=== PATIENT | female | born 1945 | race African-American/Black ===

== ENCOUNTER 2016-04-04 10:52 | Inpatient (IN) | payer MEDICARE, MEDICAID ==
[~2016-04-04] VITALS: Ht 157.5 cm; Wt 62.6 kg
[~2016-04-04 10:52] MED LIST: ALBUTEROL2.5 MG/3 M INH; BACTRIM DS TAB1 EAC1 ORAL; BENAZEPRIL HCL10 MG ORAL; HYDROCHLOROTHIA25 MG ORAL; PERCOCET 5-3251 EACH ORAL; TRAMADOL HCL50 MG ORAL; UNOBMED
[2016-04-04] MEDS ORDERED: DuoNeb 0.5-3(2.5)mg/3ml neb HHN ONE (11:00)
[2016-04-04 12:00] VITALS: BP 160/85
[2016-04-04 12:14] LABS: BASOPHILS % (AUTO) 1.8 % (0.0-2.0); EOSINOPHILS % (AUTO) 3.1 % (0.0-3.0); LYMPHOCYTES % (AUTO) 38.1 % (20.0-45.0); MEAN CORPUSCULAR HEMOGLOBIN 29.3 PG (27.0-31.0); MEAN CORPUSCULAR HGB CONC 32.1 G/DL (32.0-36.0); MEAN CORPUSCULAR VOLUME 91 FL (80-99); MEAN PLATELET VOLUME 7.3 FL (6.5-10.1); MONOCYTES % (AUTO) 5.6 % (1.0-10.0); NEUTROPHILS % (AUTO) 51.4 % (45.0-75.0); PLATELET COUNT 118 K/UL (150-450); RED BLOOD COUNT 4.87 M/UL (4.20-5.40); RED CELL DISTRIBUTION WIDTH 12.6 % (11.6-14.8); WHITE BLOOD COUNT 5.9 K/UL (4.8-10.8)
[2016-04-04 12:25] LABS: ABG ALLEN TEST POSITIVE; ABG BASE EXCESS 0.2; ABG PCO2 41.3 mmHg (35.0-45.0)
[2016-04-04 12:34] LABS: ALBUMIN/GLOBULIN RATIO 0.9 (1.0-2.7); CALCIUM 9.6 mg/dL (8.6-10.2); CREATININE 1.1 mg/dL (0.5-0.9); GLOMERULAR FILTRATION RATE 59.5 mL/min (>60); MAGNESIUM 1.7 mg/dL (1.7-2.5); PHOSPHORUS 4.2 mg/dL (2.5-4.8); POTASSIUM 4.6 mEQ/L (3.4-4.9); TOTAL PROTEIN 7.5 g/dL (6.6-8.7); TROPONIN I < 0.30 ng/mL (<=0.30)
[2016-04-04 12:37] LABS: REFLEX LACTIC ACID YES OR NO YES
[2016-04-04 12:45] LABS: CKMB 5.8 ng/mL (< 3.8)
[2016-04-04 13:08] LABS: APPEARANCE,URINE CLEAR; KETONES,URINE NEGATIVE (NEGATIVE); LEUKOCYTE ESTERASE ,URINE NEGATIVE (NEGATIVE); NITRITE,URINE NEGATIVE (NEGATIVE); PH,URINE 6 (4.5-8.0); PROTEIN,URINE 1+ (NEGATIVE); UROBILINOGEN,URINE NORMAL MG/DL (0.0-1.0)
[2016-04-04] MEDS ORDERED: cefTRIAXone 1 GM in NS 55 ML IVPB ONE (13:30)
[2016-04-04 13:48] LABS: BACTERIA,URINE FEW /HPF; SQUAMOUS EPITHELIAL CELL,UR FEW /LPF (NONE/OCC); WBC,URINE 0-2 /HPF (0 - 2)
--- NOTE | 2016-04-04 13:48 | Emergency Room Report ---
History of Present Illness General Chief Complaint: Multiple Trauma/Fall Source: Patient, EMS Present Illness HPI Patient is a 70-year-old female brought in by ambulance after a fall. Patient was noted to have a prior history of some left-sided weakness due to prior neck injury. Patient was noted to have a prior history of COPD. The patient was having some difficulty breathing. History is markedly limited by patient being a poor historian. Patient was reportedly at home when she fell from standing onto her buttocks. There was reportedly no loss of consciousness. Allergies: Coded Allergies: No Known Allergies (Unverified , 11/05/15) Patient History Past Medical History: see triage record Reviewed Nursing Documentation: PMH: Agreed, PSxH: Agreed Nursing Documentation-PMH Hx Cardiac Problems: No Hx Hypertension: Yes Hx Asthma: Yes Hx Diabetes: No Hx Cancer: No Hx Gastrointestinal Problems: No Hx Dialysis: No History Of Psychiatric Problem: No Hx Neurological Problems: No Hx Cerebrovascular Accident: No Hx Seizures: No Review of Systems All Other Systems: negative except mentioned in HPI Physical Exam Vital Signs Date Time Temp Pulse Resp B/P Pulse Ox O2 Delivery O2 Flow Rate FiO2 04/04/16 10:55 98.1 78 16 140/80 99 Room Air 04/04/16 11:16 21 Sp02 EP Interpretation: normal General Appearance: alert, moderate distress, other - confused ENT: hearing grossly normal, normal pharynx, dry mucus membranes Neck: limited range of motion Respiratory: no rhonchi, wheezing, expiration Cardiovascular #1: normal peripheral pulses, other - tachycardia Gastrointestinal: normal bowel sounds, soft, no mass Musculoskeletal: swelling - left ankle swelling], other Neurologic: alert, oriented x3, responsive, motor weakness - left upper extremity weakness Skin: normal inspection, normal color Medical Decision Making Diagnostic Impression: Primary Impression: Cervical spinal stenosis Additional Impressions: Fever Malnutrition COPD (chronic obstructive pulmonary disease) Dehydration ER Course Patient presented for fall. Differential diagnoses included was not limited to pelvic fracture, infection, diverticulitis, vascular insufficiency among others. The patient was noted to have some soft tissue swelling to her pelvis. Patient noted have some tenderness to her lower abdomen. A CT abdomen and pelvis was ordered. Patient noted a low-grade temperature. Patient was given IV fluids and breathing treatment due to dehydration. The patient given IV antibiotics after blood culture obtained. The lactic acid level was noted to be 2 the patient discussed with Dr. Byran who agreed to admit the patient Labs Test 04/04/16 12:10 04/04/16 12:17 04/04/16 12:53 White Blood Count 5.9 K/UL (4.8-10.8) Red Blood Count 4.87 M/UL (4.20-5.40) Hemoglobin 14.3 G/DL (12.0-16.0) Hematocrit 44.4 % (37.0-47.0) Mean Corpuscular Volume 91 FL (80-99) Mean Corpuscular Hemoglobin 29.3 PG (27.0-31.0) Mean Corpuscular Hemoglobin Concent 32.1 G/DL (32.0-36.0) Red Cell Distribution Width 12.6 % (11.6-14.8) Platelet Count 118 K/UL (150-450) Mean Platelet Volume 7.3 FL (6.5-10.1) Neutrophils (%) (Auto) 51.4 % (45.0-75.0) Lymphocytes (%) (Auto) 38.1 % (20.0-45.0) Monocytes (%) (Auto) 5.6 % (1.0-10.0) Eosinophils (%) (Auto) 3.1 % (0.0-3.0) Basophils (%) (Auto) 1.8 % (0.0-2.0) Sodium Level 143 mEQ/L (135-145) Potassium Level 4.6 mEQ/L (3.4-4.9) Chloride Level 101 mEQ/L (98-107) Carbon Dioxide Level 24 mEQ/L (20-30) Anion Gap 18 (5-15) Blood Urea Nitrogen 30 mg/dL (7-23) Creatinine 1.1 mg/dL (0.5-0.9) Estimat Glomerular Filtration Rate 59.5 mL/min (>60) Glucose Level 80 mg/dL (74-106) Lactic Acid Level 2.00 mmol/L (0.66-2.22) Calcium Level 9.6 mg/dL (8.6-10.2) Phosphorus Level 4.2 mg/dL (2.5-4.8) Magnesium Level 1.7 mg/dL (1.7-2.5) Total Bilirubin 0.4 mg/dL (0.0-1.2) Aspartate Amino Transf (AST/SGOT) 47 U/L (5-40) Alanine Aminotransferase (ALT/SGPT) 32 U/L (3-33) Alkaline Phosphatase 86 U/L (35-104) Total Creatine Kinase 368 U/L (26-140) Creatine Kinase MB 5.8 ng/mL (< 3.8) Creatine Kinase MB Relative Index 1.5 Troponin I < 0.30 ng/mL (<=0.30) Pro-B-Type Natriuretic Peptide 188 pg/mL (0-125) Total Protein 7.5 g/dL (6.6-8.7) Albumin 3.6 g/dL (3.5-5.2) Globulin 3.9 g/dL Albumin/Globulin Ratio 0.9 (1.0-2.7) Arterial Blood pH 7.401 (7.350-7.450) Arterial Blood Partial Pressure CO2 41.3 mmHg (35.0-45.0) Arterial Blood Partial Pressure O2 79.0 mmHg (75.0-100.0) Arterial Blood HCO3 25.0 mmol/L (22.0-26.0) Arterial Blood Oxygen Saturation 93.4 % (92.0-98.0) Arterial Blood Base Excess 0.2 Alfredo Test Positive Urine Color Yellow Urine Appearance Clear Urine pH 6 (4.5-8.0) Urine Specific [place] 1.015 (1.005-1.035) Urine Protein 1+ (NEGATIVE) Urine Glucose (UA) Negative (NEGATIVE) Urine Ketones Negative (NEGATIVE) Urine Occult Blood 2+ (NEGATIVE) Urine Nitrite Negative (NEGATIVE) Urine Bilirubin Negative (NEGATIVE) Urine Urobilinogen Normal MG/DL (0.0-1.0) Urine Leukocyte Esterase Negative (NEGATIVE) Urine RBC 2-4 /HPF (0 - 2) Urine WBC 0-2 /HPF (0 - 2) Urine Squamous Epithelial Cells Few /LPF (NONE/OCC) Urine Bacteria Few /HPF (NONE) EKG Diagnostic Results Rate: tachycardiac Rhythm: NSR - 117 ST Segments: no acute changes ASA given to the pt in ED: No Rhythm Strip Diag. Results EP Interpretation: yes Rhythm: no PVC's, no ectopy - sinus tachycardia Chest X-Ray Diagnostic Results EP Interpretation: Yes Findings: no consolidation, no effusion, no pneumothorax, no acute cardiopulmonary disease Number of Views: 1 Last Vital Signs Date Time Temp Pulse Resp B/P Pulse Ox O2 Delivery O2 Flow Rate FiO2 04/04/16 12:42 100.1 04/04/16 12:00 104 21 160/85 98 Room Air 04/04/16 11:27 28 Status: unchanged Disposition: ADMITTED INPATIENT Condition: Serious Referrals: NOT CHOSEN IPA/,REFERRING (PCP) Harshal Brown Apr 04, 2016 13:48
[2016-04-04] MEDS ORDERED: UNOBMED (13:55)
[2016-04-04 15:00] VITALS: BP 161/73
--- NOTE | 2016-04-04 15:08 | Diagnostic Imaging Report ---
Clinical Indication: FALL, pain Technique: No oral contrast utilized, per emergency room physician request IV administration nonionic contrast. Venous phase spiral acquisition obtained through the abdomen and pelvis. Multiplanar reconstructions were generated. Total dose length product 6 and a mGycm. CTDIvol(s) 14 mGy Comparison: 11/21/2015 Findings: The lack of enteric contrast limits evaluation of the bowel. The appendix is normal. There is colonic diverticulosis. No evidence of acute diverticulitis. There is mild rectal distention with stool. No small bowel distention. No free or loculated intraperitoneal air or fluid is evident. There are fascial wire sutures in the upper pelvic midline. The distal esophagus, stomach, duodenum are grossly unremarkable., Posterior dependent pulmonary atelectatic changes previously described acute colonic fat stranding is no longer evident. The gallbladder, bile ducts, liver, pancreas, spleen, adrenals, right kidney are unremarkable. Left kidney demonstrates subcentimeter low-attenuation lesions which are too small to characterize. No retroperitoneal or mesenteric mass or adenopathy. No pelvic mass or adenopathy. The uterus is not visualized, presumed surgically absent. A Elias catheter is seen within the bladder, which is empty. The included lung bases demonstrate some posterior dependent atelectatic change. The bones demonstrate a compression fracture deformity of the L1 vertebral body which was evident previously. There is degenerative spondylosis. Impression: No definite acute process Diverticulosis without evidence of diverticulitis L1 vertebral body compression fracture deformity, also previously described Subcentimeter low-attenuation left renal lesions, too small to characterize, most likely benign simple cyst. No further followup necessary Other findings as noted, including surgically absent uterus, Elias catheter, degenerative spondylosis The CT scanner at [facility] is accredited by the [employer] and the scans are performed using protocols designed to limit radiation exposure to as low as reasonably achievable to attain images of sufficient resolution adequate for diagnostic evaluation.
--- NOTE | 2016-04-04 16:10 | Diagnostic Imaging Report ---
Indication: SOB, cough Technique: One view of the chest Comparison: 11/23/2015 Findings: Lungs and pleural spaces are clear. Heart size is normal no significant change Impression: No acute process
[2016-04-04 16:24] VITALS: BP 156/75
--- NOTE | 2016-04-04 17:21 | Diagnostic Imaging Report ---
Indication: PAIN Technique: 3 views of the left ankle Comparison: none Findings: There is lateral soft tissue swelling. No acute fractures. No dislocations. Joint spaces are preserved. Bones are demineralized. Impression: Evidence of lateral soft tissue injury. No acute bony trauma. Osteoporotic change
[2016-04-04] MEDS ORDERED: Acetaminophen 650 MG SUPP RECTAL PRN (17:30)
[2016-04-04] MEDS ORDERED: DuoNeb 0.5-3(2.5)mg/3ml neb HHN PRN (17:30)
--- NOTE | 2016-04-04 19:10 | Neurology Progress Note ---
Objective Physical Exam Last Vital Signs Date Time Temp Pulse Resp B/P Pulse Ox O2 Delivery O2 Flow Rate FiO2 04/04/16 16:24 98.6 93 18 156/75 94 Room Air 04/04/16 15:54 28 Laboratory Tests Test 04/04/16 12:10 04/04/16 12:17 04/04/16 12:53 04/04/16 15:15 White Blood Count 5.9 K/UL (4.8-10.8) Red Blood Count 4.87 M/UL (4.20-5.40) Hemoglobin 14.3 G/DL (12.0-16.0) Hematocrit 44.4 % (37.0-47.0) Mean Corpuscular Volume 91 FL (80-99) Mean Corpuscular Hemoglobin 29.3 PG (27.0-31.0) Mean Corpuscular Hemoglobin Concent 32.1 G/DL (32.0-36.0) Red Cell Distribution Width 12.6 % (11.6-14.8) Platelet Count 118 K/UL (150-450) L Mean Platelet Volume 7.3 FL (6.5-10.1) Neutrophils (%) (Auto) 51.4 % (45.0-75.0) Lymphocytes (%) (Auto) 38.1 % (20.0-45.0) Monocytes (%) (Auto) 5.6 % (1.0-10.0) Eosinophils (%) (Auto) 3.1 % (0.0-3.0) H Basophils (%) (Auto) 1.8 % (0.0-2.0) Sodium Level 143 mEQ/L (135-145) Potassium Level 4.6 mEQ/L (3.4-4.9) Chloride Level 101 mEQ/L (98-107) Carbon Dioxide Level 24 mEQ/L (20-30) Anion Gap 18 (5-15) H Blood Urea Nitrogen 30 mg/dL (7-23) H Creatinine 1.1 mg/dL (0.5-0.9) H Estimat Glomerular Filtration Rate 59.5 mL/min (>60) Glucose Level 80 mg/dL (74-106) Lactic Acid Level 2.00 mmol/L (0.66-2.22) 0.80 mmol/L (0.66-2.22) Calcium Level 9.6 mg/dL (8.6-10.2) Phosphorus Level 4.2 mg/dL (2.5-4.8) Magnesium Level 1.7 mg/dL (1.7-2.5) Total Bilirubin 0.4 mg/dL (0.0-1.2) Aspartate Amino Transf (AST/SGOT) 47 U/L (5-40) H Alanine Aminotransferase (ALT/SGPT) 32 U/L (3-33) Alkaline Phosphatase 86 U/L (35-104) Total Creatine Kinase 368 U/L (26-140) H Creatine Kinase MB 5.8 ng/mL (< 3.8) H Creatine Kinase MB Relative Index 1.5 Troponin I < 0.30 ng/mL (<=0.30) Pro-B-Type Natriuretic Peptide 188 pg/mL (0-125) H Total Protein 7.5 g/dL (6.6-8.7) Albumin 3.6 g/dL (3.5-5.2) Globulin 3.9 g/dL Albumin/Globulin Ratio 0.9 (1.0-2.7) L Arterial Blood pH 7.401 (7.350-7.450) Arterial Blood Partial Pressure CO2 41.3 mmHg (35.0-45.0) Arterial Blood Partial Pressure O2 79.0 mmHg (75.0-100.0) Arterial Blood HCO3 25.0 mmol/L (22.0-26.0) Arterial Blood Oxygen Saturation 93.4 % (92.0-98.0) Arterial Blood Base Excess 0.2 Alfredo Test Positive Urine Color Yellow Urine Appearance Clear Urine pH 6 (4.5-8.0) Urine Specific [place] 1.015 (1.005-1.035) Urine Protein 1+ (NEGATIVE) H Urine Glucose (UA) Negative (NEGATIVE) Urine Ketones Negative (NEGATIVE) Urine Occult Blood 2+ (NEGATIVE) H Urine Nitrite Negative (NEGATIVE) Urine Bilirubin Negative (NEGATIVE) Urine Urobilinogen Normal MG/DL (0.0-1.0) Urine Leukocyte Esterase Negative (NEGATIVE) Urine RBC 2-4 /HPF (0 - 2) H Urine WBC 0-2 /HPF (0 - 2) Urine Squamous Epithelial Cells Few /LPF (NONE/OCC) Urine Bacteria Few /HPF (NONE) Test 04/04/16 17:40 Urine Opiates Screen Positive (NEGATIVE) H Urine Barbiturates Screen Negative (NEGATIVE) Phencyclidine (PCP) Screen Negative (NEGATIVE) Urine Amphetamines Screen Negative (NEGATIVE) Urine Benzodiazepines Screen Positive (NEGATIVE) H Urine Cocaine Screen Negative (NEGATIVE) Urine Marijuana (THC) Screen Negative (NEGATIVE) Impression/Recommendations Problems: (1) 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
[2016-04-04] MEDS: 1/2NS w/KCl 20mEq 1000ml 1,000 ML IV SCH (19:12)
[2016-04-04 20:00] VITALS: BP 156/77
[2016-04-04 20:46] LABS: CHOLESTEROL/HDL RATIO 1.8 (3.3-4.4)
[2016-04-04] MEDS: Heparin 5000 units/ml inj SUBQ SCH (21:32)
[2016-04-05] VITALS (7 sets, daily range): BP systolic 157–176; BP diastolic 71–97
--- NOTE | 2016-04-05 00:09 | History and Physical Report ---
DATE OF ADMISSION: 04/04/2016 CHIEF COMPLAINT: Altered level of consciousness and fall. HISTORY OF PRESENT ILLNESS: This is a 70-year-old female who was brought in by ambulance after a fall and left left-sided weakness. This is a 70-year-old female who was brought in by paramedics after a left-sided weakness prior to a neck injury. The patient currently is nonverbal. She is barely mourning. She is admitted to telemetry after staying in the emergency department. PAST MEDICAL HISTORY: 1. Chronic obstructive pulmonary disease. 2. Congestive heart failure. 3. Hypertensive cardiovascular disease. HOME MEDICATIONS: Albuterol inhaler, benazepril, and hydrochlorothiazide. ALLERGIES: No known drug allergies. FAMILY HISTORY: Unable to obtain secondary to mental status. SOCIAL HISTORY: Unable to obtain secondary to mental status. REVIEW OF SYSTEMS: Unable to obtain secondary to mental status. PHYSICAL EXAMINATION: GENERAL: This is an elderly female who is in no acute distress. VITAL SIGNS: Blood pressure 156/75, pulse 93 apical, temperature 98.6 degrees axillary, and O2 saturation 94% on room air. HEENT: The head is normocephalic and atraumatic. Pupils are equal, round, and reactive to light and accommodation consensually. NECK: Supple. Trachea midline. There was no lymphadenopathy or thyromegaly. LUNGS: Clear to auscultation and percussion. HEART: Regular rate and rhythm without rubs, murmurs, or gallops. ABDOMEN: Soft and nontender. Bowel sounds were active. EXTREMITIES: No clubbing, cyanosis, or edema. NEUROLOGIC: She is confused. There were no lateralizing signs. LABORATORY AND ANCILLARY DATA: CBC within normal limits. Serum chemistry, lactic acid 2 and then 0.8. CPK 368, otherwise unremarkable. BUN 30. ABGs unremarkable. CT of the abdomen and pelves, no acute process or diverticulosis. EKG showed sinus tachycardia, no signs of ischemia. Ankle x-ray, no acute findings. Chest x-ray, no acute process. ASSESSMENT: Altered level of consciousness, rule out acute cerebrovascular accident, rule out transient ischemic attack, rule out intoxication. PLAN: 1. Toxicology screen. 2. CT scan of brain. 3. Neurology consult. 4. Keep NPO. 5. Intravenous fluids. 6. Rule out sepsis. Shantel Baker M.D. DR: ADOLPH JOB#: [id number] CC:
[2016-04-05] MEDS: 1/2NS w/KCl 20mEq 1000ml 1,000 ML IV SCH ×2 (06:16→20:11)
--- NOTE | 2016-04-05 06:29 | Consultation ---
DATE OF CONSULTATION: 04/04/2016 NEUROLOGICAL CONSULTATION CONSULTING PHYSICIAN: Kevin Peguero M.D. REQUESTING PHYSICIAN: Shantel Baker M.D. HISTORY OF PRESENT ILLNESS: This is a 70-year-old female, seen in neurological consultation to evaluate new onset of mechanical fall, change in mental status, according to paramedics, she was fully awake and alert with a Arik Coma Scale of 15, complaining of upper buttock pain from ground fall, she was using bathroom when she slipped and fell with no loss of consciousness with no head, neck, or back pain and no evidence of trauma noted. Her vital signs were stable except blood pressure 156/100 and respirations 16. The patient was brought to emergency room, history was quite limited due to the patient being poor historian. The patient denies having loss of consciousness. Her vital signs remained stable. She was afebrile. Her initial laboratory work included normal CBC studies; chemistry panel, except BUN of 30 and creatinine 1.1, elevated CK of 368, CK-MB 5.8, and BNP of 588, her toxicology panel positive for benzodiazepines and opiates, urinalysis 1+ protein. Chest x-ray, no acute disease, CAT scan of the abdomen and pelvis revealed no definitive acute process, L1 vertebral body compression fracture deformity as previously, and her ankle fracture, soft tissue injury. Since admission, mental status changes. The patient remains quite drowsy. PAST MEDICAL HISTORY: The patient has a history of COPD, history of cervical spine stenosis with left hemiparesis, history of hypertension, and bronchial asthma. MEDICATIONS: Treatment prior to admission included albuterol, benazepril, and hydrochlorothiazide. Apparently added Zofran . ALLERGIES: None reported. SOCIAL HISTORY: Denies alcohol or drug abuse. . FAMILY HISTORY: Noncontributory. REVIEW OF SYMPTOMS: The patient was found to be very drowsy, but arousable, able to provide with limited information. Denies headache, dizziness, and chest pains. No respiratory problems, but complains of severe constipation, difficulty ambulation, and "I have this left-sided paralysis." PHYSICAL EXAMINATION: GENERAL: A well-developed and well-nourished female, lying comfortably in bed. She is quite drowsy. VITAL SIGNS: Now are stable. Her blood pressure 156/75 and respirations 18. HEENT: Head, normocephalic. No evidence of injuries. Eyes, ears, nose, and throat are clear. NECK: Rigid in all directions. MUSCULOSKELETAL: Revealed diffuse rigidity, more towards the left. MENTAL STATUS: The patient is arousable, has a brief contact indicating yes or no responses, and able to follow simple commands. CRANIAL NERVE II: Pupils both responding to light and accommodation. Extraocular movement intact. No nystagmus. CRANIAL NERVE V: Normal corneal responses. CRANIAL NERVE VII: No significant facial asymmetry. CRANIAL NERVE VIII: Normal hearing. CRANIAL NERVES IX THROUGH XII: Tongue in the midline. Symmetric palate elevation. MOTOR EXAMINATION: Revealed diffuse rigidity in all extremities, more on the left, resisting to examination with a good strength in all limbs. Deep tendon reflexes depressed bilaterally. Plantar response is mute. Sensory examination withdrawing to pin stimulation in both upper and lower extremities, gait not tested. IMPRESSION: 1. This is a 70-year-old female with a history of mechanical fall, blunt gluteal trauma, now presenting with lethargy. 2. Spastic quadriparesis more on the left, rule out cervical myelopathy, chronic. 3. Hypertension. 4. Chronic obstructive pulmonary disease. 5. Malnutrition, dehydration. RECOMMENDATIONS: 1. The patient to start on IV fluids and antibiotics to cover underlying dehydration and possible ongoing infection. 2. She has significant generalized rigidity predominantly on the left side, which was a history of cervical spondylosis. Cervical spinal stenosis may indicate myelopathy. 3. The patient to be off sedation, reassess in a.m., had orthostatic blood pressure, get PT and OT for mobility protocol, consider obtaining MRI of the cervical spine (MRI of thoracic spine and lumbar spine were done a few months ago with no cord compression). 4. Baseline MRI of the brain will be also necessary in presence of left-sided hemiparesis. 5. The patient to continue with current treatment including aspirin and statins. We will follow with you. Thank you for allowing me to see this interesting patient in neurological consultation. Kevin Peguero M.D. DR: VINH JOB#: [id number] CC:
[2016-04-05] MEDS: Heparin 5000 units/ml inj SUBQ SCH ×2 (08:24→20:11)
[2016-04-05] MEDS: Pantoprazole Inj IV SCH (08:49)
[2016-04-05] MEDS ORDERED: GABAPENTIN600 MG ORAL (12:40)
[2016-04-05] MEDS ORDERED: ACETAMINOPHEN-1 EAC2 ORAL (12:40)
[2016-04-05] MEDS ORDERED: AMBIEN5 MG ORAL (12:40)
--- NOTE | 2016-04-05 13:10 | General Progress Note ---
Assessment/Plan Assessment/Plan AMS secondary to Narcotics + Benzodiazepines. Urine Tox Screen Positive. Scrap Picker to be involved. Subjective Allergies: Coded Allergies: No Known Allergies (Unverified , 11/05/15) Subjective More alert. Objective Last 24 Hour Vital Signs Date Time Temp Pulse Resp B/P Pulse Ox O2 Delivery O2 Flow Rate FiO2 04/05/16 08:00 89 04/05/16 08:00 98.2 88 18 176/76 95 Room Air 04/05/16 06:30 120 20 Room Air 28 04/05/16 04:00 99.5 103 20 164/97 96 Room Air 04/05/16 04:00 88 04/05/16 00:00 98.6 87 20 159/71 96 Room Air 04/05/16 00:00 83 04/04/16 20:09 99 04/04/16 20:00 98.7 95 20 156/77 99 Room Air 04/04/16 16:35 108 04/04/16 16:24 98.6 93 18 156/75 94 Room Air 04/04/16 15:54 99.5 105 20 161/73 97 Room Air 28 04/04/16 15:00 99.5 105 20 161/73 97 Room Air 04/04/16 14:17 99.5 Intake and Output 04/04/16 04/05/16 19:00 07:00 Intake Total 1055 ml 828 ml Output Total 500 ml 600 ml Balance 555 ml 228 ml Intake IV Total 1055 ml 828 ml Output Urine Total 500 ml 600 ml # Bowel Movements 1 1 Laboratory Tests 04/04/16 15:15: Lactic Acid Level 0.80 04/04/16 17:40: Urine Opiates Screen PositiveH, Urine Barbiturates Screen Negative, Phencyclidine (PCP) Screen Negative, Urine Amphetamines Screen Negative, Urine Benzodiazepines Screen PositiveH, Urine Cocaine Screen Negative, Urine Marijuana (THC) Screen Negative 04/04/16 19:45: Triglycerides Level 55, Cholesterol Level 125, LDL Cholesterol 43L, HDL Cholesterol 71H, Cholesterol/HDL Ratio 1.8L, Vitamin B12 Level 678 Height (Feet): 5 Height (Inches): 2.00 Weight (Pounds): 138 Objective Cv RR Lungs CTA Abd SNT. BS+ E No CCE ALBERT NICHOLSON Apr 05, 2016 13:10
--- NOTE | 2016-04-05 14:36 | Cardiology Report ---
APPROVED REPORT EKG Measurement Heart [id number] Sinus tachycardia Possible Left atrial enlargement Septal infarct, age undetermined Abnormal ECG
--- NOTE | 2016-04-05 15:13 | Neurology Progress Note ---
Interim History Interim History ROS Limited/Unobtainable: Yes Complaints: headache Events: stable Objective Physical Exam Last Vital Signs Date Time Temp Pulse Resp B/P Pulse Ox O2 Delivery O2 Flow Rate FiO2 04/05/16 12:00 98 04/05/16 12:00 98.4 18 157/79 96 Room Air 04/05/16 06:30 28 Laboratory Tests Test 04/04/16 15:15 04/04/16 17:40 04/04/16 19:45 Lactic Acid Level 0.80 mmol/L (0.66-2.22) Urine Opiates Screen Positive (NEGATIVE) H Urine Barbiturates Screen Negative (NEGATIVE) Phencyclidine (PCP) Screen Negative (NEGATIVE) Urine Amphetamines Screen Negative (NEGATIVE) Urine Benzodiazepines Screen Positive (NEGATIVE) H Urine Cocaine Screen Negative (NEGATIVE) Urine Marijuana (THC) Screen Negative (NEGATIVE) Triglycerides Level 55 mg/dL (< 150) Cholesterol Level 125 mg/dL (< 200) LDL Cholesterol 43 mg/dL (60-99) L HDL Cholesterol 71 mg/dL (> 60) H Cholesterol/HDL Ratio 1.8 (3.3-4.4) L Vitamin B12 Level 678 pg/mL (211-946) General: well developed, no acute distress, other - cachectic Head: normocophalic, other - tender occiput Neck: other - rigid Neurologic Exam Mental Status: awake, alert, other - ox2 Speech: normal speech, no dysarthia Language: normal language, no aphasia Cranial Nerve II: fundus normal, visual molina, no papilledema Cranial Nerves III, IV, : PERRLA, EOMI, pupils Cranial Nerve V: normal facial sensations, temporales function normal, masseters function normal, pterygoids function normal Cranial Nerve VII: no facial asymmetry, normal facial expressions Cranial Nerve VIII: normal hearing, no nystagmus Cranial Nerve IX: normal palate elevation, gag response Cranial Nerve X: no voice hoarseness Cranial Nerve XI: SCM symmetric, trapezii function normal Cranial Nerve XII: tongue midline, no tongue atrophy/fasciculations Motor System: other - spastic L>Rlimbs Sensory: other Coordination: other Deep Tendon Reflexes: 0 ankle (L), 0 ankle (R), 0 bicep (L), 0 bicep (R), 0 brachioradialis (L), 0 brachioradialis (R), 0 knee (L), 0 knee (R), 0 tricep (L) , 0 tricep (R) Reflexes: mute plantar (L), mute plantar (R) Impression/Recommendations Problems: (1) 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
[2016-04-05] MEDS ORDERED: Zolpidem 5mg tab ORAL PRN (21:00)
[2016-04-05] MEDS ORDERED: BENAZEPRIL HCL40 MG ORAL (21:53)
[2016-04-06 00:12] VITALS: BP 145/74
[2016-04-06 04:05] VITALS: BP 159/75
[2016-04-06] MEDS: 1/2NS w/KCl 20mEq 1000ml 1,000 ML IV SCH ×2 (06:59→21:18)
[2016-04-06 07:59] VITALS: BP 162/89
[2016-04-06] MEDS: Heparin 5000 units/ml inj SUBQ SCH ×2 (08:49→20:54)
[2016-04-06] MEDS: Pantoprazole Inj IV SCH (08:49)
--- NOTE | 2016-04-06 09:13 | General Progress Note ---
Assessment/Plan Assessment/Plan AMS secondary to Narcotics + Benzodiazepines. Urine Tox Screen Positive. Ice Guard Tester to be involved. Subjective Allergies: Coded Allergies: No Known Allergies (Unverified , 11/05/15) Subjective More alert. Objective Last 24 Hour Vital Signs Date Time Temp Pulse Resp B/P Pulse Ox O2 Delivery O2 Flow Rate FiO2 04/06/16 08:47 162/89 04/06/16 07:59 97.7 90 18 162/89 98 Room Air 04/06/16 07:58 78 20 Room Air 21 04/06/16 04:05 99.0 95 18 159/75 95 Room Air 04/06/16 04:00 92 04/06/16 00:12 99.3 100 19 145/74 100 Room Air 04/06/16 00:00 92 04/05/16 22:29 176/82 04/05/16 20:00 91 04/05/16 20:00 97.2 87 18 176/82 92 Room Air 04/05/16 19:30 102 20 Room Air 21 04/05/16 18:05 159/74 04/05/16 17:00 98.4 89 20 159/74 99 Room Air 04/05/16 16:00 99.9 109 20 170/77 99 Room Air 04/05/16 16:00 110 04/05/16 12:00 98 04/05/16 12:00 98.4 98 18 157/79 96 Room Air Intake and Output 04/05/16 04/06/16 19:00 07:00 Intake Total 900 ml 825 ml Output Total 355 ml 1200 ml Balance 545 ml -375 ml Intake IV Total 900 ml 825 ml Output Urine Total 355 ml 1200 ml # Bowel Movements 2 Height (Feet): 5 Height (Inches): 2.00 Weight (Pounds): 138 Objective Cv RR Lungs CTA Abd SNT. BS+ E No CCE ALBERT NICHOLSON Apr 06, 2016 09:13
[2016-04-06 11:17] VITALS: BP 163/79
[2016-04-06 16:00] VITALS: BP 114/89
[2016-04-06 20:00] VITALS: BP 149/68
[2016-04-07 00:17] VITALS: BP 155/72
[2016-04-07 04:20] VITALS: BP 151/70
[2016-04-07 07:56] VITALS: BP 160/78
[2016-04-07] MEDS: Heparin 5000 units/ml inj SUBQ SCH ×2 (09:00→21:00)
[2016-04-07] MEDS: Pantoprazole Inj IV SCH (09:26)
[2016-04-07 12:03] VITALS: BP 149/78
--- NOTE | 2016-04-07 13:24 | General Progress Note ---
Assessment/Plan Assessment/Plan AMS secondary to Narcotics + Benzodiazepines. Urine Tox Screen Positive. Sales Branch Manager to be involved. Unsafe for DC. Needs a sitter + Psych Eval. Subjective Allergies: Coded Allergies: No Known Allergies (Unverified , 11/05/15) Subjective More alert.Patient expressing suicidal ideation. Objective Last 24 Hour Vital Signs Date Time Temp Pulse Resp B/P Pulse Ox O2 Delivery O2 Flow Rate FiO2 04/07/16 12:03 98.1 81 20 149/78 100 Room Air 04/07/16 11:59 76 149/78 04/07/16 11:41 89 04/07/16 09:25 160/78 04/07/16 07:56 98.1 76 20 160/78 99 Room Air 04/07/16 07:37 77 04/07/16 07:21 91 17 Room Air 21 04/07/16 04:20 97.5 75 20 151/70 96 Room Air 04/07/16 04:00 74 04/07/16 00:17 98.2 75 18 155/72 95 Room Air 04/07/16 00:00 77 04/06/16 20:00 81 18 Room Air 21 04/06/16 20:00 98.2 81 18 149/68 93 Room Air 04/06/16 20:00 84 04/06/16 19:01 114/89 04/06/16 16:00 98.1 78 18 114/89 95 Room Air 04/06/16 16:00 59 Intake and Output 04/06/16 04/07/16 19:00 07:00 Intake Total 900 ml 877.5 ml Output Total 500 ml 2000 ml Balance 400 ml -1122.5 ml IV Total 900 ml 877.5 ml Output Urine Total 500 ml 2000 ml # Bowel Movements 1 Height (Feet): 5 Height (Inches): 2.00 Weight (Pounds): 138 Objective Cv RR Lungs CTA Abd SNT. BS+ E No CCE ALBERT NICHOLSON Apr 07, 2016 13:23
[2016-04-07] MEDS: 1/2NS w/KCl 20mEq 1000ml 1,000 ML IV SCH (13:36)
[2016-04-07 16:23] VITALS: BP 144/60
[2016-04-07 20:00] VITALS: BP 145/65
[2016-04-08 00:17] VITALS: BP 119/59
[2016-04-08] MEDS: 1/2NS w/KCl 20mEq 1000ml 1,000 ML IV SCH ×2 (03:47→16:55)
[2016-04-08 04:05] VITALS: BP 134/65
[2016-04-08 08:00] VITALS: BP 139/69
[2016-04-08] MEDS: Pantoprazole Inj IV SCH (08:56)
[2016-04-08] MEDS: Heparin 5000 units/ml inj SUBQ SCH ×2 (08:56→21:00)
--- NOTE | 2016-04-08 10:06 | General Progress Note ---
Assessment/Plan Assessment/Plan AMS secondary to Narcotics + Benzodiazepines. Urine Tox Screen Positive. Craft Center Director to be involved. Unsafe for DC. Needs a sitter + Psych Eval. No note seen. DW Dr. Vyas. OK For Med Surg. Subjective Allergies: Coded Allergies: No Known Allergies (Unverified , 11/05/15) Subjective More alert.Patient expressing suicidal ideation. Objective Last 24 Hour Vital Signs Date Time Temp Pulse Resp B/P Pulse Ox O2 Delivery O2 Flow Rate FiO2 04/08/16 08:51 75 139/69 04/08/16 08:51 139/69 04/08/16 08:00 74 04/08/16 08:00 98.2 75 17 139/69 96 Room Air 04/08/16 07:55 77 18 Room Air 21 04/08/16 04:05 97.0 77 20 134/65 95 Room Air 04/08/16 03:40 72 04/08/16 00:17 97.0 72 20 119/59 94 Room Air 04/07/16 23:53 75 04/07/16 21:00 75 145/65 04/07/16 20:00 97.7 75 20 145/65 95 Room Air 04/07/16 19:46 79 04/07/16 19:44 82 18 Room Air 21 04/07/16 17:47 144/60 04/07/16 16:23 98.0 76 20 144/60 97 Room Air 04/07/16 16:17 75 04/07/16 12:03 98.1 81 20 149/78 100 Room Air 04/07/16 11:59 76 149/78 04/07/16 11:41 89 Intake and Output 04/07/16 04/08/16 19:00 07:00 Intake Total 1057.5 ml 750 ml Output Total 1000 ml 900 ml Balance 57.5 ml -150 ml Intake Oral 410 ml IV Total 647.5 ml 750 ml Output Urine Total 1000 ml 900 ml # Bowel Movements 2 Height (Feet): 5 Height (Inches): 2.00 Weight (Pounds): 138 Objective Cv RR Lungs CTA Abd SNT. BS+ E No CCE ALBERT NICHOLSON Apr 08, 2016 10:06
[2016-04-08 12:00] VITALS: BP 138/63
[2016-04-08 16:00] VITALS: BP 106/44
[2016-04-08 20:00] VITALS: BP 122/62
[2016-04-09] VITALS (7 sets, daily range): BP systolic 131–164; BP diastolic 61–74
--- NOTE | 2016-04-09 00:24 | Consultation ---
Consult Note Consult Note The pt was seen and evaluated 04/07 at [facility] and the note was dictated after the eval however it is not available yet. I have called [facility] and the medical record is working on it. The pt was lucid earlier during the day however during my evaluation she was drowsy. There was a sitter in the room who was assigned to bed 2. the pt stated that she was suicidal then she stated she was not. her mother passed two days ago and apparently the pt has been fighting with her daughter for not visiting her at the hospital the pt is not mobile and is bed-ridden. I ordered sitter as well as pet team eval. today the pt stated that she is grieving over her mother's and is not suicidal. Her daughter is willing to take her back and stay with her. I do recommend the pt to be transferred to a [facility]. the pt has capacity to make decisions. And the pt is at low risk for danger to self. Lisbeth Vyas M.D. Apr 09, 2016 00:24
[2016-04-09] MEDS: 1/2NS w/KCl 20mEq 1000ml 1,000 ML IV SCH ×2 (06:03→18:08)
[2016-04-09] MEDS: Pantoprazole Inj IV SCH (08:47)
[2016-04-09] MEDS: Heparin 5000 units/ml inj SUBQ SCH ×2 (08:50→21:42)
--- NOTE | 2016-04-09 10:55 | General Progress Note ---
Assessment/Plan Assessment/Plan 1) AMS 2) HTN 3) COPD 4) ?CHF Plan per --psych recommended to dc to SNF as pt is not safe to dc home CM consult for SNF placement was placed Discussed with charged nurse ewa William Subjective Allergies: Coded Allergies: No Known Allergies (Unverified , 11/05/15) Subjective No acute event Objective Last 24 Hour Vital Signs Date Time Temp Pulse Resp B/P Pulse Ox O2 Delivery O2 Flow Rate FiO2 04/09/16 08:49 73 164/73 04/09/16 08:49 164/73 04/09/16 08:15 97.9 73 21 164/73 95 Nasal Cannula 2.0 04/09/16 08:00 77 04/09/16 06:49 81 20 Room Air 04/09/16 04:00 97.5 69 16 143/67 95 Room Air 04/09/16 04:00 69 04/09/16 00:00 72 04/09/16 00:00 97.9 69 16 148/62 97 Room Air 04/08/16 22:23 82 122/62 04/08/16 20:05 82 18 Room Air 21 04/08/16 20:00 79 04/08/16 20:00 97.6 74 21 122/62 99 Room Air 04/08/16 17:52 106/44 04/08/16 16:00 77 04/08/16 16:00 98.0 69 20 106/44 97 Room Air 04/08/16 12:00 97.9 72 17 138/63 97 Room Air 04/08/16 12:00 74 Intake and Output 04/08/16 04/09/16 19:00 07:00 Intake Total 1291 ml 1085 ml Output Total 850 ml 2400 ml Balance 441 ml -1315 ml Intake Oral 460 ml 260 ml IV Total 831 ml 825 ml Output Urine Total 850 ml 2400 ml # Bowel Movements 2 Height (Feet): 5 Height (Inches): 2.00 Weight (Pounds): 138 Objective NAd, confused CTA b/l,no rales, no rhonchi S1,S2,RRR,no M/R/G soft, non tender, BS+ no edema CABALLERO,BRISEIDA Apr 09, 2016 10:55
[2016-04-09] MEDS ORDERED: Acetaminophen 650 MG SUPP RECTAL PRN (17:30)
[2016-04-09] MEDS ORDERED: Zolpidem 5mg tab ORAL PRN (21:00)
[2016-04-10 00:28] VITALS: BP 135/61
[2016-04-10 04:00] VITALS: BP 136/69
[2016-04-10] MEDS: 1/2NS w/KCl 20mEq 1000ml 1,000 ML IV SCH ×2 (05:15→21:14)
[2016-04-10 08:00] VITALS: BP 145/62
[2016-04-10] MEDS: Pantoprazole Inj IV SCH (08:11)
[2016-04-10] MEDS: Heparin 5000 units/ml inj SUBQ SCH ×2 (08:13→20:31)
--- NOTE | 2016-04-10 11:01 | General Progress Note ---
Assessment/Plan Assessment/Plan 1) AMS 2) HTN 3) COPD 4) ?CHF Plan per --psych recommended to dc to SNF as pt is not safe to dc home CM consult for SNF placement was placed Per RN, the daughter wants to take pt home for family issue, need pt's signature. Asked RN to call psych if pt is ok to dc home for that issue Discussed with charged nurse continue current Mx Subjective Allergies: Coded Allergies: No Known Allergies (Unverified , 11/05/15) Subjective No acute event. Objective Last 24 Hour Vital Signs Date Time Temp Pulse Resp B/P Pulse Ox O2 Delivery O2 Flow Rate FiO2 04/10/16 08:15 145/62 04/10/16 08:11 76 145/62 04/10/16 08:00 98.6 76 18 145/62 Room Air 04/10/16 04:00 98.6 70 19 136/69 94 Room Air 04/10/16 00:28 97.2 70 21 135/61 94 Room Air 04/09/16 21:43 68 163/70 04/09/16 20:07 68 19 Room Air 04/09/16 20:00 98.2 68 16 163/70 97 Room Air 04/09/16 18:10 151/75 04/09/16 16:00 97.9 78 18 131/61 96 Room Air 04/09/16 12:40 155/74 04/09/16 12:15 98.1 80 20 161/73 96 Room Air 04/09/16 12:00 79 Intake and Output 04/09/16 04/10/16 19:00 07:00 Intake Total 1305 ml 690 ml Output Total 1550 ml Balance 1305 ml -860 ml Intake Oral 480 ml 240 ml IV Total 825 ml 450 ml Output Urine Total 1550 ml Height (Feet): 5 Height (Inches): 2.00 Weight (Pounds): 138 Objective NAd, confused CTA b/l,no rales, no rhonchi S1,S2,RRR,no M/R/G soft, non tender, BS+ no edema CABALLERO,BRISEIDA Apr 10, 2016 11:01
[2016-04-10 12:00] VITALS: BP 167/82
[2016-04-10 16:15] VITALS: BP 124/58
[2016-04-10 20:40] VITALS: BP 165/72
[2016-04-11] VITALS: BP 149/69
[2016-04-11 04:00] VITALS: BP 150/74
[2016-04-11 08:01] VITALS: BP 150/70
[2016-04-11] MEDS: Pantoprazole Inj IV SCH (08:47)
[2016-04-11] MEDS: Heparin 5000 units/ml inj SUBQ SCH (08:50)
--- NOTE | 2016-04-11 09:20 | Consultation ---
DATE OF CONSULTATION: CONSULTING PHYSICIAN: Lisbeth Vyas M.D. HISTORY OF PRESENT ILLNESS: This is a 70-year-old female with the history of benzodiazepine dependence, anxiety disorder, depression, who was admitted to the hospital status post fall and left-sided weakness. The patient was found to be drowsy and was nonverbal in the emergency room. The patient remained nonverbal and sick for several days. After the admission today, she is more alert, however, still disoriented. The patient endorses depressed mood, anhedonia, worthlessness, hopelessness, anxiety. Suicidal ideation, she did not have any plan or intention. She endorses impairment of memory and the patient admitted that she has been using opiate pain medication as well as benzodiazepine. The urine tox is positive for benzodiazepine as well as opiates. PAST PSYCHIATRIC HISTORY: She has a history of anxiety and depression. She is currently on no psychotropic medication beside Ambien p.r.n. PAST MEDICAL HISTORY: Significant for leukocytosis, cervical spinal stenosis, disc degeneration, acute kidney injury, sepsis, anemia, malnutrition, COPD, dehydration, constipation, and myelopathy. ALLERGIES: There are no known drug allergies. FAMILY HISTORY: Noncontributory. SUBSTANCE ABUSE HISTORY: She has a history of pain medication abuse. No illicit drug use. MENTAL STATUS EXAMINATION: The patient is alert and oriented to self and place. Mood is depressed. Affect is constricted. She suicidal ideation. Insight and judgment is impaired. ASSESSMENT: Canby I Benzodiazepine toxicity. Opiate toxicity. Major depressive disorder. Canby II Deferred. Canby III Altered level of consciousness and fall. Canby IV Low. Canby V Global assessment of functioning is 30 PLAN: 1. The patient will be started on non-psychotropic medication. 2. The patient with one-to-one . 3. evaluation and I recommend psychiatric hospitalization when medically cleared. Lisbeth Vyas M.D. DR: Mely JOB#: [id number] CC:
[2016-04-11] MEDS: 1/2NS w/KCl 20mEq 1000ml 1,000 ML IV SCH (10:00)
[2016-04-11 12:05] VITALS: BP 128/59
--- NOTE | 2016-04-12 12:51 | Discharge Summary ---
Discharge Summary Hospital Course Date of Admission Apr 04, 2016 at 12:09 Date of Discharge Apr 11, 2016 at 13:10 Admitting Diagnosis SOB , MULTIPLE FALL, DEHYDRATION HPI Ayanna Baptiste is a 70 year old female who was admitted on Apr 04, 2016 at 12:09 for shortness of breath ,MULTIPLE FALL Hospital Course dc summary dictated # [id number] Discharge Condition Upon Discharge: stable Discharge Disposition Patient signed AMA Discharge Diagnoses: Discharge Instructions Discharge Instructions Special Instructions I have been assigned to complete a D/C Summary on this account. I was not involved in the patient management Judy Smith NP (Vanchtein) Apr 12, 2016 12:51
--- NOTE | 2016-04-13 04:48 | Discharge Summary 2 SIG ---
DATE OF ADMISSION: 04/04/2016 DATE OF SIGNING AGAINST MEDICAL ADVICE: 04/11/2016 REASON FOR HOSPITALIZATION: 70-year-old female presented to the emergency department after a fall. The patient with a prior history of left side weakness due to the prior history of neck injury. The patient has a history of COPD. She presented with difficulty breathing. The patient was a poor historian, was altered at the time of presentation. She reported no loss of consciousness. No blackouts. Workup in the emergency room revealed stable pulse oximetry on the room air. No leukocytosis. Stable hemoglobin and hematocrit. BUN 30 and creatinine 1.1. Lactic acid within normal limits. Troponin was negative. ProBNP was 188. EKG showed sinus tach at 117. No ischemic changes. Chest x-ray revealed no acute cardiopulmonary disease. X-ray of the left ankle showed soft tissue injury, but no acute bony trauma. CT of the abdomen and pelvis revealed no acute abdominal pathology. Presence of diverticulosis, but no diverticulitis. ABG was done on the room air and was stable. Blood pressure was elevated at 160/85. In the emergency department, the patient was started on the IV fluids and nebulizing treatment. Blood culture were drawn. The patient was given empiric antibiotics and transferred to the floor for further management. ADMITTING DIAGNOSES: status post fall acute encephalopathy history of cervical spinal stenosis rule out CVA rule out intoxication chronic obstructive pulmonary disease dehydration malnutrition HOSPITAL STAY: The patient was on the IV fluids. Neurology consult was requested. Neurologist recommended MRI of the brain due to the left-sided hemiparesis even though it was chronic as well as the MRI of C-spine to rule out cord compression (MRI of thoracic and lumbar spine were done few months ago and there was no evidence of cord compression). He recommended to continue aspirin and statin, keep the patient off sedation and check the orthostatic blood pressure, which was checked. There was no evidence of orthostatic changes. IV fluids continued. Fall precautions maintained. The patient was working with physical and occupational therapists. Sitter was at the bedside at all times. Urine tox screen was positive for opiate and benzodiazepine. The patient initially was NPO until more awake and then started on diet as tolerated. Supplemental oxygen and pulmonary toilet were provided as needed. Pulse oximetry was stable on the room air. Blood pressure was managed with the antihypertensive medication regimen and was stable. Psychiatric evaluation was requested. Psychiatrist stated that the patient has evidence of major depression as well as benzodiazepine and opiate toxicity. She recommended a sitter at all times for safety as well as the psychiatric hospitalization after medically cleared. The patient declined further imaging , such as MRI and CT as ordered by neurologist. The daughter wanted the patient to go home. PT/OT recommended SNF. The patient wanted to return home. Daughter decided to take the patient home against medical advice, and the patient was in agreement. The risks and consequences of signing against medical advice explained, however , daughter stated that her mother will be making arrangements for her maternal grandmother's and they did not require any other social service referrals or resources at that time. The patient signed against medical advice and left. DISCHARGE DIAGNOSES: 1. Status post fall. 2. Acute toxic encephalopathy, resolved, likely related to benzodiazepine and opiate toxicity. 3. Cervical spinal stenosis. 4. Spastic quadriparesis, left more than right, possible cervical myelopathy (the patient declined testing). 5. Chronic obstructive pulmonary disease. 6. Dehydration. 7. Hypertension. 8. Malnutrition. 9. Major depression. 10. Benzodiazepine and opiate toxicity. Shantel Baker M.D. I have been assigned to dictate discharge summary on this account and I was not involved in the patient's management. Judy LindseyNyu Langone Orthopedic HospitalAicha N.P. DR: LAURA JOB#: [id number] CC: ULYSSES
--- NOTE | 2016-04-27 16:28 | Progress Note ---
SUBJECTIVE: The patient was seen today. She was very angry, irritable, she insisted to be discharged. She was illogical and does not understand the reason doctors checked her and I would like her to stay or go a care home. Her daughter later phone called me and was also being very hostile and abusive, insisted that her mother has away and she needs to be discharged. MENTAL STATUS EXAMINATION: The patient is alert and oriented x3. Mood is irritable and angry. Affect is constricted. Congruent mood. Thought process was concrete. Thought content, she denied any suicidal or homicidal ideation. No psychotic symptoms including auditory or visual hallucinations or delusions. Insight and judgment is impaired. ASSESSMENT: Substance use disorder prescription medications and major depressive disorder. The patient has been admitted due to overdose of benzodiazepine and narcotics in addition to substance use disorder and depression. The patient has cluster B personality trait. The patient is illogical and does not understand the medical needs for being in the care home. She has poor insight and judgment. PLAN: 1. The patient was told that she may be discharged against medical advice. 2. The patient was recommended to go to a psychiatric b[facility], the patient is reluctant to do that. 3. on 5150. 4. We will continue to follow. Lisbeth Vyas M.D. DR: Agatha JOB#: [id number] CC:
== END 2016-04-11 13:10 | disposition left against medical advice (07) | DRG 91 ==
LOC: EDUNIT# 10:52 → EDBD 10:52 → EDBEDREQ 11:20 → EMR 11:47 → 2E 12:09 → EDBEDREQ 14:10 → 2E 15:43 → 3E 04-09 17:24
DX: G92 Toxic encephalopathy (principal); G82.50 Quadriplegia, unspecified; E46 Unspecified protein-calorie malnutrition; R45.851 Suicidal ideations; M50.00 Cervical disc disorder with myelopathy, unspecified cervical region; M48.02 Spinal stenosis, cervical region; I50.9 Heart failure, unspecified; I11.0 Hypertensive heart disease with heart failure; G95.9 Disease of spinal cord, unspecified; T40.605A Adverse effect of unspecified narcotics, initial encounter; T42.4X5A Adverse effect of benzodiazepines, initial encounter; Y92.009 Unspecified place in unspecified non-institutional (private) residence as the place of occurrence of the external cause; E86.0 Dehydration; G04.1 Tropical spastic paraplegia; G81.94 Hemiplegia, unspecified affecting left nondominant side; J44.9 Chronic obstructive pulmonary disease, unspecified; Z91.81 History of falling; F32.9 Major depressive disorder, single episode, unspecified; F41.9 Anxiety disorder, unspecified
CPT/HCPCS: 36415; 36600; 71010; 74177; 80053; 80061; 80300; 81003; 82550; 82553; 82607; 82803; 82962; 83605; 83735; 83880; 84100; 84484; 85025; 87040; 93005; 94640; 94664; J7620

== ENCOUNTER 2016-11-20 23:36 | Inpatient (IN) | payer MEDICARE, MEDICAID ==
[~2016-11-20] VITALS: Ht 170.2 cm; Wt 57.2 kg
[~2016-11-20 23:36] MED LIST changes: +ACETAMINOPHEN-1 EAC2 ORAL; +AMBIEN5 MG ORAL; +BENAZEPRIL HCL40 MG ORAL; +GABAPENTIN600 MG ORAL
[2016-11-20] MEDS ORDERED: TIZANIDINE HCL4 MG ORAL (23:38)
[2016-11-20 23:39] VITALS: BP 169/109
[2016-11-21] VITALS (7 sets, daily range): BP systolic 124–196; BP diastolic 59–88
[2016-11-21] MEDS ORDERED: Sodium Chloride 500ML 500 ML IV ONE (00:07)
[2016-11-21] MEDS ORDERED: Ipratropium 0.02% Inh Soln 2.5ml UD HHN ONE (00:15)
[2016-11-21] MEDS ORDERED: Morphine Sulfate 4mg/ml Inj IVP ONE (00:15)
[2016-11-21] MEDS ORDERED: Albuterol ud Inhalation HHN ONE (00:15)
[2016-11-21 00:28] LABS: BASOPHILS % (AUTO) 0.9 % (0.0-2.0); EOSINOPHILS % (AUTO) 1.7 % (0.0-3.0); LYMPHOCYTES % (AUTO) 41.3 % (20.0-45.0); MEAN CORPUSCULAR HEMOGLOBIN 30.7 PG (27.0-31.0); MEAN CORPUSCULAR HGB CONC 33.4 G/DL (32.0-36.0); MEAN CORPUSCULAR VOLUME 92 FL (80-99); MEAN PLATELET VOLUME 7.6 FL (6.5-10.1); NEUTROPHILS % (AUTO) 49.1 % (45.0-75.0); PLATELET COUNT 187 K/UL (150-450); RED BLOOD COUNT 4.62 M/UL (4.20-5.40); RED CELL DISTRIBUTION WIDTH 11.3 % (11.6-14.8); WHITE BLOOD COUNT 8.1 K/UL (4.8-10.8)
[2016-11-21 00:49] LABS: ALANINE AMINOTRANSFERASE 36 U/L (3-33); ANION GAP 12 (5-15); ASPARTATE AMINO TRANSFERASE 41 U/L (5-40); CARBON DIOXIDE 24 mEQ/L (20-30); CHLORIDE 101 mEQ/L (98-107); HEMOLYSIS 2; POTASSIUM 4.1 mEQ/L (3.4-4.9); SODIUM 137 mEQ/L (135-145); TOTAL PROTEIN 7.3 g/dL (6.6-8.7)
[2016-11-21 00:50] LABS: TROPONIN I < 0.30 ng/mL (<=0.30)
[2016-11-21 01:00] LABS: CKMB 5.6 ng/mL (< 3.8)
--- NOTE | 2016-11-21 02:19 | Emergency Room Report ---
History of Present Illness General Chief Complaint: Headache Source: Patient Present Illness HPI 71-year-old female presents ED complain of headache. Started approximate 4 hours prior to arrival. Pain is sharp, 8/10, nonradiating. Denies photophobia , blurry vision, nausea or vomiting. Denies neck stiffness, denies fevers or chills. Per triage systolic blood pressure has been greater than 200. Patient has history of hypertension states she is compliant with her medications. Denies chest pain shortness of breath. No aggravating relieving factors. Denies any other associated symptoms Allergies: Coded Allergies: No Known Allergies (Unverified , 11/05/15) Patient History Past Medical History: HTN, asthma Past Surgical History: none Pertinent Family History: none Social History: Denies: smoking, alcohol use, drug use Last Menstrual Period: n/a Now: No Immunizations: UTD Reviewed Nursing Documentation: PMH: Agreed, PSxH: Agreed Nursing Documentation-PMH Hx Hypertension: Yes Hx Asthma: Yes Hx Diabetes: No Hx Cancer: No Hx Gastrointestinal Problems: Yes Hx Dialysis: No Hx Neurological Problems: No Hx Cerebrovascular Accident: No Hx Seizures: No Review of Systems All Other Systems: negative except mentioned in HPI Physical Exam Vital Signs Date Time Temp Pulse Resp B/P (MAP) Pulse Ox O2 Delivery O2 Flow Rate FiO2 11/20/16 23:28 98.2 86 16 214/98 98 Room Air Sp02 EP Interpretation: reviewed, normal General Appearance: no apparent distress, alert, GCS 15, non-toxic Head: normocephalic, atraumatic Eyes: bilateral eye normal inspection, bilateral eye PERRL ENT: hearing grossly normal, normal pharynx, no angioedema, normal voice Neck: full range of motion, supple/symm/no masses Respiratory: chest non-tender, lungs clear, normal breath sounds, speaking full sentences Cardiovascular #1: regular rate, rhythm, no edema Cardiovascular #2: 2+ carotid (R), 2+ carotid (L), 2+ radial (R), 2+ radial (L) , 2+ dorsalis pedis (R), 2+ dorsalis pedis (L) Gastrointestinal: normal bowel sounds, non tender, soft, non-distended, no guarding, no rebound Rectal: deferred Genitourinary: normal inspection, no CVA tenderness Musculoskeletal: back normal, gait/station normal, normal range of motion, non- tender Neurologic: alert, oriented x3, responsive, motor strength/tone normal, sensory intact, speech normal Psychiatric: judgement/insight normal, memory normal, mood/affect normal, no suicidal/homicidal ideation Reflexes: 3+ bicep (R), 3+ bicep (L), 3+ tricep (R), 3+ tricep (L), 3+ knee (R) , 3+ knee (L) Skin: normal color, no rash, warm/dry, well hydrated Lymphatic: no adenopathy Medical Decision Making Diagnostic Impression: Primary Impression: Headache Qualified Codes: R51 - Headache Additional Impression: Hypertensive urgency ER Course Hospital Course 71-year-old female presents ED complaining of headache, elevated BP Differential diagnoses include: UT/unstable angina, CVA/TIA, hypertensive urgency Clinical course Patient placed on stretcher. 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 After initial history and physical I ordered labs, EKG, chest x-ray, CT Head labs reviewed- no leukocytosis, hemoglobin/hematocrit stable, electrolytes okay , troponins negative. EKG- NSR, no acute changes interpretd by me Chest x-ray- unremarkable CT head negative patient given hydralazine with BP improved Case discussed with Dr. Dee and he agreed to accept the patient to his service for further care and support I. I feel this is a highly complex case requiring extensive working including EKG/Rhythm strip, Xray/CT/US, Blood/urine lab work, repeat exams while in ED, and administration of strong opiates/narcotics for pain control, admission to hospital or close patient follow up. Diagnosis - hypertensive urgency, headache admitted to telemetry in serious condition Labs Test 11/21/16 00:11 White Blood Count 8.1 K/UL (4.8-10.8) Red Blood Count 4.62 M/UL (4.20-5.40) Hemoglobin 14.2 G/DL (12.0-16.0) Hematocrit 42.5 % (37.0-47.0) Mean Corpuscular Volume 92 FL (80-99) Mean Corpuscular Hemoglobin 30.7 PG (27.0-31.0) Mean Corpuscular Hemoglobin Concent 33.4 G/DL (32.0-36.0) Red Cell Distribution Width 11.3 % (11.6-14.8) Platelet Count 187 K/UL (150-450) Mean Platelet Volume 7.6 FL (6.5-10.1) Neutrophils (%) (Auto) 49.1 % (45.0-75.0) Lymphocytes (%) (Auto) 41.3 % (20.0-45.0) Monocytes (%) (Auto) 7.0 % (1.0-10.0) Eosinophils (%) (Auto) 1.7 % (0.0-3.0) Basophils (%) (Auto) 0.9 % (0.0-2.0) Sodium Level 137 mEQ/L (135-145) Potassium Level 4.1 mEQ/L (3.4-4.9) Chloride Level 101 mEQ/L (98-107) Carbon Dioxide Level 24 mEQ/L (20-30) Anion Gap 12 (5-15) Blood Urea Nitrogen 13 mg/dL (7-23) Creatinine 1.0 mg/dL (0.5-0.9) Estimat Glomerular Filtration Rate mL/min (>60) Glucose Level 94 mg/dL (74-106) Calcium Level 9.0 mg/dL (8.6-10.2) Total Bilirubin 0.4 mg/dL (0.0-1.2) Aspartate Amino Transf (AST/SGOT) 41 U/L (5-40) Alanine Aminotransferase (ALT/SGPT) 36 U/L (3-33) Alkaline Phosphatase 101 U/L (35-104) Total Creatine Kinase 187 U/L (26-140) Creatine Kinase MB 5.6 ng/mL (< 3.8) Creatine Kinase MB Relative Index 2.9 Troponin I < 0.30 ng/mL (<=0.30) Total Protein 7.3 g/dL (6.6-8.7) Albumin 3.8 g/dL (3.5-5.2) Globulin 3.5 g/dL Albumin/Globulin Ratio 1.0 (1.0-2.7) EKG Diagnostic Results Rate: normal Rhythm: NSR ST Segments: no acute changes ASA given to the pt in ED: No Rhythm Strip Diag. Results EP Interpretation: yes Rhythm: NSR, no PVC's, no ectopy Chest X-Ray Diagnostic Results Chest X-Ray Diagnostic Results : Chest X-Ray Ordered: Yes # of Views/Limited/Complete: 1 View Indication: Chest Pain EP Interpretation: Yes Interpretation: no consolidation, no effusion, no pneumothorax, no acute cardiopulmonary disease Impression: No acute disease Electronically Signed by: Electronically signed by Cal Nielsen MD CT/MRI/US Diagnostic Results CT/MRI/US Diagnostic Results : Imaging Test Ordered: CT head Impression no acute process Last Vital Signs Date Time Temp Pulse Resp B/P (MAP) Pulse Ox O2 Delivery O2 Flow Rate FiO2 11/21/16 01:55 98.6 99 21 188/71 100 Room Air Status: improved Disposition: ADMITTED INPATIENT Condition: Serious Referrals: NOT CHOSEN KAYLIN/,REFERRING (PCP) CAL NIELSEN M.D. Nov 21, 2016 02:19
[2016-11-21] MEDS ORDERED: Norco 5mg/325mg tab ORAL ONE (05:00)
[2016-11-21] MEDS ORDERED: Nitroglycerin Subl 0.4mg tab SL PRN (05:15)
[2016-11-21] MEDS ORDERED: dilTIAZem HCl 25mg/5ml Inj IV PRN (05:15)
[2016-11-21] MEDS ORDERED: Enalaprilat 2.5mg/2ml Inj IV PRN (05:15)
[2016-11-21] MEDS ORDERED: Miralax 17gm pkt ORAL PRN (05:15)
[2016-11-21] MEDS: Albuterol/Ipratropium 3ml neb HHN PRN ×2 (05:33→12:28)
[2016-11-21] MEDS: Heparin 5000 units/ml inj SUBQ SCH ×2 (08:04→20:51)
[2016-11-21 09:02] LABS: TROPONIN I < 0.30 ng/mL (<=0.30)
--- NOTE | 2016-11-21 09:29 | Diagnostic Imaging Report ---
Indication: Headache Technique: Contiguous 5 mm thick transaxial imaging of the head obtained in a Siemens Sensation [address] scanner. Soft tissue and bone windows generated. Total Dose length Product (DLP): [address] Dose Index Volume (CTDIvol): 70.38, 0.15 mGy Comparison: none Findings: There is mild prominence of the ventricles, basal cisterns, and cerebral sulci consistent with atrophy. Mild, nonspecific, white matter hypoattenuation is noted throughout the brain consistent with chronic small vessel disease. Suspect lacunar infarct in the right putamen given the fairly well-circumscribed low-density focus. There is no midline shift, edema, acute hemorrhage, mass effect, or abnormal extra-axial fluid collections. There is a deformity of the right medial orbital wall. This is likely an old fracture. Impression: No acute intracranial bleed, mass effect or edema. Mild atrophy of the brain. Nonspecific white matter hypoattenuation probably due to chronic small vessel disease. Probable old small vessel infarct right putamen [facility] has communicated the preliminary results to the Emergency Department. Their findings are largely concordant with this report. The CT scanner at [facility] is accredited by the [employer] and the scans are performed using dose optimization techniques as appropriate to a performed exam including Automatic Exposure control.
--- NOTE | 2016-11-21 10:35 | Diagnostic Imaging Report ---
Indication: Dyspnea Comparison: 04/04/16 A single view chest radiograph was obtained. Findings: Bones are osteopenic. The lungs are clear. Heart size is normal. Aorta is mildly calcified. Impression: No acute findings
[2016-11-21] MEDS ORDERED: Flu Vaccine Quadrivalent 0.5ml IM ONE (11:40)
--- NOTE | 2016-11-21 13:12 | Consultation ---
History of Present Illness General Date patient seen: Nov 21, 2016 Chief Complaint: Headache Referring physician: Dr. Dee Reason for Consultation: dyspnea Present Illness HPI 71-year-old female with hx of emphysema and HTD presented to ED complain of headache. Started approximate 4 hours prior to arrival. Pain is sharp, 8/10, nonradiating. Denies photophobia, blurry vision, nausea or vomiting. Her systolic blood pressure has been greater than 200. Denies chest pain shortness of breath. No aggravating relieving factors. Patient was treated in ER and admitted to telemetry for hypertensive encephalopathy and hypertensive emergency. Allergies: Coded Allergies: No Known Allergies (Unverified , 11/05/15) Medication History Scheduled Benazepril Hcl* (Benazepril Hcl*), 40 MG ORAL TWICE A DAY, (Reported) Gabapentin* (Gabapentin*), 600 MG ORAL BID, (Reported) Hydrochlorothiazide* (Hydrochlorothiazide*), 25 MG ORAL DAILY, (Reported) Tizanidine Hcl* (Zanaflex*), 4 MG ORAL THREE TIMES A DAY, (Reported) Scheduled PRN Acetaminophen With Codeine (T#4) (Tylenol #4 Tab*), 1 TAB ORAL Q6H PRN for For Pain, (Reported) Albuterol Sulfate* (Albuterol Sulfate Hhn*), 3 ML INH Q4H PRN for Shortness of Breath, (Reported) Zolpidem Tartrate* (Ambien*), 5 MG ORAL BEDTIME PRN for Insomnia, (Reported) Patient History Healthcare decision maker Joyce (daughter)- [phone] Resuscitation status Full Code Advanced Directive on File No Past Medical/Surgical History Past Medical/Surgical History: (1) Emphysema lung (2) Depression Review of Systems All Other Systems: negative except mentioned in HPI Physical Exam General Appearance: cachetic Lines, tubes and drains: peripheral HEENT: normocephalic, atraumatic Neck: non-tender, normal alignment Respiratory/Chest: chest wall non-tender, lungs clear Cardiovascular/Chest: normal peripheral pulses, normal rate Abdomen: normal bowel sounds, non tender Genitourinary/Rectal: normal genital exam, normal rectal exam, normal prostate exam Extremities: normal range of motion Skin Exam: normal pigmentation Last 24 Hour Vital Signs Date Time Temp Pulse Resp B/P (MAP) Pulse Ox O2 Delivery O2 Flow Rate FiO2 11/21/16 12:40 89 18 100 Room Air 11/21/16 12:30 87 18 99 Room Air 11/21/16 12:00 84 11/21/16 11:59 98.1 84 18 146/71 96 Room Air 11/21/16 11:45 88 18 Room Air 11/21/16 08:24 97.5 93 20 175/88 98 Room Air 11/21/16 08:03 175/88 11/21/16 08:00 92 11/21/16 06:45 186/80 11/21/16 06:44 106 18 186/80 11/21/16 05:40 88 20 100 Room Air 11/21/16 05:32 88 20 99 Room Air 11/21/16 04:58 201/101 11/21/16 04:13 77 11/21/16 02:32 98.1 96 22 192/83 100 Room Air 11/21/16 01:55 98.6 99 21 188/71 100 Room Air 11/21/16 01:34 188/75 11/21/16 01:28 98.6 85 22 196/73 100 Room Air 11/21/16 00:59 98.2 11/21/16 00:48 91 18 100 Room Air 11/21/16 00:22 86 18 98 Room Air 11/21/16 00:22 86 18 Room Air 11/20/16 23:39 88 22 169/109 100 Room Air 11/20/16 23:28 98.2 86 16 214/98 98 Room Air Intake and Output 11/21/16 11/22/16 19:00 07:00 Intake Total 120 ml Balance 120 ml Intake Oral 120 ml Laboratory Tests Test 11/21/16 00:11 11/21/16 08:15 White Blood Count 8.1 K/UL (4.8-10.8) Red Blood Count 4.62 M/UL (4.20-5.40) Hemoglobin 14.2 G/DL (12.0-16.0) Hematocrit 42.5 % (37.0-47.0) Mean Corpuscular Volume 92 FL (80-99) Mean Corpuscular Hemoglobin 30.7 PG (27.0-31.0) Mean Corpuscular Hemoglobin Concent 33.4 G/DL (32.0-36.0) Red Cell Distribution Width 11.3 % (11.6-14.8) L Platelet Count 187 K/UL (150-450) Mean Platelet Volume 7.6 FL (6.5-10.1) Neutrophils (%) (Auto) 49.1 % (45.0-75.0) Lymphocytes (%) (Auto) 41.3 % (20.0-45.0) Monocytes (%) (Auto) 7.0 % (1.0-10.0) Eosinophils (%) (Auto) 1.7 % (0.0-3.0) Basophils (%) (Auto) 0.9 % (0.0-2.0) Sodium Level 137 mEQ/L (135-145) Potassium Level 4.1 mEQ/L (3.4-4.9) Chloride Level 101 mEQ/L (98-107) Carbon Dioxide Level 24 mEQ/L (20-30) Anion Gap 12 (5-15) Blood Urea Nitrogen 13 mg/dL (7-23) Creatinine 1.0 mg/dL (0.5-0.9) H Estimat Glomerular Filtration Rate mL/min (>60) Glucose Level 94 mg/dL (74-106) Calcium Level 9.0 mg/dL (8.6-10.2) Total Bilirubin 0.4 mg/dL (0.0-1.2) Aspartate Amino Transf (AST/SGOT) 41 U/L (5-40) H Alanine Aminotransferase (ALT/SGPT) 36 U/L (3-33) H Alkaline Phosphatase 101 U/L (35-104) Total Creatine Kinase 187 U/L (26-140) H Creatine Kinase MB 5.6 ng/mL (< 3.8) H Creatine Kinase MB Relative Index 2.9 Troponin I < 0.30 ng/mL (<=0.30) < 0.30 ng/mL (<=0.30) Total Protein 7.3 g/dL (6.6-8.7) Albumin 3.8 g/dL (3.5-5.2) Globulin 3.5 g/dL Albumin/Globulin Ratio 1.0 (1.0-2.7) Height (Feet): 5 Height (Inches): 7.00 Weight (Pounds): 126 Medications Current Medications Medications (Trade) Dose Ordered Sig/Arthur Route PRN Reason Start Time Stop Time Status Last Admin Dose Admin Acetaminophen (Tylenol) 650 mg Q4H PRN ORAL FEVER 11/21/16 05:15 12/21/16 05:14 Albuterol/ Ipratropium (DuoNeb 0.5-3(2.5)mg/3ml) 3 ml EVERY 4 HOURS PRN HHN Shortness of Breath 11/21/16 05:15 11/26/16 05:14 11/21/16 12:28 Benazepril HCl (Lotensin) 40 mg TWICE A DAY ORAL 11/21/16 09:00 12/21/16 08:59 11/21/16 08:03 Diltiazem HCl (Cardizem) 10 mg EVERY HOUR PRN IV heart rate more than 120, 11/21/16 05:15 12/21/16 05:14 Enalaprilat (Vasotec) 2.5 mg EVERY 6 HOURS PRN IV sbp more than 160 11/21/16 05:15 12/21/16 05:14 11/21/16 06:45 Gabapentin (Neurontin) 600 mg BID ORAL 11/21/16 09:00 12/21/16 08:59 11/21/16 08:05 Heparin Sodium (Porcine) (Heparin 5000 units/ml) 5,000 units EVERY 12 HOURS SUBQ 11/21/16 09:00 12/21/16 08:59 11/21/16 08:04 Nitroglycerin (Ntg) 0.4 mg Every 5 Minutes PRN SL Prn Chest Pain 11/21/16 05:15 12/21/16 05:14 Ondansetron HCl (Zofran) 4 mg Q6H PRN IVP Nausea & Vomiting 11/21/16 05:15 12/21/16 05:14 Pantoprazole (Protonix) 40 mg DAILY ORAL 11/21/16 09:00 12/21/16 08:59 11/21/16 08:02 Polyethylene Glycol (Miralax) 17 gm DAILYPRN PRN ORAL Constipation 11/21/16 05:15 12/21/16 05:14 Temazepam (Restoril) 15 mg HSPRN PRN ORAL Insomnia 11/21/16 05:15 11/28/16 05:14 Tizanidine HCl (Zanaflex) 4 mg THREE TIMES A DAY ORAL 11/21/16 09:00 12/21/16 08:59 11/21/16 08:05 Assessment/Plan Problem List: (1) Hypertensive urgency ICD Codes: I16.0 - Hypertensive urgency SNOMED: 212792090 (2) Emphysema lung ICD Codes: J43.9 - Emphysema, unspecified SNOMED: 80069689 (3) Severe malnutrition ICD Codes: E41 - Nutritional marasmus SNOMED: 84174543 Assessment/Plan telemetry monitoring resume antihypertensive and PRN IV antihypertensive echocardiogram respiratory treatment. ADRIANO ABREU Nov 21, 2016 13:12
--- NOTE | 2016-11-21 14:39 | Cardiac Electrophysiology PN ---
Subjective Subjective [id number] Objective Last 24 Hour Vital Signs Date Time Temp Pulse Resp B/P (MAP) Pulse Ox O2 Delivery O2 Flow Rate FiO2 11/21/16 12:40 89 18 100 Room Air 11/21/16 12:30 87 18 99 Room Air 11/21/16 12:00 84 11/21/16 11:59 98.1 84 18 146/71 96 Room Air 11/21/16 11:45 88 18 Room Air 11/21/16 08:24 97.5 93 20 175/88 98 Room Air 11/21/16 08:03 175/88 11/21/16 08:00 92 11/21/16 06:45 186/80 11/21/16 06:44 106 18 186/80 11/21/16 05:40 88 20 100 Room Air 11/21/16 05:32 88 20 99 Room Air 11/21/16 04:58 201/101 11/21/16 04:13 77 11/21/16 02:32 98.1 96 22 192/83 100 Room Air 11/21/16 01:55 98.6 99 21 188/71 100 Room Air 11/21/16 01:34 188/75 11/21/16 01:28 98.6 85 22 196/73 100 Room Air 11/21/16 00:59 98.2 11/21/16 00:48 91 18 100 Room Air 11/21/16 00:22 86 18 98 Room Air 11/21/16 00:22 86 18 Room Air 11/20/16 23:39 88 22 169/109 100 Room Air 11/20/16 23:28 98.2 86 16 214/98 98 Room Air Intake and Output 11/21/16 11/22/16 19:00 07:00 Intake Total 240 ml Balance 240 ml Intake Oral 240 ml Laboratory Tests Test 11/21/16 00:11 11/21/16 08:15 White Blood Count 8.1 K/UL (4.8-10.8) Red Blood Count 4.62 M/UL (4.20-5.40) Hemoglobin 14.2 G/DL (12.0-16.0) Hematocrit 42.5 % (37.0-47.0) Mean Corpuscular Volume 92 FL (80-99) Mean Corpuscular Hemoglobin 30.7 PG (27.0-31.0) Mean Corpuscular Hemoglobin Concent 33.4 G/DL (32.0-36.0) Red Cell Distribution Width 11.3 % (11.6-14.8) L Platelet Count 187 K/UL (150-450) Mean Platelet Volume 7.6 FL (6.5-10.1) Neutrophils (%) (Auto) 49.1 % (45.0-75.0) Lymphocytes (%) (Auto) 41.3 % (20.0-45.0) Monocytes (%) (Auto) 7.0 % (1.0-10.0) Eosinophils (%) (Auto) 1.7 % (0.0-3.0) Basophils (%) (Auto) 0.9 % (0.0-2.0) Sodium Level 137 mEQ/L (135-145) Potassium Level 4.1 mEQ/L (3.4-4.9) Chloride Level 101 mEQ/L (98-107) Carbon Dioxide Level 24 mEQ/L (20-30) Anion Gap 12 (5-15) Blood Urea Nitrogen 13 mg/dL (7-23) Creatinine 1.0 mg/dL (0.5-0.9) H Estimat Glomerular Filtration Rate mL/min (>60) Glucose Level 94 mg/dL (74-106) Calcium Level 9.0 mg/dL (8.6-10.2) Total Bilirubin 0.4 mg/dL (0.0-1.2) Aspartate Amino Transf (AST/SGOT) 41 U/L (5-40) H Alanine Aminotransferase (ALT/SGPT) 36 U/L (3-33) H Alkaline Phosphatase 101 U/L (35-104) Total Creatine Kinase 187 U/L (26-140) H Creatine Kinase MB 5.6 ng/mL (< 3.8) H Creatine Kinase MB Relative Index 2.9 Troponin I < 0.30 ng/mL (<=0.30) < 0.30 ng/mL (<=0.30) Total Protein 7.3 g/dL (6.6-8.7) Albumin 3.8 g/dL (3.5-5.2) Globulin 3.5 g/dL Albumin/Globulin Ratio 1.0 (1.0-2.7) DEIDRE CALDWELL Nov 21, 2016 14:39
--- NOTE | 2016-11-21 19:12 | Cardiology Report ---
APPROVED REPORT EKG Measurement Heart [id number] Normal sinus rhythm Septal infarct, age undetermined Abnormal ECG
--- NOTE | 2016-11-21 19:24 | Cardiology Report ---
APPROVED REPORT EXAM: Two-dimensional and M-mode echocardiogram with Doppler and color Doppler. INDICATION Hypertension M-Mode DIMENSIONS IVSd1.0 (0.7-1.1cm)Left Atrium (MM)3.4 (1.6-4.0cm) LVDd4.0 (3.5-5.6cm)Aortic Root2.6 (2.0-3.7cm) PWd1.0 (0.7-1.1cm)Aortic Cusp Exc.1.7 (1.5-2.0cm) LVDs1.8 (2.5-4.0cm) PWs1.3 cm Technically difficult study due to poor acoustical windows. Normal left ventricular chamber size, systolic function and wall motion. Left ventricular ejection fraction estimated to be 60-65 %. No evidence of left ventricular hypertrophy. No evidence of pericardial or pleural effusion. All other cardiac chamber sizes are within normal limits. Focal aortic valve sclerosis with adequate cusp excursion. Normal mitral valve leaflets with normal excursion. Normal mitral annulus and aortic root. Pulmonic valve not well visualized. Normal tricuspid valve structure. IVC is normal in size and collapsible with respiration. A color flow and spectral Doppler study was performed and revealed: No aortic regurgitation. Trace mitral regurgitation. Mitral diastolic velocities suggest reduced left ventricular relaxation c/w diastolic dysfunction grade 1. No tricuspid regurgitation.
--- NOTE | 2016-11-21 22:15 | History and Physical Report ---
DATE OF ADMISSION: 11/21/2016 TIME SEEN: 2 p.m. CONSULTANTS: 1. Timi Parry M.D. 2. Giancarlo Valdez M.D. CHIEF COMPLAINT: Hypertensive urgency. Brief History: This is a 71-year-old female, who lives at home with son, apparently became very weak and has some headaches, came into [place], diagnosed with hypertensive urgency, headache, and weakness and now admitted to telemetry for further care. Currently, calm in bed, O2 NC, slightly short of breath, slight headache, no complaints otherwise. PAST MEDICAL HISTORY: Hypertension and asthma. PAST SURGICAL HISTORY: Neck surgery. Medications: Lotensin, Neurontin, Zanaflex, Protonix, heparin, DuoNeb, Tylenol, MiraLAX, Zofran, , and Vasotec. ALLERGIES: Denies. Social History: Positive smoking. No alcohol. No intravenous drug abuse. FAMILY HISTORY: Noncontributory. Review Of Systems: No chest pain. Slightly short of breath. Slight nausea. No vomiting or diarrhea. PHYSICAL EXAMINATION: General: Calm in bed, oriented x3, in no acute distress, slightly weak. Vital Signs: Temperature is 98 degrees, pulse 89, respirations 18, and blood pressure initially 146/71. Laboratory Data: CBC is normal. BMP show creatinine 1.0. AST 41 and ALT 36. CK 187, MB 5.6. Troponin less than 0.3. ASSESSMENT: 1. Hypertensive urgency. 2. Headache. 3. Weakness. 4. Asthma. PLAN: 1. Continue premedications. 2. Blood pressure control. 3. Pain control. 4. O2 pulmonary treatment. 5. OT, PT, and dietary evaluation. 6. CBC and BMP in the morning. 7. We will continue to follow this patient medically. 8. Dr. Parry and Dr. Valdez to consult. Jeison Dee D.O. DR: PAOLO JOB#: [id number] CC:
--- NOTE | 2016-11-21 22:45 | Consultation ---
DATE OF CONSULTATION: 11/21/2016 CARDIOLOGY CONSULTATION CONSULTING PHYSICIAN: Timi Parry M.D REFERRING PHYSICIAN: Jeison Dee D.O. REASON FOR CONSULTATION: Accelerated hypertension. History Of Present Illness: The patient is a 71-year-old lady with history of hypertension and emphysema, came to the emergency room with severe headache that lasted about four hours prior to the arrival. The patient's blood pressure in the emergency room was more than 200, but did not have any chest pain. The patient was admitted for hypertensive emergency and encephalopathy and a Cardiology consultation was obtained for further evaluation and management. Past Medical History: Hypertension, emphysema, as well as depression. Medications: Medication at home includes benazepril 40 mg b.i.d., gabapentin 600 mg b.i.d., hydrochlorothiazide 25 mg daily, and Zanaflex 4 mg two times daily. Social History: She lives at home. She does not smoke or drink alcohol. Review Of Systems: Negative other than what was mentioned in the history of present illness. PHYSICAL EXAMINATION: Vital Signs: Blood pressure is 146/71, pulse 84, respirations 18, and temperature 98.1 degrees. Head And Neck: Showed no jugular venous distention or carotid bruits. LUNGS: Decreased breath sounds. CARDIOVASCULAR: Regular S1 and S2 with no gallop or murmur. ABDOMEN: Soft. EXTREMITIES: No pitting edema. Laboratory Data: Labs show white count of 8.2, hemoglobin 14.2, hematocrit 42.5, and platelet count 187,000. Sodium 137, potassium 4.1, BUN of 13, and creatinine 1. Troponin is negative x2. ASSESSMENT AND PLAN: 1. Accelerated hypertension. The patient denies any chest pain. She will be ruled out for myocardial infarction. Blood pressure is better now. Continue her Lotensin 40 mg .i.d. I will add Norvasc 10 mg daily to her medical regimen. The patient is also on Vasotec p.r.n. as well as Cardizem p.r.n. 2. Chronic obstructive pulmonary disease. 3. Neuropathy, on gabapentin. Thank you very much for allowing me to participate in the care of this patient. Please do not hesitate to contact me for any questions regarding my evaluation. Timi Parry M.D. DR: GREGORY JOB#: [id number] CC:
[2016-11-22] VITALS (8 sets, daily range): BP systolic 98–168; BP diastolic 50–74
[2016-11-22] MEDS: Albuterol/Ipratropium 3ml neb HHN PRN ×3 (02:38→19:50)
[2016-11-22 08:23] LABS: BASOPHILS % (AUTO) 0.7 % (0.0-2.0); EOSINOPHILS % (AUTO) 3.8 % (0.0-3.0); LYMPHOCYTES % (AUTO) 49.6 % (20.0-45.0); MEAN CORPUSCULAR HGB CONC 33.2 G/DL (32.0-36.0); MEAN CORPUSCULAR VOLUME 94 FL (80-99); MEAN PLATELET VOLUME 6.8 FL (6.5-10.1); NEUTROPHILS % (AUTO) 40.9 % (45.0-75.0); PLATELET COUNT 190 K/UL (150-450); RED CELL DISTRIBUTION WIDTH 11.6 % (11.6-14.8); WHITE BLOOD COUNT 9.4 K/UL (4.8-10.8)
[2016-11-22 08:28] LABS: INR 1.1 (0.9-1.1); PROTHROMBIN TIME 11.6 SEC (9.30-11.50)
[2016-11-22 08:40] LABS: ANION GAP 14 (5-15); CALCIUM 9.2 mg/dL (8.6-10.2); CARBON DIOXIDE 23 mEQ/L (20-30); CHLORIDE 103 mEQ/L (98-107); CREATININE 1.5 mg/dL (0.5-0.9); HEMOLYSIS 0; POTASSIUM 4.4 mEQ/L (3.4-4.9); SODIUM 140 mEQ/L (135-145)
[2016-11-22] MEDS: Heparin 5000 units/ml inj SUBQ SCH ×2 (08:43→20:46)
[2016-11-22 09:03] LABS: THYROID STIMULATING HORMONE 0.712 uIU/mL (0.300-4.500)
[2016-11-22 09:10] LABS: CHOLESTEROL 182 mg/dL (< 200); CRP QUANT < 0.3 mg/dL (< 0.5); HEMOLYSIS 1; LDL CHOLESTEROL CALC 58 mg/dL (60-99)
[2016-11-22 10:45] LABS: TROPONIN I < 0.30 ng/mL (<=0.30)
--- NOTE | 2016-11-22 11:53 | Pulmonology Progress Note ---
Assessment/Plan Problems: (1) Hypertensive urgency (2) Emphysema lung (3) Severe malnutrition Assessment/Plan bp still high on norvasc 10 and benazapril 40 BID bun/creatine higher today, renal studies ordered echo reviewed: EF of 60% respiratory treatment titrate fio2 check electrolytes in am Subjective ROS Limited/Unobtainable: No Interval Events: breathing much better, wants to go home Allergies: Coded Allergies: No Known Allergies (Unverified , 11/05/15) Objective Last 24 Hour Vital Signs Date Time Temp Pulse Resp B/P (MAP) Pulse Ox O2 Delivery O2 Flow Rate FiO2 11/22/16 10:49 79 20 100 Room Air 11/22/16 10:39 84 24 100 Nasal Cannula 2.0 28 11/22/16 08:55 94 18 Nasal Cannula 2.0 28 11/22/16 08:39 83 194/118 11/22/16 08:38 194/118 11/22/16 08:32 98.1 76 18 168/71 98 Nasal Cannula 2.0 11/22/16 04:00 84 11/22/16 04:00 97.0 85 18 149/74 98 Room Air 2.0 11/22/16 02:43 88 18 100 Room Air 11/22/16 02:38 81 18 99 Room Air 11/22/16 00:00 74 11/22/16 00:00 97.0 83 20 117/58 97 Nasal Cannula 2.0 11/22/16 00:00 97.0 83 20 117/58 97 Nasal Cannula 2.0 11/21/16 20:26 85 18 Room Air 11/21/16 20:00 69 11/21/16 20:00 97.0 73 18 153/80 97 Nasal Cannula 2.0 11/21/16 18:30 124/59 11/21/16 16:00 77 11/21/16 15:51 98.2 78 18 124/59 97 Nasal Cannula 2.0 11/21/16 12:40 89 18 100 Room Air 11/21/16 12:30 87 18 99 Room Air 11/21/16 12:00 84 11/21/16 11:59 98.1 84 18 146/71 96 Nasal Cannula 2.0 Intake and Output 11/22/16 11/23/16 19:00 07:00 Intake Total 120 ml Balance 120 ml Intake Oral 120 ml General Appearance: cachetic HEENT: normocephalic, atraumatic Respiratory/Chest: chest wall non-tender, lungs clear Cardiovascular: normal peripheral pulses, normal rate Abdomen: normal bowel sounds, soft, non tender Neurologic/Psychiatric: patient account specialist II-XII grossly normal, no motor/sensory deficits Lymphatic: no neck adenopathy Laboratory Tests 11/22/16 06:50: Sodium Level 140, Potassium Level 4.4, Chloride Level 103, Carbon Dioxide Level 23, Anion Gap 14, Blood Urea Nitrogen 25H, Creatinine 1.5H, Estimat Glomerular Filtration Rate , Glucose Level 86, Calcium Level 9.2, Troponin I < 0.30, C- Reactive Protein, Quantitative < 0.3, Triglycerides Level 67, Cholesterol Level 182, LDL Cholesterol 58L, HDL Cholesterol > 111H, Cholesterol/HDL Ratio 1.0L, Thyroid Stimulating Hormone (TSH) 0.712 11/22/16 07:00: White Blood Count 9.4, Red Blood Count 4.30, Hemoglobin 13.3, Hematocrit 40.2, Mean Corpuscular Volume 94, Mean Corpuscular Hemoglobin 31.0, Mean Corpuscular Hemoglobin Concent 33.2, Red Cell Distribution Width 11.6, Platelet Count 190, Mean Platelet Volume 6.8, Neutrophils (%) (Auto) 40.9L, Lymphocytes (%) (Auto) 49.6H, Monocytes (%) (Auto) 5.0, Eosinophils (%) (Auto) 3.8H, Basophils (%) ( Auto) 0.7, Prothrombin Time 11.6H, Prothromb Time International Ratio 1.1, Activated Partial Thromboplast Time 37H Current Medications Medications (Trade) Dose Ordered Sig/Arthur Route PRN Reason Start Time Stop Time Status Last Admin Dose Admin Acetaminophen (Tylenol) 650 mg Q4H PRN ORAL FEVER 11/21/16 05:15 12/21/16 05:14 11/22/16 03:57 Albuterol/ Ipratropium (DuoNeb 0.5-3(2.5)mg/3ml) 3 ml EVERY 4 HOURS PRN HHN Shortness of Breath 11/21/16 05:15 11/26/16 05:14 11/22/16 10:39 Amlodipine Besylate (Norvasc) 10 mg DAILY ORAL 11/22/16 09:00 12/22/16 08:59 11/22/16 08:39 Benazepril HCl (Lotensin) 40 mg TWICE A DAY ORAL 11/21/16 09:00 12/21/16 08:59 11/22/16 08:38 Diltiazem HCl (Cardizem) 10 mg EVERY HOUR PRN IV heart rate more than 120, 11/21/16 05:15 12/21/16 05:14 Enalaprilat (Vasotec) 2.5 mg EVERY 6 HOURS PRN IV sbp more than 160 11/21/16 05:15 12/21/16 05:14 11/21/16 06:45 Gabapentin (Neurontin) 600 mg BID ORAL 11/21/16 09:00 12/21/16 08:59 11/22/16 08:39 Heparin Sodium (Porcine) (Heparin 5000 units/ml) 5,000 units EVERY 12 HOURS SUBQ 11/21/16 09:00 12/21/16 08:59 11/22/16 08:43 Nitroglycerin (Ntg) 0.4 mg Every 5 Minutes PRN SL Prn Chest Pain 11/21/16 05:15 12/21/16 05:14 Ondansetron HCl (Zofran) 4 mg Q6H PRN IVP Nausea & Vomiting 11/21/16 05:15 12/21/16 05:14 Pantoprazole (Protonix) 40 mg DAILY ORAL 11/21/16 09:00 12/21/16 08:59 11/22/16 08:38 Polyethylene Glycol (Miralax) 17 gm DAILYPRN PRN ORAL Constipation 11/21/16 05:15 12/21/16 05:14 Temazepam (Restoril) 15 mg HSPRN PRN ORAL Insomnia 11/21/16 05:15 11/28/16 05:14 Tizanidine HCl (Zanaflex) 4 mg THREE TIMES A DAY ORAL 11/21/16 09:00 12/21/16 08:59 11/22/16 08:39 ADRIANO ABREU Nov 22, 2016 11:53
[2016-11-22 12:04] LABS: URIC ACID 8.4 mg/dL (3.0-7.5)
--- NOTE | 2016-11-22 13:13 | General Progress Note ---
Assessment/Plan Problem List: (1) HTN (hypertension), malignant ICD Codes: I10 - Essential (primary) hypertension SNOMED: 20313977 (2) Head ache ICD Codes: R51 - Headache SNOMED: 07905945 (3) Weak ICD Codes: R53.1 - Weakness SNOMED: 71544440 (4) Asthma ICD Codes: J45.909 - Unspecified asthma, uncomplicated SNOMED: 462711264 Status: stable, progressing, tolerating diet Assessment/Plan ot pt diet bp pain control cbc bmp am Subjective Constitutional: Reports: weakness Allergies: Coded Allergies: No Known Allergies (Unverified , 11/05/15) All Systems: reviewed and negative except above Subjective calm in bed eating no chest pain no head ache Objective Last 24 Hour Vital Signs Date Time Temp Pulse Resp B/P (MAP) Pulse Ox O2 Delivery O2 Flow Rate FiO2 11/22/16 12:30 98.1 94 18 133/54 97 Nasal Cannula 2.0 11/22/16 12:00 101 11/22/16 10:49 79 20 100 Room Air 11/22/16 10:39 84 24 100 Nasal Cannula 2.0 28 11/22/16 08:55 94 18 Nasal Cannula 2.0 28 11/22/16 08:39 83 194/118 11/22/16 08:38 194/118 11/22/16 08:32 98.1 76 18 168/71 98 Nasal Cannula 2.0 11/22/16 08:00 72 11/22/16 04:00 84 11/22/16 04:00 97.0 85 18 149/74 98 Room Air 2.0 11/22/16 02:43 88 18 100 Room Air 11/22/16 02:38 81 18 99 Room Air 11/22/16 00:00 74 11/22/16 00:00 97.0 83 20 117/58 97 Nasal Cannula 2.0 11/22/16 00:00 97.0 83 20 117/58 97 Nasal Cannula 2.0 11/21/16 20:26 85 18 Room Air 11/21/16 20:00 69 11/21/16 20:00 97.0 73 18 153/80 97 Nasal Cannula 2.0 11/21/16 18:30 124/59 11/21/16 16:00 77 11/21/16 15:51 98.2 78 18 124/59 97 Nasal Cannula 2.0 Intake and Output 11/22/16 11/23/16 19:00 07:00 Intake Total 120 ml Balance 120 ml Intake Oral 120 ml Laboratory Tests 11/22/16 06:50: Sodium Level 140, Potassium Level 4.4, Chloride Level 103, Carbon Dioxide Level 23, Anion Gap 14, Blood Urea Nitrogen 25H, Creatinine 1.5H, Estimat Glomerular Filtration Rate , Glucose Level 86, Uric Acid 8.4H, Calcium Level 9.2, Total Creatine Kinase 347H, Troponin I < 0.30, C-Reactive Protein, Quantitative < 0.3 , Triglycerides Level 67, Cholesterol Level 182, LDL Cholesterol 58L, HDL Cholesterol > 111H, Cholesterol/HDL Ratio 1.0L, Thyroid Stimulating Hormone (TSH ) 0.712 11/22/16 07:00: White Blood Count 9.4, Red Blood Count 4.30, Hemoglobin 13.3, Hematocrit 40.2, Mean Corpuscular Volume 94, Mean Corpuscular Hemoglobin 31.0, Mean Corpuscular Hemoglobin Concent 33.2, Red Cell Distribution Width 11.6, Platelet Count 190, Mean Platelet Volume 6.8, Neutrophils (%) (Auto) 40.9L, Lymphocytes (%) (Auto) 49.6H, Monocytes (%) (Auto) 5.0, Eosinophils (%) (Auto) 3.8H, Basophils (%) ( Auto) 0.7, Prothrombin Time 11.6H, Prothromb Time International Ratio 1.1, Activated Partial Thromboplast Time 37H Height (Feet): 5 Height (Inches): 7.00 Weight (Pounds): 126 General Appearance: alert EENT: normal ENT inspection Neck: normal alignment Cardiovascular: normal peripheral pulses, normal rate, regular rhythm Respiratory/Chest: chest wall non-tender, lungs clear, normal breath sounds Abdomen: normal bowel sounds, non tender, soft Extremities: normal range of motion Edema: no edema noted Arm (L), no edema noted Arm (R), no edema noted Leg (L), no edema noted Leg (R), no edema noted Pedal (L), no edema noted Pedal (R), no edema noted Generalized Neurologic: responsive, motor weakness Skin: normal pigmentation, warm/dry MARTHA ULLOA Nov 22, 2016 13:13
--- NOTE | 2016-11-22 16:40 | Diagnostic Imaging Report ---
Indication:Elevated Bun and Creatinine. Technique: Grayscale and duplex Doppler imaging of the kidneys performed. Comparison: None Findings: The size, contour, and echogenicity of both kidneys are within normal limits. There is no hydronephrosis. The IVC and urinary bladder are unremarkable. Both kidneys are about 9 cm in length. In pression: Negative
--- NOTE | 2016-11-22 17:41 | Cardiac Electrophysiology PN ---
Assessment/Plan Assessment/Plan 1. Accelerated hypertension. The patient denies any chest pain. She will be ruled out for myocardial infarction. Blood pressure is better now on Lotensin 40 mg b.i.d. and Norvasc 10 mg daily 2. Chronic obstructive pulmonary disease. 3. Neuropathy, on gabapentin. KATT RN Subjective Subjective BP much better now. Wants to go home. Objective Last 24 Hour Vital Signs Date Time Temp Pulse Resp B/P (MAP) Pulse Ox O2 Delivery O2 Flow Rate FiO2 11/22/16 16:00 97.9 67 18 112/53 97 Nasal Cannula 2.0 11/22/16 12:30 98.1 94 18 133/54 97 Nasal Cannula 2.0 11/22/16 12:00 101 11/22/16 10:49 79 20 100 Room Air 11/22/16 10:39 84 24 100 Nasal Cannula 2.0 28 11/22/16 08:55 94 18 Nasal Cannula 2.0 28 11/22/16 08:39 83 194/118 11/22/16 08:38 194/118 11/22/16 08:32 98.1 76 18 168/71 98 Nasal Cannula 2.0 11/22/16 08:00 72 11/22/16 04:00 84 11/22/16 04:00 97.0 85 18 149/74 98 Room Air 2.0 11/22/16 02:43 88 18 100 Room Air 11/22/16 02:38 81 18 99 Room Air 11/22/16 00:00 74 11/22/16 00:00 97.0 83 20 117/58 97 Nasal Cannula 2.0 11/22/16 00:00 97.0 83 20 117/58 97 Nasal Cannula 2.0 11/21/16 20:26 85 18 Room Air 11/21/16 20:00 69 11/21/16 20:00 97.0 73 18 153/80 97 Nasal Cannula 2.0 11/21/16 18:30 124/59 Intake and Output 11/22/16 11/23/16 19:00 07:00 Intake Total 240 ml Output Total 350 ml Balance -110 ml Intake Oral 240 ml Output Urine Total 350 ml Laboratory Tests Test 11/22/16 06:50 11/22/16 07:00 Sodium Level 140 mEQ/L (135-145) Potassium Level 4.4 mEQ/L (3.4-4.9) Chloride Level 103 mEQ/L (98-107) Carbon Dioxide Level 23 mEQ/L (20-30) Anion Gap 14 (5-15) Blood Urea Nitrogen 25 mg/dL (7-23) H Creatinine 1.5 mg/dL (0.5-0.9) H Estimat Glomerular Filtration Rate mL/min (>60) Glucose Level 86 mg/dL (74-106) Uric Acid 8.4 mg/dL (3.0-7.5) H Calcium Level 9.2 mg/dL (8.6-10.2) Total Creatine Kinase 347 U/L (26-140) H Troponin I < 0.30 ng/mL (<=0.30) C-Reactive Protein, Quantitative < 0.3 mg/dL (< 0.5) Triglycerides Level 67 mg/dL (< 150) Cholesterol Level 182 mg/dL (< 200) LDL Cholesterol 58 mg/dL (60-99) L HDL Cholesterol > 111 mg/dL (> 60) H Cholesterol/HDL Ratio 1.0 (3.3-4.4) L Thyroid Stimulating Hormone (TSH) 0.712 uIU/mL (0.300-4.500) White Blood Count 9.4 K/UL (4.8-10.8) Red Blood Count 4.30 M/UL (4.20-5.40) Hemoglobin 13.3 G/DL (12.0-16.0) Hematocrit 40.2 % (37.0-47.0) Mean Corpuscular Volume 94 FL (80-99) Mean Corpuscular Hemoglobin 31.0 PG (27.0-31.0) Mean Corpuscular Hemoglobin Concent 33.2 G/DL (32.0-36.0) Red Cell Distribution Width 11.6 % (11.6-14.8) Platelet Count 190 K/UL (150-450) Mean Platelet Volume 6.8 FL (6.5-10.1) Neutrophils (%) (Auto) 40.9 % (45.0-75.0) L Lymphocytes (%) (Auto) 49.6 % (20.0-45.0) H Monocytes (%) (Auto) 5.0 % (1.0-10.0) Eosinophils (%) (Auto) 3.8 % (0.0-3.0) H Basophils (%) (Auto) 0.7 % (0.0-2.0) Prothrombin Time 11.6 SEC (9.30-11.50) H Prothromb Time International Ratio 1.1 (0.9-1.1) Activated Partial Thromboplast Time 37 SEC (23-33) H Objective Head And Neck: Showed no jugular venous distention or carotid bruits. LUNGS: Decreased breath sounds. CARDIOVASCULAR: Regular S1 and S2 with no gallop or murmur. ABDOMEN: Soft. EXTREMITIES: No pitting edema. DEIDRE CALDWELL Nov 22, 2016 17:40
[2016-11-22 19:09] LABS: APPEARANCE,URINE CLEAR; KETONES,URINE NEGATIVE (NEGATIVE); LEUKOCYTE ESTERASE ,URINE NEGATIVE (NEGATIVE); NITRITE,URINE NEGATIVE (NEGATIVE); PH,URINE 5 (4.5-8.0); PROTEIN,URINE NEGATIVE (NEGATIVE); UROBILINOGEN,URINE NORMAL MG/DL (0.0-1.0)
[2016-11-22 19:40] LABS: AMORPHOUS SEDIMENT,UR FEW /LPF; BACTERIA,URINE MODERATE /HPF; SQUAMOUS EPITHELIAL CELL,UR FEW /LPF (NONE/OCC)
--- NOTE | 2016-11-22 22:07 | Infectious Diseases Prog Note ---
Assessment/Plan Problems: (1) UTI (urinary tract infection) Assessment & Plan: will start ceftriaxon empiric treatment pending urine culture results , avoid levaquin due to QT prolongation (2) Hypertensive urgency Assessment & Plan: continue cardiac meds as per cardiology Subjective Allergies: Coded Allergies: No Known Allergies (Unverified , 11/05/15) Objective Vital Signs Last 24 Hour Vital Signs Date Time Temp Pulse Resp B/P (MAP) Pulse Ox O2 Delivery O2 Flow Rate FiO2 11/22/16 19:58 74 20 100 Room Air 11/22/16 19:51 84 24 100 Room Air 11/22/16 19:51 97 18 Room Air 11/22/16 18:29 99/50 11/22/16 18:00 99/50 11/22/16 16:00 75 11/22/16 16:00 97.9 67 18 112/53 97 Nasal Cannula 2.0 11/22/16 12:30 98.1 94 18 133/54 97 Nasal Cannula 2.0 11/22/16 12:00 101 11/22/16 10:49 79 20 100 Room Air 11/22/16 10:39 84 24 100 Nasal Cannula 2.0 28 11/22/16 08:55 94 18 Nasal Cannula 2.0 28 11/22/16 08:39 83 194/118 11/22/16 08:38 194/118 11/22/16 08:32 98.1 76 18 168/71 98 Nasal Cannula 2.0 11/22/16 08:00 72 11/22/16 04:00 84 11/22/16 04:00 97.0 85 18 149/74 98 Room Air 2.0 11/22/16 02:43 88 18 100 Room Air 11/22/16 02:38 81 18 99 Room Air 11/22/16 00:00 74 11/22/16 00:00 97.0 83 20 117/58 97 Nasal Cannula 2.0 11/22/16 00:00 97.0 83 20 117/58 97 Nasal Cannula 2.0 Height (Feet): 5 Height (Inches): 7.00 Weight (Pounds): 126 Laboratory Tests Test 11/22/16 06:50 11/22/16 07:00 11/22/16 17:57 Sodium Level 140 mEQ/L (135-145) Potassium Level 4.4 mEQ/L (3.4-4.9) Chloride Level 103 mEQ/L (98-107) Carbon Dioxide Level 23 mEQ/L (20-30) Anion Gap 14 (5-15) Blood Urea Nitrogen 25 mg/dL (7-23) H Creatinine 1.5 mg/dL (0.5-0.9) H Estimat Glomerular Filtration Rate mL/min (>60) Glucose Level 86 mg/dL (74-106) Uric Acid 8.4 mg/dL (3.0-7.5) H Calcium Level 9.2 mg/dL (8.6-10.2) Total Creatine Kinase 347 U/L (26-140) H Troponin I < 0.30 ng/mL (<=0.30) C-Reactive Protein, Quantitative < 0.3 mg/dL (< 0.5) Triglycerides Level 67 mg/dL (< 150) Cholesterol Level 182 mg/dL (< 200) LDL Cholesterol 58 mg/dL (60-99) L HDL Cholesterol > 111 mg/dL (> 60) H Cholesterol/HDL Ratio 1.0 (3.3-4.4) L Thyroid Stimulating Hormone (TSH) 0.712 uIU/mL (0.300-4.500) White Blood Count 9.4 K/UL (4.8-10.8) Red Blood Count 4.30 M/UL (4.20-5.40) Hemoglobin 13.3 G/DL (12.0-16.0) Hematocrit 40.2 % (37.0-47.0) Mean Corpuscular Volume 94 FL (80-99) Mean Corpuscular Hemoglobin 31.0 PG (27.0-31.0) Mean Corpuscular Hemoglobin Concent 33.2 G/DL (32.0-36.0) Red Cell Distribution Width 11.6 % (11.6-14.8) Platelet Count 190 K/UL (150-450) Mean Platelet Volume 6.8 FL (6.5-10.1) Neutrophils (%) (Auto) 40.9 % (45.0-75.0) L Lymphocytes (%) (Auto) 49.6 % (20.0-45.0) H Monocytes (%) (Auto) 5.0 % (1.0-10.0) Eosinophils (%) (Auto) 3.8 % (0.0-3.0) H Basophils (%) (Auto) 0.7 % (0.0-2.0) Prothrombin Time 11.6 SEC (9.30-11.50) H Prothromb Time International Ratio 1.1 (0.9-1.1) Activated Partial Thromboplast Time 37 SEC (23-33) H Urine Color Pale yellow Urine Appearance Clear Urine pH 5 (4.5-8.0) Urine Specific [place] 1.010 (1.005-1.035) Urine Protein Negative (NEGATIVE) Urine Glucose (UA) Negative (NEGATIVE) Urine Ketones Negative (NEGATIVE) Urine Occult Blood Negative (NEGATIVE) Urine Nitrite Negative (NEGATIVE) Urine Bilirubin Negative (NEGATIVE) Urine Urobilinogen Normal MG/DL (0.0-1.0) Urine Leukocyte Esterase Negative (NEGATIVE) Urine RBC 2-4 /HPF (0 - 2) H Urine WBC 5-10 /HPF (0 - 2) H Urine Squamous Epithelial Cells Few /LPF (NONE/OCC) Urine Amorphous Sediment Few /LPF (NONE) H Urine Bacteria Moderate /HPF (NONE) H Urine Eosinophils None seen Urine Random Sodium 57 mmol/L Urine Potassium Timed 22 mmol/L Current Medications Medications (Trade) Dose Ordered Sig/Arthur Route PRN Reason Start Time Stop Time Status Last Admin Dose Admin Acetaminophen (Tylenol) 650 mg Q4H PRN ORAL FEVER 11/21/16 05:15 12/21/16 05:14 11/22/16 03:57 Albuterol/ Ipratropium (DuoNeb 0.5-3(2.5)mg/3ml) 3 ml EVERY 4 HOURS PRN HHN Shortness of Breath 11/21/16 05:15 11/26/16 05:14 11/22/16 19:50 Amlodipine Besylate (Norvasc) 10 mg DAILY ORAL 11/22/16 09:00 12/22/16 08:59 11/22/16 08:39 Benazepril HCl (Lotensin) 40 mg TWICE A DAY ORAL 11/21/16 09:00 12/21/16 08:59 11/22/16 08:38 Diltiazem HCl (Cardizem) 10 mg EVERY HOUR PRN IV heart rate more than 120, 11/21/16 05:15 12/21/16 05:14 Enalaprilat (Vasotec) 2.5 mg EVERY 6 HOURS PRN IV sbp more than 160 11/21/16 05:15 12/21/16 05:14 11/21/16 06:45 Gabapentin (Neurontin) 600 mg BID ORAL 11/21/16 09:00 12/21/16 08:59 11/22/16 18:32 Heparin Sodium (Porcine) (Heparin 5000 units/ml) 5,000 units EVERY 12 HOURS SUBQ 11/21/16 09:00 12/21/16 08:59 11/22/16 20:46 Nitroglycerin (Ntg) 0.4 mg Every 5 Minutes PRN SL Prn Chest Pain 11/21/16 05:15 12/21/16 05:14 Ondansetron HCl (Zofran) 4 mg Q6H PRN IVP Nausea & Vomiting 11/21/16 05:15 12/21/16 05:14 Pantoprazole (Protonix) 40 mg DAILY ORAL 11/21/16 09:00 12/21/16 08:59 11/22/16 08:38 Polyethylene Glycol (Miralax) 17 gm DAILYPRN PRN ORAL Constipation 11/21/16 05:15 12/21/16 05:14 Temazepam (Restoril) 15 mg HSPRN PRN ORAL Insomnia 11/21/16 05:15 11/28/16 05:14 11/22/16 21:35 Tizanidine HCl (Zanaflex) 4 mg THREE TIMES A DAY ORAL 11/21/16 09:00 12/21/16 08:59 11/22/16 18:32 Bryn Rouse M.D. Nov 22, 2016 22:07
[2016-11-22] MEDS ORDERED: cefTRIAXone 1 GM in D5W 55 ML IVPB SCH (22:15)
[2016-11-23] VITALS: BP 119/54
[2016-11-23 04:00] VITALS: BP 111/58
[2016-11-23 07:08] LABS: BASOPHILS % (AUTO) 0.8 % (0.0-2.0); EOSINOPHILS % (AUTO) 5.5 % (0.0-3.0); LYMPHOCYTES % (AUTO) 47.7 % (20.0-45.0); MEAN CORPUSCULAR HEMOGLOBIN 31.2 PG (27.0-31.0); MEAN CORPUSCULAR HGB CONC 33.6 G/DL (32.0-36.0); MEAN CORPUSCULAR VOLUME 93 FL (80-99); MEAN PLATELET VOLUME 7.3 FL (6.5-10.1); PLATELET COUNT 162 K/UL (150-450); RED BLOOD COUNT 3.72 M/UL (4.20-5.40); RED CELL DISTRIBUTION WIDTH 11.7 % (11.6-14.8); WHITE BLOOD COUNT 7.5 K/UL (4.8-10.8)
[2016-11-23 07:30] LABS: TROPONIN I < 0.30 ng/mL (<=0.30)
[2016-11-23 07:32] LABS: ALANINE AMINOTRANSFERASE 33 U/L (3-33); ALBUMIN/GLOBULIN RATIO 1.3 (1.0-2.7); ANION GAP 12 (5-15); ASPARTATE AMINO TRANSFERASE 40 U/L (5-40); CALCIUM 8.8 mg/dL (8.6-10.2); CARBON DIOXIDE 22 mEQ/L (20-30); CHLORIDE 105 mEQ/L (98-107); CREATININE 1.4 mg/dL (0.5-0.9); CRP QUANT < 0.3 mg/dL (< 0.5); HEMOLYSIS 5; MAGNESIUM 1.8 mg/dL (1.7-2.5); PHOSPHORUS 3.5 mg/dL (2.5-4.8); POTASSIUM 4.4 mEQ/L (3.4-4.9); SODIUM 139 mEQ/L (135-145)
[2016-11-23] MEDS: Albuterol/Ipratropium 3ml neb HHN PRN (07:32)
[2016-11-23 08:18] LABS: ERYTHROCYTE SEDIMENTATION RATE 15 MM/HR (0-30)
[2016-11-23 08:48] VITALS: BP 147/66
[2016-11-23] MEDS: Heparin 5000 units/ml inj SUBQ SCH (10:23)
[2016-11-23 12:36] VITALS: BP 153/75
--- NOTE | 2016-11-23 13:11 | Pulmonology Progress Note ---
Assessment/Plan Problems: (1) Hypertensive urgency (2) Emphysema lung (3) Severe malnutrition Assessment/Plan bp better on norvasc 10 and benazapril 40 BID renal US negative. echo reviewed: EF of 60% respiratory treatment titrate fio2 check electrolytes creatinine less. Subjective ROS Limited/Unobtainable: No Interval Events: bp better, wants to go home HEENT: Repors: no symptoms Respiratory: Reports: no symptoms Cardiovascular: Reports: no symptoms Allergies: Coded Allergies: No Known Allergies (Unverified , 11/05/15) Objective Last 24 Hour Vital Signs Date Time Temp Pulse Resp B/P (MAP) Pulse Ox O2 Delivery O2 Flow Rate FiO2 11/23/16 12:36 98.2 98 18 153/75 97 Nasal Cannula 2.0 11/23/16 10:20 103 147/66 11/23/16 10:20 147/66 11/23/16 08:48 97.9 103 20 147/66 97 Nasal Cannula 2.0 11/23/16 07:41 75 20 100 Nasal Cannula 2.0 28 11/23/16 07:32 78 20 98 Nasal Cannula 2.0 28 11/23/16 07:32 78 18 Nasal Cannula 2.0 28 11/23/16 04:00 86 11/23/16 04:00 97.3 73 20 111/58 Room Air 11/23/16 00:00 71 11/23/16 00:00 97.2 72 18 119/54 Room Air 11/22/16 20:00 75 11/22/16 20:00 97.9 74 20 98/54 95 Room Air 11/22/16 19:58 74 20 100 Room Air 11/22/16 19:51 84 24 100 Room Air 11/22/16 19:51 97 18 Room Air 11/22/16 18:29 99/50 11/22/16 18:00 99/50 11/22/16 16:00 75 11/22/16 16:00 97.9 67 18 112/53 97 Nasal Cannula 2.0 Intake and Output 11/23/16 11/24/16 19:00 07:00 Intake Total 240 ml Output Total 600 ml Balance -360 ml Intake Oral 240 ml Output Urine Total 600 ml General Appearance: WD/WN HEENT: normocephalic, atraumatic Respiratory/Chest: chest wall non-tender, lungs clear Breasts: no masses Cardiovascular: normal peripheral pulses, regular rhythm Abdomen: normal bowel sounds, soft, non tender Extremities: no cyanosis Skin: no rash, no lesions Microbiology Date/Time Source Procedure Growth Status 11/22/16 17:57 Urine,Clean Catch Urine Culture - Preliminary NO GROWTH Resulted Laboratory Tests 11/22/16 17:57: Urine Color Pale yellow, Urine Appearance Clear, Urine pH 5, Urine Specific [place] 1.010, Urine Protein Negative, Urine Glucose (UA) Negative, Urine Ketones Negative, Urine Occult Blood Negative, Urine Nitrite Negative, Urine Bilirubin Negative, Urine Urobilinogen Normal, Urine Leukocyte Esterase Negative , Urine RBC 2-4H, Urine WBC 5-10H, Urine Squamous Epithelial Cells Few, Urine Amorphous Sediment FewH, Urine Bacteria ModerateH, Urine Eosinophils None seen, Urine Random Sodium 57, Urine Potassium Timed 22 11/23/16 05:10: White Blood Count 7.5, Red Blood Count 3.72L, Hemoglobin 11.6L, Hematocrit 34.6L , Mean Corpuscular Volume 93, Mean Corpuscular Hemoglobin 31.2H, Mean Corpuscular Hemoglobin Concent 33.6, Red Cell Distribution Width 11.7, Platelet Count 162, Mean Platelet Volume 7.3, Neutrophils (%) (Auto) 39.0L, Lymphocytes ( %) (Auto) 47.7H, Monocytes (%) (Auto) 7.0, Eosinophils (%) (Auto) 5.5H, Basophils (%) (Auto) 0.8, Erythrocyte Sedimentation Rate 15, Sodium Level 139, Potassium Level 4.4, Chloride Level 105, Carbon Dioxide Level 22, Anion Gap 12, Blood Urea Nitrogen 32H, Creatinine 1.4H, Estimat Glomerular Filtration Rate , Glucose Level 110H, Calcium Level 8.8, Phosphorus Level 3.5, Magnesium Level 1.8 , Total Bilirubin < 0.2, Aspartate Amino Transf (AST/SGOT) 40, Alanine Aminotransferase (ALT/SGPT) 33, Alkaline Phosphatase 84, Troponin I < 0.30, C- Reactive Protein, Quantitative < 0.3, Total Protein 6.0L, Albumin 3.4L, Globulin 2.6, Albumin/Globulin Ratio 1.3 Current Medications Medications (Trade) Dose Ordered Sig/Arthur Route PRN Reason Start Time Stop Time Status Last Admin Dose Admin Acetaminophen (Tylenol) 650 mg Q4H PRN ORAL FEVER 11/21/16 05:15 12/21/16 05:14 11/22/16 03:57 Albuterol/ Ipratropium (DuoNeb 0.5-3(2.5)mg/3ml) 3 ml EVERY 4 HOURS PRN HHN Shortness of Breath 11/21/16 05:15 11/26/16 05:14 11/23/16 07:32 Amlodipine Besylate (Norvasc) 10 mg DAILY ORAL 11/22/16 09:00 12/22/16 08:59 11/23/16 10:20 Benazepril HCl (Lotensin) 40 mg TWICE A DAY ORAL 11/21/16 09:00 12/21/16 08:59 11/23/16 10:20 Ceftriaxone Sodium 1 gm/ Dextrose 55 ml @ 110 mls/hr Q24H IVPB 11/22/16 22:15 11/29/16 22:14 11/22/16 22:15 Diltiazem HCl (Cardizem) 10 mg EVERY HOUR PRN IV heart rate more than 120, 11/21/16 05:15 12/21/16 05:14 Enalaprilat (Vasotec) 2.5 mg EVERY 6 HOURS PRN IV sbp more than 160 11/21/16 05:15 12/21/16 05:14 11/21/16 06:45 Gabapentin (Neurontin) 600 mg BID ORAL 11/21/16 09:00 12/21/16 08:59 11/23/16 10:20 Heparin Sodium (Porcine) (Heparin 5000 units/ml) 5,000 units EVERY 12 HOURS SUBQ 11/21/16 09:00 12/21/16 08:59 11/23/16 10:23 Nitroglycerin (Ntg) 0.4 mg Every 5 Minutes PRN SL Prn Chest Pain 11/21/16 05:15 12/21/16 05:14 Ondansetron HCl (Zofran) 4 mg Q6H PRN IVP Nausea & Vomiting 11/21/16 05:15 12/21/16 05:14 Pantoprazole (Protonix) 40 mg DAILY ORAL 11/21/16 09:00 12/21/16 08:59 11/23/16 10:20 Polyethylene Glycol (Miralax) 17 gm DAILYPRN PRN ORAL Constipation 11/21/16 05:15 11/1/17 05:14 Temazepam (Restoril) 15 mg HSPRN PRN ORAL Insomnia 11/21/16 05:15 11/28/16 05:14 11/22/16 21:35 Tizanidine HCl (Zanaflex) 4 mg THREE TIMES A DAY ORAL 11/21/16 09:00 12/21/16 08:59 11/23/16 10:20 ADRIANO ABREU Nov 23, 2016 13:11
--- NOTE | 2016-11-23 13:49 | General Progress Note ---
Assessment/Plan Problem List: (1) HTN (hypertension), malignant ICD Codes: I10 - Essential (primary) hypertension SNOMED: 52507963 (2) Head ache ICD Codes: R51 - Headache SNOMED: 06524927 (3) Weak ICD Codes: R53.1 - Weakness SNOMED: 86977074 (4) Asthma ICD Codes: J45.909 - Unspecified asthma, uncomplicated SNOMED: 635367205 Status: stable, progressing, tolerating diet Assessment/Plan ot pt diet bp pain control dc w hh Subjective Constitutional: Reports: weakness Allergies: Coded Allergies: No Known Allergies (Unverified , 11/05/15) Subjective calm in bed eating no chest pain no head ache Objective Last 24 Hour Vital Signs Date Time Temp Pulse Resp B/P (MAP) Pulse Ox O2 Delivery O2 Flow Rate FiO2 11/23/16 12:36 98.2 98 18 153/75 97 Nasal Cannula 2.0 11/23/16 12:00 89 11/23/16 10:20 103 147/66 11/23/16 10:20 147/66 11/23/16 08:48 97.9 103 20 147/66 97 Nasal Cannula 2.0 11/23/16 08:00 110 11/23/16 07:41 75 20 100 Nasal Cannula 2.0 28 11/23/16 07:32 78 20 98 Nasal Cannula 2.0 28 11/23/16 07:32 78 18 Nasal Cannula 2.0 28 11/23/16 04:00 86 11/23/16 04:00 97.3 73 20 111/58 Room Air 11/23/16 00:00 71 11/23/16 00:00 97.2 72 18 119/54 Room Air 11/22/16 20:00 75 11/22/16 20:00 97.9 74 20 98/54 95 Room Air 11/22/16 19:58 74 20 100 Room Air 11/22/16 19:51 84 24 100 Room Air 11/22/16 19:51 97 18 Room Air 11/22/16 18:29 99/50 11/22/16 18:00 99/50 11/22/16 16:00 75 11/22/16 16:00 97.9 67 18 112/53 97 Nasal Cannula 2.0 Intake and Output 11/23/16 11/24/16 19:00 07:00 Intake Total 240 ml Output Total 600 ml Balance -360 ml Intake Oral 240 ml Output Urine Total 600 ml Laboratory Tests 11/22/16 17:57: Urine Color Pale yellow, Urine Appearance Clear, Urine pH 5, Urine Specific [place] 1.010, Urine Protein Negative, Urine Glucose (UA) Negative, Urine Ketones Negative, Urine Occult Blood Negative, Urine Nitrite Negative, Urine Bilirubin Negative, Urine Urobilinogen Normal, Urine Leukocyte Esterase Negative , Urine RBC 2-4H, Urine WBC 5-10H, Urine Squamous Epithelial Cells Few, Urine Amorphous Sediment FewH, Urine Bacteria ModerateH, Urine Eosinophils None seen, Urine Random Sodium 57, Urine Potassium Timed 22 11/23/16 05:10: White Blood Count 7.5, Red Blood Count 3.72L, Hemoglobin 11.6L, Hematocrit 34.6L , Mean Corpuscular Volume 93, Mean Corpuscular Hemoglobin 31.2H, Mean Corpuscular Hemoglobin Concent 33.6, Red Cell Distribution Width 11.7, Platelet Count 162, Mean Platelet Volume 7.3, Neutrophils (%) (Auto) 39.0L, Lymphocytes ( %) (Auto) 47.7H, Monocytes (%) (Auto) 7.0, Eosinophils (%) (Auto) 5.5H, Basophils (%) (Auto) 0.8, Erythrocyte Sedimentation Rate 15, Sodium Level 139, Potassium Level 4.4, Chloride Level 105, Carbon Dioxide Level 22, Anion Gap 12, Blood Urea Nitrogen 32H, Creatinine 1.4H, Estimat Glomerular Filtration Rate , Glucose Level 110H, Calcium Level 8.8, Phosphorus Level 3.5, Magnesium Level 1.8 , Total Bilirubin < 0.2, Aspartate Amino Transf (AST/SGOT) 40, Alanine Aminotransferase (ALT/SGPT) 33, Alkaline Phosphatase 84, Troponin I < 0.30, C- Reactive Protein, Quantitative < 0.3, Total Protein 6.0L, Albumin 3.4L, Globulin 2.6, Albumin/Globulin Ratio 1.3 Height (Feet): 5 Height (Inches): 7.00 Weight (Pounds): 126 General Appearance: alert EENT: normal ENT inspection Neck: normal alignment Cardiovascular: normal peripheral pulses, normal rate, regular rhythm Respiratory/Chest: chest wall non-tender, lungs clear, normal breath sounds Abdomen: normal bowel sounds, non tender, soft Extremities: normal inspection Edema: no edema noted Arm (L), no edema noted Arm (R), no edema noted Leg (L), no edema noted Leg (R), no edema noted Pedal (L), no edema noted Pedal (R), no edema noted Generalized Neurologic: responsive, motor weakness Skin: normal pigmentation, warm/dry MARTHA ULLOA Nov 23, 2016 13:49
--- NOTE | 2016-11-23 13:51 | Cardiac Electrophysiology PN ---
Assessment/Plan Assessment/Plan 1. Accelerated hypertension. The patient denies any chest pain. She was ruled out for myocardial infarction. Still high despite Lotensin 40 mg b.i.d. and Norvasc 10 mg daily. Add Lopressor 25 bid 2. Chronic obstructive pulmonary disease. 3. Neuropathy, on gabapentin. KATT RN Subjective Subjective BP stable now. DC planning today.. Objective Last 24 Hour Vital Signs Date Time Temp Pulse Resp B/P (MAP) Pulse Ox O2 Delivery O2 Flow Rate FiO2 11/23/16 12:36 98.2 98 18 153/75 97 Nasal Cannula 2.0 11/23/16 12:00 89 11/23/16 10:20 103 147/66 11/23/16 10:20 147/66 11/23/16 08:48 97.9 103 20 147/66 97 Nasal Cannula 2.0 11/23/16 08:00 110 11/23/16 07:41 75 20 100 Nasal Cannula 2.0 28 11/23/16 07:32 78 20 98 Nasal Cannula 2.0 28 11/23/16 07:32 78 18 Nasal Cannula 2.0 28 11/23/16 04:00 86 11/23/16 04:00 97.3 73 20 111/58 Room Air 11/23/16 00:00 71 11/23/16 00:00 97.2 72 18 119/54 Room Air 11/22/16 20:00 75 11/22/16 20:00 97.9 74 20 98/54 95 Room Air 11/22/16 19:58 74 20 100 Room Air 11/22/16 19:51 84 24 100 Room Air 11/22/16 19:51 97 18 Room Air 11/22/16 18:29 99/50 11/22/16 18:00 99/50 11/22/16 16:00 75 11/22/16 16:00 97.9 67 18 112/53 97 Nasal Cannula 2.0 Intake and Output 11/23/16 11/24/16 19:00 07:00 Intake Total 240 ml Output Total 600 ml Balance -360 ml Intake Oral 240 ml Output Urine Total 600 ml Laboratory Tests Test 11/22/16 17:57 11/23/16 05:10 Urine Color Pale yellow Urine Appearance Clear Urine pH 5 (4.5-8.0) Urine Specific [place] 1.010 (1.005-1.035) Urine Protein Negative (NEGATIVE) Urine Glucose (UA) Negative (NEGATIVE) Urine Ketones Negative (NEGATIVE) Urine Occult Blood Negative (NEGATIVE) Urine Nitrite Negative (NEGATIVE) Urine Bilirubin Negative (NEGATIVE) Urine Urobilinogen Normal MG/DL (0.0-1.0) Urine Leukocyte Esterase Negative (NEGATIVE) Urine RBC 2-4 /HPF (0 - 2) H Urine WBC 5-10 /HPF (0 - 2) H Urine Squamous Epithelial Cells Few /LPF (NONE/OCC) Urine Amorphous Sediment Few /LPF (NONE) H Urine Bacteria Moderate /HPF (NONE) H Urine Eosinophils None seen Urine Random Sodium 57 mmol/L Urine Potassium Timed 22 mmol/L White Blood Count 7.5 K/UL (4.8-10.8) Red Blood Count 3.72 M/UL (4.20-5.40) L Hemoglobin 11.6 G/DL (12.0-16.0) L Hematocrit 34.6 % (37.0-47.0) L Mean Corpuscular Volume 93 FL (80-99) Mean Corpuscular Hemoglobin 31.2 PG (27.0-31.0) H Mean Corpuscular Hemoglobin Concent 33.6 G/DL (32.0-36.0) Red Cell Distribution Width 11.7 % (11.6-14.8) Platelet Count 162 K/UL (150-450) Mean Platelet Volume 7.3 FL (6.5-10.1) Neutrophils (%) (Auto) 39.0 % (45.0-75.0) L Lymphocytes (%) (Auto) 47.7 % (20.0-45.0) H Monocytes (%) (Auto) 7.0 % (1.0-10.0) Eosinophils (%) (Auto) 5.5 % (0.0-3.0) H Basophils (%) (Auto) 0.8 % (0.0-2.0) Erythrocyte Sedimentation Rate 15 MM/HR (0-30) Sodium Level 139 mEQ/L (135-145) Potassium Level 4.4 mEQ/L (3.4-4.9) Chloride Level 105 mEQ/L (98-107) Carbon Dioxide Level 22 mEQ/L (20-30) Anion Gap 12 (5-15) Blood Urea Nitrogen 32 mg/dL (7-23) H Creatinine 1.4 mg/dL (0.5-0.9) H Estimat Glomerular Filtration Rate mL/min (>60) Glucose Level 110 mg/dL (74-106) H Calcium Level 8.8 mg/dL (8.6-10.2) Phosphorus Level 3.5 mg/dL (2.5-4.8) Magnesium Level 1.8 mg/dL (1.7-2.5) Total Bilirubin < 0.2 mg/dL (0.0-1.2) Aspartate Amino Transf (AST/SGOT) 40 U/L (5-40) Alanine Aminotransferase (ALT/SGPT) 33 U/L (3-33) Alkaline Phosphatase 84 U/L (35-104) Troponin I < 0.30 ng/mL (<=0.30) C-Reactive Protein, Quantitative < 0.3 mg/dL (< 0.5) Total Protein 6.0 g/dL (6.6-8.7) L Albumin 3.4 g/dL (3.5-5.2) L Globulin 2.6 g/dL Albumin/Globulin Ratio 1.3 (1.0-2.7) Microbiology Date/Time Source Procedure Growth Status 11/22/16 17:57 Urine,Clean Catch Urine Culture - Preliminary NO GROWTH Resulted Objective Head And Neck: Showed no jugular venous distention or carotid bruits. LUNGS: Decreased breath sounds. CARDIOVASCULAR: Regular S1 and S2 with no gallop or murmur. ABDOMEN: Soft. EXTREMITIES: No pitting edema. DEIDRE CALDWELL Nov 23, 2016 13:51
[2016-11-23] MEDS ORDERED: Metoprolol 25mg tab ORAL SCH (14:00)
[2016-11-23] MEDS ORDERED: NORVASC10 MG ORAL (14:32)
[2016-11-23] MEDS ORDERED: LOPRESSOR25 M1 ORAL (14:34)
[2016-11-23] MEDS ORDERED: LOPRESSOR HCT1 EAC3 ORAL (14:34)
[2016-11-23 14:53] VITALS: BP 153/75
[2016-11-23] MEDS ORDERED: Tubing IV Secondary IV ONE (15:02)
--- NOTE | 2016-11-23 15:02 | Infectious Diseases Prog Note ---
Assessment/Plan Problems: (1) UTI (urinary tract infection) Assessment & Plan: on ceftriaxon empiric treatment pending urine culture results , avoid levaquin due to QT prolongation (2) Hypertensive urgency Assessment & Plan: continue cardiac meds as per cardiology Subjective Constitutional: Reports: no symptoms HEENT: Reports: no symptoms Respiratory: Reports: no symptoms Breasts: Reports: no symptoms Cardiovascular: Reports: no symptoms Gastrointestinal/Abdominal: Reports: no symptoms Genitourinary: Reports: no symptoms Neurologic: Reports: no symptoms Psychiatric: Reports: no symptoms Skin: Reports: no symptoms Endocrine: Reports: no symptoms Hematologic: Reports: no symptoms Allergies: Coded Allergies: No Known Allergies (Unverified , 11/05/15) Objective Vital Signs Last 24 Hour Vital Signs Date Time Temp Pulse Resp B/P (MAP) Pulse Ox O2 Delivery O2 Flow Rate FiO2 11/23/16 12:36 98.2 98 18 153/75 97 Nasal Cannula 2.0 11/23/16 12:00 89 11/23/16 10:20 103 147/66 11/23/16 10:20 147/66 11/23/16 08:48 97.9 103 20 147/66 97 Nasal Cannula 2.0 11/23/16 08:00 110 11/23/16 07:41 75 20 100 Nasal Cannula 2.0 28 11/23/16 07:32 78 20 98 Nasal Cannula 2.0 28 11/23/16 07:32 78 18 Nasal Cannula 2.0 28 11/23/16 04:00 86 11/23/16 04:00 97.3 73 20 111/58 Room Air 11/23/16 00:00 71 11/23/16 00:00 97.2 72 18 119/54 Room Air 11/22/16 20:00 75 11/22/16 20:00 97.9 74 20 98/54 95 Room Air 11/22/16 19:58 74 20 100 Room Air 11/22/16 19:51 84 24 100 Room Air 11/22/16 19:51 97 18 Room Air 11/22/16 18:29 99/50 11/22/16 18:00 99/50 11/22/16 16:00 75 11/22/16 16:00 97.9 67 18 112/53 97 Nasal Cannula 2.0 Height (Feet): 5 Height (Inches): 7.00 Weight (Pounds): 126 General Appearance: WD/WN, no acute distress HEENT: normocephalic, atraumatic, anicteric, mucous membranes moist, PERRL, EOMI, pharynx normal, supple, no JVD Respiratory/Chest: chest wall non-tender, lungs clear, normal breath sounds, no respiratory distress, no accessory muscle use, decreased breath sounds, crackles/rales Cardiovascular: normal peripheral pulses, normal rate, regular rhythm, no gallop/murmur, no JVD Abdomen: normal bowel sounds, soft, non tender, no organomegaly, non distended , no mass, no scars Extremities: no cyanosis, no clubbing Skin: no rash, no lesions, no ulcers Musculoskeletal: normal muscle bulk, no effusion Microbiology Date/Time Source Procedure Growth Status 11/22/16 17:57 Urine,Clean Catch Urine Culture - Preliminary NO GROWTH Resulted Laboratory Tests Test 11/22/16 17:57 11/23/16 05:10 Urine Color Pale yellow Urine Appearance Clear Urine pH 5 (4.5-8.0) Urine Specific [place] 1.010 (1.005-1.035) Urine Protein Negative (NEGATIVE) Urine Glucose (UA) Negative (NEGATIVE) Urine Ketones Negative (NEGATIVE) Urine Occult Blood Negative (NEGATIVE) Urine Nitrite Negative (NEGATIVE) Urine Bilirubin Negative (NEGATIVE) Urine Urobilinogen Normal MG/DL (0.0-1.0) Urine Leukocyte Esterase Negative (NEGATIVE) Urine RBC 2-4 /HPF (0 - 2) H Urine WBC 5-10 /HPF (0 - 2) H Urine Squamous Epithelial Cells Few /LPF (NONE/OCC) Urine Amorphous Sediment Few /LPF (NONE) H Urine Bacteria Moderate /HPF (NONE) H Urine Eosinophils None seen Urine Random Sodium 57 mmol/L Urine Potassium Timed 22 mmol/L White Blood Count 7.5 K/UL (4.8-10.8) Red Blood Count 3.72 M/UL (4.20-5.40) L Hemoglobin 11.6 G/DL (12.0-16.0) L Hematocrit 34.6 % (37.0-47.0) L Mean Corpuscular Volume 93 FL (80-99) Mean Corpuscular Hemoglobin 31.2 PG (27.0-31.0) H Mean Corpuscular Hemoglobin Concent 33.6 G/DL (32.0-36.0) Red Cell Distribution Width 11.7 % (11.6-14.8) Platelet Count 162 K/UL (150-450) Mean Platelet Volume 7.3 FL (6.5-10.1) Neutrophils (%) (Auto) 39.0 % (45.0-75.0) L Lymphocytes (%) (Auto) 47.7 % (20.0-45.0) H Monocytes (%) (Auto) 7.0 % (1.0-10.0) Eosinophils (%) (Auto) 5.5 % (0.0-3.0) H Basophils (%) (Auto) 0.8 % (0.0-2.0) Erythrocyte Sedimentation Rate 15 MM/HR (0-30) Sodium Level 139 mEQ/L (135-145) Potassium Level 4.4 mEQ/L (3.4-4.9) Chloride Level 105 mEQ/L (98-107) Carbon Dioxide Level 22 mEQ/L (20-30) Anion Gap 12 (5-15) Blood Urea Nitrogen 32 mg/dL (7-23) H Creatinine 1.4 mg/dL (0.5-0.9) H Estimat Glomerular Filtration Rate mL/min (>60) Glucose Level 110 mg/dL (74-106) H Calcium Level 8.8 mg/dL (8.6-10.2) Phosphorus Level 3.5 mg/dL (2.5-4.8) Magnesium Level 1.8 mg/dL (1.7-2.5) Total Bilirubin < 0.2 mg/dL (0.0-1.2) Aspartate Amino Transf (AST/SGOT) 40 U/L (5-40) Alanine Aminotransferase (ALT/SGPT) 33 U/L (3-33) Alkaline Phosphatase 84 U/L (35-104) Troponin I < 0.30 ng/mL (<=0.30) C-Reactive Protein, Quantitative < 0.3 mg/dL (< 0.5) Total Protein 6.0 g/dL (6.6-8.7) L Albumin 3.4 g/dL (3.5-5.2) L Globulin 2.6 g/dL Albumin/Globulin Ratio 1.3 (1.0-2.7) Current Medications Medications (Trade) Dose Ordered Sig/Arthur Route PRN Reason Start Time Stop Time Status Last Admin Dose Admin Acetaminophen (Tylenol) 650 mg Q4H PRN ORAL FEVER 11/21/16 05:15 12/21/16 05:14 11/22/16 03:57 Albuterol/ Ipratropium (DuoNeb 0.5-3(2.5)mg/3ml) 3 ml EVERY 4 HOURS PRN HHN Shortness of Breath 11/21/16 05:15 11/26/16 05:14 11/23/16 07:32 Amlodipine Besylate (Norvasc) 10 mg DAILY ORAL 11/22/16 09:00 12/22/16 08:59 11/23/16 10:20 Benazepril HCl (Lotensin) 40 mg TWICE A DAY ORAL 11/21/16 09:00 12/21/16 08:59 11/23/16 10:20 Ceftriaxone Sodium 1 gm/ Dextrose 55 ml @ 110 mls/hr Q24H IVPB 11/22/16 22:15 11/29/16 22:14 11/22/16 22:15 Gabapentin (Neurontin) 600 mg BID ORAL 11/21/16 09:00 12/21/16 08:59 11/23/16 10:20 Heparin Sodium (Porcine) (Heparin 5000 units/ml) 5,000 units EVERY 12 HOURS SUBQ 11/21/16 09:00 12/21/16 08:59 11/23/16 10:23 Metoprolol Tartrate (Lopressor) 25 mg Q12HR ORAL 11/23/16 14:00 12/23/16 13:59 Nitroglycerin (Ntg) 0.4 mg Every 5 Minutes PRN SL Prn Chest Pain 11/21/16 05:15 12/21/16 05:14 Ondansetron HCl (Zofran) 4 mg Q6H PRN IVP Nausea & Vomiting 11/21/16 05:15 12/21/16 05:14 Pantoprazole (Protonix) 40 mg DAILY ORAL 11/21/16 09:00 12/21/16 08:59 11/23/16 10:20 Polyethylene Glycol (Miralax) 17 gm DAILYPRN PRN ORAL Constipation 11/21/16 05:15 12/21/16 05:14 Temazepam (Restoril) 15 mg HSPRN PRN ORAL Insomnia 11/21/16 05:15 11/28/16 05:14 11/22/16 21:35 Tizanidine HCl (Zanaflex) 4 mg THREE TIMES A DAY ORAL 11/21/16 09:00 12/21/16 08:59 11/23/16 10:20 Bryn Rouse M.D. Nov 23, 2016 15:02
--- NOTE | 2016-11-24 01:15 | Consultation ---
DATE OF CONSULTATION: 11/23/2016 INFECTIOUS DISEASE CONSULTATION CONSULTING PHYSICIAN: Bryn Rouse M.D. REQUESTING PHYSICIAN: Jeison Dee D.O. REASON FOR CONSULTATION: Urinary tract infection. History Of Present Illness: The patient is a 71-year-old female with past medical history of hypertension, asthma, and GERD, presented to the hospital with chief complaint of headache four hours before arrival to the emergency room. It was sharp, 8/10, and nonradiating. Denied any photophobia or blurry vision. No nausea or vomiting. No neck stiffness. No fever or chills. The patient was found to be in hypertension emergency and her blood pressure was more than 200 systolic, so she was admitted to the hospital for further management. On her workup, urinalysis showed evidence of infection. So, I was consulted by the primary provider for antibiotics treatment and further management. The patient denied any dysuria or hematuria. Denied any cough or phlegm. No chest pain. No shortness of breath. No muscle ache or joint swelling. Past Medical History: Significant for hypertension, asthma, and GERD. PAST SURGICAL HISTORY: Negative. ALLERGIES: No known drug allergy. Medications: The patient is on metoprolol, amlodipine, Lotensin, Neurontin, Zanaflex, Protonix, heparin, DuoNeb, nitroglycerin, Tylenol, MiraLax, Zofran, and Restoril. FAMILY HISTORY: Not contributory. Social History: She lives with family. Denied using any drugs, tobacco, or alcohol. Review Of Systems: A 12-point of system reviewed were all negative apart from the one I mentioned above in my History and Physical. PHYSICAL EXAMINATION: Vital Signs: Temperature 97.9, pulse 67, respiratory rate 18, blood pressure 112/53, and pulse oximetry 97% on two liters nasal cannula. General: This is an elderly female, up in chair, awake, alert, oriented, not in acute distress. HEENT: Normocephalic and atraumatic. Pupils are reactive to light. Moist oral mucosa. No exudate. NECK: Supple. No lymphadenopathy. CARDIOVASCULAR: Regular rate and rhythm. No murmur or gallop. Lungs: Clear bilaterally. No wheezing. No rhonchi. Normal breathing effort. Abdomen: Soft, nontender, and nondistended. Positive bowel sounds. No hepatosplenomegaly. No ascites. EXTREMITIES: No edema. No cyanosis. SKIN: No rash or hives. Laboratory Data: Labs showed white count 9.4, hemoglobin 13.3, and platelet count 190,000. BUN 25 and creatinine 1.5. Uric acid 8.4. Urinalysis showed WBC 5 to 10 and moderate amount of bacteria. IMAGING STUDIES: 1. Head CT scan showed no acute intracranial bleed, mass effect, or edema, mild atrophy of the brain, nonspecific white matter hypoattenuation. 2. Chest x-ray showed no acute findings. ASSESSMENT AND RECOMMENDATION: 1. Urinary tract infection. We will start ceftriaxone empiric treatment. Pending urine culture results. Unable to do Levaquin due to QT prolongation. 2. Hypertensive urgency. We will continue cardiac medications as per Cardiology. Monitor blood pressure closely. Avoid sudden drop in her blood pressure. Thank you. Infectious Disease will continue to follow. Bryn Rouse M.D. DR: DAREN JOB#: [id number] CC:
--- NOTE | 2016-11-24 14:59 | Discharge Summary ---
Discharge Summary Hospital Course Date of Admission Nov 21, 2016 at 01:35 Date of Discharge Nov 23, 2016 at 15:03 Admitting Diagnosis hypertensive urgency HPI Ayanna Baptiste is a 71 year old female who was admitted on Nov 21, 2016 at 01:35 for Hypertensive Urgency Hospital Course [id number] Discharge Discharge Disposition Patient was discharged to Home with Home Health(06) Discharge Diagnoses: Michelle Simmons NP Nov 24, 2016 14:59
--- NOTE | 2016-11-25 06:15 | Discharge Summary 2 SIG ---
DATE OF ADMISSION: 11/21/2016 DATE OF DISCHARGE: 11/23/2016 CONSULTANTS: 1. Bryn Rouse M.D. 2. Timi Parry M.D. 3. Giancarlo Valdez M.D. Brief Hospital Course: The patient is a 71-year-old female, who lives at home with son apparently became very weak and complained of headaches. Headache was described to be sharp, 8/10, nonradiating. On evaluation at ED, blood pressure was greater than 200 systolic. She has history of hypertension and is compliant with her medications. EKG done showed normal sinus rhythm with no acute changes. 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 She was given IV hydralazine with improvement of blood pressure. Chest x-ray was unremarkable. She was then admitted to telemetry for hypertensive urgency. She was seen by Dr. Parry and was continued on Lotensin 40 mg. Norvasc 10 mg was added to her regimen. She is also on Vasotec and Cardizem. Blood pressure continued to be elevated and Lopressor 25 mg b.i.d. was added. Troponin was monitored and was negative. Urinalysis showed evidence of infection and was started empirically on ceftriaxone. Unable to do Levaquin due to QT prolongation. Echocardiogram done showed EF 60% to 65% with normal left ventricular size, function, and wall motion. No LVH. No pericardial or pleural effusion. There was no aortic regurgitation and no tricuspid regurgitation. There was trace mild regurgitation and diastolic dysfunction grade 1. Creatinine was elevated. Renal ultrasound was negative. Both kidneys were within normal limits in size, contour, and echogenicity. Blood pressure improved and she was eventually discharged home with home health. FINAL DIAGNOSES: 1. Hypertensive urgency. 2. Urinary tract infection. 3. Chronic obstructive pulmonary disease. 4. Neuropathy. 5. Severe malnutrition. 6. Lung emphysema. 7. Headache. 8. Weakness. 9. Anemia. Discharge Disposition: The patient was discharged home with home health. DISCHARGE MEDICATIONS: Refer to medication list. FOLLOWUP: The patient was advised to follow up in a week. Jeison Dee D.O. I have been assigned to dictate discharge summary on this account and I was not involved in the patient's management. Michelle Simmons N.P. DR: CARLITOS JOB#: [id number] CC: ULYSSES
== END 2016-11-23 15:03 | disposition home health service (06) | DRG 304 ==
LOC: EDBD 23:36 → EMR 11-21 00:21 → EDBEDREQ 11-21 01:02 → 2E 11-21 01:35
DX: I16.0 Hypertensive urgency (principal); E43 Unspecified severe protein-calorie malnutrition; G62.9 Polyneuropathy, unspecified; N39.0 Urinary tract infection, site not specified; Z68.1 Body mass index [BMI] 19.9 or less, adult; J44.9 Chronic obstructive pulmonary disease, unspecified; R51 Headache; R53.1 Weakness; D64.9 Anemia, unspecified; K21.9 Gastro-esophageal reflux disease without esophagitis; Z23 Encounter for immunization
CPT/HCPCS: 36415; 70450; 71010; 76775; 80048; 80053; 80061; 81001; 82550; 82553; 83735; 84100; 84133; 84300; 84443; 84484; 84550; 85025; 85610; 85651; 85730; 86140; 87086; 89050; 90630; 93005; 93306; 94640; 94664; 99285; J7620

== ENCOUNTER 2017-01-06 22:33 | Inpatient (IN) | payer MEDICARE, MEDICAID ==
[~2017-01-06] VITALS: Ht 170.2 cm; Wt 53.5 kg
[~2017-01-06 22:33] MED LIST changes: +LOPRESSOR HCT1 EAC3 ORAL; +LOPRESSOR25 M1 ORAL; +NORVASC10 MG ORAL; +TIZANIDINE HCL4 MG ORAL
[2017-01-06 22:40] VITALS: BP 89/40
--- NOTE | 2017-01-06 22:54 | Emergency Room Report ---
History of Present Illness General Chief Complaint: Abdominal Pain Source: Patient, EMS Present Illness HPI Is a 71-year-old female coming from home. She has history of previous abdominal surgery. She presents with chief complaint abdominal pain and generalized body pain. Onset for about a week. She has nausea and vomiting. Unable to keep anything down. Also with chest pain from the vomiting. [place] very weak. Worse with exertion. As any fever or chills. Pain is 10 out of 10. Allergies: Coded Allergies: No Known Allergies (Unverified , 11/05/15) Patient History Past Medical History: see triage record, old chart reviewed Past Surgical History: other Pertinent Family History: none Social History: Denies: drug use Now: No Immunizations: other Reviewed Nursing Documentation: PMH: Agreed, PSxH: Agreed Nursing Documentation-PMH Hx Cardiac Problems: Yes Hx Hypertension: Yes Hx Asthma: Yes Hx Diabetes: No Hx Cancer: No Hx Gastrointestinal Problems: No Hx Dialysis: No Hx Neurological Problems: Yes Hx Cerebrovascular Accident: No Hx Seizures: No Hx Spinal Cord Injury: Yes Review of Systems Constitutional: Reports: malaise, weakness Eye: Denies: eye pain, blurred vision ENT: Denies: ear pain, nose congestion, throat swelling Respiratory: Denies: cough, shortness of breath Cardiovascular: Reports: chest pain, Denies: palpitations Gastrointestinal: Reports: abdominal pain, nausea, vomiting, Denies: diarrhea Musculoskeletal: Denies: back pain, joint pain Skin: Denies: rash Neurological: Denies: headache, numbness Endocrine: Denies: increased thirst, increased urine Hematologic/Lymphatic: Denies: easy bruising All Other Systems: negative except mentioned in HPI Physical Exam Vital Signs Date Time Temp Pulse Resp B/P (MAP) Pulse Ox O2 Delivery O2 Flow Rate FiO2 01/06/17 22:35 84 16 126/88 97 Room Air vitals unremarkable [id number] EP Interpretation: reviewed, normal General Appearance: mild distress, cachetic, Chronically Ill Head: normocephalic, atraumatic Eyes: bilateral eye PERRL, bilateral eye EOMI ENT: hearing grossly normal, normal pharynx, dry mucus membranes Neck: full range of motion, supple, no meningismus Respiratory: chest non-tender, lungs clear, normal breath sounds Cardiovascular #1: regular rate, rhythm, no murmur Gastrointestinal: no mass, no organomegaly, no bruit, non-distended, tenderness - diffuse but worse on right mid quadrant, decreased bowel sounds Musculoskeletal: back normal, normal range of motion Neurologic: alert, oriented x3 Psychiatric: mood/affect normal Skin: warm/dry Medical Decision Making Diagnostic Impression: Primary Impression: Abdominal pain of unknown etiology Additional Impressions: ARF (acute renal failure) Qualified Codes: N17.9 - Acute kidney failure, unspecified ACS (acute coronary syndrome) Weakness generalized UTI (urinary tract infection) Qualified Codes: N30.00 - Acute cystitis without hematuria Proteinuria Qualified Codes: R80.9 - Proteinuria, unspecified ER Course Patient presents with generalize weakness and abdominal pain. Initially she was hypotensive but responded with IV fluid. Her troponin is intermediate. This could be secondary to the man ischemia. EKG unremarkable. Chest x-ray unremarkable. CT scan of abdomen unremarkable. She's feeling better now more awake. Will admit for further workup. Aspirin given here. No evidence of pneumonia, obstruction or perforation. No evidence of acute abdomen. Laboratory Tests Test 01/06/17 23:15 01/06/17 23:30 01/06/17 23:59 White Blood Count 10.2 K/UL (4.8-10.8) Red Blood Count 3.93 M/UL (4.20-5.40) L Hemoglobin 12.3 G/DL (12.0-16.0) Hematocrit 35.2 % (37.0-47.0) L Mean Corpuscular Volume 89 FL (80-99) Mean Corpuscular Hemoglobin 31.1 PG (27.0-31.0) H Mean Corpuscular Hemoglobin Concent 34.8 G/DL (32.0-36.0) Red Cell Distribution Width 10.9 % (11.6-14.8) L Platelet Count 242 K/UL (150-450) Mean Platelet Volume 5.6 FL (6.5-10.1) L Neutrophils (%) (Auto) 61.3 % (45.0-75.0) Lymphocytes (%) (Auto) 28.0 % (20.0-45.0) Monocytes (%) (Auto) 9.6 % (1.0-10.0) Eosinophils (%) (Auto) 0.5 % (0.0-3.0) Basophils (%) (Auto) 0.6 % (0.0-2.0) Sodium Level 129 MMOL/L (136-145) L Potassium Level 5.3 MMOL/L (3.5-5.1) H Chloride Level 99 MMOL/L (98-107) Carbon Dioxide Level 19 MMOL/L (21-32) L Anion Gap 11 mmol/L (5-15) Blood Urea Nitrogen 109 mg/dL (7-18) H Creatinine 4.2 MG/DL (0.55-1.30) H Estimat Glomerular Filtration Rate mL/min (>60) Glucose Level 129 MG/DL (74-106) H Calcium Level 8.9 MG/DL (8.5-10.1) Total Bilirubin 0.3 MG/DL (0.2-1.0) Aspartate Amino Transf (AST/SGOT) 55 U/L (15-37) H Alanine Aminotransferase (ALT/SGPT) 50 U/L (12-78) Alkaline Phosphatase 60 U/L (46-116) Total Creatine Kinase 585 U/L (26-308) H Creatine Kinase MB 4.6 NG/ML (0.0-3.6) H Creatine Kinase MB Relative Index 0.7 Troponin I 0.188 ng/mL (0.000-0.056) Total Protein 7.2 G/DL (6.4-8.2) Albumin 2.7 G/DL (3.4-5.0) L Globulin 4.5 g/dL Albumin/Globulin Ratio 0.6 (1.0-2.7) L Lactic Acid Level 1.40 mmol/L (0.66-2.22) Urine Color Pending Urine Appearance Pending Urine pH Pending Urine Specific Andrew Pending Urine Protein Pending Urine Glucose (UA) Pending Urine Ketones Pending Urine Occult Blood Pending Urine Nitrite Pending Urine Bilirubin Pending Urine Urobilinogen Pending Urine Leukocyte Esterase Pending Lab Results Impression labs with elevated BUN/creatinine EKG Diagnostic Results Rate: normal Rhythm: NSR ST Segments: no acute changes Rhythm Strip Diag. Results Rhythm Strip Time: 23:40 EP Interpretation: yes Rate: 75 Rhythm: NSR, no PVC's, no ectopy Chest X-Ray Diagnostic Results Chest X-Ray Diagnostic Results : Chest X-Ray Ordered: Yes # of Views/Limited/Complete: 1 View Indication: Chest Pain EP Interpretation: Yes Interpretation: no consolidation, no effusion, no pneumothorax Impression: No acute disease Electronically Signed by: Gerry Kenyon MD CT/MRI/US Diagnostic Results CT/MRI/US Diagnostic Results : Imaging Test Ordered: Abdomen and pelvis CT Impression Read by radiologist. Possible cholelithiasis versus artifact. No pericholecystic stranding. Last Vital Signs Date Time Temp Pulse Resp B/P (MAP) Pulse Ox O2 Delivery O2 Flow Rate FiO2 01/06/17 22:35 84 16 126/88 97 Room Air Disposition: ADMITTED INPATIENT Condition: Serious GERRY KENYON M.D. Jan 06, 2017 22:54
[2017-01-06 23:44] LABS: BASOPHILS % (AUTO) 0.6 % (0.0-2.0); EOSINOPHILS % (AUTO) 0.5 % (0.0-3.0); MEAN CORPUSCULAR HEMOGLOBIN 31.1 PG (27.0-31.0); MEAN CORPUSCULAR HGB CONC 34.8 G/DL (32.0-36.0); MEAN CORPUSCULAR VOLUME 89 FL (80-99); MEAN PLATELET VOLUME 5.6 FL (6.5-10.1); MONOCYTES % (AUTO) 9.6 % (1.0-10.0); NEUTROPHILS % (AUTO) 61.3 % (45.0-75.0); PLATELET COUNT 242 K/UL (150-450); RED BLOOD COUNT 3.93 M/UL (4.20-5.40); RED CELL DISTRIBUTION WIDTH 10.9 % (11.6-14.8); WHITE BLOOD COUNT 10.2 K/UL (4.8-10.8)
[2017-01-07] VITALS (8 sets, daily range): BP systolic 98–157; BP diastolic 36–71
[2017-01-07] LABS: ANION GAP 11 mmol/L (5-15); CALCIUM 8.9 MG/DL (8.5-10.1); CARBON DIOXIDE 19 MMOL/L (21-32); CHLORIDE 99 MMOL/L (98-107); CREATININE 4.2 MG/DL (0.55-1.30); POTASSIUM 5.3 MMOL/L (3.5-5.1); SODIUM 129 MMOL/L (136-145)
[2017-01-07 00:14] LABS: ALANINE AMINOTRANSFERASE 50 U/L (12-78); ALBUMIN/GLOBULIN RATIO 0.6 (1.0-2.7); ASPARTATE AMINO TRANSFERASE 55 U/L (15-37); CKMB 4.6 NG/ML (0.0-3.6); TOTAL PROTEIN 7.2 G/DL (6.4-8.2)
[2017-01-07] MEDS ORDERED: Aspirin Baby 81mg ORAL ONE (00:15)
[2017-01-07 00:44] LABS: APPEARANCE,URINE CLOUDY; KETONES,URINE NEGATIVE (NEGATIVE); LEUKOCYTE ESTERASE ,URINE 3+ (NEGATIVE); NITRITE,URINE NEGATIVE (NEGATIVE); PH,URINE 5 (4.5-8.0); PROTEIN,URINE 2+ (NEGATIVE); UROBILINOGEN,URINE 1 MG/DL (0.0-1.0)
[2017-01-07 01:08] LABS: BACTERIA,URINE MANY /HPF; RBC,URINE 40-60 /HPF (0 - 2); WBC,URINE TNTC /HPF (0 - 2)
[2017-01-07] MEDS ORDERED: cefTRIAXone 1 GM in NS 55 ML IVPB ONE (01:15)
[2017-01-07] MEDS ORDERED: dilTIAZem HCl 25mg/5ml Inj IV PRN (06:30)
[2017-01-07] MEDS ORDERED: Enalaprilat 2.5mg/2ml Inj IV PRN (06:30)
[2017-01-07] MEDS ORDERED: Ketorolac 30mg Inj IV PRN (06:30)
[2017-01-07] MEDS ORDERED: Miralax 17gm pkt ORAL PRN (06:30)
[2017-01-07] MEDS ORDERED: Nitroglycerin Subl 0.4mg tab SL PRN (06:30)
[2017-01-07] MEDS ORDERED: Albuterol/Ipratropium 3ml neb HHN PRN (06:30)
--- NOTE | 2017-01-07 08:41 | Consultation ---
History of Present Illness General Date patient seen: Jan 07, 2017 Time patient seen: 08:00 Chief Complaint: Abdominal Pain Referring physician: dr Dee Reason for Consultation: in hospital management Present Illness HPI 71-year-old female with PMH of HTN, COPD presented from home with CC of abdominal pain and generalized weakness Patietn reported previous abdominal surgery Symptoms ongoing, for about a week + n/v/, no diarrhea, no blood in emesis or stool unable to keep food reported CP from vomiting, worse with exertion pain described 10/10 on a scale 1 to 10 admitted to dysuria, no difficulties with urination Workup in ED revealed evidence of acute renal failure:-BUN-109 and creat-4.2, Na -129, K-5.3, elevated troponin-0.188 CK-586 and CK-MB-4.6 ECG -NSR no acute ischemic changes UA with gross evidence of UTI Lactic acid WNL CT A/P Possible cholelithiasis versus artifact. No pericholecystic stranding. CXR unremarkable VSS patient was admitted for further management Allergies: Coded Allergies: No Known Allergies (Unverified , 11/05/15) Medication History Scheduled Amlodipine Besylate (Norvasc), 10 MG ORAL DAILY, (Reported) Benazepril Hcl* (Benazepril Hcl*), 40 MG ORAL TWICE A DAY, (Reported) Gabapentin* (Gabapentin*), 600 MG ORAL BID, (Reported) Hydrochlorothiazide* (Hydrochlorothiazide*), 25 MG ORAL DAILY, (Reported) Metoprolol Tartrate (Metoprolol Tartrate), 25 MG ORAL EVERY 12 HOURS, (Reported) Tizanidine Hcl* (Zanaflex*), 4 MG ORAL THREE TIMES A DAY, (Reported) Scheduled PRN Acetaminophen With Codeine (T#4) (Tylenol #4 Tab*), 1 TAB ORAL Q6H PRN for For Pain, (Reported) Albuterol Sulfate* (Albuterol Sulfate Hhn*), 3 ML INH Q4H PRN for Shortness of Breath, (Reported) Zolpidem Tartrate* (Ambien*), 5 MG ORAL BEDTIME PRN for Insomnia, (Reported) Patient History History Provided By: Patient Healthcare decision maker Resuscitation status Full Code Advanced Directive on File Past Medical/Surgical History Past Medical/Surgical History: (1) Constipation (2) Asthma (3) HTN (hypertension), malignant (4) Anemia (5) Malnutrition (6) Cervical spinal stenosis (7) Disc degeneration, lumbosacral Review of Systems Constitutional: Reports: weakness Eye: Reports: no symptoms ENT: Reports: no symptoms Respiratory: Reports: other - COPD Cardiovascular: Reports: see HPI Gastrointestinal: Reports: see HPI Genitourinary: Reports: see HPI Musculoskeletal: Reports: muscle pain, muscle stiffness, other - cervical stenosis Psychiatric: Reports: depressed feelings Neurological: Reports: no symptoms Hematologic/Lymphatic: Reports: no symptoms Physical Exam General Appearance: no apparent distress, alert - awake, responsive , cachetic Lines, tubes and drains: peripheral HEENT: normocephalic, atraumatic, anicteric, mucous membranes moist Neck: non-tender, supple Respiratory/Chest: lungs clear, no respiratory distress, no accessory muscle use Cardiovascular/Chest: normal peripheral pulses, normal rate, regular rhythm - SR on tele , no JVD Abdomen: normal bowel sounds, non tender, soft Extremities: normal range of motion, non-tender, no calf tenderness, no edema Neurologic: no motor/sensory deficits, alert, responsive Musculoskeletal: normal muscle bulk Last 24 Hour Vital Signs Date Time Temp Pulse Resp B/P (MAP) Pulse Ox O2 Delivery O2 Flow Rate FiO2 01/07/17 08:00 97.8 91 18 157/71 93 Room Air 01/07/17 06:30 90 16 Room Air 01/07/17 04:00 84 01/07/17 03:05 89 21 133/65 99 Room Air 01/07/17 03:00 89 21 133/65 99 Room Air 01/07/17 01:30 88 21 114/39 99 Room Air 01/07/17 00:30 87 24 116/43 100 Room Air 01/07/17 00:00 75 21 98/36 100 Room Air 01/06/17 22:40 72 16 89/40 97 Room Air 01/06/17 22:35 84 16 126/88 97 Room Air Intake and Output 01/07/17 01/08/17 19:00 07:00 # Voids 1 Laboratory Tests Test 01/06/17 23:15 01/06/17 23:30 01/06/17 23:59 01/07/17 06:40 White Blood Count 10.2 K/UL (4.8-10.8) Red Blood Count 3.93 M/UL (4.20-5.40) L Hemoglobin 12.3 G/DL (12.0-16.0) Hematocrit 35.2 % (37.0-47.0) L Mean Corpuscular Volume 89 FL (80-99) Mean Corpuscular Hemoglobin 31.1 PG (27.0-31.0) H Mean Corpuscular Hemoglobin Concent 34.8 G/DL (32.0-36.0) Red Cell Distribution Width 10.9 % (11.6-14.8) L Platelet Count 242 K/UL (150-450) Mean Platelet Volume 5.6 FL (6.5-10.1) L Neutrophils (%) (Auto) 61.3 % (45.0-75.0) Lymphocytes (%) (Auto) 28.0 % (20.0-45.0) Monocytes (%) (Auto) 9.6 % (1.0-10.0) Eosinophils (%) (Auto) 0.5 % (0.0-3.0) Basophils (%) (Auto) 0.6 % (0.0-2.0) Sodium Level 129 MMOL/L (136-145) L Potassium Level 5.3 MMOL/L (3.5-5.1) H Chloride Level 99 MMOL/L (98-107) Carbon Dioxide Level 19 MMOL/L (21-32) L Anion Gap 11 mmol/L (5-15) Blood Urea Nitrogen 109 mg/dL (7-18) H Creatinine 4.2 MG/DL (0.55-1.30) H Estimat Glomerular Filtration Rate mL/min (>60) Glucose Level 129 MG/DL (74-106) H Calcium Level 8.9 MG/DL (8.5-10.1) Total Bilirubin 0.3 MG/DL (0.2-1.0) Aspartate Amino Transf (AST/SGOT) 55 U/L (15-37) H Alanine Aminotransferase (ALT/SGPT) 50 U/L (12-78) Alkaline Phosphatase 60 U/L (46-116) Total Creatine Kinase 585 U/L (26-308) H 499 U/L (26-308) H Creatine Kinase MB 4.6 NG/ML (0.0-3.6) H Creatine Kinase MB Relative Index 0.7 Troponin I 0.188 ng/mL (0.000-0.056) 0.129 ng/mL (0.000-0.056) Total Protein 7.2 G/DL (6.4-8.2) Albumin 2.7 G/DL (3.4-5.0) L Globulin 4.5 g/dL Albumin/Globulin Ratio 0.6 (1.0-2.7) L Lactic Acid Level 1.40 mmol/L (0.66-2.22) Urine Color Yellow Urine Appearance Cloudy Urine pH 5 (4.5-8.0) Urine Specific [place] 1.010 (1.005-1.035) Urine Protein 2+ (NEGATIVE) H Urine Glucose (UA) Negative (NEGATIVE) Urine Ketones Negative (NEGATIVE) Urine Occult Blood 5+ (NEGATIVE) H Urine Nitrite Negative (NEGATIVE) Urine Bilirubin Negative (NEGATIVE) Urine Urobilinogen 1 MG/DL (0.0-1.0) H Urine Leukocyte Esterase 3+ (NEGATIVE) H Urine RBC 40-60 /HPF (0 - 2) H Urine WBC Tntc /HPF (0 - 2) H Urine Squamous Epithelial Cells None /LPF (NONE/OCC) Urine Bacteria Many /HPF (NONE) H Uric Acid 10.0 MG/DL (2.6-7.2) H Height (Feet): 5 Height (Inches): 7.00 Weight (Pounds): 118 Medications Current Medications Medications (Trade) Dose Ordered Sig/Arthur Route PRN Reason Start Time Stop Time Status Last Admin Dose Admin Acetaminophen (Tylenol) 650 mg Q4H PRN ORAL FEVER 01/07/17 06:30 02/06/17 06:29 Albuterol/ Ipratropium (Albuterol/ Ipratropium) 3 ml EVERY 4 HOURS PRN HHN Shortness of Breath 01/07/17 06:30 01/12/17 06:29 Amlodipine Besylate (Norvasc) 10 mg DAILY ORAL 01/07/17 09:00 02/06/17 08:59 Aspirin (ASA) 162 mg DAILY ORAL 01/08/17 09:00 02/07/17 08:59 Diltiazem HCl (Cardizem) 10 mg EVERY HOUR PRN IV heart rate more than 120, 01/07/17 06:30 02/06/17 06:29 Enalaprilat (Vasotec) 2.5 mg EVERY 6 HOURS PRN IV sbp more than 160 01/07/17 06:30 02/06/17 06:29 Gabapentin (Neurontin) 600 mg BID ORAL 01/07/17 09:00 02/06/17 08:59 Heparin Sodium (Porcine) (Heparin 5000 units/ml) 5,000 units EVERY 12 HOURS SUBQ 01/07/17 09:00 02/06/17 08:59 Ketorolac Tromethamine (Toradol 30mg) 30 mg Q6HR PRN IV moderate pain ( 4-6) 01/07/17 06:30 01/12/17 06:29 Metoprolol Tartrate (Lopressor) 25 mg EVERY 12 HOURS ORAL 01/07/17 09:00 02/06/17 08:59 Morphine Sulfate (Morphine Sulfate) 2 mg EVERY 4 HOURS PRN IVP severe Pain (Pain Scale 7-10) 01/07/17 06:30 01/14/17 06:29 Nitroglycerin (Ntg) 0.4 mg Q5M PRN SL Prn Chest Pain 01/07/17 06:30 02/06/17 06:29 Ondansetron HCl (Zofran) 4 mg Q6H PRN IVP Nausea & Vomiting 01/07/17 06:30 02/06/17 06:29 Polyethylene Glycol (Miralax) 17 gm DAILYPRN PRN ORAL Constipation 01/07/17 06:30 02/06/17 06:29 Sodium Chloride 1,000 ml @ 100 mls/hr Q10H IV 01/07/17 08:30 02/06/17 08:29 Temazepam (Restoril) 15 mg HSPRN PRN ORAL Insomnia 01/07/17 06:30 01/14/17 06:29 Assessment/Plan Assessment/Plan ASSESSMENT abdominal pain acute renal failure elevated troponin UTI COPD HTN PLAN OF CARE [facility] IVF monitor renal parameters, lytes, replace as needed avoid nephrotoxic renal US nephro evla as per PMD empiric abx, fup with cx pain management monitor troponin, likely due to ARF, consider cardio eval -as per PMD discretion BP amangeemtn with CCB, ARB and BB, optimize as needed continue ASA O2 HHN prn DVT prophayxlsi PT/OT bowel regimen case discussed and evaluated by supervising physician Luis ([facility]),Judy ROGERS Jan 07, 2017 08:41
[2017-01-07] MEDS: Metoprolol 25mg tab ORAL SCH ×2 (08:59→19:59)
[2017-01-07] MEDS: Heparin 5000 units/ml inj SUBQ SCH ×2 (09:00→20:05)
--- NOTE | 2017-01-07 10:04 | Diagnostic Imaging Report ---
Indication: SOB Technique: One view of the chest Comparison: none Findings: Lungs and pleural spaces are clear. Heart size is normal. Aortic arch is calcified. No significant change Impression: No acute process
--- NOTE | 2017-01-07 10:04 | Diagnostic Imaging Report ---
Indication: Abdominal pain, nausea, vomiting x7 days Technique: Spiral acquisitions obtained through the abdomen and pelvis. No oral contrast utilized, per emergency room physician request No IV contrast utilized, per referring physician request.. Multiplanar reconstructions were generated. Total dose length product 578 mGycm. CTDIvol(s) 12 mGy. Dose reduction achieved using automated exposure control Comparison: 04/04/[address] Findings: The appendix is not definitely identified. However, no findings to suggest acute appendicitis are evident. There is a moderate amount retained fecal material in the colon. There are colonic diverticula. No evidence of diverticulitis. Small bowel loops are prominent, not frankly distended. Distal esophagus, stomach, duodenum are unremarkable. No free or loculated intraperitoneal air or fluid. There are midline anterior abdominal wall wire fascial sutures. Lack of IV contrast limits assessment of the solid organs. Surgical clips are seen in the fissure for the ligamentum teres. The gallbladder is unremarkable. The liver, bile ducts, pancreas, spleen, adrenals, kidneys are all unremarkable. No retroperitoneal or mesenteric mass or adenopathy. No pelvic mass or adenopathy. The uterus is not evident, presumed surgically absent. Previously demonstrated Elias catheter is no longer present. Previously described renal cysts are not evident on current non-infused exam Lung bases demonstrate scarring in the inferior lingula, unchanged from previously. Minimal atelectasis is seen at the left lung base, overall improved from the prior exam. The bones again demonstrated and L1 compression fracture deformity, as well as degenerative lumbar spondylosis. Impression: No acute abnormality Diverticulosis. No evidence of diverticulitis Evidence of prior hysterectomy L1 compression fracture deformity, unchanged Incidental findings as noted, including inferior lingular scarring, degenerative spondylosis This agrees with the preliminary interpretation provided overnight by [facility] teleradiology service. The CT scanner at [facility] is accredited by the [employer] and the scans are performed using protocols designed to limit radiation exposure to as low as reasonably achievable to attain images of sufficient resolution adequate for diagnostic evaluation.
[2017-01-07] MEDS ORDERED: NS 275ml ONE (11:24)
[2017-01-07] MEDS: Piperacillin/Tazobactam 2.25 GM in D5W 55 ML IVPB SCH ×2 (11:52→20:04)
[2017-01-07] MEDS: Morphine Sulfate 2mg/ml Inj IVP PRN ×2 (12:23→18:34)
--- NOTE | 2017-01-07 15:00 | History and Physical Report ---
DATE OF ADMISSION: 01/07/2017 TIME SEEN: At 7 a.m. ATTENDING PHYSICIAN: Jeison Dee D.O. CONSULTS: 1. Giancarlo Valdez M.D. 2. Timi Gavin M.D. 3. Nina Shrestha M.D. CHIEF COMPLAINT: Shortness of breath, chest pain, ACS, and acute renal failure. BRIEF HISTORY: This is a 71-year-old female, who lives at home presents with one day history of substernal chest pain without radiation and slight shortness of breath. The patient came to [place], diagnosed with ACS, acute renal failure, elevated troponin, admitted to [facility] for further care. Currently, slightly anxious in bed, eating, no complaints. REVIEW OF SYSTEMS: Slight chest pain. Slight shortness of breath. No nausea, vomiting, or diarrhea. PAST MEDICAL HISTORY: Include asthma, COPD, hypertension, hiatal hernia, and EDIE. PAST SURGICAL HISTORY: Liver surgery. MEDICATIONS: Include Norvasc, Lotensin, Neurontin, Lopressor, aspirin, heparin, albuterol, nitroglycerin, Tylenol, , Zofran, temazepam, enalapril, ceftriaxone was given. ALLERGIES: Denies. SOCIAL HISTORY: Positive smoke. Occasional alcohol. No intravenous drug use. FAMILY HISTORY: Noncontributory. PHYSICAL EXAMINATION: GENERAL: Slightly anxious in bed, oriented x3, in no acute distress. VITAL SIGNS: Temperature is not given, pulse 89, respirations 21, and blood pressure 133/65. CARDIOVASCULAR: No murmur. LUNGS: Distant and clear. ABDOMEN: Bowel sounds positive. Nontender, nondistended. EXTREMITIES: No cyanosis, clubbing, or edema. NEUROLOGIC: The patient move all extremities, but slightly weak. LABORATORY DATA: Labs at this time show CBC is normal. BMP show sodium 129, potassium 5.3, bicarb 19, BUN and creatinine 109 and 4.2, and glucose 129. Urinalysis 5+ occult blood, 3+ leukocyte esterase. ASSESSMENT: 1. Urinary tract infection. 2. Acute renal failure. 3. Acute coronary syndrome. 4. Elevated troponin. 5. Asthma. 6. Chronic obstructive pulmonary disease. 7. Hypertension. 8. Hiatal hernia. 9. Acute kidney injury. PLAN: 1. Continue premedications. 2. OT,PT, and dietary evaluation. 3. Troponin q.8 x3. 4. EKG in the morning. 5. Pain control. 6. Antibiotics per Infectious Disease. 7. CBC, BMP in the morning. 8. Dr. Graff, Dr. Gavin, Dr. Shrestha, Dr. Dolan to consult. Jeison Dee D.O. DR: ELIAZAR JOB#: [id number] CC:
--- NOTE | 2017-01-07 15:45 | Consultation ---
DATE OF CONSULTATION: 01/07/2017 INFECTIOUS DISEASES CONSULTATION CONSULTING PHYSICIAN: Ewa Mathis M.D. REFERRING PHYSICIAN: Jeison Dee D.O. This consultation has been done on behalf of Dr. Castro Victor. HISTORY OF PRESENT ILLNESS: This is a 71-year-old lady with history of hypertension and COPD, who came in with abdominal pain, nausea, and vomiting. She was seen in [facility] where she was found to have a urinary tract infection and an Infectious Diseases consultation has been obtained for antibiotics. PAST MEDICAL HISTORY: 1. History of hypertension. 2. History of asthma. 3. History of spinal cord injury. 4. Prior history of abdominal surgery. MEDICATIONS: As an inpatient, she is on aspirin, amlodipine, Neurontin, Lopressor, subcutaneous heparin, albuterol, ipratropium, nitroglycerin, Tylenol, ketorolac, morphine, MiraLAX, Zofran, Restoril, Vasotec, and diltiazem. ALLERGIES: No known drug allergies. SOCIAL HISTORY: She does not smoke, drink, or use drugs. FAMILY HISTORY: Unknown. REVIEW OF SYSTEMS: Unable to obtain currently. PHYSICAL EXAMINATION: VITAL SIGNS: Temperature of 97.8, pulse of 91, respiratory rate of 18, blood pressure 157/71, and O2 saturation of 93%. HEENT: Pupils equally reactive to light and accommodation. Mouth appears clean without thrush. NECK: Supple. No adenopathy. No JVD. CARDIOVASCULAR: Regular rate and rhythm. No murmurs. LUNGS: Clear to auscultation bilaterally. No crackles. No wheezes. ABDOMEN: Soft and nontender. No organomegaly. EXTREMITIES: No cyanosis, no clubbing, no edema. LABORATORY AND DIAGNOSTIC DATA: White count 10.2, hemoglobin 12.3, hematocrit 35.2, MCV 89, platelet count of 242, neutrophils of 61%. Sodium 129, potassium 5.3, chloride 99, bicarb 19, BUN 109, creatinine 4.2, glucose 129, and calcium 8.9. Total bilirubin 0.3, AST 55, ALT 50, alkaline phosphatase 60. CK of 585, CK-MB 4.6. Troponin 0.129. Total protein 7.2. Albumin 2.7. UA showing too numerous to count white cells. Urine cultures are pending. Blood cultures are pending. Chest x-ray was unremarkable. CT abdomen and pelvis showing no acute abnormality, diverticulosis noted, prior hysterectomy noted, L1 compression fracture noted, degenerative spondylosis noted. ASSESSMENT: 1. This is a 71-year-old lady with history of hypertension and asthma, who comes in and was found to have a urinary tract infection. Cultures are pending. 2. Renal failure. 3. Hypertension. PLAN: 1. We will start the patient on Zosyn. 2. We will follow up cultures and adjust antibiotics accordingly. I would like to thank, Dr. Jeison Dee, for this consultation. Ewa Mathis M.D. DR: RO JOB#: [id number] CC: Jeison Dee D.O.
[2017-01-07 19:27] LABS: APPEARANCE,URINE CLEAR; KETONES,URINE NEGATIVE (NEGATIVE); LEUKOCYTE ESTERASE ,URINE 3+ (NEGATIVE); NITRITE,URINE NEGATIVE (NEGATIVE); PH,URINE 5 (4.5-8.0); PROTEIN,URINE 1+ (NEGATIVE); UROBILINOGEN,URINE NORMAL MG/DL (0.0-1.0)
[2017-01-07 20:24] LABS: BACTERIA,URINE OCCASIONAL /HPF; SQUAMOUS EPITHELIAL CELL,UR FEW /LPF (NONE/OCC)
[2017-01-08] VITALS (7 sets, daily range): BP systolic 110–146; BP diastolic 41–66
[2017-01-08] MEDS: Piperacillin/Tazobactam 2.25 GM in D5W 55 ML IVPB SCH ×2 (04:31→12:57)
[2017-01-08] MEDS: Morphine Sulfate 2mg/ml Inj IVP PRN ×3 (04:38→13:08)
[2017-01-08 07:42] LABS: ANION GAP 8 mmol/L (5-15); CALCIUM 8.7 MG/DL (8.5-10.1); CARBON DIOXIDE 20 MMOL/L (21-32); CHLORIDE 113 MMOL/L (98-107); CREATININE 1.7 MG/DL (0.55-1.30); EOSINOPHILS % (AUTO) 1.6 % (0.0-3.0); LYMPHOCYTES % (AUTO) 34.3 % (20.0-45.0); MEAN CORPUSCULAR HEMOGLOBIN 30.5 PG (27.0-31.0); MEAN CORPUSCULAR HGB CONC 33.3 G/DL (32.0-36.0); MEAN CORPUSCULAR VOLUME 92 FL (80-99); MEAN PLATELET VOLUME 5.6 FL (6.5-10.1); MONOCYTES % (AUTO) 9.6 % (1.0-10.0); NEUTROPHILS % (AUTO) 53.6 % (45.0-75.0); PLATELET COUNT 253 K/UL (150-450); POTASSIUM 5.3 MMOL/L (3.5-5.1); RED BLOOD COUNT 3.93 M/UL (4.20-5.40); RED CELL DISTRIBUTION WIDTH 11.7 % (11.6-14.8); SODIUM 141 MMOL/L (136-145); WHITE BLOOD COUNT 9.5 K/UL (4.8-10.8)
[2017-01-08 07:44] LABS: INR 1.1 (0.9-1.1); PROTHROMBIN TIME 11.1 SEC (9.30-11.50)
[2017-01-08 08:13] LABS: CHOLESTEROL 147 MG/DL (< 200); CHOLESTEROL/HDL RATIO 3.4 (3.3-4.4); CRP QUANT < 0.4 mg/dL (0.00-0.90)
--- NOTE | 2017-01-08 08:15 | General Progress Note ---
Assessment/Plan Problem List: (1) COPD (chronic obstructive pulmonary disease) ICD Codes: J44.9 - Chronic obstructive pulmonary disease, unspecified SNOMED: 06895168 (2) UTI (urinary tract infection) ICD Codes: N39.0 - Urinary tract infection, site not specified SNOMED: 89186763 Qualifiers: Qualified Codes: N30.00 - Acute cystitis without hematuria (3) ACS (acute coronary syndrome) ICD Codes: I24.9 - Acute ischemic heart disease, unspecified SNOMED: 546008580 (4) EDIE (acute kidney injury) ICD Codes: N17.9 - Acute kidney failure, unspecified SNOMED: 44701209 (5) Asthma ICD Codes: J45.909 - Unspecified asthma, uncomplicated SNOMED: 716122793 (6) HTN (hypertension), malignant ICD Codes: I10 - Essential (primary) hypertension SNOMED: 49723286 Status: stable, progressing, tolerating diet Assessment/Plan ot pt diet abx neph f/u cbc bmp in am Subjective Constitutional: Reports: weakness Allergies: Coded Allergies: No Known Allergies (Unverified , 11/05/15) All Systems: reviewed and negative except above Subjective sl weak in bed Objective Last 24 Hour Vital Signs Date Time Temp Pulse Resp B/P (MAP) Pulse Ox O2 Delivery O2 Flow Rate FiO2 01/08/17 04:47 96.6 116 18 115/66 99 Simple Mask 4.0 01/08/17 04:00 66 01/08/17 01:34 97.0 59 23 116/52 100 Room Air 01/08/17 00:00 98.1 66 16 110/41 100 Room Air 66 01/08/17 00:00 65 01/07/17 23:05 84 16 Room Air 01/07/17 20:00 97.8 68 16 118/58 100 Room Air 68 01/07/17 20:00 65 01/07/17 19:59 60 114/58 01/07/17 16:00 82 01/07/17 16:00 98.1 77 18 120/59 95 Room Air 01/07/17 12:00 97.8 82 18 148/60 95 Room Air 01/07/17 12:00 85 01/07/17 08:59 91 157/71 01/07/17 08:58 91 157/71 Laboratory Tests 01/07/17 18:15: Urine Color Yellow, Urine Appearance Clear, Urine pH 5, Urine Specific [place] 1.005, Urine Protein 1+H, Urine Glucose (UA) Negative, Urine Ketones Negative, Urine Occult Blood 5+H, Urine Nitrite Negative, Urine Bilirubin Negative, Urine Urobilinogen Normal, Urine Leukocyte Esterase 3+H, Urine RBC 5-10H, Urine WBC 5- 10H, Urine Squamous Epithelial Cells Few, Urine Bacteria Occasional, Urine Eosinophils None seen, Urine Random Sodium 88, Urine Potassium Timed 10L 01/08/17 05:15: White Blood Count 9.5, Red Blood Count 3.93L, Hemoglobin 12.0, Hematocrit 36.1L , Mean Corpuscular Volume 92, Mean Corpuscular Hemoglobin 30.5, Mean Corpuscular Hemoglobin Concent 33.3, Red Cell Distribution Width 11.7, Platelet Count 253, Mean Platelet Volume 5.6L, Neutrophils (%) (Auto) 53.6, Lymphocytes ( %) (Auto) 34.3, Monocytes (%) (Auto) 9.6, Eosinophils (%) (Auto) 1.6, Basophils (%) (Auto) 1.0, Prothrombin Time 11.1, Prothromb Time International Ratio 1.1, Activated Partial Thromboplast Time 31, Sodium Level 141, Potassium Level 5.3H, Chloride Level 113H, Carbon Dioxide Level 20L, Anion Gap 8, Blood Urea Nitrogen 53H, Creatinine 1.7#H, Estimat Glomerular Filtration Rate , Glucose Level 111H, Calcium Level 8.7, Troponin I 0.050, C-Reactive Protein, Quantitative < 0.4, Triglycerides Level 175H, Cholesterol Level 147, LDL Cholesterol 72, HDL Cholesterol 43, Cholesterol/HDL Ratio 3.4, Thyroid Stimulating Hormone (TSH) 1.480 Height (Feet): 5 Height (Inches): 7.00 Weight (Pounds): 118 General Appearance: lethargic EENT: normal ENT inspection Neck: normal alignment Cardiovascular: normal peripheral pulses, normal rate, regular rhythm Respiratory/Chest: chest wall non-tender, lungs clear, normal breath sounds Abdomen: normal bowel sounds, non tender, soft Extremities: normal inspection Edema: no edema noted Arm (L), no edema noted Arm (R), no edema noted Leg (L), no edema noted Leg (R), no edema noted Pedal (L), no edema noted Pedal (R), no edema noted Generalized Neurologic: responsive, motor weakness Skin: normal pigmentation, warm/dry MARTHA ULLOA Jan 08, 2017 08:15
[2017-01-08] MEDS: Heparin 5000 units/ml inj SUBQ SCH ×2 (09:02→22:12)
--- NOTE | 2017-01-08 09:04 | Infectious Diseases Prog Note ---
Assessment/Plan Assessment/Plan A; UTI Acute renal failure Emphysema Cervical spinal stenosis P: Continue Zosyn Will f/u cultures Subjective ROS Limited/Unobtainable: No Constitutional: Reports: no symptoms Respiratory: Reports: productive cough Gastrointestinal/Abdominal: Reports: other - lower abdominal pain Genitourinary: Reports: dysuria Neurologic: Reports: weakness, other - more in left side Allergies: Coded Allergies: No Known Allergies (Unverified , 11/05/15) Objective Vital Signs Last 24 Hour Vital Signs Date Time Temp Pulse Resp B/P (MAP) Pulse Ox O2 Delivery O2 Flow Rate FiO2 01/08/17 04:47 96.6 116 18 115/66 99 Simple Mask 4.0 01/08/17 04:00 66 01/08/17 01:34 97.0 59 23 116/52 100 Room Air 01/08/17 00:00 98.1 66 16 110/41 100 Room Air 66 01/08/17 00:00 65 01/07/17 23:05 84 16 Room Air 01/07/17 20:00 97.8 68 16 118/58 100 Room Air 68 01/07/17 20:00 65 01/07/17 19:59 60 114/58 01/07/17 16:00 82 01/07/17 16:00 98.1 77 18 120/59 95 Room Air 01/07/17 12:00 97.8 82 18 148/60 95 Room Air 01/07/17 12:00 85 Height (Feet): 5 Height (Inches): 7.00 Weight (Pounds): 118 General Appearance: no acute distress HEENT: mucous membranes moist Respiratory/Chest: lungs clear Cardiovascular: normal rate Abdomen: soft, non tender Extremities: no edema, other - contacted left hand Neurologic/Psychiatric: alert, responsive, other - weakness more in left side Microbiology Date/Time Source Procedure Growth Status 01/07/17 18:15 Urine,Clean Catch Urine Culture - Preliminary NO GROWTH Resulted 01/06/17 23:59 Straight Cath Urine Culture - Preliminary Gram Negative Bacillus 1 Resulted Laboratory Tests Test 01/07/17 18:15 01/08/17 05:15 Urine Color Yellow Urine Appearance Clear Urine pH 5 (4.5-8.0) Urine Specific [place] 1.005 (1.005-1.035) Urine Protein 1+ (NEGATIVE) H Urine Glucose (UA) Negative (NEGATIVE) Urine Ketones Negative (NEGATIVE) Urine Occult Blood 5+ (NEGATIVE) H Urine Nitrite Negative (NEGATIVE) Urine Bilirubin Negative (NEGATIVE) Urine Urobilinogen Normal MG/DL (0.0-1.0) Urine Leukocyte Esterase 3+ (NEGATIVE) H Urine RBC 5-10 /HPF (0 - 2) H Urine WBC 5-10 /HPF (0 - 2) H Urine Squamous Epithelial Cells Few /LPF (NONE/OCC) Urine Bacteria Occasional /HPF (NONE) Urine Eosinophils None seen Urine Random Sodium 88 MEQ/L (20-110) Urine Potassium Timed 10 mmol/L (12-62) L White Blood Count 9.5 K/UL (4.8-10.8) Red Blood Count 3.93 M/UL (4.20-5.40) L Hemoglobin 12.0 G/DL (12.0-16.0) Hematocrit 36.1 % (37.0-47.0) L Mean Corpuscular Volume 92 FL (80-99) Mean Corpuscular Hemoglobin 30.5 PG (27.0-31.0) Mean Corpuscular Hemoglobin Concent 33.3 G/DL (32.0-36.0) Red Cell Distribution Width 11.7 % (11.6-14.8) Platelet Count 253 K/UL (150-450) Mean Platelet Volume 5.6 FL (6.5-10.1) L Neutrophils (%) (Auto) 53.6 % (45.0-75.0) Lymphocytes (%) (Auto) 34.3 % (20.0-45.0) Monocytes (%) (Auto) 9.6 % (1.0-10.0) Eosinophils (%) (Auto) 1.6 % (0.0-3.0) Basophils (%) (Auto) 1.0 % (0.0-2.0) Prothrombin Time 11.1 SEC (9.30-11.50) Prothromb Time International Ratio 1.1 (0.9-1.1) Activated Partial Thromboplast Time 31 SEC (23-33) Sodium Level 141 MMOL/L (136-145) Potassium Level 5.3 MMOL/L (3.5-5.1) H Chloride Level 113 MMOL/L (98-107) H Carbon Dioxide Level 20 MMOL/L (21-32) L Anion Gap 8 mmol/L (5-15) Blood Urea Nitrogen 53 mg/dL (7-18) H Creatinine 1.7 MG/DL (0.55-1.30) #H Estimat Glomerular Filtration Rate mL/min (>60) Glucose Level 111 MG/DL (74-106) H Calcium Level 8.7 MG/DL (8.5-10.1) Troponin I 0.050 ng/mL (0.000-0.056) C-Reactive Protein, Quantitative < 0.4 mg/dL (0.00-0.90) Triglycerides Level 175 MG/DL (30-150) H Cholesterol Level 147 MG/DL (< 200) LDL Cholesterol 72 mg/dL (<100) HDL Cholesterol 43 MG/DL (40-60) Cholesterol/HDL Ratio 3.4 (3.3-4.4) Thyroid Stimulating Hormone (TSH) 1.480 uiU/mL (0.358-3.740) Current Medications Medications (Trade) Dose Ordered Sig/Arthur Route PRN Reason Start Time Stop Time Status Last Admin Dose Admin Acetaminophen (Tylenol) 650 mg Q4H PRN ORAL FEVER 01/07/17 06:30 02/06/17 06:29 Albuterol/ Ipratropium (Albuterol/ Ipratropium) 3 ml EVERY 4 HOURS PRN HHN Shortness of Breath 01/07/17 06:30 01/12/17 06:29 Amlodipine Besylate (Norvasc) 10 mg DAILY ORAL 01/07/17 09:00 02/06/17 08:59 01/07/17 08:58 Aspirin (ASA) 162 mg DAILY ORAL 01/08/17 09:00 02/07/17 08:59 Diltiazem HCl (Cardizem) 10 mg EVERY HOUR PRN IV heart rate more than 120, 01/07/17 06:30 02/06/17 06:29 Enalaprilat (Vasotec) 2.5 mg EVERY 6 HOURS PRN IV sbp more than 160 01/07/17 06:30 02/06/17 06:29 Gabapentin (Neurontin) 600 mg BID ORAL 01/07/17 09:00 02/06/17 08:59 01/07/17 18:09 Heparin Sodium (Porcine) (Heparin 5000 units/ml) 5,000 units EVERY 12 HOURS SUBQ 01/07/17 09:00 02/06/17 08:59 01/07/17 20:05 Ketorolac Tromethamine (Toradol 30mg) 30 mg Q6HR PRN IV moderate pain ( 4-6) 01/07/17 06:30 01/12/17 06:29 Metoprolol Tartrate (Lopressor) 25 mg EVERY 12 HOURS ORAL 01/07/17 09:00 02/06/17 08:59 01/07/17 08:59 Morphine Sulfate (Morphine Sulfate) 2 mg EVERY 4 HOURS PRN IVP severe Pain (Pain Scale 7-10) 01/07/17 06:30 01/14/17 06:29 01/08/17 04:38 Nitroglycerin (Ntg) 0.4 mg Q5M PRN SL Prn Chest Pain 01/07/17 06:30 02/06/17 06:29 Ondansetron HCl (Zofran) 4 mg Q6H PRN IVP Nausea & Vomiting 01/07/17 06:30 02/06/17 06:29 Piperacillin Sod/ Tazobactam Sod 2.25 gm/Dextrose 55 ml @ 110 mls/hr Q8H IVPB 01/07/17 12:00 01/14/17 11:59 01/08/17 04:31 Polyethylene Glycol (Miralax) 17 gm DAILYPRN PRN ORAL Constipation 01/07/17 06:30 02/06/17 06:29 Sodium Chloride 1,000 ml @ 100 mls/hr Q10H IV 01/07/17 08:30 02/06/17 08:29 01/08/17 04:32 Temazepam (Restoril) 15 mg HSPRN PRN ORAL Insomnia 01/07/17 06:30 01/14/17 06:29 EVERTON CORBIN Jan 08, 2017 09:04
[2017-01-08] MEDS: Metoprolol 25mg tab ORAL SCH ×2 (09:05→22:12)
[2017-01-08] MEDS: Aspirin Baby 81mg ORAL SCH (09:06)
--- NOTE | 2017-01-08 12:26 | Pulmonology Progress Note ---
Assessment/Plan Assessment/Plan ASSESSMENT abdominal pain-resolved ( possibly multifactorial due to ARF, UTI and contributing constipation) acute renal failure elevated troponin -resolved ( likely due to ARF) UTI COPD HTN hyperkalemia PLAN OF CARE tele IVF monitor renal parameters, lytes, rcorrect as needed Kayexalate today avoid nephrotoxic renal US nephro eval as per PMD creat trending dwon with IV hydration empiric abx, fup with cx urine cx + GNB ID follows pain management monitor troponin, this am negative - likely due to ARF, consider cardio eval -as per PMD discretion BP management with CCB, ARB and BB, optimize as needed continue ASA O2 HHN prn DVT prophayxlsi PT/OT bowel regimen case discussed and evaluated by supervising physician Subjective Allergies: Coded Allergies: No Known Allergies (Unverified , 11/05/15) Subjective feeling somewhat better creat trending down afebrile, no leukocytosis troponin this am negative Objective Last 24 Hour Vital Signs Date Time Temp Pulse Resp B/P (MAP) Pulse Ox O2 Delivery O2 Flow Rate FiO2 01/08/17 09:05 71 130/61 01/08/17 09:05 71 130/61 01/08/17 08:00 98.0 70 17 146/60 95 Room Air 01/08/17 08:00 81 01/08/17 07:28 71 16 Room Air 01/08/17 04:47 96.6 116 18 115/66 99 Simple Mask 4.0 01/08/17 04:00 66 01/08/17 01:34 97.0 59 23 116/52 100 Room Air 01/08/17 00:00 98.1 66 16 110/41 100 Room Air 66 01/08/17 00:00 65 01/07/17 23:05 84 16 Room Air 01/07/17 20:00 97.8 68 16 118/58 100 Room Air 68 01/07/17 20:00 65 01/07/17 19:59 60 114/58 01/07/17 16:00 82 01/07/17 16:00 98.1 77 18 120/59 95 Room Air Intake and Output 01/08/17 01/09/17 19:00 07:00 Intake Total 240 ml Balance 240 ml Intake Oral 240 ml Objective General Appearance: no apparent distress, alert - awake, responsive , cachetic Lines, tubes and drains: peripheral HEENT: normocephalic, atraumatic, anicteric, mucous membranes moist Neck: non-tender, supple Respiratory/Chest: lungs clear, no respiratory distress, no accessory muscle use Cardiovascular/Chest: normal peripheral pulses, normal rate, regular rhythm - SR on tele , no JVD Abdomen: normal bowel sounds, non tender, soft Extremities: normal range of motion, non-tender, no calf tenderness, no edema Neurologic: no motor/sensory deficits, alert, responsive Musculoskeletal: normal muscle bulk Microbiology Date/Time Source Procedure Growth Status 01/07/17 18:15 Urine,Clean Catch Urine Culture - Preliminary NO GROWTH Resulted 01/06/17 23:59 Straight Cath Urine Culture - Preliminary Gram Negative Bacillus 1 Resulted Laboratory Tests 01/07/17 18:15: Urine Color Yellow, Urine Appearance Clear, Urine pH 5, Urine Specific [place] 1.005, Urine Protein 1+H, Urine Glucose (UA) Negative, Urine Ketones Negative, Urine Occult Blood 5+H, Urine Nitrite Negative, Urine Bilirubin Negative, Urine Urobilinogen Normal, Urine Leukocyte Esterase 3+H, Urine RBC 5-10H, Urine WBC 5- 10H, Urine Squamous Epithelial Cells Few, Urine Bacteria Occasional, Urine Eosinophils None seen, Urine Random Sodium 88, Urine Potassium Timed 10L 01/08/17 05:15: White Blood Count 9.5, Red Blood Count 3.93L, Hemoglobin 12.0, Hematocrit 36.1L , Mean Corpuscular Volume 92, Mean Corpuscular Hemoglobin 30.5, Mean Corpuscular Hemoglobin Concent 33.3, Red Cell Distribution Width 11.7, Platelet Count 253, Mean Platelet Volume 5.6L, Neutrophils (%) (Auto) 53.6, Lymphocytes ( %) (Auto) 34.3, Monocytes (%) (Auto) 9.6, Eosinophils (%) (Auto) 1.6, Basophils (%) (Auto) 1.0, Prothrombin Time 11.1, Prothromb Time International Ratio 1.1, Activated Partial Thromboplast Time 31, Sodium Level 141, Potassium Level 5.3H, Chloride Level 113H, Carbon Dioxide Level 20L, Anion Gap 8, Blood Urea Nitrogen 53H, Creatinine 1.7#H, Estimat Glomerular Filtration Rate , Glucose Level 111H, Calcium Level 8.7, Troponin I 0.050, C-Reactive Protein, Quantitative < 0.4, Triglycerides Level 175H, Cholesterol Level 147, LDL Cholesterol 72, HDL Cholesterol 43, Cholesterol/HDL Ratio 3.4, Thyroid Stimulating Hormone (TSH) 1.480 Current Medications Medications (Trade) Dose Ordered Sig/Arthur Route PRN Reason Start Time Stop Time Status Last Admin Dose Admin Acetaminophen (Tylenol) 650 mg Q4H PRN ORAL FEVER 01/07/17 06:30 02/06/17 06:29 Albuterol/ Ipratropium (Albuterol/ Ipratropium) 3 ml EVERY 4 HOURS PRN HHN Shortness of Breath 01/07/17 06:30 01/12/17 06:29 Amlodipine Besylate (Norvasc) 10 mg DAILY ORAL 01/07/17 09:00 02/06/17 08:59 01/08/17 09:05 Aspirin (ASA) 162 mg DAILY ORAL 01/08/17 09:00 02/07/17 08:59 01/08/17 09:06 Diltiazem HCl (Cardizem) 10 mg EVERY HOUR PRN IV heart rate more than 120, 01/07/17 06:30 02/06/17 06:29 Enalaprilat (Vasotec) 2.5 mg EVERY 6 HOURS PRN IV sbp more than 160 01/07/17 06:30 02/06/17 06:29 Gabapentin (Neurontin) 600 mg BID ORAL 01/07/17 09:00 02/06/17 08:59 01/08/17 09:06 Heparin Sodium (Porcine) (Heparin 5000 units/ml) 5,000 units EVERY 12 HOURS SUBQ 01/07/17 09:00 02/06/17 08:59 01/08/17 09:02 Ketorolac Tromethamine (Toradol 30mg) 30 mg Q6HR PRN IV moderate pain ( 4-6) 01/07/17 06:30 01/12/17 06:29 Metoprolol Tartrate (Lopressor) 25 mg EVERY 12 HOURS ORAL 01/07/17 09:00 02/06/17 08:59 01/08/17 09:05 Morphine Sulfate (Morphine Sulfate) 2 mg EVERY 4 HOURS PRN IVP severe Pain (Pain Scale 7-10) 01/07/17 06:30 01/14/17 06:29 01/08/17 09:08 Nitroglycerin (Ntg) 0.4 mg Q5M PRN SL Prn Chest Pain 01/07/17 06:30 02/06/17 06:29 Ondansetron HCl (Zofran) 4 mg Q6H PRN IVP Nausea & Vomiting 01/07/17 06:30 02/06/17 06:29 Piperacillin Sod/ Tazobactam Sod 2.25 gm/Dextrose 55 ml @ 110 mls/hr Q8H IVPB 01/07/17 12:00 01/14/17 11:59 01/08/17 04:31 Polyethylene Glycol (Miralax) 17 gm DAILYPRN PRN ORAL Constipation 01/07/17 06:30 02/06/17 06:29 Sodium Chloride 1,000 ml @ 100 mls/hr Q10H IV 01/07/17 08:30 02/06/17 08:29 01/08/17 04:32 Temazepam (Restoril) 15 mg HSPRN PRN ORAL Insomnia 01/07/17 06:30 01/14/17 06:29 Luis LindseyMonroe Community HospitalJudy Holcomb NP Jan 08, 2017 12:26
[2017-01-08] MEDS ORDERED: Sodium Polystyrene Sulfonate 15gm Powder ORAL ONE (13:00)
[2017-01-08] MEDS: Piperacillin/Tazobactam 3.375 GM in NS 55 ML IVPB SCH (22:12)
[2017-01-09 00:40] VITALS: BP 136/60
[2017-01-09 04:29] VITALS: BP 125/61
[2017-01-09 05:20] LABS: BASOPHILS % (AUTO) 0.5 % (0.0-2.0); LYMPHOCYTES % (AUTO) 37.3 % (20.0-45.0); MEAN CORPUSCULAR HGB CONC 32.6 G/DL (32.0-36.0); MEAN CORPUSCULAR VOLUME 92 FL (80-99); MEAN PLATELET VOLUME 5.2 FL (6.5-10.1); MONOCYTES % (AUTO) 11.4 % (1.0-10.0); NEUTROPHILS % (AUTO) 48.8 % (45.0-75.0); PLATELET COUNT 291 K/UL (150-450); RED BLOOD COUNT 4.08 M/UL (4.20-5.40); RED CELL DISTRIBUTION WIDTH 11.5 % (11.6-14.8); WHITE BLOOD COUNT 3.9 K/UL (4.8-10.8)
[2017-01-09] MEDS: Piperacillin/Tazobactam 3.375 GM in NS 55 ML IVPB SCH (06:02)
[2017-01-09] MEDS: Morphine Sulfate 2mg/ml Inj IVP PRN ×2 (06:11→12:14)
[2017-01-09 07:42] LABS: ANION GAP 11 mmol/L (5-15); CALCIUM 8.3 MG/DL (8.5-10.1); CARBON DIOXIDE 20 MMOL/L (21-32); CHLORIDE 114 MMOL/L (98-107); CREATININE 1.3 MG/DL (0.55-1.30); SODIUM 144 MMOL/L (136-145)
[2017-01-09 08:54] VITALS: BP 146/62
[2017-01-09] MEDS: Heparin 5000 units/ml inj SUBQ SCH ×2 (09:00→21:18)
[2017-01-09] MEDS: Metoprolol 25mg tab ORAL SCH (09:00)
[2017-01-09] MEDS: Aspirin Baby 81mg ORAL SCH (09:19)
--- NOTE | 2017-01-09 09:19 | Infectious Diseases Prog Note ---
Assessment/Plan Assessment/Plan A; UTI with E. Coli Acute renal failure improving Emphysema Cervical spinal stenosis P: Change Zosyn to Levaquin Will f/u cultures Subjective ROS Limited/Unobtainable: No Constitutional: Reports: no symptoms Respiratory: Reports: no symptoms Gastrointestinal/Abdominal: Reports: no symptoms Genitourinary: Reports: no symptoms Allergies: Coded Allergies: No Known Allergies (Unverified , 11/05/15) Objective Vital Signs Last 24 Hour Vital Signs Date Time Temp Pulse Resp B/P (MAP) Pulse Ox O2 Delivery O2 Flow Rate FiO2 01/09/17 08:54 97.9 69 18 146/62 Room Air 01/09/17 06:41 96.4 01/09/17 04:29 96.4 64 18 125/61 94 Room Air 01/09/17 04:00 61 01/09/17 00:40 94.7 65 18 136/60 98 Room Air 01/09/17 00:00 67 01/08/17 22:12 68 129/59 01/08/17 20:21 97.9 68 18 129/59 94 Room Air 01/08/17 20:00 74 01/08/17 19:30 70 16 Room Air 21 01/08/17 16:46 98.7 76 18 130/59 99 Room Air 01/08/17 16:00 70 01/08/17 12:46 98.8 75 18 146/64 96 Room Air 01/08/17 12:00 70 Height (Feet): 5 Height (Inches): 7.00 Weight (Pounds): 118 General Appearance: no acute distress HEENT: mucous membranes moist Respiratory/Chest: lungs clear Cardiovascular: normal rate Abdomen: soft, non tender Extremities: no edema, other - left hand contracted Neurologic/Psychiatric: alert, oriented x 3, responsive Microbiology Date/Time Source Procedure Growth Status 01/07/17 18:15 Urine,Clean Catch Urine Culture - Preliminary Mixed Urogenital Contaminants Resulted 01/06/17 23:59 Straight Cath Urine Culture - Final Escherichia Coli Complete Laboratory Tests Test 01/09/17 04:40 White Blood Count 3.9 K/UL (4.8-10.8) #L Red Blood Count 4.08 M/UL (4.20-5.40) L Hemoglobin 12.2 G/DL (12.0-16.0) Hematocrit 37.5 % (37.0-47.0) Mean Corpuscular Volume 92 FL (80-99) Mean Corpuscular Hemoglobin 30.0 PG (27.0-31.0) Mean Corpuscular Hemoglobin Concent 32.6 G/DL (32.0-36.0) Red Cell Distribution Width 11.5 % (11.6-14.8) L Platelet Count 291 K/UL (150-450) Mean Platelet Volume 5.2 FL (6.5-10.1) L Neutrophils (%) (Auto) 48.8 % (45.0-75.0) Lymphocytes (%) (Auto) 37.3 % (20.0-45.0) Monocytes (%) (Auto) 11.4 % (1.0-10.0) H Eosinophils (%) (Auto) 2.0 % (0.0-3.0) Basophils (%) (Auto) 0.5 % (0.0-2.0) Sodium Level 144 MMOL/L (136-145) Potassium Level 5.0 MMOL/L (3.5-5.1) Chloride Level 114 MMOL/L (98-107) H Carbon Dioxide Level 20 MMOL/L (21-32) L Anion Gap 11 mmol/L (5-15) Blood Urea Nitrogen 29 mg/dL (7-18) H Creatinine 1.3 MG/DL (0.55-1.30) Estimat Glomerular Filtration Rate mL/min (>60) Glucose Level 106 MG/DL (74-106) Calcium Level 8.3 MG/DL (8.5-10.1) L Troponin I 0.026 ng/mL (0.000-0.056) Current Medications Medications (Trade) Dose Ordered Sig/Arthur Route PRN Reason Start Time Stop Time Status Last Admin Dose Admin Acetaminophen (Tylenol) 650 mg Q4H PRN ORAL FEVER 01/07/17 06:30 02/06/17 06:29 Albuterol/ Ipratropium (Albuterol/ Ipratropium) 3 ml EVERY 4 HOURS PRN HHN Shortness of Breath 01/07/17 06:30 01/12/17 06:29 Amlodipine Besylate (Norvasc) 10 mg DAILY ORAL 01/07/17 09:00 02/06/17 08:59 01/08/17 09:05 Aspirin (ASA) 162 mg DAILY ORAL 01/08/17 09:00 02/07/17 08:59 01/08/17 09:06 Diltiazem HCl (Cardizem) 10 mg EVERY HOUR PRN IV heart rate more than 120, 01/07/17 06:30 02/06/17 06:29 Enalaprilat (Vasotec) 2.5 mg EVERY 6 HOURS PRN IV sbp more than 160 01/07/17 06:30 02/06/17 06:29 Gabapentin (Neurontin) 600 mg BID ORAL 01/07/17 09:00 02/06/17 08:59 01/08/17 18:10 Heparin Sodium (Porcine) (Heparin 5000 units/ml) 5,000 units EVERY 12 HOURS SUBQ 01/07/17 09:00 02/06/17 08:59 01/08/17 22:12 Ketorolac Tromethamine (Toradol 30mg) 30 mg Q6HR PRN IV moderate pain ( 4-6) 01/07/17 06:30 01/12/17 06:29 Metoprolol Tartrate (Lopressor) 25 mg EVERY 12 HOURS ORAL 01/07/17 09:00 02/06/17 08:59 01/08/17 22:12 Morphine Sulfate (Morphine Sulfate) 2 mg EVERY 4 HOURS PRN IVP severe Pain (Pain Scale 7-10) 01/07/17 06:30 01/14/17 06:29 01/09/17 06:11 Nitroglycerin (Ntg) 0.4 mg Q5M PRN SL Prn Chest Pain 01/07/17 06:30 02/06/17 06:29 Ondansetron HCl (Zofran) 4 mg Q6H PRN IVP Nausea & Vomiting 01/07/17 06:30 02/06/17 06:29 Piperacillin Sod/ Tazobactam Sod 3.375 gm/Sodium Chloride 55 ml @ 13.75 mls/ hr Q8HR IVPB 01/08/17 22:00 01/15/17 21:59 01/09/17 06:02 Polyethylene Glycol (Miralax) 17 gm DAILYPRN PRN ORAL Constipation 01/07/17 06:30 02/06/17 06:29 01/08/17 12:57 Sodium Chloride 1,000 ml @ 100 mls/hr Q10H IV 01/07/17 08:30 02/06/17 08:29 01/09/17 00:57 Temazepam (Restoril) 15 mg HSPRN PRN ORAL Insomnia 01/07/17 06:30 01/14/17 06:29 EVERTON CORBIN Jan 09, 2017 09:19
[2017-01-09] MEDS ORDERED: Levofloxacin 500mg tab ORAL ONE (10:00)
--- NOTE | 2017-01-09 12:45 | Cardiology Report ---
APPROVED REPORT EXAM: Two-dimensional and M-mode echocardiogram with Doppler and color Doppler. INDICATION Left ventricular function M-Mode DIMENSIONS IVSd0.6 (0.7-1.1cm)Left Atrium (MM)2.0 (1.6-4.0cm) LVDd3.6 (3.5-5.6cm)Aortic Root2.2 (2.0-3.7cm) PWd0.9 (0.7-1.1cm)Aortic Cusp Exc.1.6 (1.5-2.0cm) LVDs2.1 (2.5-4.0cm) PWs1.1 cm Normal left ventricular chamber size, systolic function and wall motion. Left ventricular ejection fraction estimated to be 60-65%. No evidence of left ventricular hypertrophy. No evidence of pericardial or pleural effusion. All other cardiac chamber sizes are within normal limits. Focal aortic valve sclerosis with adequate cusp excursion. Thickened mitral valve leaflets with normal excursion. Mild mitral annulus and aortic root calcification. Pulmonic valve not well visualized. Normal tricuspid valve structure. IVC is normal in size and collapsible with respiration. A color flow and spectral Doppler study was performed and revealed: Trace aortic regurgitation. Trace mitral regurgitation. Mitral diastolic velocities suggest reduced left ventricular relaxation c/w diastolic dysfunction grade 1. Trace tricuspid regurgitation. Tricuspid systolic velocities suggests peak right ventricular systolic pressure of 28mmHg
--- NOTE | 2017-01-09 12:50 | Pulmonology Progress Note ---
Assessment/Plan Problems: (1) EDIE (acute kidney injury) (2) Leukocytosis (3) UTI (urinary tract infection) (4) COPD (chronic obstructive pulmonary disease) (5) Hypoalbuminemia (6) HTN (hypertension), malignant Assessment/Plan renal function improving no new complains check electrolytes check cultures abx as per ID symptomatic treatment. Subjective ROS Limited/Unobtainable: No Interval Events: no new complains Constitutional: Reports: no symptoms HEENT: Repors: no symptoms Respiratory: Reports: no symptoms Allergies: Coded Allergies: No Known Allergies (Unverified , 11/05/15) Objective Last 24 Hour Vital Signs Date Time Temp Pulse Resp B/P (MAP) Pulse Ox O2 Delivery O2 Flow Rate FiO2 01/09/17 10:16 64 20 Room Air 21 01/09/17 09:20 68 146/76 01/09/17 09:00 68 146/76 01/09/17 08:54 97.9 69 18 146/62 Room Air 01/09/17 08:00 70 01/09/17 06:41 96.4 01/09/17 04:29 96.4 64 18 125/61 94 Room Air 01/09/17 04:00 61 01/09/17 00:40 94.7 65 18 136/60 98 Room Air 01/09/17 00:00 67 01/08/17 22:12 68 129/59 01/08/17 20:21 97.9 68 18 129/59 94 Room Air 01/08/17 20:00 74 01/08/17 19:30 70 16 Room Air 21 01/08/17 16:46 98.7 76 18 130/59 99 Room Air 01/08/17 16:00 70 Intake and Output 01/09/17 01/10/17 19:00 07:00 # Bowel Movements 1 General Appearance: WD/WN HEENT: normocephalic, atraumatic Respiratory/Chest: chest wall non-tender, lungs clear Cardiovascular: normal peripheral pulses, no JVD Abdomen: soft, non tender Extremities: no clubbing Skin: no ulcers Neurologic/Psychiatric: nnps II-XII grossly normal Microbiology Date/Time Source Procedure Growth Status 01/07/17 18:15 Urine,Clean Catch Urine Culture - Preliminary Mixed Urogenital Contaminants Resulted 01/06/17 23:59 Straight Cath Urine Culture - Final Escherichia Coli Complete Laboratory Tests 01/09/17 04:40: White Blood Count 3.9#L, Red Blood Count 4.08L, Hemoglobin 12.2, Hematocrit 37.5 , Mean Corpuscular Volume 92, Mean Corpuscular Hemoglobin 30.0, Mean Corpuscular Hemoglobin Concent 32.6, Red Cell Distribution Width 11.5L, Platelet Count 291, Mean Platelet Volume 5.2L, Neutrophils (%) (Auto) 48.8, Lymphocytes (%) (Auto) 37.3, Monocytes (%) (Auto) 11.4H, Eosinophils (%) (Auto) 2.0, Basophils (%) (Auto) 0.5, Sodium Level 144, Potassium Level 5.0, Chloride Level 114H, Carbon Dioxide Level 20L, Anion Gap 11, Blood Urea Nitrogen 29H, Creatinine 1.3, Estimat Glomerular Filtration Rate , Glucose Level 106, Calcium Level 8.3L, Troponin I 0.026 Current Medications Medications (Trade) Dose Ordered Sig/Arthur Route PRN Reason Start Time Stop Time Status Last Admin Dose Admin Acetaminophen (Tylenol) 650 mg Q4H PRN ORAL FEVER 01/07/17 06:30 02/06/17 06:29 Albuterol/ Ipratropium (Albuterol/ Ipratropium) 3 ml EVERY 4 HOURS PRN HHN Shortness of Breath 01/07/17 06:30 01/12/17 06:29 Amlodipine Besylate (Norvasc) 10 mg DAILY ORAL 01/07/17 09:00 02/06/17 08:59 01/09/17 09:20 Aspirin (ASA) 162 mg DAILY ORAL 01/08/17 09:00 02/07/17 08:59 01/09/17 09:19 Diltiazem HCl (Cardizem) 10 mg EVERY HOUR PRN IV heart rate more than 120, 01/07/17 06:30 02/06/17 06:29 Enalaprilat (Vasotec) 2.5 mg EVERY 6 HOURS PRN IV sbp more than 160 01/07/17 06:30 02/06/17 06:29 Gabapentin (Neurontin) 600 mg BID ORAL 01/07/17 09:00 02/06/17 08:59 01/09/17 09:18 Heparin Sodium (Porcine) (Heparin 5000 units/ml) 5,000 units EVERY 12 HOURS SUBQ 11/18/17 09:00 02/06/17 08:59 01/08/17 22:12 Ketorolac Tromethamine (Toradol 30mg) 30 mg Q6HR PRN IV moderate pain ( 4-6) 01/07/17 06:30 01/12/17 06:29 Levofloxacin (Levaquin) 250 mg DAILY ORAL 01/10/17 09:00 01/17/17 08:59 Metoprolol Tartrate (Lopressor) 25 mg EVERY 12 HOURS ORAL 01/07/17 09:00 02/06/17 08:59 01/09/17 09:00 Morphine Sulfate (Morphine Sulfate) 2 mg EVERY 4 HOURS PRN IVP severe Pain (Pain Scale 7-10) 01/07/17 06:30 01/14/17 06:29 01/09/17 12:14 Nitroglycerin (Ntg) 0.4 mg Q5M PRN SL Prn Chest Pain 01/07/17 06:30 02/06/17 06:29 Ondansetron HCl (Zofran) 4 mg Q6H PRN IVP Nausea & Vomiting 01/07/17 06:30 02/06/17 06:29 Polyethylene Glycol (Miralax) 17 gm DAILYPRN PRN ORAL Constipation 01/07/17 06:30 02/06/17 06:29 01/08/17 12:57 Sodium Chloride 1,000 ml @ 100 mls/hr Q10H IV 01/07/17 08:30 02/06/17 08:29 01/09/17 10:30 Temazepam (Restoril) 15 mg HSPRN PRN ORAL Insomnia 01/07/17 06:30 01/14/17 06:29 ADRIANO ABREU Jan 09, 2017 12:50
[2017-01-09 12:55] VITALS: BP 141/72
--- NOTE | 2017-01-09 13:17 | General Progress Note ---
Assessment/Plan Problem List: (1) COPD (chronic obstructive pulmonary disease) ICD Codes: J44.9 - Chronic obstructive pulmonary disease, unspecified SNOMED: 19857131 (2) UTI (urinary tract infection) ICD Codes: N39.0 - Urinary tract infection, site not specified SNOMED: 76850753 Qualifiers: Qualified Codes: N30.00 - Acute cystitis without hematuria (3) ACS (acute coronary syndrome) ICD Codes: I24.9 - Acute ischemic heart disease, unspecified SNOMED: 671539024 (4) EDIE (acute kidney injury) ICD Codes: N17.9 - Acute kidney failure, unspecified SNOMED: 88964036 (5) Asthma ICD Codes: J45.909 - Unspecified asthma, uncomplicated SNOMED: 358188462 (6) HTN (hypertension), malignant ICD Codes: I10 - Essential (primary) hypertension SNOMED: 37228260 Status: stable, progressing, tolerating diet Assessment/Plan ot pt diet abx neph f/u cbc bmp in am dc plan Subjective Constitutional: Reports: weakness Allergies: Coded Allergies: No Known Allergies (Unverified , 11/05/15) All Systems: reviewed and negative except above Subjective sl weak in bed Objective Last 24 Hour Vital Signs Date Time Temp Pulse Resp B/P (MAP) Pulse Ox O2 Delivery O2 Flow Rate FiO2 01/09/17 12:55 98.1 66 141/72 Room Air 01/09/17 12:44 98.0 01/09/17 10:16 64 20 Room Air 21 01/09/17 09:20 68 146/76 01/09/17 09:00 68 146/76 01/09/17 08:54 97.9 69 18 146/62 Room Air 01/09/17 08:00 70 01/09/17 04:29 96.4 64 18 125/61 94 Room Air 01/09/17 04:00 61 01/09/17 00:40 94.7 65 18 136/60 98 Room Air 01/09/17 00:00 67 01/08/17 22:12 68 129/59 01/08/17 20:21 97.9 68 18 129/59 94 Room Air 01/08/17 20:00 74 01/08/17 19:30 70 16 Room Air 21 01/08/17 16:46 98.7 76 18 130/59 99 Room Air 01/08/17 16:00 70 Intake and Output 01/09/17 01/10/17 19:00 07:00 # Bowel Movements 1 Laboratory Tests 01/09/17 04:40: White Blood Count 3.9#L, Red Blood Count 4.08L, Hemoglobin 12.2, Hematocrit 37.5 , Mean Corpuscular Volume 92, Mean Corpuscular Hemoglobin 30.0, Mean Corpuscular Hemoglobin Concent 32.6, Red Cell Distribution Width 11.5L, Platelet Count 291, Mean Platelet Volume 5.2L, Neutrophils (%) (Auto) 48.8, Lymphocytes (%) (Auto) 37.3, Monocytes (%) (Auto) 11.4H, Eosinophils (%) (Auto) 2.0, Basophils (%) (Auto) 0.5, Sodium Level 144, Potassium Level 5.0, Chloride Level 114H, Carbon Dioxide Level 20L, Anion Gap 11, Blood Urea Nitrogen 29H, Creatinine 1.3, Estimat Glomerular Filtration Rate , Glucose Level 106, Calcium Level 8.3L, Troponin I 0.026 Height (Feet): 5 Height (Inches): 7.00 Weight (Pounds): 118 General Appearance: alert EENT: normal ENT inspection Neck: normal alignment Cardiovascular: normal peripheral pulses, normal rate, regular rhythm Respiratory/Chest: chest wall non-tender, lungs clear, normal breath sounds Abdomen: normal bowel sounds, non tender, soft Extremities: normal inspection Edema: no edema noted Arm (L), no edema noted Arm (R), no edema noted Leg (L), no edema noted Leg (R), no edema noted Pedal (L), no edema noted Pedal (R), no edema noted Generalized Neurologic: responsive, motor weakness Skin: normal pigmentation, warm/dry MARTHA ULLOA Jan 09, 2017 13:17
[2017-01-09] MEDS ORDERED: Nitroglycerin Subl 0.4mg tab SL PRN (15:00)
[2017-01-09 16:00] VITALS: BP 141/67
[2017-01-09] MEDS ORDERED: Albuterol/Ipratropium 3ml neb HHN PRN (17:00)
[2017-01-09] MEDS ORDERED: Morphine Sulfate 2mg/ml Inj IVP PRN (17:00)
[2017-01-09 20:00] VITALS: BP 124/52
[2017-01-10] VITALS: BP 144/63
[2017-01-10 04:00] VITALS: BP 140/68
[2017-01-10] MEDS ORDERED: Miralax 17gm pkt ORAL PRN (06:30)
--- NOTE | 2017-01-10 07:15 | General Progress Note ---
Assessment/Plan Problem List: (1) COPD (chronic obstructive pulmonary disease) ICD Codes: J44.9 - Chronic obstructive pulmonary disease, unspecified SNOMED: 83883850 (2) UTI (urinary tract infection) ICD Codes: N39.0 - Urinary tract infection, site not specified SNOMED: 37863791 Qualifiers: Qualified Codes: N30.00 - Acute cystitis without hematuria (3) ACS (acute coronary syndrome) ICD Codes: I24.9 - Acute ischemic heart disease, unspecified SNOMED: 332840152 (4) EDIE (acute kidney injury) ICD Codes: N17.9 - Acute kidney failure, unspecified SNOMED: 61042878 (5) Asthma ICD Codes: J45.909 - Unspecified asthma, uncomplicated SNOMED: 251729015 (6) HTN (hypertension), malignant ICD Codes: I10 - Essential (primary) hypertension SNOMED: 98315682 Status: stable, progressing, tolerating diet Assessment/Plan ot pt diet abx neph f/u cbc bmp in am dc w hh Subjective Constitutional: Reports: weakness Allergies: Coded Allergies: No Known Allergies (Unverified , 11/05/15) All Systems: reviewed and negative except above Subjective sl weak in bed Objective Last 24 Hour Vital Signs Date Time Temp Pulse Resp B/P (MAP) Pulse Ox O2 Delivery O2 Flow Rate FiO2 01/10/17 04:00 97.9 71 18 140/68 97 Room Air 01/10/17 00:00 97.3 71 19 144/63 100 Room Air 01/09/17 20:00 97.9 79 19 124/52 100 Room Air 01/09/17 17:09 98.8 01/09/17 16:00 98.8 70 18 141/67 97 Room Air 01/09/17 12:55 98.1 66 141/72 Room Air 01/09/17 12:44 98.0 01/09/17 12:00 65 01/09/17 10:16 64 20 Room Air 21 01/09/17 09:20 68 146/76 01/09/17 09:00 68 146/76 01/09/17 08:54 97.9 69 18 146/62 Room Air 01/09/17 08:00 70 Laboratory Tests 01/10/17 05:45: White Blood Count [Pending], Red Blood Count [Pending], Hemoglobin [Pending], Hematocrit [Pending], Mean Corpuscular Volume [Pending], Mean Corpuscular Hemoglobin [Pending], Mean Corpuscular Hemoglobin Concent [Pending], Red Cell Distribution Width [Pending], Platelet Count [Pending], Mean Platelet Volume [ Pending], Neutrophils (%) (Auto) [Pending], Lymphocytes (%) (Auto) [Pending], Monocytes (%) (Auto) [Pending], Eosinophils (%) (Auto) [Pending], Basophils (%) (Auto) [Pending], Sodium Level [Pending], Potassium Level [Pending], Chloride Level [Pending], Carbon Dioxide Level [Pending], Blood Urea Nitrogen [Pending], Creatinine [Pending], Estimat Glomerular Filtration Rate [Pending], Glucose Level [Pending], Calcium Level [Pending] Height (Feet): 5 Height (Inches): 7.00 Weight (Pounds): 118 General Appearance: alert EENT: normal ENT inspection Neck: normal alignment Cardiovascular: normal peripheral pulses, normal rate, regular rhythm Respiratory/Chest: chest wall non-tender, lungs clear, normal breath sounds Abdomen: normal bowel sounds, non tender, soft Extremities: normal inspection Edema: no edema noted Arm (L), no edema noted Arm (R), no edema noted Leg (L), no edema noted Leg (R), no edema noted Pedal (L), no edema noted Pedal (R), no edema noted Generalized Neurologic: responsive, motor weakness Skin: normal pigmentation, warm/dry MARTHA ULLOA Jan 10, 2017 07:15
[2017-01-10 07:18] LABS: ANION GAP 9 mmol/L (5-15); CALCIUM 7.9 MG/DL (8.5-10.1); CARBON DIOXIDE 24 MMOL/L (21-32); CHLORIDE 111 MMOL/L (98-107); CREATININE 0.9 MG/DL (0.55-1.30); POTASSIUM 3.8 MMOL/L (3.5-5.1); SODIUM 144 MMOL/L (136-145)
[2017-01-10 07:34] LABS: BASOPHILS % (AUTO) 0.6 % (0.0-2.0); EOSINOPHILS % (AUTO) 2.7 % (0.0-3.0); MEAN CORPUSCULAR HGB CONC 32.8 G/DL (32.0-36.0); MEAN CORPUSCULAR VOLUME 91 FL (80-99); MEAN PLATELET VOLUME 5.8 FL (6.5-10.1); MONOCYTES % (AUTO) 8.6 % (1.0-10.0); PLATELET COUNT 289 K/UL (150-450); RED BLOOD COUNT 3.92 M/UL (4.20-5.40); RED CELL DISTRIBUTION WIDTH 11.3 % (11.6-14.8); WHITE BLOOD COUNT 4.3 K/UL (4.8-10.8)
[2017-01-10 08:15] VITALS: BP 152/69
[2017-01-10] MEDS ORDERED: Aspirin Baby 81mg ORAL SCH (09:00)
[2017-01-10] MEDS: Heparin 5000 units/ml inj SUBQ SCH (09:49)
[2017-01-10] MEDS ORDERED: LEVAQUIN250 M1 ORAL (10:01)
--- NOTE | 2017-01-10 10:07 | Infectious Diseases Prog Note ---
Assessment/Plan Assessment/Plan antibiotics : levoquin A 1. e.coli UTI 2. renal failure improving 3. cervical stenosis 4. HTN P 1. continue po levoquin 3 more days 2. will follow up cultures Subjective Constitutional: Denies: fever, chills Respiratory: Denies: shortness of breath, dry cough Gastrointestinal/Abdominal: Denies: nausea, vomiting, diarrhea Musculoskeletal: Reports: pain Allergies: Coded Allergies: No Known Allergies (Unverified , 11/05/15) Objective Vital Signs Last 24 Hour Vital Signs Date Time Temp Pulse Resp B/P (MAP) Pulse Ox O2 Delivery O2 Flow Rate FiO2 01/10/17 09:46 81 152/69 01/10/17 08:15 98.2 81 22 152/69 95 Room Air 01/10/17 07:40 86 20 Room Air 21 01/10/17 04:00 97.9 71 18 140/68 97 Room Air 01/10/17 00:00 97.3 71 19 144/63 100 Room Air 01/09/17 20:00 97.9 79 19 124/52 100 Room Air 01/09/17 17:09 98.8 01/09/17 16:00 98.8 70 18 141/67 97 Room Air 01/09/17 12:55 98.1 66 141/72 Room Air 01/09/17 12:44 98.0 01/09/17 12:00 65 01/09/17 10:16 64 20 Room Air 21 Height (Feet): 5 Height (Inches): 7.00 Weight (Pounds): 118 Respiratory/Chest: lungs clear Cardiovascular: normal rate, regular rhythm, no gallop/murmur Abdomen: soft, non tender Extremities: no edema Microbiology Date/Time Source Procedure Growth Status 01/07/17 18:15 Urine,Clean Catch Urine Culture - Final Mixed Urogenital Contaminants Complete Laboratory Tests Test 01/10/17 05:45 White Blood Count 4.3 K/UL (4.8-10.8) L Red Blood Count 3.92 M/UL (4.20-5.40) L Hemoglobin 11.7 G/DL (12.0-16.0) L Hematocrit 35.8 % (37.0-47.0) L Mean Corpuscular Volume 91 FL (80-99) Mean Corpuscular Hemoglobin 30.0 PG (27.0-31.0) Mean Corpuscular Hemoglobin Concent 32.8 G/DL (32.0-36.0) Red Cell Distribution Width 11.3 % (11.6-14.8) L Platelet Count 289 K/UL (150-450) Mean Platelet Volume 5.8 FL (6.5-10.1) L Neutrophils (%) (Auto) 49.0 % (45.0-75.0) Lymphocytes (%) (Auto) 39.0 % (20.0-45.0) Monocytes (%) (Auto) 8.6 % (1.0-10.0) Eosinophils (%) (Auto) 2.7 % (0.0-3.0) Basophils (%) (Auto) 0.6 % (0.0-2.0) Sodium Level 144 MMOL/L (136-145) Potassium Level 3.8 MMOL/L (3.5-5.1) Chloride Level 111 MMOL/L (98-107) H Carbon Dioxide Level 24 MMOL/L (21-32) Anion Gap 9 mmol/L (5-15) Blood Urea Nitrogen 13 mg/dL (7-18) Creatinine 0.9 MG/DL (0.55-1.30) Estimat Glomerular Filtration Rate mL/min (>60) Glucose Level 95 MG/DL (74-106) Calcium Level 7.9 MG/DL (8.5-10.1) L Current Medications Medications (Trade) Dose Ordered Sig/Arthur Route PRN Reason Start Time Stop Time Status Last Admin Dose Admin Acetaminophen (Tylenol) 650 mg Q4H PRN ORAL FEVER 01/09/17 18:30 02/06/17 06:29 01/10/17 09:54 Albuterol/ Ipratropium (Albuterol/ Ipratropium) 3 ml Q4H PRN HHN Shortness of Breath 01/09/17 17:00 01/14/17 16:59 Amlodipine Besylate (Norvasc) 10 mg DAILY ORAL 01/10/17 09:00 02/06/17 08:59 01/10/17 09:46 Aspirin (ASA) 162 mg DAILY ORAL 01/10/17 09:00 02/07/17 08:59 01/10/17 09:45 Gabapentin (Neurontin) 600 mg BID ORAL 01/09/17 18:00 02/06/17 08:59 01/10/17 09:46 Heparin Sodium (Porcine) (Heparin 5000 units/ml) 5,000 units EVERY 12 HOURS SUBQ 01/09/17 21:00 02/06/17 08:59 01/10/17 09:49 Levofloxacin (Levaquin) 250 mg DAILY ORAL 01/10/17 09:00 01/17/17 08:59 01/10/17 09:46 Morphine Sulfate (Morphine Sulfate) 2 mg Q4H PRN IVP severe Pain (Pain Scale 7-10) 01/09/17 17:00 01/16/17 16:59 01/09/17 16:39 Nitroglycerin (Ntg) 0.4 mg Q5M PRN SL Prn Chest Pain 01/09/17 15:00 02/06/17 06:29 Ondansetron HCl (Zofran) 4 mg Q6H PRN IVP Nausea & Vomiting 01/09/17 18:30 02/06/17 06:29 Polyethylene Glycol (Miralax) 17 gm DAILYPRN PRN ORAL Constipation 01/10/17 06:30 02/06/17 06:29 Sodium Chloride 1,000 ml @ 50 mls/hr Q20H IV 01/09/17 16:00 02/08/17 15:59 01/10/17 05:27 Temazepam (Restoril) 15 mg HSPRN PRN ORAL Insomnia 01/09/17 06:30 01/16/17 06:29 01/09/17 21:17 RAHUL SUAREZ Jan 10, 2017 10:07
[2017-01-10] MEDS ORDERED: ASPIRIN325 MG ORAL (10:27)
--- NOTE | 2017-01-10 10:53 | Diagnostic Imaging Report ---
Indication:Elevated Bun and Creatinine. Technique: Grayscale and duplex Doppler imaging of the kidneys performed. Comparison: None Findings: Evaluation limited due to body habitus. No abnormalities identified with regard to the kidneys or bladder. The bladder is mildly distended. Both kidneys measure between 9 and 10 cm in length. IVC is grossly unremarkable. Impression: Negative exam
[2017-01-10 12:16] VITALS: BP 154/70
--- NOTE | 2017-01-10 13:24 | General Progress Note ---
Progress Note Progress Note [id number] full note dictated JOSE SEQUEIRA Jan 10, 2017 13:24
[2017-01-10] MEDS ORDERED: HYDRALAZIN20 MG/1 ML PO (13:29)
[2017-01-10] MEDS ORDERED: HYDRALAZINE HCL25 M2 PO (13:30)
--- NOTE | 2017-01-10 14:47 | Cardiology Report ---
APPROVED REPORT EKG Measurement Heart [id number] 150P82 [id number] Normal sinus rhythm Normal ECG
[2017-01-10] MEDS ORDERED: HydrALAZINE 25mg tab ORAL SCH (18:00)
--- NOTE | 2017-01-11 08:47 | Consultation ---
DATE OF CONSULTATION: 01/10/2017 NEPHROLOGY CONSULTATION CONSULTING PHYSICIAN: Nina Shrestha M.D. REFERRING PHYSICIAN: Jeison Dee D.O. REASON FOR CONSULTATION: Uncontrolled blood pressure and acute renal failure. HISTORY OF PRESENT ILLNESS: The patient is a very pleasant 71-year-old female with past medical history significant for hypertension, asthma, history of chronic spinal injury with severe abdominal pain, who presented to [facility] complaining of increasing abdominal pain, nausea, and vomiting. In the ER, the patient was found to have a urinary tract infection and also found to have a creatinine of 1.7. Consequently, the patient was admitted to the hospital for IV antibiotics. The patient originally at home and she was taking lisinopril. Lisinopril was stopped. The patient was started on amlodipine. Her blood pressure continued to be uncontrolled . I was called for management of renal disease and electrolyte imbalance. PAST MEDICAL HISTORY: 1. History of hypertension. 2. History of asthma. 3. History of spinal cord injury. 4. History of abdominal surgery. HOME MEDICATIONS: 1. Amlodipine. 2. Neurontin. 3. Lopressor. 4. Heparin. 5. Albuterol. 6. . 7. Morphine. 8. MiraLAX. 9. Zofran. 10. Restoril. 11. Vasotec. ALLERGIES: No known drug allergies. SOCIAL HISTORY: Lives at home. There is no history of tobacco, alcohol, or drug use. FAMILY HISTORY: Noncontributory. REVIEW OF SYSTEMS: GENERAL: She complained of generalized weakness. Denies any fever, chills, or night sweats. HEAD AND NECK: Denies any dysphagia, odynophagia, blurry vision, headache, or neck stiffness. PULMONARY: Denies any shortness of breath, cough, or sputum. CARDIOVASCULAR: Denies any chest pain. No palpitations. GASTROINTESTINAL: At this point, denies any nausea, vomiting, . Denies any melena, hematemesis, or hematochezia. GENITOURINARY: Denies any dysuria, frequency, or hematuria. MUSCULOSKELETAL: Denies any weakness or numbness. PHYSICAL EXAMINATION: VITAL SIGNS: The patient has temperature of 98, blood pressure of 150/71, pulse rate of 80, and respiratory rate of 18. HEAD AND NECK: No JVP. No LAD. No thyromegaly. Extraocular movements intact. Pupils are reactive to light and accommodation. LUNGS: Clear to auscultation. HEART: Regular rate and rhythm. S1 and S2 are normal. No rub. ABDOMEN: Soft, nontender, and nondistended. EXTREMITIES: No edema. No clubbing. No cyanosis. LABORATORY AND DIAGNOSTIC DATA: Lab value, the patient has sodium of 141, potassium 5.2, chloride 113, bicarbonate 20, BUN of 57, creatinine of 1.7, and glucose of 111. On current admission, the patient had sodium of 144, potassium 3.8, chloride 111, bicarbonate 24, BUN of 14, creatinine of 0.9, and calcium is 7.9. Urine on admission revealed specific gravity of 1.005, protein 1+, blood 5+, WBC 5 to 10, and RBC of 5 to 10. Urine sodium was 88. Urine creatinine of 10. CBC revealed WBC count of 4.2, hemoglobin of 11, hematocrit of 35, and platelet count of 289,000. ASSESSMENT: 1. Proteinuria. 2. Urinary tract infection. 3. Hyperkalemia, resolved. 4. Acute renal failure. 5. Uncontrolled hypertension. 6. Hypocalcemia. PLAN: Plan for the patient is to obtain a random urine protein-creatinine ratio to calculate the proteinuria. Continue IV fluids. Check the vitamin D level for evaluation of hypocalcemia. Continue medication for better blood pressure control. I would also management of hypertension. At the end, I would like to thank, Dr. Jeison Dee, for allowing me to participate in the care of this patient. Nina Shrestha M.D. DR: Bhaskar JOB#: [id number] CC:
--- NOTE | 2017-01-11 19:19 | Discharge Summary ---
Discharge Summary Hospital Course Date of Admission Jan 07, 2017 at 00:42 Date of Discharge Jan 10, 2017 at 15:27 Admitting Diagnosis ACUTE RENAL FAILURE, ACUTE CORONARY HPI Ayanna Baptiste is a 71 year old female who was admitted on Jan 07, 2017 at 00:42 for Acute Renal Failure, Acute Coronary Syndrome Hospital Course [id number] Discharge Discharge Disposition Patient was discharged to Home with Home Health(06) Discharge Diagnoses: Michelle Simmons NP Jan 11, 2017 19:19
--- NOTE | 2017-01-12 16:15 | Discharge Summary 2 SIG ---
DATE OF ADMISSION: 01/07/2017 DATE OF DISCHARGE: 01/10/2017 CONSULTANTS: 1. Giancarlo Valdez M.D. 2. Castro Victor M.D. 3. Nina Shrestha M.D. BRIEF HOSPITAL COURSE: The patient is a 71-year-old female, who lives at home presented with complaints of abdominal pain. She has history of previous abdominal surgery and came in complaining of abdominal pain and generalized body pain started a week prior to admission. She had positive nausea and vomiting and unable to keep food down. She also complained of chest pain and felt weak. She denied any fever or chills. Pain is 10/10. On evaluation at ED, chest x-ray done showed no acute process. CT of the abdomen and pelvis showed no acute abnormality. No diverticulitis. There was evidence of prior hysterectomy and L1 compression fracture deformity. Blood work showed a troponin 0.188. Creatinine was elevated to 4.2, BUN was 109. She had an EKG done that showed normal sinus rhythm with no acute changes. Urinalysis showed evidence of infection. She was admitted to telemetry for evaluation of ACS and UTI. She was seen by Infectious Disease specialist and was started on Zosyn. She was given IV hydration and was continued on aspirin. She was given amlodipine, benazepril, and metoprolol for blood pressure control. Urine culture with growth of E. coli. Zosyn was discontinued and was given Levaquin. Troponin levels downtrended. Renal ultrasound done was negative. Elevation of troponin level possibly secondary to acute renal failure. Creatinine levels downtrended. She had better blood pressure control. She underwent physical and occupational therapy and was eventually discharged home. FINAL DIAGNOSES: 1. Acute kidney injury. 2. Urinary tract infection with Escherichia coli. 3. Hypertension. 4. Chronic obstructive pulmonary disease. 5. Elevated troponin possibly secondary to acute renal failure. 6. Abdominal pain. 7. Hyperkalemia. 8. Chronic obstructive pulmonary disease. 9. Hypocalcemia. 10. Proteinuria. DISPOSITION: The patient was discharged home with home health. DISCHARGE MEDICATIONS: Refer to medication list. Continue with Levaquin 250 mg daily for three more days. Jeison Dee D.O. I have been assigned to dictate discharge summary on this account and I was not involved in the patient's management. Michelle Simmons N.P. DR: CARLITOS JOB#: [id number] CC: ULYSSES
== END 2017-01-10 15:27 | disposition home health service (06) | DRG 683 ==
LOC: EDUNIT# 22:33 → EDBD 22:33 → EMR 22:48 → 2W 01-07 00:42 → EDBEDREQ 01-07 01:03 → 2E 01-08 01:14 → 4E 01-09 15:02
DX: N17.9 Acute kidney failure, unspecified (principal); N39.0 Urinary tract infection, site not specified; I95.9 Hypotension, unspecified; E88.09 Other disorders of plasma-protein metabolism, not elsewhere classified; E87.5 Hyperkalemia; J44.9 Chronic obstructive pulmonary disease, unspecified; E83.51 Hypocalcemia; M48.02 Spinal stenosis, cervical region; K44.9 Diaphragmatic hernia without obstruction or gangrene; I10 Essential (primary) hypertension; K59.00 Constipation, unspecified; B96.20 Unspecified Escherichia coli [E. coli] as the cause of diseases classified elsewhere
CPT/HCPCS: 36415; 71010; 74176; 76775; 80048; 80053; 80061; 81001; 81003; 82550; 82553; 83605; 84133; 84300; 84443; 84484; 84550; 85025; 85610; 85730; 86140; 87086; 87181; 89050; 93005; 93306; 94664; 97803; 99285

== ENCOUNTER 2017-05-04 10:49 | Inpatient (IN) | payer MEDICARE, MEDICAID ==
[~2017-05-04] VITALS: Ht 167.6 cm; Wt 51.7 kg
[~2017-05-04 10:49] MED LIST changes: +ASPIRIN325 MG ORAL; +HYDRALAZIN20 MG/1 ML PO; +HYDRALAZINE HCL25 M2 PO; +LEVAQUIN250 M1 ORAL
[2017-05-04 11:05] VITALS: BP 205/93
[2017-05-04] MEDS ORDERED: Azithromycin 500 MG in NS 275 ML IV ONE (11:15)
[2017-05-04] MEDS ORDERED: Albuterol ud Inhalation HHN ONE (11:15)
[2017-05-04] MEDS ORDERED: Ipratropium 0.02% Inh Soln 2.5ml UD HHN ONE (11:15)
--- NOTE | 2017-05-04 11:19 | Emergency Room Report ---
History of Present Illness General Chief Complaint: Upper Respiratory Illness Source: Patient, Medical Record Present Illness HPI 71-year-old female sent by primary care doctor Dr. Arana to rule out pneumonia Mesha has history of COPD, productive cough for 3-4 days, no fever or chills Using home nebulizer as needed without much improvement Not on home oxygen Allergies: Coded Allergies: No Known Allergies (Unverified , 11/05/15) Patient History Past Medical History: COPD Past Surgical History: none Pertinent Family History: none Social History: Denies: smoking, alcohol use, drug use Now: No Immunizations: UTD Reviewed Nursing Documentation: PMH: Agreed, PSxH: Agreed Nursing Documentation-PMH Past Medical History: No History, Except For Hx Cardiac Problems: Yes Hx Hypertension: Yes Hx Asthma: Yes Hx Diabetes: No Hx Cancer: No Hx Gastrointestinal Problems: No Hx Dialysis: No Hx Neurological Problems: Yes Hx Cerebrovascular Accident: No Hx Seizures: No Hx Spinal Cord Injury: Yes Review of Systems All Other Systems: negative except mentioned in HPI Physical Exam Vital Signs Date Time Temp Pulse Resp B/P (MAP) Pulse Ox O2 Delivery O2 Flow Rate FiO2 05/04/17 10:58 99.2 100 20 229/90 92 Room Air 99.1 Sp02 EP Interpretation: reviewed, normal General Appearance: normal inspection, well appearing, alert, GCS 15, non-toxic , mild distress Head: normocephalic, atraumatic Eyes: bilateral eye PERRL, bilateral eye EOMI ENT: normal ENT inspection, hearing grossly normal, normal pharynx, no angioedema, normal voice, TMs + canals normal, uvula midline, moist mucus membranes Neck: normal inspection, full range of motion, supple, thyroid normal, no meningismus, no bony tend Respiratory: normal inspection, no rhonchi, respiratory distress, decreased breath sounds, accessory muscle use, speaking full sentences, wheezing Cardiovascular #1: regular rate, rhythm, no edema, no JVD, normal capillary refill Gastrointestinal: normal inspection, normal bowel sounds, non tender, soft, no mass, no peritonitis, non-distended, no guarding, no hernia, no pulsatile mass Genitourinary: no CVA tenderness Musculoskeletal: normal inspection, back normal, normal range of motion, no calf tenderness, pelvis stable, Norma's Sign negative Neurologic: normal inspection, alert, oriented x3, responsive, procedure tech III-XII nml as tested, motor strength/tone normal, cerebellar normal, normal gait, speech normal Psychiatric: normal inspection, judgement/insight normal, mood/affect normal, no suicidal/homicidal ideation, no delusions Skin: normal inspection, normal color, no rash Lymphatic: normal inspection, no adenopathy Medical Decision Making Diagnostic Impression: Primary Impression: SOB (shortness of breath) Additional Impressions: COPD exacerbation Atrial fibrillation with controlled ventricular rate ER Course Vital signs with elevated systolic blood pressure Afebrile Lung exam consistent more with COPD exacerbation given wheezing, accessory muscle use, retractions Was given nebs, steroids, and IV azithromycin Labs: No leuks. H&h stable. Chest x-ray: No PNA or CHF. Not septic appearing Endorsed to Dr. Dee PMD for admission 1204pm EKG Diagnostic Results Rate: normal Rhythm: other - Atrial fib ST Segments: no acute changes ASA given to the pt in ED: No Rhythm Strip Diag. Results EP Interpretation: yes Rate: 77 Rhythm: NSR, no PVC's, no ectopy Chest X-Ray Diagnostic Results Chest X-Ray Diagnostic Results : Chest X-Ray Ordered: Yes # of Views/Limited/Complete: 1 View EP Interpretation: Yes Interpretation: no consolidation, no effusion, no pneumothorax, no acute cardiopulmonary disease Impression: No acute disease Electronically Signed by: Dr Win Wheeler mD Last Vital Signs Date Time Temp Pulse Resp B/P (MAP) Pulse Ox O2 Delivery O2 Flow Rate FiO2 05/04/17 11:05 99.1 83 21 205/93 95 Room Air 99.1 Status: improved Disposition: ADMITTED INPATIENT Condition: Serious WIN WHEELER M.D. May 04, 2017 11:19
[2017-05-04] MEDS ORDERED: Azithromycin 500mg Inj IV ONE (11:20)
[2017-05-04] MEDS ORDERED: NS 275 ML ONE (11:21)
[2017-05-04 11:34] LABS: BASOPHILS % (AUTO) 1.2 % (0.0-2.0); EOSINOPHILS % (AUTO) 1.7 % (0.0-3.0); HEMATOCRIT 44.6 % (37.0-47.0); HEMOGLOBIN 14.7 G/DL (12.0-16.0); LYMPHOCYTES % (AUTO) 43.7 % (20.0-45.0); MEAN CORPUSCULAR VOLUME 89 FL (80-99); MONOCYTES % (AUTO) 9.9 % (1.0-10.0); NEUTROPHILS % (AUTO) 43.6 % (45.0-75.0); PLATELET COUNT 206 K/UL (150-450); RED CELL DISTRIBUTION WIDTH 12.3 % (11.6-14.8); WHITE BLOOD COUNT 5.8 K/UL (4.8-10.8)
[2017-05-04 11:38] LABS: ANION GAP 7 mmol/L (5-15); BLOOD UREA NITROGEN 22 mg/dL (7-18); CALCIUM 8.8 MG/DL (8.5-10.1); CARBON DIOXIDE 27 MMOL/L (21-32); CHLORIDE 105 MMOL/L (98-107); CREATININE 1.2 MG/DL (0.55-1.30); POTASSIUM 4.3 MMOL/L (3.5-5.1); SODIUM 139 MMOL/L (136-145)
[2017-05-04 11:52] LABS: ALANINE AMINOTRANSFERASE 53 U/L (12-78); ALBUMIN 3.2 G/DL (3.4-5.0); ALBUMIN/GLOBULIN RATIO 0.7 (1.0-2.7); ALKALINE PHOSPHATASE 107 U/L (46-116); ASPARTATE AMINO TRANSFERASE 57 U/L (15-37); BILIRUBIN,TOTAL 0.5 MG/DL (0.2-1.0); CKMB 1.5 NG/ML (0.0-3.6); CREATINE KINASE 147 U/L (26-308)
[2017-05-04 12:26] VITALS: BP 175/88
--- NOTE | 2017-05-04 12:26 | Diagnostic Imaging Report ---
Indication: Shortness of breath Technique: One view of the chest Comparison: 01/06/2017 Findings: Lungs and pleural spaces are clear. Heart size is normal Impression: No acute process
[2017-05-04] MEDS ORDERED: LORazepam Inj 2mg/ml 1ml IV PRN (12:30)
[2017-05-04] MEDS ORDERED: Promethazine/Codeine 5ml UD ORAL PRN (12:30)
[2017-05-04] MEDS ORDERED: Nitroglycerin Subl 0.4mg tab SL PRN (12:30)
--- NOTE | 2017-05-04 13:24 | Consultation ---
History of Present Illness General Date patient seen: May 04, 2017 Chief Complaint: Upper Respiratory Illness Present Illness HPI 71-year-old female with hx of COPD, HTN, CAD sent by primary care doctor to rule out pneumonia. Pt has productive cough for 3-4 days, no fever or chills Using home nebulizer as needed without much improvement. Her SBP was 220 in ER and she is admitted to telemetry for hypertensive emergency. Allergies: Coded Allergies: No Known Allergies (Unverified , 11/05/15) Medication History Scheduled Amlodipine Besylate (Norvasc), 10 MG ORAL DAILY, (Reported) Aspirin* (Aspirin*), 162 MG ORAL DAILY, (Reported) Benazepril Hcl* (Benazepril Hcl*), 40 MG ORAL TWICE A DAY, (Reported) Gabapentin* (Gabapentin*), 600 MG ORAL BID, (Reported) Hydralazine HCl (Hydralazine HCl), 25 MG PO BID, (Reported) Hydralazine Hcl (Hydralazine Hcl), 25 MG PO BID, (Reported) Hydrochlorothiazide* (Hydrochlorothiazide*), 25 MG ORAL DAILY, (Reported) Levofloxacin* (Levaquin*), 250 MG ORAL DAILY, (Reported) Metoprolol Tartrate (Metoprolol Tartrate), 25 MG ORAL EVERY 12 HOURS, (Reported) Tizanidine Hcl* (Zanaflex*), 4 MG ORAL THREE TIMES A DAY, (Reported) Scheduled PRN Acetaminophen With Codeine (T#4) (Tylenol #4 Tab*), 1 TAB ORAL Q6H PRN for For Pain, (Reported) Albuterol Sulfate* (Albuterol Sulfate Hhn*), 3 ML INH Q4H PRN for Shortness of Breath, (Reported) Zolpidem Tartrate* (Ambien*), 5 MG ORAL BEDTIME PRN for Insomnia, (Reported) Patient History Healthcare decision maker Resuscitation status Advanced Directive on File Past Medical/Surgical History Past Medical/Surgical History: (1) Cervical spinal stenosis (2) COPD (chronic obstructive pulmonary disease) (3) HTN (hypertension), malignant (4) Asthma Review of Systems Respiratory: Reports: shortness of breath All Other Systems: negative except mentioned in HPI Physical Exam General Appearance: cachetic Lines, tubes and drains: peripheral HEENT: normocephalic, atraumatic Neck: non-tender, normal alignment Respiratory/Chest: rhonchi - left, rhonchi - right Abdomen: normal bowel sounds, non tender, soft Genitourinary/Rectal: normal genital exam Extremities: normal range of motion, non-tender Skin Exam: normal pigmentation 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: 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 metal hanging II-XII grossly normal Last 24 Hour Vital Signs Date Time Temp Pulse Resp B/P (MAP) Pulse Ox O2 Delivery O2 Flow Rate FiO2 05/04/17 13:17 98.9 92 18 175/88 95 Room Air 98.9 05/04/17 12:26 98.9 92 18 175/88 95 Room Air 98.9 05/04/17 11:58 84 18 100 Room Air 21 05/04/17 11:48 85 18 99 Room Air 21 05/04/17 11:48 21 05/04/17 11:05 99.1 83 21 205/93 95 Room Air 99.1 05/04/17 11:05 83 20 Room Air 05/04/17 10:58 99.2 100 20 229/90 92 Room Air 99.1 Laboratory Tests Test 05/04/17 11:15 White Blood Count 5.8 K/UL (4.8-10.8) Red Blood Count 5.00 M/UL (4.20-5.40) Hemoglobin 14.7 G/DL (12.0-16.0) Hematocrit 44.6 % (37.0-47.0) Mean Corpuscular Volume 89 FL (80-99) Mean Corpuscular Hemoglobin 29.4 PG (27.0-31.0) Mean Corpuscular Hemoglobin Concent 33.0 G/DL (32.0-36.0) Red Cell Distribution Width 12.3 % (11.6-14.8) Platelet Count 206 K/UL (150-450) Mean Platelet Volume 7.9 FL (6.5-10.1) Neutrophils (%) (Auto) 43.6 % (45.0-75.0) L Lymphocytes (%) (Auto) 43.7 % (20.0-45.0) Monocytes (%) (Auto) 9.9 % (1.0-10.0) Eosinophils (%) (Auto) 1.7 % (0.0-3.0) Basophils (%) (Auto) 1.2 % (0.0-2.0) Sodium Level 139 MMOL/L (136-145) Potassium Level 4.3 MMOL/L (3.5-5.1) Chloride Level 105 MMOL/L (98-107) Carbon Dioxide Level 27 MMOL/L (21-32) Anion Gap 7 mmol/L (5-15) Blood Urea Nitrogen 22 mg/dL (7-18) H Creatinine 1.2 MG/DL (0.55-1.30) Estimat Glomerular Filtration Rate mL/min (>60) Glucose Level 100 MG/DL (74-106) Calcium Level 8.8 MG/DL (8.5-10.1) Total Bilirubin 0.5 MG/DL (0.2-1.0) Aspartate Amino Transf (AST/SGOT) 57 U/L (15-37) H Alanine Aminotransferase (ALT/SGPT) 53 U/L (12-78) Alkaline Phosphatase 107 U/L (46-116) Total Creatine Kinase 147 U/L (26-308) Creatine Kinase MB 1.5 NG/ML (0.0-3.6) Creatine Kinase MB Relative Index 1.0 Troponin I 0.000 ng/mL (0.000-0.056) Pro-B-Type Natriuretic Peptide 330 pg/mL (0-125) H Total Protein 7.7 G/DL (6.4-8.2) Albumin 3.2 G/DL (3.4-5.0) L Globulin 4.5 g/dL Albumin/Globulin Ratio 0.7 (1.0-2.7) L Height (Feet): 5 Height (Inches): 6.00 Weight (Pounds): 115 Medications Current Medications Medications (Trade) Dose Ordered Sig/Arthur Route PRN Reason Start Time Stop Time Status Last Admin Dose Admin Acetaminophen (Tylenol) 650 mg Q4H PRN ORAL T>100.5 05/04/17 12:30 06/03/17 12:29 Albuterol/ Ipratropium (Albuterol/ Ipratropium) 3 ml Q4H PRN HHN dyspnea 05/04/17 12:30 05/09/17 12:29 Amlodipine Besylate (Norvasc) 10 mg DAILY ORAL 05/05/17 09:00 06/04/17 08:59 Aspirin (ASA) 162 mg DAILY ORAL 05/05/17 09:00 06/04/17 08:59 Benazepril HCl (Lotensin) 40 mg Q12HR ORAL 05/04/17 21:00 06/03/17 20:59 Clonidine HCl (Catapres Tab) 0.1 mg Q4H PRN ORAL sbp more than 160mmHg 05/04/17 12:30 06/03/17 12:29 Dextrose (Dextrose 50%) STAT PRN IV Hypoglycemia 05/04/17 12:30 06/03/17 12:29 Gabapentin (Neurontin) 600 mg Q12HR ORAL 05/04/17 21:00 06/03/17 20:59 Heparin Sodium (Porcine) (Heparin 5000 units/ml) 5,000 units EVERY 12 HOURS SUBQ 05/04/17 21:00 06/03/17 20:59 Levofloxacin 50 ml @ 50 mls/hr Q24H IVPB 05/05/17 14:00 05/12/17 13:59 Levofloxacin 100 ml @ 100 mls/hr ONCE ONCE IVPB 05/04/17 14:30 05/04/17 15:29 Lorazepam (Ativan 2mg/ml 1ml) 0.5 mg Q4H PRN IV For Anxiety 05/04/17 12:30 05/11/17 12:29 Methylprednisolone Sodium Succinate (Solu-MEDROL) 60 mg EVERY 6 HOURS IV 05/04/17 18:00 06/03/17 17:59 Morphine Sulfate (Morphine Sulfate) 2 mg Q4H PRN IVP Severe Pain (Pain Scale 7-10) 05/04/17 12:30 05/11/17 12:29 Nitroglycerin (Ntg) 0.4 mg Q5M X 3 DOSES PRN SL Prn Chest Pain 05/04/17 12:30 06/03/17 12:29 Ondansetron HCl (Zofran) 4 mg Q6H PRN IVP Nausea & Vomiting 05/04/17 12:30 06/03/17 12:29 Promethazine HCl/ Codeine (Phenergan with Codeine) 5 ml Q6H PRN ORAL cough 05/04/17 12:30 06/03/17 12:29 Temazepam (Restoril) 15 mg HSPRN PRN ORAL Insomnia 05/04/17 21:00 05/11/17 20:59 Tizanidine HCl (Zanaflex) 4 mg TIDPRN PRN ORAL MUSCLE SPASMS 05/04/17 13:00 06/03/17 12:59 Assessment/Plan Problem List: (1) COPD exacerbation ICD Codes: J44.1 - Chronic obstructive pulmonary disease with (acute) exacerbation SNOMED: 346361902 (2) Hypertensive emergency ICD Codes: I16.1 - Hypertensive emergency SNOMED: 633480395408747 (3) Cervical spinal stenosis ICD Codes: M48.02 - Spinal stenosis, cervical region SNOMED: 15540756 (4) HTN (hypertension), malignant ICD Codes: I10 - Essential (primary) hypertension SNOMED: 69362943 (5) SOB (shortness of breath) ICD Codes: R06.02 - Shortness of breath SNOMED: 544813747 Assessment/Plan iv steroids iv abx check cultures monitor BP respiratory treatment titrate fio2 chest pt cxr reviewed. Giancarlo Valdez MD May 04, 2017 13:24
[2017-05-04] MEDS: Morphine Sulfate 2mg/ml Inj IVP PRN (13:49)
[2017-05-04 14:15] VITALS: BP 218/90
[2017-05-04 15:14] VITALS: BP 190/94
[2017-05-04] MEDS: Solu-MEDROL 125mg Inj IV SCH (16:57)
--- NOTE | 2017-05-04 18:59 | Cardiology Progress Note ---
Assessment/Plan Assessment/Plan fullnote dicated no tolerated norvasc before lisnopril hctz clonidien will add other as needed Objective Last 24 Hour Vital Signs Date Time Temp Pulse Resp B/P (MAP) Pulse Ox O2 Delivery O2 Flow Rate FiO2 05/04/17 17:53 87 18 98 Room Air 21 05/04/17 17:53 21 05/04/17 15:14 94 190/94 05/04/17 14:20 218/90 05/04/17 14:19 98.9 05/04/17 14:15 100 18 218/90 95 Room Air 05/04/17 13:49 98.9 05/04/17 13:17 98.9 92 18 175/88 95 Room Air 98.9 05/04/17 12:26 98.9 92 18 175/88 95 Room Air 98.9 05/04/17 11:58 84 18 100 Room Air 21 05/04/17 11:48 85 18 99 Room Air 21 05/04/17 11:48 21 05/04/17 11:05 99.1 83 21 205/93 95 Room Air 99.1 05/04/17 11:05 83 20 Room Air 05/04/17 10:58 99.2 100 20 229/90 92 Room Air 99.1 Laboratory Tests Test 05/04/17 11:15 White Blood Count 5.8 K/UL (4.8-10.8) Red Blood Count 5.00 M/UL (4.20-5.40) Hemoglobin 14.7 G/DL (12.0-16.0) Hematocrit 44.6 % (37.0-47.0) Mean Corpuscular Volume 89 FL (80-99) Mean Corpuscular Hemoglobin 29.4 PG (27.0-31.0) Mean Corpuscular Hemoglobin Concent 33.0 G/DL (32.0-36.0) Red Cell Distribution Width 12.3 % (11.6-14.8) Platelet Count 206 K/UL (150-450) Mean Platelet Volume 7.9 FL (6.5-10.1) Neutrophils (%) (Auto) 43.6 % (45.0-75.0) L Lymphocytes (%) (Auto) 43.7 % (20.0-45.0) Monocytes (%) (Auto) 9.9 % (1.0-10.0) Eosinophils (%) (Auto) 1.7 % (0.0-3.0) Basophils (%) (Auto) 1.2 % (0.0-2.0) Sodium Level 139 MMOL/L (136-145) Potassium Level 4.3 MMOL/L (3.5-5.1) Chloride Level 105 MMOL/L (98-107) Carbon Dioxide Level 27 MMOL/L (21-32) Anion Gap 7 mmol/L (5-15) Blood Urea Nitrogen 22 mg/dL (7-18) H Creatinine 1.2 MG/DL (0.55-1.30) Estimat Glomerular Filtration Rate mL/min (>60) Glucose Level 100 MG/DL (74-106) Calcium Level 8.8 MG/DL (8.5-10.1) Total Bilirubin 0.5 MG/DL (0.2-1.0) Aspartate Amino Transf (AST/SGOT) 57 U/L (15-37) H Alanine Aminotransferase (ALT/SGPT) 53 U/L (12-78) Alkaline Phosphatase 107 U/L (46-116) Total Creatine Kinase 147 U/L (26-308) Creatine Kinase MB 1.5 NG/ML (0.0-3.6) Creatine Kinase MB Relative Index 1.0 Troponin I 0.000 ng/mL (0.000-0.056) Pro-B-Type Natriuretic Peptide 330 pg/mL (0-125) H Total Protein 7.7 G/DL (6.4-8.2) Albumin 3.2 G/DL (3.4-5.0) L Globulin 4.5 g/dL Albumin/Globulin Ratio 0.7 (1.0-2.7) L GEN COOPER May 04, 2017 18:59
[2017-05-04] MEDS ORDERED: Benazepril 10mg tab ONE (19:46)
[2017-05-04 20:00] VITALS: BP 159/87
[2017-05-04] MEDS: Lisinopril 20mg tab ORAL SCH (21:11)
[2017-05-04] MEDS: Heparin 5000 units/ml inj SUBQ SCH (21:13)
--- NOTE | 2017-05-04 23:45 | Consultation ---
DATE OF CONSULTATION: 05/04/2017 CARDIOLOGY CONSULTATION CONSULTING PHYSICIAN: Nadeem Sunshine M.D. REFERRING PHYSICIAN: Giancarlo Valdez M.D. REASON FOR REFERRAL: Hypertension, poorly controlled. HISTORY OF PRESENT ILLNESS: This is an elderly female, who is referred by her primary care physician here at [facility] because of increasing cough, congestion, and possible pneumonia. She indicates she had a cold. She thought it was a flu, but was having some green sputum improved to white-colored sputum eventually and then started getting yellow again and she was having some shortness of breath and congestion and her asthma has gotten worse as well. She has two pillow usage because it helps her breathing. She is more comfortable. There is no chest pain or pressure or palpitations. She does have shortness of breath that wakes her up in the middle of the night for which she has to use inhaler that she gets better with. PAST MEDICAL HISTORY: Unfortunately, the internet at the hospital is down and I am unable to access her prior records. She tells me she has high blood pressure. She denies any diabetes or heart attack or high cholesterol. No cancer. No stroke. No hepatitis or tuberculosis. She does have a history of asthma. No kidney problems, liver problems, thyroid problems, anemia, arthritis, HIV, AIDS, or blood clots. MEDICATIONS: She does not recall the medication she takes at home except for lisinopril and hydrochlorothiazide. ALLERGIES: She denies any allergies to medication. REVIEW OF SYSTEMS: GASTROINTESTINAL: Negative. Her constipation has apparently resolved. GENITOURINARY: Negative. PULMONARY: Positive for cough, congestion, asthma, and wheezing. NEUROLOGICAL: Negative. PHYSICAL EXAMINATION: GENERAL: Shows to be elderly female, in no respiratory distress. HEENT: Unremarkable. NECK: Supple. No jugular venous distention. No abdominojugular reflux noted. LUNGS: Clear to auscultation and percussion. CARDIAC: S1 is normal. S2 is normal. Regular rate and rhythm. No heaves, thrills, gallops, or rubs are noted. ABDOMEN: Soft and nontender. Positive bowel sounds. EXTREMITY: There is no clubbing or cyanosis. There is no edema. NEUROLOGICAL: She is awake, alert, responsive, and in no apparent distress. LABORATORY AND DIAGNOSTIC DATA: Telemetry shows sinus rhythm and sinus tachycardia. EKG shows poor quality EKG tracing, some atrial tachycardia, possible on initial stage of the EKG, which showed significant amount of tremor artifact and is difficult to ascertain if there is any atrial fibrillation, but subsequent remainder of the EKG shows sinus rhythm. There appears to be some atrial activities within the initial parts of the EKG that makes the atrial fibrillation less likely. At the time of this dictation, laboratory values are not obtainable because of the computer malfunction and internet malfunction. At the time of this dictation, chest x-ray cannot be accessed due to the computer malfunction. At the time of this dictation, I am unable to express any of the records to order any laboratories or any other tests at this time. I will try to contact the pharmacy to order appropriate laboratories. ASSESSMENT: 1. Hypertension. 2. Asthma history. 3. Cough, possible pneumonia. PLAN: This patient will be started on some medications, lisinopril as well as hydrochlorothiazide. She will require addition of clonidine depending on her heart rate and blood pressure readings. She has been on Norvasc before, which she discontinued because of significant amount of swelling. She is on other medications she does not know the name of and I will have to try to see if we can add additional medications such as hydralazine as needed for blood pressure control. Nadeem Sunshine M.D. DR: DOROTEO JOB#: [id number] CC:
[2017-05-05] VITALS: BP 155/94
[2017-05-05] MEDS: Solu-MEDROL 125mg Inj IV SCH ×3 (00:20→12:00)
[2017-05-05] MEDS: Morphine Sulfate 2mg/ml Inj IVP PRN ×2 (00:21→16:00)
[2017-05-05] MEDS: Albuterol/Ipratropium 3ml neb HHN PRN ×3 (03:48→21:03)
[2017-05-05 06:36] LABS: BASOPHILS % (AUTO) 0.3 % (0.0-2.0); HEMATOCRIT 40.9 % (37.0-47.0); LYMPHOCYTES % (AUTO) 16.3 % (20.0-45.0); MEAN CORPUSCULAR VOLUME 88 FL (80-99); MONOCYTES % (AUTO) 1.7 % (1.0-10.0); NEUTROPHILS % (AUTO) 81.7 % (45.0-75.0); PLATELET COUNT 197 K/UL (150-450); RED BLOOD COUNT 4.62 M/UL (4.20-5.40); RED CELL DISTRIBUTION WIDTH 11.6 % (11.6-14.8); WHITE BLOOD COUNT 5.5 K/UL (4.8-10.8)
[2017-05-05 07:26] LABS: ALANINE AMINOTRANSFERASE 46 U/L (12-78); ALBUMIN 2.9 G/DL (3.4-5.0); ALBUMIN/GLOBULIN RATIO 0.6 (1.0-2.7); ALKALINE PHOSPHATASE 97 U/L (46-116); ANION GAP 9 mmol/L (5-15); ASPARTATE AMINO TRANSFERASE 32 U/L (15-37); BILIRUBIN,TOTAL 0.3 MG/DL (0.2-1.0); BLOOD UREA NITROGEN 29 mg/dL (7-18); CALCIUM 8.5 MG/DL (8.5-10.1); CARBON DIOXIDE 25 MMOL/L (21-32); CHLORIDE 104 MMOL/L (98-107); CREATININE 1.3 MG/DL (0.55-1.30); POTASSIUM 4.3 MMOL/L (3.5-5.1); SODIUM 137 MMOL/L (136-145)
[2017-05-05 08:00] VITALS: BP 155/80
[2017-05-05] MEDS ORDERED: Aspirin Baby 81mg ORAL SCH (09:00)
[2017-05-05] MEDS: Lisinopril 20mg tab ORAL SCH (09:36)
[2017-05-05] MEDS: Heparin 5000 units/ml inj SUBQ SCH ×2 (09:40→21:58)
[2017-05-05 12:00] VITALS: BP 139/58
--- NOTE | 2017-05-05 13:01 | Pulmonology Progress Note ---
Assessment/Plan Problems: (1) COPD exacerbation (2) Hypertensive emergency (3) Cervical spinal stenosis (4) HTN (hypertension), malignant (5) SOB (shortness of breath) Assessment/Plan improving less short of breath BP better controlled monitor BP decrease steroids check sputum dvt prophylaxis. Subjective ROS Limited/Unobtainable: No Constitutional: Reports: no symptoms HEENT: Repors: no symptoms Respiratory: Reports: no symptoms Allergies: Coded Allergies: No Known Allergies (Unverified , 11/05/15) Objective Last 24 Hour Vital Signs Date Time Temp Pulse Resp B/P (MAP) Pulse Ox O2 Delivery O2 Flow Rate FiO2 05/05/17 09:55 81 16 Room Air 21 05/05/17 09:36 155/80 05/05/17 09:36 79 155/80 05/05/17 09:35 155/80 05/05/17 08:00 97.5 79 18 155/80 96 Room Air 97.5 05/05/17 06:07 155/94 05/05/17 04:00 86 05/05/17 03:57 81 18 98 Room Air 21 05/05/17 03:47 21 05/05/17 03:47 91 20 98 Room Air 21 05/05/17 00:00 98.0 80 18 155/94 95 Room Air 98.0 05/05/17 00:00 72 05/04/17 21:27 159/87 05/04/17 21:12 159/87 05/04/17 21:11 159/87 05/04/17 20:32 85 16 Room Air 05/04/17 20:00 97.7 99 18 159/87 94 Room Air 97.7 05/04/17 20:00 95 05/04/17 20:00 97.7 99 18 159/87 94 97.7 05/04/17 17:53 87 18 98 Room Air 21 05/04/17 17:53 21 05/04/17 15:15 94 05/04/17 15:14 94 190/94 05/04/17 14:20 218/90 05/04/17 14:19 98.9 05/04/17 14:15 100 18 218/90 95 Room Air 05/04/17 13:49 98.9 05/04/17 13:17 98.9 92 18 175/88 95 Room Air 98.9 Intake and Output 05/04/17 05/05/17 19:00 07:00 Intake Total 515 ml 50 ml Balance 515 ml 50 ml Intake Oral 240 ml 50 ml IV Total 275 ml # Voids 1 1 Objective General Appearance: cachetic Lines, tubes and drains: peripheral HEENT: normocephalic, atraumatic Neck: non-tender, normal alignment Respiratory/Chest: rhonchi - left, rhonchi - right Abdomen: normal bowel sounds, non tender, soft Genitourinary/Rectal: normal genital exam Extremities: normal range of motion, non-tender Skin Exam: normal pigmentation 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 II-XII grossly normal Laboratory Tests 05/05/17 05:55: White Blood Count 5.5, Red Blood Count 4.62, Hemoglobin 14.0, Hematocrit 40.9, Mean Corpuscular Volume 88, Mean Corpuscular Hemoglobin 30.4, Mean Corpuscular Hemoglobin Concent 34.4, Red Cell Distribution Width 11.6, Platelet Count 197, Mean Platelet Volume 7.6, Neutrophils (%) (Auto) 81.7H, Lymphocytes (%) (Auto) 16.3L, Monocytes (%) (Auto) 1.7, Eosinophils (%) (Auto) 0.0, Basophils (%) (Auto ) 0.3, Sodium Level 137, Potassium Level 4.3, Chloride Level 104, Carbon Dioxide Level 25, Anion Gap 9, Blood Urea Nitrogen 29H, Creatinine 1.3, Estimat Glomerular Filtration Rate , Glucose Level 149H, Calcium Level 8.5, Magnesium Level 1.8, Total Bilirubin 0.3, Aspartate Amino Transf (AST/SGOT) 32, Alanine Aminotransferase (ALT/SGPT) 46, Alkaline Phosphatase 97, Total Protein 7.4, Albumin 2.9L, Globulin 4.5, Albumin/Globulin Ratio 0.6L Current Medications Medications (Trade) Dose Ordered Sig/Arthur Route PRN Reason Start Time Stop Time Status Last Admin Dose Admin Acetaminophen (Tylenol) 650 mg Q4H PRN ORAL T>100.5 05/04/17 12:30 06/03/17 12:29 05/04/17 21:28 Albuterol/ Ipratropium (Albuterol/ Ipratropium) 3 ml Q4H PRN HHN dyspnea 05/04/17 12:30 05/09/17 12:29 05/05/17 03:48 Amlodipine Besylate (Norvasc) 10 mg DAILY ORAL 05/05/17 09:00 06/04/17 08:59 05/05/17 09:36 Aspirin (ASA) 162 mg DAILY ORAL 05/05/17 09:00 06/04/17 08:59 05/05/17 09:35 Benazepril HCl (Lotensin) 40 mg Q12HR ORAL 05/04/17 21:00 06/03/17 20:59 05/05/17 09:35 Clonidine HCl (Catapres Tab) 0.1 mg EVERY 8 HOURS ORAL 05/04/17 22:00 06/03/17 21:59 05/05/17 06:07 Clonidine HCl (Catapres Tab) 0.1 mg Q4H PRN ORAL sbp more than 160mmHg 05/04/17 12:30 06/03/17 12:29 05/04/17 14:20 Dextrose (Dextrose 50%) STAT PRN IV Hypoglycemia 05/04/17 12:30 06/03/17 12:29 Gabapentin (Neurontin) 600 mg Q12HR ORAL 05/04/17 21:00 06/03/17 20:59 05/05/17 09:35 Heparin Sodium (Porcine) (Heparin 5000 units/ml) 5,000 units EVERY 12 HOURS SUBQ 05/04/17 21:00 06/03/17 20:59 05/05/17 09:40 Hydrochlorothiazide (Hydrodiuril) 25 mg DAILY ORAL 05/04/17 20:00 06/03/17 19:59 05/05/17 09:35 Levofloxacin 50 ml @ 50 mls/hr Q24H IVPB 05/05/17 14:00 05/12/17 13:59 Lisinopril (Prinivil) 40 mg DAILY ORAL 05/04/17 20:00 06/03/17 19:59 05/05/17 09:36 Lorazepam (Ativan 2mg/ml 1ml) 0.5 mg Q4H PRN IV For Anxiety 05/04/17 12:30 05/11/17 12:29 Methylprednisolone Sodium Succinate (Solu-MEDROL) 60 mg EVERY 6 HOURS IV 05/04/17 18:00 06/03/17 17:59 05/05/17 06:08 Morphine Sulfate (Morphine Sulfate) 2 mg Q4H PRN IVP Severe Pain (Pain Scale 7-10) 05/04/17 12:30 05/11/17 12:29 05/05/17 00:21 Nitroglycerin (Ntg) 0.4 mg Q5M X 3 DOSES PRN SL Prn Chest Pain 05/04/17 12:30 06/03/17 12:29 Ondansetron HCl (Zofran) 4 mg Q6H PRN IVP Nausea & Vomiting 05/04/17 12:30 06/03/17 12:29 Promethazine HCl/ Codeine (Phenergan with Codeine) 5 ml Q6H PRN ORAL cough 05/04/17 12:30 06/03/17 12:29 Temazepam (Restoril) 15 mg HSPRN PRN ORAL Insomnia 05/04/17 21:00 05/11/17 20:59 Tizanidine HCl (Zanaflex) 4 mg TIDPRN PRN ORAL MUSCLE SPASMS 05/04/17 13:00 06/03/17 12:59 Giancarlo Valdez MD May 05, 2017 13:01
[2017-05-05] MEDS ORDERED: Levofloxacin 250mg/D5W 50ml IVPB SCH (14:00)
--- NOTE | 2017-05-05 14:35 | General Progress Note ---
Progress Note Progress Note [id number] full consult dictated JOSE SEQUEIRA May 05, 2017 14:35
[2017-05-05 16:00] VITALS: BP 134/63
--- NOTE | 2017-05-05 16:38 | Cardiology Progress Note ---
Assessment/Plan Assessment/Plan 1. Hypertension. 2. Asthma history. 3. Cough, possible pneumonia. not tolerant of norvasc before as developed sig swelling adn p[t dcd herself i will dc norvasc computer system was out yest during my rounds and orderers were not possible will increase clonidine to 0.2 mg tid for nwo is on acei bid adn hctz as well will repeat trop and have echo avoiding bb in setting of bronchospasm Subjective Cardiovascular: Denies: chest pain, lightheadedness Respiratory: Reports: cough, shortness of breath - better, wheezing Gastrointestinal/Abdominal: Denies: abdominal pain Genitourinary: Denies: burning Objective Last 24 Hour Vital Signs Date Time Temp Pulse Resp B/P (MAP) Pulse Ox O2 Delivery O2 Flow Rate FiO2 05/05/17 14:12 155/80 05/05/17 13:34 85 18 97 Room Air 21 05/05/17 13:14 21 05/05/17 13:13 95 20 99 Room Air 21 05/05/17 09:55 81 16 Room Air 05/05/17 09:36 155/80 05/05/17 09:36 79 155/80 05/05/17 09:35 155/80 05/05/17 08:00 97.5 79 18 155/80 96 Room Air 97.5 05/05/17 06:07 155/94 05/05/17 04:00 86 05/05/17 03:57 81 18 98 Room Air 21 05/05/17 03:47 21 05/05/17 03:47 91 20 98 Room Air 21 05/05/17 00:00 98.0 80 18 155/94 95 Room Air 98.0 05/05/17 00:00 72 05/04/17 21:27 159/87 05/04/17 21:12 159/87 05/04/17 21:11 159/87 05/04/17 20:32 85 16 Room Air 05/04/17 20:00 97.7 99 18 159/87 94 Room Air 97.7 05/04/17 20:00 95 05/04/17 20:00 97.7 99 18 159/87 94 97.7 05/04/17 17:53 87 18 98 Room Air 21 05/04/17 17:53 21 General Appearance: alert Neck: supple Cardiovascular: normal rate Respiratory/Chest: expiratory wheezing Abdomen: normal bowel sounds, non tender, soft Extremities: no swelling Intake and Output 05/04/17 05/05/17 19:00 07:00 Intake Total 515 ml 50 ml Balance 515 ml 50 ml Intake Oral 240 ml 50 ml IV Total 275 ml # Voids 1 1 Laboratory Tests Test 05/05/17 05:55 White Blood Count 5.5 K/UL (4.8-10.8) Red Blood Count 4.62 M/UL (4.20-5.40) Hemoglobin 14.0 G/DL (12.0-16.0) Hematocrit 40.9 % (37.0-47.0) Mean Corpuscular Volume 88 FL (80-99) Mean Corpuscular Hemoglobin 30.4 PG (27.0-31.0) Mean Corpuscular Hemoglobin Concent 34.4 G/DL (32.0-36.0) Red Cell Distribution Width 11.6 % (11.6-14.8) Platelet Count 197 K/UL (150-450) Mean Platelet Volume 7.6 FL (6.5-10.1) Neutrophils (%) (Auto) 81.7 % (45.0-75.0) H Lymphocytes (%) (Auto) 16.3 % (20.0-45.0) L Monocytes (%) (Auto) 1.7 % (1.0-10.0) Eosinophils (%) (Auto) 0.0 % (0.0-3.0) Basophils (%) (Auto) 0.3 % (0.0-2.0) Sodium Level 137 MMOL/L (136-145) Potassium Level 4.3 MMOL/L (3.5-5.1) Chloride Level 104 MMOL/L (98-107) Carbon Dioxide Level 25 MMOL/L (21-32) Anion Gap 9 mmol/L (5-15) Blood Urea Nitrogen 29 mg/dL (7-18) H Creatinine 1.3 MG/DL (0.55-1.30) Estimat Glomerular Filtration Rate mL/min (>60) Glucose Level 149 MG/DL (74-106) H Calcium Level 8.5 MG/DL (8.5-10.1) Magnesium Level 1.8 MG/DL (1.8-2.4) Total Bilirubin 0.3 MG/DL (0.2-1.0) Aspartate Amino Transf (AST/SGOT) 32 U/L (15-37) Alanine Aminotransferase (ALT/SGPT) 46 U/L (12-78) Alkaline Phosphatase 97 U/L (46-116) Total Protein 7.4 G/DL (6.4-8.2) Albumin 2.9 G/DL (3.4-5.0) L Globulin 4.5 g/dL Albumin/Globulin Ratio 0.6 (1.0-2.7) L GEN COOPER May 05, 2017 16:38
[2017-05-05] MEDS ORDERED: Nitroglycerin Subl 0.4mg tab SL PRN (18:30)
--- NOTE | 2017-05-05 18:38 | Cardiology Report ---
APPROVED REPORT EXAM: Two-dimensional and M-mode echocardiogram with Doppler and color Doppler. INDICATION Shortness of breath M-Mode DIMENSIONS IVSd0.9 (0.7-1.1cm)Left Atrium (MM)4.0 (1.6-4.0cm) LVDd3.0 (3.5-5.6cm)Aortic Root2.4 (2.0-3.7cm) PWd1.0 (0.7-1.1cm)Aortic Cusp Exc.1.8 (1.5-2.0cm) LVDs0.8 (2.5-4.0cm) PWs2.0 cm Normal left ventricular chamber size, HYPERDYNAMIC systolic function and wall motion. Left ventricular ejection fraction estimated to be 70-75 %. No evidence of left ventricular hypertrophy. Anterior Echo-free space, may be due to pericardial fat or effusion. All other cardiac chamber sizes are within normal limits. Focal aortic valve sclerosis with adequate cusp excursion. Mildly thickened mitral valve leaflets with normal excursion. Mild mitral annulus and aortic root calcification. Pulmonic valve not well visualized. Normal tricuspid valve structure. IVC dilated at 1.9 cm with physiologic collapse suggestive of increased RA pressure. A color flow and spectral Doppler study was performed and revealed: No aortic regurgitation. INCREASED VELOCITY OF FLOW ALONG THE LVOT DUE TO HYPERDYNAMIC LV Mild mitral regurgitation. reduced left ventricular relaxation c/w impaired relaxation diastolic dysfunction. Mild tricuspid regurgitation. Tricuspid systolic velocities suggests peak right ventricular systolic pressure of 29 mmHg. No pulmonic regurgitation present.
[2017-05-05] MEDS ORDERED: LORazepam Inj 2mg/ml 1ml IV PRN (18:39)
[2017-05-05] MEDS ORDERED: Promethazine/Codeine 5ml UD ORAL PRN (18:40)
[2017-05-05 20:00] VITALS: BP 133/69
--- NOTE | 2017-05-05 20:15 | Consultation ---
DATE OF CONSULTATION: 05/05/2017 NEPHROLOGY CONSULTATION CONSULTING PHYSICIAN: Nina Shrestha M.D. REFERRING PHYSICIAN: Jeison Dee D.O. REASON FOR CONSULTATION: Acute renal failure, prerenal azotemia, and electrolyte imbalance. HISTORY OF PRESENT ILLNESS: The patient is a pleasant female with past medical history significant for history of hypertension, history of asthma who presented to [facility] for increasing shortness of breath, congestion, cough and yellow sputum. The patient was also complaining of intermittent shortness of breath and CERRATO. She complained of 2+ orthopnea and complaining of PND. The patient consequently was admitted to the hospital for acute shortness of breath and possible pneumonia, found to have an elevation in BUN and creatinine. I was called for management of renal disease and electrolyte imbalance. ALLERGIES: No known drug allergies. SOCIAL HISTORY: She lives at home. There is no history of tobacco, alcohol, or drug use. FAMILY HISTORY: Noncontributory. HOME MEDICATIONS: Includin. Lisinopril. 2. Hydrochlorothiazide. REVIEW OF SYSTEMS: GENERAL: She complained of generalized weakness. Denied any fever, chills, or night sweats. HEAD AND NECK: Denies any dysphagia, odynophagia, blurry vision, headache, neck stiffness. PULMONARY: Complaining of cough with yellow sputum. Denies any hemoptysis. CARDIOVASCULAR: Denies any chest pain or palpitation. GASTROINTESTINAL: Denies any nausea, vomiting, diarrhea, hematemesis, or hematochezia. GENITOURINARY: Denies any dysuria, frequency, or hematuria. MUSCULOSKELETAL: Denies any weakness or numbness. PHYSICAL EXAMINATION: VITAL SIGNS: The patient has a temperature of 98, blood pressure 155/80, pulse rate 99, respiratory rate of 21. HEAD AND NECK: No JVP. No LAD. No thyromegaly. Extraocular movement intact. Pupils are reactive to light and accommodation. LUNGS: Bilateral wheezing. CARDIAC: Regular rate and rhythm. S1 and S2. No murmur. No rub. ABDOMEN: Soft, nontender, and nondistended. EXTREMITIES: No edema. No clubbing. No cyanosis. LABORATORY AND DIAGNOSTIC DATA: Sodium 137, potassium 4.3, chloride 104, bicarb 25, BUN of 29, creatinine of 1.3, glucose of 149. Calcium of 8.5. AST of 32, ALT of 46, alkaline phosphatase 97. Total protein of 7.4 and albumin of 2.9. There is no UA. CBC revealed WBC count of 5.5, hemoglobin of 14, and hematocrit of 40, and platelet count 197. The patient had a chest x-ray, which showed no acute process. ASSESSMENT: 1. Acute renal failure. 2. Possible chronic kidney disease due to hypertensive nephrosclerosis. 3. Elevation of creatinine. 4. Possible asthma exacerbation. 5. History of chronic obstructive pulmonary disease. 6. Hypertensive emergency. 7. History of cervical spine stenosis. PLAN: Plan for the patient to obtain a UA. Check the random urine protein creatinine ratio to calculate the proteinuria. Check the urine sodium and creatinine to calculate fractional excretion of sodium. Titrate antihypertensive medication, goal of blood pressure is 130/75. I would monitor renal function and electrolytes closely. I would avoid any NSAID and nephrotoxic. Again, I would like to thank, Dr. Jeison Dee, for allowing me to participate in the care of this patient. Nina Shrestha M.D. DR: Rio JOB#: [id number] CC:
[2017-05-05] MEDS ORDERED: cloNIDine 0.2mg Tab ORAL SCH (22:00)
--- NOTE | 2017-05-05 22:30 | History and Physical Report ---
DATE OF ADMISSION: 05/04/2017 TIME: 1 p.m. CORPORATE TREASURY ANALYST: Giancarlo Valdez M.D. CHIEF COMPLAINT: Shortness of breath, congestion, and exacerbation of COPD. BRIEF HISTORY: The patient is a 71-year-old female, who lives at home, came to my office yesterday complaining of one week of increased shortness breath, congestion and phlegm production, feeling worse and tired, came to [facility], diagnosed with exacerbation of COPD and admitted to telemetry. Currently, slight short of breath, getting pulmonary treatment, feeling a little better, no complaint otherwise. PAST MEDICAL HISTORY: Emphysema, COPD, hypertension, constipation, DJD and cervical stenosis, and atrial fibrillation. PAST SURGICAL HISTORY: Neck surgery and liver surgery. MEDICATIONS: Solu-Medrol, amlodipine, aspirin, clonidine, benazepril, Neurontin, heparin, , Prinivil, and hydrodiuril. ALLERGIES: Denies. SOCIAL HISTORY: Positive smoking. Occasional alcohol. No intravenous drug abuse. FAMILY HISTORY: Noncontributory. REVIEW OF SYSTEMS: No chest pain. Slight short of breath. No nausea, vomiting, or diarrhea. PHYSICAL EXAMINATION: GENERAL: Calm in bed, slight short of breath. VITAL SIGNS: Temperature is 97 degrees, pulse 89, respiratory rate 18, and blood pressure 155/80. CARDIOVASCULAR: No murmur. LUNGS: Poor air exchange with slight wheeze. ABDOMEN: Bowel sounds distant. EXTREMITIES: No cyanosis, clubbing, or edema. NEUROLOGIC: The patient moves all extremities slightly weak. LABORATORY AND DIAGNOSTIC DATA: CBC is normal. BMP showed BUN 29 and glucose 149. Albumin 2.9. ASSESSMENT: 1. Exacerbation of chronic obstructive pulmonary disease. 2. Hypertension. 3. Atrial fibrillation. 4. Hypoalbuminemia. 5. Constipation. 6. Degenerative joint disease. 7. Cervical stenosis. PLAN: 1. Continue premedications. 2. O2 and pulmonary treatment. 3. Blood pressure control. 4. OT/PT. 5. Dietary followup. 6. CBC and BMP in the morning. 7. Dr. Valdez, Dr. Gavin, and Dr. Shrestha to consult. 8. We will continue to follow this patient medically. Jeison Dee D.O. DR: TIMOTHY JOB#: [id number] CC:
[2017-05-05] MEDS: cloNIDine 0.2mg Tab ORAL SCH (23:13)
[2017-05-06] VITALS (7 sets, daily range): BP systolic 104–142; BP diastolic 51–75
[2017-05-06 05:27] LABS: BASOPHILS % (AUTO) 0.6 % (0.0-2.0); HEMATOCRIT 39.1 % (37.0-47.0); HEMOGLOBIN 13.4 G/DL (12.0-16.0); LYMPHOCYTES % (AUTO) 22.5 % (20.0-45.0); MEAN CORPUSCULAR VOLUME 89 FL (80-99); MONOCYTES % (AUTO) 6.8 % (1.0-10.0); NEUTROPHILS % (AUTO) 70.1 % (45.0-75.0); PLATELET COUNT 209 K/UL (150-450); RED BLOOD COUNT 4.39 M/UL (4.20-5.40); RED CELL DISTRIBUTION WIDTH 11.9 % (11.6-14.8); WHITE BLOOD COUNT 11.8 K/UL (4.8-10.8)
[2017-05-06 05:43] LABS: ANION GAP 7 mmol/L (5-15); CALCIUM 8.1 MG/DL (8.5-10.1); CARBON DIOXIDE 25 MMOL/L (21-32); CHLORIDE 107 MMOL/L (98-107); CREATININE 1.6 MG/DL (0.55-1.30); POTASSIUM 3.8 MMOL/L (3.5-5.1); SODIUM 139 MMOL/L (136-145)
[2017-05-06 06:15] LABS: BLOOD UREA NITROGEN 45 mg/dL (7-18)
[2017-05-06] MEDS: cloNIDine 0.2mg Tab ORAL SCH ×3 (06:50→22:48)
[2017-05-06 08:12] LABS: APPEARANCE,URINE CLEAR; BILIRUBIN, URINE NEGATIVE (NEGATIVE); COLOR,URINE PALE YELLOW; GLUCOSE, URINE (UA) NEGATIVE (NEGATIVE); KETONES,URINE NEGATIVE (NEGATIVE); LEUKOCYTE ESTERASE ,URINE NEGATIVE (NEGATIVE); NITRITE,URINE NEGATIVE (NEGATIVE); PH,URINE 7 (4.5-8.0); PROTEIN,URINE NEGATIVE (NEGATIVE); UROBILINOGEN,URINE NORMAL MG/DL (0.0-1.0)
--- NOTE | 2017-05-06 08:30 | General Progress Note ---
Assessment/Plan Problem List: (1) Sepsis ICD Codes: A41.9 - Sepsis, unspecified organism SNOMED: 44373484 (2) Fever ICD Codes: R50.9 - Fever, unspecified SNOMED: 483762738 (3) Lethargy ICD Codes: R53.83 - Other fatigue SNOMED: 507799800 (4) Weak ICD Codes: R53.1 - Weakness SNOMED: 17308318 (5) Hypoalbuminemia ICD Codes: E88.09 - Other disorders of plasma-protein metabolism, not elsewhere classified SNOMED: 784416717 (6) Atrial fibrillation with controlled ventricular rate ICD Codes: I48.91 - Unspecified atrial fibrillation SNOMED: 73453195 (7) COPD (chronic obstructive pulmonary disease) ICD Codes: J44.9 - Chronic obstructive pulmonary disease, unspecified SNOMED: 21246527 (8) Asthma ICD Codes: J45.909 - Unspecified asthma, uncomplicated SNOMED: 628702153 (9) HTN (hypertension), malignant ICD Codes: I10 - Essential (primary) hypertension SNOMED: 32282250 (10) SOB (shortness of breath) ICD Codes: R06.02 - Shortness of breath SNOMED: 335867720 (11) Leukocytosis ICD Codes: D72.829 - Elevated white blood cell count, unspecified SNOMED: 416131300, 902411981 Status: unchanged Assessment/Plan o2 pulm tx abx ot pt diet cbc bmp am Subjective Constitutional: Reports: weakness Respiratory: Reports: shortness of breath Allergies: Coded Allergies: No Known Allergies (Unverified , 11/05/15) All Systems: reviewed and negative except above Subjective sleepy calm in bed Objective Last 24 Hour Vital Signs Date Time Temp Pulse Resp B/P (MAP) Pulse Ox O2 Delivery O2 Flow Rate FiO2 05/06/17 08:03 97.5 63 18 104/52 97 Room Air 97.5 05/06/17 06:50 132/75 05/06/17 04:24 98.0 66 18 125/69 97 98.0 05/06/17 00:00 97.0 86 18 129/75 95 Room Air 97.0 05/05/17 23:13 127/76 05/05/17 21:56 134/63 05/05/17 21:15 88 18 97 Room Air 21 05/05/17 21:06 21 3/16/18 21:05 86 20 96 Room Air 21 05/05/17 20:00 97.9 82 18 133/69 99 Room Air 97.9 05/05/17 19:00 86 16 Room Air 21 05/05/17 16:00 74 05/05/17 16:00 97.6 88 18 134/63 96 97.6 05/05/17 14:12 155/80 05/05/17 13:34 85 18 97 Room Air 21 05/05/17 13:14 21 05/05/17 13:13 95 20 99 Room Air 21 05/05/17 12:00 80 05/05/17 12:00 98.0 76 20 139/58 97 98.0 05/05/17 09:55 81 16 Room Air 21 05/05/17 09:36 155/80 05/05/17 09:36 79 155/80 05/05/17 09:35 155/80 Intake and Output 05/05/17 05/06/17 19:00 07:00 Intake Total 390 ml Balance 390 ml Intake Oral 390 ml # Voids 2 Laboratory Tests 05/06/17 04:45: White Blood Count 11.8#H, Red Blood Count 4.39, Hemoglobin 13.4, Hematocrit 39.1 , Mean Corpuscular Volume 89, Mean Corpuscular Hemoglobin 30.6, Mean Corpuscular Hemoglobin Concent 34.4, Red Cell Distribution Width 11.9, Platelet Count 209, Mean Platelet Volume 8.1, Neutrophils (%) (Auto) 70.1, Lymphocytes (% ) (Auto) 22.5, Monocytes (%) (Auto) 6.8, Eosinophils (%) (Auto) 0.0, Basophils ( %) (Auto) 0.6, Sodium Level 139, Potassium Level 3.8, Chloride Level 107, Carbon Dioxide Level 25, Anion Gap 7, Blood Urea Nitrogen 45H, Creatinine 1.6H, Estimat Glomerular Filtration Rate , Glucose Level 110H, Calcium Level 8.1L, Troponin I 0.000, Pro-B-Type Natriuretic Peptide 504H 05/06/17 05:50: Urine Color Pale yellow, Urine Appearance Clear, Urine pH 7, Urine Specific [place] 1.005, Urine Protein Negative, Urine Glucose (UA) Negative, Urine Ketones Negative, Urine Occult Blood 1+H, Urine Nitrite Negative, Urine Bilirubin Negative, Urine Urobilinogen Normal, Urine Leukocyte Esterase Negative , Urine RBC 2-4H, Urine WBC 0-2, Urine Squamous Epithelial Cells Few, Urine Bacteria Occasional, Urine Eosinophils [Pending], Urine Random Creatinine [ Pending], Urine Random Microalbumin [Pending], Urine Random Total Protein 13H, Urine Random Sodium 83, Urine Creatinine 57.5, Urine Microalbumin/Creatinine Ratio [Pending] Height (Feet): 5 Height (Inches): 6.00 Weight (Pounds): 111 General Appearance: lethargic EENT: normal ENT inspection Neck: normal alignment Cardiovascular: normal peripheral pulses, normal rate, regular rhythm Respiratory/Chest: decreased breath sounds Abdomen: normal bowel sounds, non tender, soft Extremities: normal inspection Edema: no edema noted Arm (L), no edema noted Arm (R), no edema noted Leg (L), no edema noted Leg (R), no edema noted Pedal (L), no edema noted Pedal (R), no edema noted Generalized Neurologic: responsive, motor weakness Skin: normal pigmentation, warm/dry MARTHA ULLOA May 06, 2017 08:30
[2017-05-06] MEDS: Aspirin Baby 81mg ORAL SCH (08:58)
[2017-05-06] MEDS: Solu-MEDROL 125mg Inj IV SCH (08:59)
[2017-05-06] MEDS ORDERED: Solu-MEDROL 125mg Inj IV SCH (09:00)
[2017-05-06] MEDS: Heparin 5000 units/ml inj SUBQ SCH ×2 (09:05→21:07)
[2017-05-06] MEDS: Albuterol/Ipratropium 3ml neb HHN PRN ×2 (11:04→17:25)
--- NOTE | 2017-05-06 16:56 | Nephrology Progress Note ---
Assessment/Plan Assessment 1. Acute renal failure. 2. Possible chronic kidney disease due to hypertensive nephrosclerosis. 3. Elevation of creatinine. 4. Possible asthma exacerbation. 5. History of chronic obstructive pulmonary disease. 6. Hypertensive emergency. 7. History of cervical spine stenosis. Plan plan hold HCTZ monitoring renal function avoid NSAID Check vit d replace electrolyte as need it Subjective Constitutional: Reports: no symptoms HEENT: Reports: no symptoms Genitourinary: Reports: no symptoms Neurologic/Psychiatric: Reports: no symptoms Subjective c/o cough and mild sob denies any nausea or vomiting Objective Objective Last 24 Hour Vital Signs Date Time Temp Pulse Resp B/P (MAP) Pulse Ox O2 Delivery O2 Flow Rate FiO2 05/06/17 14:00 108/51 05/06/17 12:00 97.7 72 18 108/51 95 Room Air 97.7 05/06/17 11:05 62 20 92 Room Air 21 05/06/17 08:59 104/52 05/06/17 08:03 97.5 63 18 104/52 97 Room Air 97.5 05/06/17 06:50 132/75 05/06/17 06:42 64 16 Room Air 21 05/06/17 04:24 98.0 66 18 125/69 97 98.0 05/06/17 00:00 97.0 86 18 129/75 95 Room Air 97.0 05/05/17 23:13 127/76 05/05/17 21:56 134/63 05/05/17 21:15 88 18 97 Room Air 21 05/05/17 21:06 21 05/05/17 21:05 86 20 96 Room Air 21 05/05/17 20:00 97.9 82 18 133/69 99 Room Air 97.9 05/05/17 19:00 86 16 Room Air 21 Intake and Output 05/05/17 05/06/17 19:00 07:00 Intake Total 390 ml Balance 390 ml Intake Oral 390 ml # Voids 2 Laboratory Tests 05/06/17 04:45: White Blood Count 11.8#H, Red Blood Count 4.39, Hemoglobin 13.4, Hematocrit 39.1 , Mean Corpuscular Volume 89, Mean Corpuscular Hemoglobin 30.6, Mean Corpuscular Hemoglobin Concent 34.4, Red Cell Distribution Width 11.9, Platelet Count 209, Mean Platelet Volume 8.1, Neutrophils (%) (Auto) 70.1, Lymphocytes (% ) (Auto) 22.5, Monocytes (%) (Auto) 6.8, Eosinophils (%) (Auto) 0.0, Basophils ( %) (Auto) 0.6, Sodium Level 139, Potassium Level 3.8, Chloride Level 107, Carbon Dioxide Level 25, Anion Gap 7, Blood Urea Nitrogen 45H, Creatinine 1.6H, Estimat Glomerular Filtration Rate , Glucose Level 110H, Calcium Level 8.1L, Troponin I 0.000, Pro-B-Type Natriuretic Peptide 504H 05/06/17 05:50: Urine Color Pale yellow, Urine Appearance Clear, Urine pH 7, Urine Specific [place] 1.005, Urine Protein Negative, Urine Glucose (UA) Negative, Urine Ketones Negative, Urine Occult Blood 1+H, Urine Nitrite Negative, Urine Bilirubin Negative, Urine Urobilinogen Normal, Urine Leukocyte Esterase Negative , Urine RBC 2-4H, Urine WBC 0-2, Urine Squamous Epithelial Cells Few, Urine Bacteria Occasional, Urine Eosinophils None seen, Urine Random Creatinine [ Pending], Urine Random Microalbumin [Pending], Urine Random Total Protein 13H, Urine Random Sodium 83, Urine Creatinine 57.5, Urine Microalbumin/Creatinine Ratio [Pending] Height (Feet): 5 Height (Inches): 6.00 Weight (Pounds): 111 Objective HEAD AND NECK: No JVP. No LAD. No thyromegaly. Extraocular movement intact. Pupils are reactive to light and accommodation. LUNGS: Bilateral wheezing. CARDIAC: Regular rate and rhythm. S1 and S2. No murmur. No rub. ABDOMEN: Soft, nontender, and nondistended. EXTREMITIES: No edema. No clubbing. No cyanosis. JOSE SEQUEIRA May 06, 2017 16:55
--- NOTE | 2017-05-06 16:59 | Pulmonology Progress Note ---
Assessment/Plan Problems: (1) COPD exacerbation (2) Hypertensive emergency (3) Cervical spinal stenosis (4) HTN (hypertension), malignant (5) SOB (shortness of breath) Assessment/Plan improving less short of breath BP better controlled monitor BP decrease steroids, dc planning soon check sputum dvt prophylaxis. Subjective ROS Limited/Unobtainable: No Constitutional: Reports: no symptoms HEENT: Repors: no symptoms Allergies: Coded Allergies: No Known Allergies (Unverified , 11/05/15) Objective Last 24 Hour Vital Signs Date Time Temp Pulse Resp B/P (MAP) Pulse Ox O2 Delivery O2 Flow Rate FiO2 05/06/17 14:00 108/51 05/06/17 12:00 97.7 72 18 108/51 95 Room Air 97.7 05/06/17 11:05 62 20 92 Room Air 21 05/06/17 08:59 104/52 05/06/17 08:03 97.5 63 18 104/52 97 Room Air 97.5 05/06/17 06:50 132/75 05/06/17 06:42 64 16 Room Air 21 05/06/17 04:24 98.0 66 18 125/69 97 98.0 05/06/17 00:00 97.0 86 18 129/75 95 Room Air 97.0 05/05/17 23:13 127/76 05/05/17 21:56 134/63 05/05/17 21:15 88 18 97 Room Air 21 05/05/17 21:06 21 05/05/17 21:05 86 20 96 Room Air 21 05/05/17 20:00 97.9 82 18 133/69 99 Room Air 97.9 05/05/17 19:00 86 16 Room Air 21 Intake and Output 05/05/17 05/06/17 19:00 07:00 Intake Total 390 ml Balance 390 ml Intake Oral 390 ml # Voids 2 Objective General Appearance: cachetic Lines, tubes and drains: peripheral HEENT: normocephalic, atraumatic Neck: non-tender, normal alignment Respiratory/Chest: rhonchi - left, rhonchi - right Abdomen: normal bowel sounds, non tender, soft Genitourinary/Rectal: normal genital exam Extremities: normal range of motion, non-tender Skin Exam: normal pigmentation Neurologic: diamond sizer II-XII grossly normal Laboratory Tests 05/06/17 04:45: White Blood Count 11.8#H, Red Blood Count 4.39, Hemoglobin 13.4, Hematocrit 39.1 , Mean Corpuscular Volume 89, Mean Corpuscular Hemoglobin 30.6, Mean Corpuscular Hemoglobin Concent 34.4, Red Cell Distribution Width 11.9, Platelet Count 209, Mean Platelet Volume 8.1, Neutrophils (%) (Auto) 70.1, Lymphocytes (% ) (Auto) 22.5, Monocytes (%) (Auto) 6.8, Eosinophils (%) (Auto) 0.0, Basophils ( %) (Auto) 0.6, Sodium Level 139, Potassium Level 3.8, Chloride Level 107, Carbon Dioxide Level 25, Anion Gap 7, Blood Urea Nitrogen 45H, Creatinine 1.6H, Estimat Glomerular Filtration Rate , Glucose Level 110H, Calcium Level 8.1L, Troponin I 0.000, Pro-B-Type Natriuretic Peptide 504H 05/06/17 05:50: Urine Color Pale yellow, Urine Appearance Clear, Urine pH 7, Urine Specific [place] 1.005, Urine Protein Negative, Urine Glucose (UA) Negative, Urine Ketones Negative, Urine Occult Blood 1+H, Urine Nitrite Negative, Urine Bilirubin Negative, Urine Urobilinogen Normal, Urine Leukocyte Esterase Negative , Urine RBC 2-4H, Urine WBC 0-2, Urine Squamous Epithelial Cells Few, Urine Bacteria Occasional, Urine Eosinophils None seen, Urine Random Creatinine [ Pending], Urine Random Microalbumin [Pending], Urine Random Total Protein 13H, Urine Random Sodium 83, Urine Creatinine 57.5, Urine Microalbumin/Creatinine Ratio [Pending] Current Medications Medications (Trade) Dose Ordered Sig/Arthur Route PRN Reason Start Time Stop Time Status Last Admin Dose Admin Acetaminophen (Tylenol) 650 mg Q4H PRN ORAL T>100.5 05/05/17 18:38 06/03/17 18:37 Albuterol/ Ipratropium (Albuterol/ Ipratropium) 3 ml Q4H PRN HHN dyspnea 05/05/17 18:39 05/09/17 18:38 05/06/17 11:04 Aspirin (ASA) 162 mg DAILY ORAL 05/06/17 09:00 06/04/17 08:59 05/06/17 08:58 Benazepril HCl (Lotensin) 40 mg Q12HR ORAL 3/16/18 21:00 06/03/17 20:59 05/05/17 21:56 Clonidine HCl (Catapres Tab) 0.1 mg Q4H PRN ORAL sbp more than 160mmHg 05/05/17 18:39 06/03/17 18:38 Clonidine HCl (Catapres tab) 0.2 mg EVERY 8 HOURS ORAL 05/05/17 22:00 06/04/17 21:59 05/06/17 06:50 Dextrose (Dextrose 50%) STAT PRN IV Hypoglycemia 05/05/17 18:39 06/04/17 18:38 Gabapentin (Neurontin) 600 mg Q12HR ORAL 05/05/17 21:00 06/03/17 20:59 05/06/17 08:58 Heparin Sodium (Porcine) (Heparin 5000 units/ml) 5,000 units EVERY 12 HOURS SUBQ 05/05/17 21:00 06/03/17 20:59 05/06/17 09:05 Hydrochlorothiazide (Hydrodiuril) 25 mg DAILY ORAL 05/06/17 09:00 06/03/17 19:59 Levofloxacin 50 ml @ 50 mls/hr Q24H IVPB 05/06/17 14:00 05/12/17 13:59 05/06/17 15:30 Lorazepam (Ativan 2mg/ml 1ml) 0.5 mg Q4H PRN IV For Anxiety 05/05/17 18:39 05/11/17 18:38 Methylprednisolone Sodium Succinate (Solu-MEDROL) 60 mg DAILY IV 05/06/17 09:00 06/03/17 17:59 05/06/17 08:59 Morphine Sulfate (Morphine Sulfate) 2 mg Q4H PRN IVP Severe Pain (Pain Scale 7-10) 05/05/17 18:40 05/11/17 18:39 Nitroglycerin (Ntg) 0.4 mg Q5M X 3 DOSES PRN SL Prn Chest Pain 05/05/17 18:30 06/03/17 12:29 Ondansetron HCl (Zofran) 4 mg Q6H PRN IVP Nausea & Vomiting 05/05/17 18:40 06/04/17 18:39 Promethazine HCl/ Codeine (Phenergan with Codeine) 5 ml Q6H PRN ORAL cough 05/05/17 18:40 06/04/17 18:39 Temazepam (Restoril) 15 mg HSPRN PRN ORAL Insomnia 05/05/17 21:00 05/11/17 20:59 05/05/17 21:55 Tizanidine HCl (Zanaflex) 4 mg TIDPRN PRN ORAL MUSCLE SPASMS 05/05/17 18:40 06/04/17 18:39 Giancarlo Valdez MD May 06, 2017 16:59
[2017-05-06] MEDS: Morphine Sulfate 2mg/ml Inj IVP PRN (18:57)
--- NOTE | 2017-05-06 21:08 | Cardiology Progress Note ---
Assessment/Plan Assessment/Plan The patient is seen and examined, full consult note will be dictated shortly. Objective Last 24 Hour Vital Signs Date Time Temp Pulse Resp B/P (MAP) Pulse Ox O2 Delivery O2 Flow Rate FiO2 05/06/17 21:05 142/75 05/06/17 20:49 97.4 78 18 142/75 95 Room Air 97.4 05/06/17 17:34 80 18 94 Room Air 21 05/06/17 17:34 21 05/06/17 17:25 75 20 90 Room Air 21 05/06/17 16:00 97.8 74 18 127/67 100 Room Air 97.8 05/06/17 14:00 108/51 05/06/17 12:00 97.7 72 18 108/51 95 Room Air 97.7 05/06/17 11:05 62 20 92 Room Air 21 05/06/17 08:59 104/52 05/06/17 08:03 97.5 63 18 104/52 97 Room Air 97.5 05/06/17 06:50 132/75 05/06/17 06:42 64 16 Room Air 21 05/06/17 04:24 98.0 66 18 125/69 97 98.0 05/06/17 00:00 97.0 86 18 129/75 95 Room Air 97.0 05/05/17 23:13 127/76 05/05/17 21:56 134/63 05/05/17 21:15 88 18 97 Room Air 21 Intake and Output 05/05/17 05/06/17 19:00 07:00 Intake Total 390 ml Balance 390 ml Intake Oral 390 ml # Voids 2 Laboratory Tests Test 05/06/17 04:45 05/06/17 05:50 White Blood Count 11.8 K/UL (4.8-10.8) #H Red Blood Count 4.39 M/UL (4.20-5.40) Hemoglobin 13.4 G/DL (12.0-16.0) Hematocrit 39.1 % (37.0-47.0) Mean Corpuscular Volume 89 FL (80-99) Mean Corpuscular Hemoglobin 30.6 PG (27.0-31.0) Mean Corpuscular Hemoglobin Concent 34.4 G/DL (32.0-36.0) Red Cell Distribution Width 11.9 % (11.6-14.8) Platelet Count 209 K/UL (150-450) Mean Platelet Volume 8.1 FL (6.5-10.1) Neutrophils (%) (Auto) 70.1 % (45.0-75.0) Lymphocytes (%) (Auto) 22.5 % (20.0-45.0) Monocytes (%) (Auto) 6.8 % (1.0-10.0) Eosinophils (%) (Auto) 0.0 % (0.0-3.0) Basophils (%) (Auto) 0.6 % (0.0-2.0) Sodium Level 139 MMOL/L (136-145) Potassium Level 3.8 MMOL/L (3.5-5.1) Chloride Level 107 MMOL/L (98-107) Carbon Dioxide Level 25 MMOL/L (21-32) Anion Gap 7 mmol/L (5-15) Blood Urea Nitrogen 45 mg/dL (7-18) H Creatinine 1.6 MG/DL (0.55-1.30) H Estimat Glomerular Filtration Rate mL/min (>60) Glucose Level 110 MG/DL (74-106) H Calcium Level 8.1 MG/DL (8.5-10.1) L Troponin I 0.000 ng/mL (0.000-0.056) Pro-B-Type Natriuretic Peptide 504 pg/mL (0-125) H Urine Color Pale yellow Urine Appearance Clear Urine pH 7 (4.5-8.0) Urine Specific [place] 1.005 (1.005-1.035) Urine Protein Negative (NEGATIVE) Urine Glucose (UA) Negative (NEGATIVE) Urine Ketones Negative (NEGATIVE) Urine Occult Blood 1+ (NEGATIVE) H Urine Nitrite Negative (NEGATIVE) Urine Bilirubin Negative (NEGATIVE) Urine Urobilinogen Normal MG/DL (0.0-1.0) Urine Leukocyte Esterase Negative (NEGATIVE) Urine RBC 2-4 /HPF (0 - 2) H Urine WBC 0-2 /HPF (0 - 2) Urine Squamous Epithelial Cells Few /LPF (NONE/OCC) Urine Bacteria Occasional /HPF (NONE) Urine Eosinophils None seen Urine Random Creatinine Pending Urine Random Microalbumin Pending Urine Random Total Protein 13 MG/DL (< 11.9) H Urine Random Sodium 83 mmol/L (20-110) Urine Creatinine 57.5 MG/DL (30.0-125.0) Urine Microalbumin/Creatinine Ratio Pending DEIDRE ALVARADO May 06, 2017 21:07
[2017-05-07] VITALS: BP 122/69
[2017-05-07 04:00] VITALS: BP 136/68
[2017-05-07] MEDS: cloNIDine 0.2mg Tab ORAL SCH ×3 (06:03→22:19)
[2017-05-07 07:32] LABS: BASOPHILS % (AUTO) 0.5 % (0.0-2.0); HEMATOCRIT 43.8 % (37.0-47.0); HEMOGLOBIN 14.7 G/DL (12.0-16.0); LYMPHOCYTES % (AUTO) 25.2 % (20.0-45.0); MEAN CORPUSCULAR VOLUME 89 FL (80-99); MONOCYTES % (AUTO) 4.8 % (1.0-10.0); NEUTROPHILS % (AUTO) 69.6 % (45.0-75.0); PLATELET COUNT 223 K/UL (150-450); RED CELL DISTRIBUTION WIDTH 12.1 % (11.6-14.8); WHITE BLOOD COUNT 10.1 K/UL (4.8-10.8)
[2017-05-07 07:45] LABS: ANION GAP 9 mmol/L (5-15); BLOOD UREA NITROGEN 42 mg/dL (7-18); CALCIUM 8.8 MG/DL (8.5-10.1); CARBON DIOXIDE 23 MMOL/L (21-32); CHLORIDE 107 MMOL/L (98-107); CREATININE 1.1 MG/DL (0.55-1.30); SODIUM 139 MMOL/L (136-145)
[2017-05-07 08:00] VITALS: BP 128/66
[2017-05-07] MEDS: Aspirin Baby 81mg ORAL SCH (08:14)
[2017-05-07] MEDS: Solu-MEDROL 125mg Inj IV SCH (08:15)
[2017-05-07] MEDS: Heparin 5000 units/ml inj SUBQ SCH ×2 (08:17→20:46)
--- NOTE | 2017-05-07 08:55 | General Progress Note ---
Assessment/Plan Problem List: (1) Sepsis ICD Codes: A41.9 - Sepsis, unspecified organism SNOMED: 41642711 (2) Fever ICD Codes: R50.9 - Fever, unspecified SNOMED: 489251367 (3) Lethargy ICD Codes: R53.83 - Other fatigue SNOMED: 773153452 (4) Weak ICD Codes: R53.1 - Weakness SNOMED: 24188904 (5) Hypoalbuminemia ICD Codes: E88.09 - Other disorders of plasma-protein metabolism, not elsewhere classified SNOMED: 557204230 (6) Atrial fibrillation with controlled ventricular rate ICD Codes: I48.91 - Unspecified atrial fibrillation SNOMED: 47950216 (7) COPD (chronic obstructive pulmonary disease) ICD Codes: J44.9 - Chronic obstructive pulmonary disease, unspecified SNOMED: 61905612 (8) Asthma ICD Codes: J45.909 - Unspecified asthma, uncomplicated SNOMED: 182598817 (9) HTN (hypertension), malignant ICD Codes: I10 - Essential (primary) hypertension SNOMED: 07136476 (10) SOB (shortness of breath) ICD Codes: R06.02 - Shortness of breath SNOMED: 790869465 (11) Leukocytosis ICD Codes: D72.829 - Elevated white blood cell count, unspecified SNOMED: 163661405, 942085583 Status: unchanged Assessment/Plan o2 pulm tx abx ot pt diet cbc bmp am dc plan w [facility] if clear Subjective Constitutional: Reports: weakness Respiratory: Reports: shortness of breath Allergies: Coded Allergies: No Known Allergies (Unverified , 11/05/15) All Systems: reviewed and negative except above Subjective sleepy calm in bed Objective Last 24 Hour Vital Signs Date Time Temp Pulse Resp B/P (MAP) Pulse Ox O2 Delivery O2 Flow Rate FiO2 05/07/17 08:14 136/68 05/07/17 08:00 97.5 63 20 128/66 96 97.5 05/07/17 06:03 136/68 05/07/17 04:00 97.3 64 18 136/68 92 Room Air 97.3 05/07/17 01:10 Room Air 05/07/17 00:00 98.1 73 20 122/69 92 Room Air 98.1 05/06/17 22:48 142/68 05/06/17 22:48 78 142/68 05/06/17 22:03 78 18 Room Air 21 05/06/17 21:05 142/75 05/06/17 20:49 97.4 78 18 142/75 95 Room Air 97.4 05/06/17 17:34 80 18 94 Room Air 21 05/06/17 17:34 21 05/06/17 17:25 75 20 90 Room Air 21 05/06/17 16:00 97.8 74 18 127/67 100 Room Air 97.8 05/06/17 14:00 108/51 05/06/17 12:00 97.7 72 18 108/51 95 Room Air 97.7 05/06/17 11:05 62 20 92 Room Air 21 05/06/17 08:59 104/52 Intake and Output 05/06/17 05/07/17 19:00 07:00 Intake Total 30 ml 60 ml Balance 30 ml 60 ml Intake Oral 30 ml 60 ml # Voids 2 Laboratory Tests 05/07/17 05:25: White Blood Count 10.1, Red Blood Count 4.90, Hemoglobin 14.7, Hematocrit 43.8, Mean Corpuscular Volume 89, Mean Corpuscular Hemoglobin 30.0, Mean Corpuscular Hemoglobin Concent 33.6, Red Cell Distribution Width 12.1, Platelet Count 223, Mean Platelet Volume 7.8, Neutrophils (%) (Auto) 69.6, Lymphocytes (%) (Auto) 25.2, Monocytes (%) (Auto) 4.8, Eosinophils (%) (Auto) 0.0, Basophils (%) (Auto ) 0.5, Sodium Level 139, Potassium Level 4.0, Chloride Level 107, Carbon Dioxide Level 23, Anion Gap 9, Blood Urea Nitrogen 42H, Creatinine 1.1, Estimat Glomerular Filtration Rate , Glucose Level 103, Calcium Level 8.8 Height (Feet): 5 Height (Inches): 6.00 Weight (Pounds): 112 General Appearance: lethargic EENT: normal ENT inspection Neck: normal alignment Cardiovascular: normal peripheral pulses, normal rate, regular rhythm Respiratory/Chest: decreased breath sounds Abdomen: normal bowel sounds, non tender, soft Extremities: normal inspection Edema: no edema noted Arm (L), no edema noted Arm (R), no edema noted Leg (L), no edema noted Leg (R), no edema noted Pedal (L), no edema noted Pedal (R), no edema noted Generalized Neurologic: motor weakness Skin: normal pigmentation, warm/dry MARTHA ULLOA May 07, 2017 08:55
[2017-05-07] MEDS: Albuterol/Ipratropium 3ml neb HHN PRN ×2 (10:49→22:19)
[2017-05-07 12:00] VITALS: BP 118/59
[2017-05-07 16:00] VITALS: BP 130/64
[2017-05-07] MEDS: Morphine Sulfate 2mg/ml Inj IVP PRN (18:41)
--- NOTE | 2017-05-07 19:55 | Nephrology Progress Note ---
Assessment/Plan Assessment 1. Acute renal failure. 2. Possible chronic kidney disease due to hypertensive nephrosclerosis. 3. Elevation of creatinine. 4. Possible asthma exacerbation. 5. History of chronic obstructive pulmonary disease. 6. Hypertensive emergency. 7. History of cervical spine stenosis. Plan plan hold HCTZ monitoring renal function avoid NSAID Check vit d replace electrolyte as need it Subjective Constitutional: Reports: no symptoms HEENT: Reports: no symptoms Genitourinary: Reports: no symptoms Neurologic/Psychiatric: Reports: no symptoms Subjective c/o cough and mild sob denies any nausea or vomiting Objective Objective Last 24 Hour Vital Signs Date Time Temp Pulse Resp B/P (MAP) Pulse Ox O2 Delivery O2 Flow Rate FiO2 05/07/17 16:00 97.5 72 19 130/64 96 97.5 05/07/17 16:00 Room Air 05/07/17 13:35 128/98 05/07/17 12:00 97.5 78 19 118/59 94 97.5 05/07/17 12:00 Room Air 05/07/17 10:57 82 18 95 Room Air 21 05/07/17 10:49 74 20 95 Room Air 21 05/07/17 10:49 80 18 Room Air 21 05/07/17 10:49 21 05/07/17 08:14 136/68 05/07/17 08:00 Room Air 05/07/17 08:00 97.5 63 20 128/66 96 97.5 05/07/17 06:03 136/68 05/07/17 04:00 97.3 64 18 136/68 92 Room Air 97.3 05/07/17 01:10 Room Air 05/07/17 00:00 98.1 73 20 122/69 92 Room Air 98.1 05/06/17 22:48 142/68 05/06/17 22:48 78 142/68 05/06/17 22:03 78 18 Room Air 21 05/06/17 21:05 142/75 05/06/17 20:49 97.4 78 18 142/75 95 Room Air 97.4 Intake and Output 05/06/17 05/07/17 18:59 06:59 Intake Total 30 ml 60 ml Balance 30 ml 60 ml Intake Oral 30 ml 60 ml # Voids 2 Laboratory Tests 05/07/17 05:25: White Blood Count 10.1, Red Blood Count 4.90, Hemoglobin 14.7, Hematocrit 43.8, Mean Corpuscular Volume 89, Mean Corpuscular Hemoglobin 30.0, Mean Corpuscular Hemoglobin Concent 33.6, Red Cell Distribution Width 12.1, Platelet Count 223, Mean Platelet Volume 7.8, Neutrophils (%) (Auto) 69.6, Lymphocytes (%) (Auto) 25.2, Monocytes (%) (Auto) 4.8, Eosinophils (%) (Auto) 0.0, Basophils (%) (Auto ) 0.5, Sodium Level 139, Potassium Level 4.0, Chloride Level 107, Carbon Dioxide Level 23, Anion Gap 9, Blood Urea Nitrogen 42H, Creatinine 1.1, Estimat Glomerular Filtration Rate , Glucose Level 103, Calcium Level 8.8 Height (Feet): 5 Height (Inches): 6.00 Weight (Pounds): 112 Objective HEAD AND NECK: No JVP. No LAD. No thyromegaly. Extraocular movement intact. Pupils are reactive to light and accommodation. LUNGS: Bilateral wheezing. CARDIAC: Regular rate and rhythm. S1 and S2. No murmur. No rub. ABDOMEN: Soft, nontender, and nondistended. EXTREMITIES: No edema. No clubbing. No cyanosis. JOSE SEQUEIRA May 07, 2017 19:55
[2017-05-07 20:11] VITALS: BP 133/73
--- NOTE | 2017-05-07 22:16 | Pulmonology Progress Note ---
Assessment/Plan Problems: (1) COPD exacerbation (2) Hypertensive emergency (3) Cervical spinal stenosis (4) HTN (hypertension), malignant (5) SOB (shortness of breath) Assessment/Plan improving less short of breath BP better controlled monitor BP decrease steroids, dc planning soon check sputum dvt prophylaxis. Subjective ROS Limited/Unobtainable: No Allergies: Coded Allergies: No Known Allergies (Unverified , 11/05/15) Objective Last 24 Hour Vital Signs Date Time Temp Pulse Resp B/P (MAP) Pulse Ox O2 Delivery O2 Flow Rate FiO2 05/07/17 20:44 133/73 05/07/17 20:11 97.9 66 19 133/73 95 Room Air 97.9 05/07/17 19:25 70 16 Room Air 21 05/07/17 16:00 97.5 72 19 130/64 96 97.5 05/07/17 16:00 Room Air 05/07/17 13:35 128/98 05/07/17 12:00 97.5 78 19 118/59 94 97.5 05/07/17 12:00 Room Air 05/07/17 10:57 82 18 95 Room Air 21 05/07/17 10:49 74 20 95 Room Air 21 05/07/17 10:49 80 18 Room Air 21 05/07/17 10:49 21 05/07/17 08:14 136/68 05/07/17 08:00 Room Air 05/07/17 08:00 97.5 63 20 128/66 96 97.5 05/07/17 06:03 136/68 05/07/17 04:00 97.3 64 18 136/68 92 Room Air 97.3 05/07/17 01:10 Room Air 05/07/17 00:00 98.1 73 20 122/69 92 Room Air 98.1 05/06/17 22:48 142/68 05/06/17 22:48 78 142/68 Intake and Output 05/06/17 05/07/17 19:00 07:00 Intake Total 30 ml 60 ml Balance 30 ml 60 ml Intake Oral 30 ml 60 ml # Voids 2 Objective General Appearance: cachetic Lines, tubes and drains: peripheral HEENT: normocephalic, atraumatic Neck: non-tender, normal alignment Respiratory/Chest: rhonchi - left, rhonchi - right Abdomen: normal bowel sounds, non tender, soft Genitourinary/Rectal: normal genital exam Extremities: normal range of motion, non-tender Skin Exam: normal pigmentation Neurologic: painter chassis II-XII grossly normal Laboratory Tests 05/07/17 05:25: White Blood Count 10.1, Red Blood Count 4.90, Hemoglobin 14.7, Hematocrit 43.8, Mean Corpuscular Volume 89, Mean Corpuscular Hemoglobin 30.0, Mean Corpuscular Hemoglobin Concent 33.6, Red Cell Distribution Width 12.1, Platelet Count 223, Mean Platelet Volume 7.8, Neutrophils (%) (Auto) 69.6, Lymphocytes (%) (Auto) 25.2, Monocytes (%) (Auto) 4.8, Eosinophils (%) (Auto) 0.0, Basophils (%) (Auto ) 0.5, Sodium Level 139, Potassium Level 4.0, Chloride Level 107, Carbon Dioxide Level 23, Anion Gap 9, Blood Urea Nitrogen 42H, Creatinine 1.1, Estimat Glomerular Filtration Rate , Glucose Level 103, Calcium Level 8.8 Current Medications Medications (Trade) Dose Ordered Sig/Arthur Route PRN Reason Start Time Stop Time Status Last Admin Dose Admin Acetaminophen (Tylenol) 650 mg Q4H PRN ORAL T>100.5 05/05/17 18:38 06/03/17 18:37 Albuterol/ Ipratropium (Albuterol/ Ipratropium) 3 ml Q4H PRN HHN dyspnea 05/05/17 18:39 05/09/17 18:38 05/07/17 10:49 Aspirin (ASA) 162 mg DAILY ORAL 05/06/17 09:00 06/04/17 08:59 05/07/17 08:14 Benazepril HCl (Lotensin) 40 mg Q12HR ORAL 05/05/17 21:00 06/03/17 20:59 05/07/17 20:44 Clonidine HCl (Catapres Tab) 0.1 mg Q4H PRN ORAL sbp more than 160mmHg 05/05/17 18:39 06/03/17 18:38 Clonidine HCl (Catapres tab) 0.2 mg EVERY 8 HOURS ORAL 05/05/17 22:00 06/04/17 21:59 05/07/17 13:35 Dextrose (Dextrose 50%) STAT PRN IV Hypoglycemia 05/05/17 18:39 06/04/17 18:38 Gabapentin (Neurontin) 600 mg Q12HR ORAL 05/05/17 21:00 06/03/17 20:59 05/07/17 20:44 Heparin Sodium (Porcine) (Heparin 5000 units/ml) 5,000 units EVERY 12 HOURS SUBQ 05/05/17 21:00 06/03/17 20:59 05/07/17 20:46 Hydrochlorothiazide (Hydrodiuril) 25 mg DAILY ORAL 05/06/17 09:00 06/03/17 19:59 05/07/17 08:14 Levofloxacin 50 ml @ 50 mls/hr Q24H IVPB 05/06/17 14:00 05/12/17 13:59 05/07/17 13:35 Lorazepam (Ativan 2mg/ml 1ml) 0.5 mg Q4H PRN IV For Anxiety 05/05/17 18:39 05/11/17 18:38 Methylprednisolone Sodium Succinate (Solu-MEDROL) 60 mg DAILY IV 05/06/17 09:00 06/03/17 17:59 05/07/17 08:15 Morphine Sulfate (Morphine Sulfate) 2 mg Q4H PRN IVP Severe Pain (Pain Scale 7-10) 05/05/17 18:40 05/11/17 18:39 05/07/17 18:41 Nitroglycerin (Ntg) 0.4 mg Q5M X 3 DOSES PRN SL Prn Chest Pain 05/05/17 18:30 06/03/17 12:29 Ondansetron HCl (Zofran) 4 mg Q6H PRN IVP Nausea & Vomiting 05/05/17 18:40 06/04/17 18:39 Promethazine HCl/ Codeine (Phenergan with Codeine) 5 ml Q6H PRN ORAL cough 05/05/17 18:40 06/04/17 18:39 Temazepam (Restoril) 15 mg HSPRN PRN ORAL Insomnia 05/05/17 21:00 05/11/17 20:59 05/06/17 21:05 Tizanidine HCl (Zanaflex) 4 mg TIDPRN PRN ORAL MUSCLE SPASMS 05/05/17 18:40 06/04/17 18:39 Giancarlo Valdez MD 18, 2018 22:15
[2017-05-08] VITALS (9 sets, daily range): BP systolic 105–144; BP diastolic 47–96
[2017-05-08] MEDS: cloNIDine 0.2mg Tab ORAL SCH ×4 (05:26→22:35)
[2017-05-08 07:56] LABS: BASOPHILS % (AUTO) 0.7 % (0.0-2.0); EOSINOPHILS % (AUTO) 0.1 % (0.0-3.0); HEMATOCRIT 43.4 % (37.0-47.0); HEMOGLOBIN 14.4 G/DL (12.0-16.0); LYMPHOCYTES % (AUTO) 31.2 % (20.0-45.0); MEAN CORPUSCULAR VOLUME 90 FL (80-99); MONOCYTES % (AUTO) 6.6 % (1.0-10.0); NEUTROPHILS % (AUTO) 61.5 % (45.0-75.0); PLATELET COUNT 215 K/UL (150-450); RED BLOOD COUNT 4.84 M/UL (4.20-5.40); RED CELL DISTRIBUTION WIDTH 12.1 % (11.6-14.8); WHITE BLOOD COUNT 11.3 K/UL (4.8-10.8)
[2017-05-08 08:25] LABS: ANION GAP 10 mmol/L (5-15); BLOOD UREA NITROGEN 39 mg/dL (7-18); CALCIUM 8.7 MG/DL (8.5-10.1); CARBON DIOXIDE 22 MMOL/L (21-32); CHLORIDE 110 MMOL/L (98-107); CREATININE 1.2 MG/DL (0.55-1.30); POTASSIUM 3.6 MMOL/L (3.5-5.1); SODIUM 142 MMOL/L (136-145)
[2017-05-08] MEDS: Aspirin Baby 81mg ORAL SCH (10:13)
[2017-05-08] MEDS: Solu-MEDROL 125mg Inj IV SCH (10:14)
[2017-05-08] MEDS: Heparin 5000 units/ml inj SUBQ SCH ×2 (10:15→20:46)
[2017-05-08] MEDS: Albuterol/Ipratropium 3ml neb HHN PRN (14:35)
--- NOTE | 2017-05-08 14:40 | General Progress Note ---
Assessment/Plan Problem List: (1) Sepsis ICD Codes: A41.9 - Sepsis, unspecified organism SNOMED: 77134554 (2) Fever ICD Codes: R50.9 - Fever, unspecified SNOMED: 436274174 (3) Lethargy ICD Codes: R53.83 - Other fatigue SNOMED: 221354044 (4) Weak ICD Codes: R53.1 - Weakness SNOMED: 86579451 (5) Hypoalbuminemia ICD Codes: E88.09 - Other disorders of plasma-protein metabolism, not elsewhere classified SNOMED: 665253541 (6) Atrial fibrillation with controlled ventricular rate ICD Codes: I48.91 - Unspecified atrial fibrillation SNOMED: 80618195 (7) COPD (chronic obstructive pulmonary disease) ICD Codes: J44.9 - Chronic obstructive pulmonary disease, unspecified SNOMED: 22545709 (8) Asthma ICD Codes: J45.909 - Unspecified asthma, uncomplicated SNOMED: 670572700 (9) HTN (hypertension), malignant ICD Codes: I10 - Essential (primary) hypertension SNOMED: 44242952 (10) SOB (shortness of breath) ICD Codes: R06.02 - Shortness of breath SNOMED: 068431152 (11) Leukocytosis ICD Codes: D72.829 - Elevated white blood cell count, unspecified SNOMED: 659506717, 203584994 Status: stable, progressing, tolerating diet Assessment/Plan o2 pulm tx abx ot pt diet cbc bmp am dc w [facility] if clear Subjective Constitutional: Reports: weakness Allergies: Coded Allergies: No Known Allergies (Unverified , 11/05/15) All Systems: reviewed and negative except above Subjective sleepy calm in bed Objective Last 24 Hour Vital Signs Date Time Temp Pulse Resp B/P (MAP) Pulse Ox O2 Delivery O2 Flow Rate FiO2 05/08/17 14:36 128/60 05/08/17 14:32 21 05/08/17 14:32 71 20 96 Room Air 21 05/08/17 14:30 76 128/60 05/08/17 12:00 Room Air 05/08/17 12:00 97.9 60 18 118/58 94 97.9 05/08/17 10:01 65 109/60 05/08/17 09:00 80 18 Room Air 21 05/08/17 08:00 97.5 61 17 125/96 95 97.5 05/08/17 08:00 Room Air 05/08/17 05:10 64 135/62 05/08/17 04:15 97.3 55 18 144/76 98 Room Air 97.3 05/08/17 01:26 Room Air 05/08/17 00:00 97.8 80 18 105/72 92 97.8 05/07/17 23:17 97.9 05/07/17 22:29 63 18 97 Room Air 21 05/07/17 22:19 62 22 96 Room Air 21 05/07/17 22:19 132/65 05/07/17 22:18 97.9 05/07/17 20:44 133/73 05/07/17 20:11 97.9 66 19 133/73 95 Room Air 97.9 05/07/17 19:25 70 16 Room Air 21 05/07/17 16:00 97.5 72 19 130/64 96 97.5 05/07/17 16:00 Room Air Intake and Output 05/07/17 05/08/17 19:00 07:00 Intake Total 240 ml Balance 240 ml Intake Oral 240 ml # Voids 3 3 Laboratory Tests 05/08/17 04:55: White Blood Count 11.3H, Red Blood Count 4.84, Hemoglobin 14.4, Hematocrit 43.4 , Mean Corpuscular Volume 90, Mean Corpuscular Hemoglobin 29.8, Mean Corpuscular Hemoglobin Concent 33.3, Red Cell Distribution Width 12.1, Platelet Count 215, Mean Platelet Volume 7.4, Neutrophils (%) (Auto) 61.5, Lymphocytes (% ) (Auto) 31.2, Monocytes (%) (Auto) 6.6, Eosinophils (%) (Auto) 0.1, Basophils ( %) (Auto) 0.7, Sodium Level 142, Potassium Level 3.6, Chloride Level 110H, Carbon Dioxide Level 22, Anion Gap 10, Blood Urea Nitrogen 39H, Creatinine 1.2, Estimat Glomerular Filtration Rate , Glucose Level 101, Calcium Level 8.7 Height (Feet): 5 Height (Inches): 6.00 Weight (Pounds): 112 General Appearance: alert EENT: normal ENT inspection Neck: normal alignment Cardiovascular: normal peripheral pulses, normal rate, regular rhythm Respiratory/Chest: chest wall non-tender, lungs clear, normal breath sounds Abdomen: normal bowel sounds, non tender, soft Extremities: normal inspection Edema: no edema noted Arm (L), no edema noted Arm (R), no edema noted Leg (L), no edema noted Leg (R), no edema noted Pedal (L), no edema noted Pedal (R), no edema noted Generalized Neurologic: responsive, motor weakness Skin: normal pigmentation, warm/dry MARTHA ULLOA May 08, 2017 14:40
--- NOTE | 2017-05-08 18:15 | Consultation ---
DATE OF CONSULTATION: 05/06/2017 CARDIOLOGY CONSULTATION CONSULTING PHYSICIAN: Timi Gavin M.D. REFERRING PHYSICIAN: Jeison Dee D.O. REASON FOR CONSULTATION: Management of accelerated hypertension and tachycardia. HISTORY OF PRESENT ILLNESS: The patient is a very unfortunate 71-year-old female, who was sent by primary care doctor to this facility for evaluation and assessment of pneumonia. The patient has history of COPD and came up with productive cough for about 3 to 4 days which was not responding to nebulizer. She did not have any fever or chills. On arrival to the hospital, blood pressure was 229/90 mmHg, heart rate of 100. Initial 12-lead electrocardiogram showed sinus rhythm, heart rate of [address] and T-wave abnormalities. The patient was admitted to the hospital for evaluation of shortness of breath, COPD exacerbation as well as possible atrial fibrillation. PAST MEDICAL HISTORY: Including COPD, history of hypertension, history of asthma, history of paroxysmal atrial fibrillation, history of spinal cord injury. PAST SURGICAL HISTORY: None. FAMILY HISTORY: No premature coronary artery disease in first-degree relatives. MEDICATIONS: Including acetaminophen with codeine one tablet q.6 h. p.r.n. pain, albuterol 3 mL inhaler q.4 h. p.r.n. shortness of breath, amlodipine 10 mg p.o. daily, aspirin 162 mg p.o. daily, benazepril 40 mg p.o. twice daily, gabapentin 600 mg twice daily, hydralazine 25 mg thrice daily, hydrochlorothiazide 25 mg p.o. daily, Levaquin 250 mg daily for three days, metoprolol 25 mg p.o. twice daily, tizanidine 4 mg 3 times daily, Ambien 5 mg p.o. nightly. ALLERGIES: No known drug allergies. SOCIAL HISTORY: Denies any history of tobacco, alcohol, or illicit drug use. REVIEW OF SYSTEMS: HEENT: Denies any headache, diplopia, or blurred vision. CONSTITUTIONAL: Denies any fever, chills, night sweats, or weight loss. CARDIOVASCULAR: Denies any chest pain. Some shortness of breath with associated cough, but no PND, orthopnea, leg swelling, syncope, or palpitation. PULMONARY: Shortness of breath with productive cough for about 3 to 4 days, but no hemoptysis. GASTROINTESTINAL: Denies any nausea, vomiting, diarrhea, constipation, abdominal pain, or GI bleed. GENITOURINARY: Denies any hematuria, dysuria, incontinence. NEUROLOGIC: Denies any motor dysfunction, sensory deficit, or altered speech. PHYSICAL EXAMINATION: VITAL SIGNS: Blood pressure was 229/90, respirations of 20, pulse of 100, temperature 99.2 degrees Fahrenheit, and O2 saturation 90% on room air. GENERAL: The patient is a very unfortunate 71-year-old female, who is awake and alert, in no apparent respiratory distress. HEENT: Atraumatic, normocephalic. Anicteric. Pupils are equal, round, and reactive to light and accommodation. Extraocular muscles intact. NECK: JVP less than 5 cm. No carotid bruit. Carotid upstrokes 2+ bilaterally. CARDIOVASCULAR SYSTEM: Normal S1, S2. Regular rate and rhythm. No murmurs, gallops, or rubs. PMI is at fourth intercostal space at the midclavicular line. LUNGS: There are bilateral diminished breath sounds. Some associated rhonchi bilaterally. ABDOMEN: Soft, nontender, nondistended. No hepatosplenomegaly. Positive bowel sounds. EXTREMITIES: No evidence of edema, clubbing, or cyanosis. LABORATORY FINDINGS: WBC was 11.8, hemoglobin of 13.4, hematocrit of 39.1, and platelet count was 209,000. Sodium was 139, potassium was 3.8, chloride 107, bicarbonate 25, BUN of 45, creatinine 1.6, glucose is 110, calcium is 8.1. Troponin I x2 negative. ProBNP was 504. Chest x-ray had shown no acute cardiopulmonary disease. A 2D echocardiography had revealed normal LV systolic function with LVEF of 70% to 75%, no evidence of LVH, hyperdynamic LV function, grade 1 LV diastolic dysfunction, and RVSP of 29 mmHg. ASSESSMENT AND PLAN: The patient is a very unfortunate 71-year-old lady who is seen in Cardiology consultation at the request of Dr. Dee. 1. Accelerated hypertension. At the time of arrival to the hospital, the blood pressure was extremely elevated. The patient takes amlodipine 10 mg on a daily basis as well as benazepril 40 mg twice daily and hydralazine 25 mg 3 times a day. In addition, she is on diabetic diet, hydrochlorothiazide 25 mg on a daily basis, and metoprolol 25 mg twice a day. It is not clear whether the patient has been taking all the above blood pressure medication and has been compliant with it. We will like to continue the same medication and monitor the blood pressure. Currently, the blood pressure is ranging from 122 to 142 systolic and 68 to 75 diastolic. 2. Sinus tachycardia. This could be due to her underlying acute exacerbation of COPD in addition to breathing treatments. The patient's metoprolol will be placed on hold given acute bronchoconstriction at this time. We may have to switch her to Cardizem. Of note, the right ventricular systolic pressure in this patient is within normal limits. 3. Normal LV systolic function with LVEF of approximately 70% to 75%. There was some report of dynamic LVOT obstruction given the hyperdynamic LV function. There was no gradient mentioned on the echocardiography data. We will continue with calcium-channel marcy at this point. I would like to thank, Dr. Dee, for allowing me to participate in the care of this patient. Timi Gavin M.D. DR: Leola JOB#: [id number] CC:
--- NOTE | 2017-05-08 18:22 | Infectious Diseases Prog Note ---
Assessment/Plan Assessment/Plan Assessment: COPD exacerbation -CXR no acute process Leukocytosis, mild recurrent - likely in the setting of steroids -u/a neg Emphysema/ COPD hypertension constipation DJD/cervical stenosis atrial fibrillation. Plan: -Last day of Levaquin 06/24 for COPD exacerbation; ok to discharge off abx -steroids weaning per pulm and primary -aspiration precautions Discussed with RN. Subjective Allergies: Coded Allergies: No Known Allergies (Unverified , 11/05/15) Subjective afebrile mild leukocytosis at RA Objective Vital Signs Last 24 Hour Vital Signs Date Time Temp Pulse Resp B/P (MAP) Pulse Ox O2 Delivery O2 Flow Rate FiO2 05/08/17 15:57 97.7 84 18 110/47 94 97.7 05/08/17 14:42 71 18 97 Room Air 21 05/08/17 14:36 128/60 05/08/17 14:32 21 05/08/17 14:32 71 20 96 Room Air 21 05/08/17 14:30 76 128/60 05/08/17 12:00 Room Air 05/08/17 12:00 97.9 60 18 118/58 94 97.9 05/08/17 10:01 65 109/60 05/08/17 09:00 80 18 Room Air 21 05/08/17 08:00 97.5 61 17 125/96 95 97.5 05/08/17 08:00 Room Air 05/08/17 05:10 64 135/62 05/08/17 04:15 97.3 55 18 144/76 98 Room Air 97.3 05/08/17 01:26 Room Air 05/08/17 00:00 97.8 80 18 105/72 92 97.8 05/07/17 23:17 97.9 05/07/17 22:29 63 18 97 Room Air 21 05/07/17 22:19 62 22 96 Room Air 21 05/07/17 22:19 132/65 05/07/17 22:18 97.9 05/07/17 20:44 133/73 05/07/17 20:11 97.9 66 19 133/73 95 Room Air 97.9 05/07/17 19:25 70 16 Room Air 21 Height (Feet): 5 Height (Inches): 6.00 Weight (Pounds): 112 Objective General Appearance: cachetic Lines, tubes and drains: peripheral HEENT: normocephalic, atraumatic Neck: non-tender, normal alignment Respiratory/Chest: rhonchi - left, rhonchi - right Abdomen: normal bowel sounds, non tender, soft Genitourinary/Rectal: normal genital exam Extremities: normal range of motion, non-tender Skin Exam: normal pigmentation 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 Laboratory Tests Test 05/08/17 04:55 White Blood Count 11.3 K/UL (4.8-10.8) H Red Blood Count 4.84 M/UL (4.20-5.40) Hemoglobin 14.4 G/DL (12.0-16.0) Hematocrit 43.4 % (37.0-47.0) Mean Corpuscular Volume 90 FL (80-99) Mean Corpuscular Hemoglobin 29.8 PG (27.0-31.0) Mean Corpuscular Hemoglobin Concent 33.3 G/DL (32.0-36.0) Red Cell Distribution Width 12.1 % (11.6-14.8) Platelet Count 215 K/UL (150-450) Mean Platelet Volume 7.4 FL (6.5-10.1) Neutrophils (%) (Auto) 61.5 % (45.0-75.0) Lymphocytes (%) (Auto) 31.2 % (20.0-45.0) Monocytes (%) (Auto) 6.6 % (1.0-10.0) Eosinophils (%) (Auto) 0.1 % (0.0-3.0) Basophils (%) (Auto) 0.7 % (0.0-2.0) Sodium Level 142 MMOL/L (136-145) Potassium Level 3.6 MMOL/L (3.5-5.1) Chloride Level 110 MMOL/L (98-107) H Carbon Dioxide Level 22 MMOL/L (21-32) Anion Gap 10 mmol/L (5-15) Blood Urea Nitrogen 39 mg/dL (7-18) H Creatinine 1.2 MG/DL (0.55-1.30) Estimat Glomerular Filtration Rate mL/min (>60) Glucose Level 101 MG/DL (74-106) Calcium Level 8.7 MG/DL (8.5-10.1) Current Medications Medications (Trade) Dose Ordered Sig/Arthur Route PRN Reason Start Time Stop Time Status Last Admin Dose Admin Acetaminophen (Tylenol) 650 mg Q4H PRN ORAL T>100.5 05/05/17 18:38 06/03/17 18:37 Albuterol/ Ipratropium (Albuterol/ Ipratropium) 3 ml Q4H PRN HHN dyspnea 05/05/17 18:39 05/09/17 18:38 05/08/17 14:35 Aspirin (ASA) 162 mg DAILY ORAL 05/06/17 09:00 06/04/17 08:59 05/08/17 10:13 Benazepril HCl (Lotensin) 40 mg Q12HR ORAL 05/05/17 21:00 06/03/17 20:59 05/07/17 20:44 Clonidine HCl (Catapres Tab) 0.1 mg Q4H PRN ORAL sbp more than 160mmHg 05/05/17 18:39 06/03/17 18:38 Clonidine HCl (Catapres tab) 0.2 mg EVERY 8 HOURS ORAL 05/05/17 22:00 06/04/17 21:59 05/08/17 14:36 Dextrose (Dextrose 50%) STAT PRN IV Hypoglycemia 05/05/17 18:39 06/04/17 18:38 Gabapentin (Neurontin) 600 mg Q12HR ORAL 05/05/17 21:00 06/03/17 20:59 05/08/17 10:29 Heparin Sodium (Porcine) (Heparin 5000 units/ml) 5,000 units EVERY 12 HOURS SUBQ 05/05/17 21:00 06/03/17 20:59 05/08/17 10:15 Hydrochlorothiazide (Hydrodiuril) 25 mg DAILY ORAL 05/06/17 09:00 06/03/17 19:59 05/07/17 08:14 Levofloxacin 50 ml @ 50 mls/hr Q24H IVPB 05/06/17 14:00 05/12/17 13:59 05/08/17 14:11 Lorazepam (Ativan 2mg/ml 1ml) 0.5 mg Q4H PRN IV For Anxiety 05/05/17 18:39 05/11/17 18:38 Methylprednisolone Sodium Succinate (Solu-MEDROL) 60 mg DAILY IV 05/06/17 09:00 06/03/17 17:59 05/08/17 10:14 Morphine Sulfate (Morphine Sulfate) 2 mg Q4H PRN IVP Severe Pain (Pain Scale 7-10) 05/05/17 18:40 05/11/17 18:39 05/07/17 18:41 Nitroglycerin (Ntg) 0.4 mg Q5M X 3 DOSES PRN SL Prn Chest Pain 05/05/17 18:30 06/03/17 12:29 Ondansetron HCl (Zofran) 4 mg Q6H PRN IVP Nausea & Vomiting 05/05/17 18:40 06/04/17 18:39 Promethazine HCl/ Codeine (Phenergan with Codeine) 5 ml Q6H PRN ORAL cough 05/05/17 18:40 06/04/17 18:39 Temazepam (Restoril) 15 mg HSPRN PRN ORAL Insomnia 05/05/17 21:00 05/11/17 20:59 05/08/17 01:11 Tizanidine HCl (Zanaflex) 4 mg TIDPRN PRN ORAL MUSCLE SPASMS 05/05/17 18:40 06/04/17 18:39 05/07/17 22:18 Bonnie Christine M.D. May 08, 2017 18:22
[2017-05-08] MEDS: Morphine Sulfate 2mg/ml Inj IVP PRN (20:42)
--- NOTE | 2017-05-08 22:04 | Nephrology Progress Note ---
Assessment/Plan Assessment 1. Acute renal failure.stable 2. Possible chronic kidney disease due to hypertensive nephrosclerosis. 3. Elevation of creatinine. 4. History of cervical spine stenosis. 5. History of chronic obstructive pulmonary disease. Plan plan hold HCTZ monitoring renal function avoid NSAID Check vit d replace electrolyte as need it Subjective Subjective alert and awake no acute events over night Objective Objective Last 24 Hour Vital Signs Date Time Temp Pulse Resp B/P (MAP) Pulse Ox O2 Delivery O2 Flow Rate FiO2 05/08/17 21:12 97.7 05/08/17 20:56 72 20 Room Air 21 05/08/17 20:42 97.7 05/08/17 20:42 137/68 05/08/17 19:44 97.7 65 20 137/68 96 Room Air 97.7 05/08/17 15:57 97.7 84 18 110/47 94 97.7 05/08/17 14:42 71 18 97 Room Air 21 05/08/17 14:36 128/60 05/08/17 14:32 21 05/08/17 14:32 71 20 96 Room Air 21 05/08/17 14:30 76 128/60 05/08/17 12:00 Room Air 05/08/17 12:00 97.9 60 18 118/58 94 97.9 05/08/17 10:01 65 109/60 05/08/17 09:00 80 18 Room Air 21 05/08/17 08:00 97.5 61 17 125/96 95 97.5 05/08/17 08:00 Room Air 05/08/17 05:10 64 135/62 05/08/17 04:15 97.3 55 18 144/76 98 Room Air 97.3 05/08/17 01:26 Room Air 05/08/17 00:00 97.8 80 18 105/72 92 97.8 05/07/17 23:17 97.9 05/07/17 22:29 63 18 97 Room Air 21 05/07/17 22:19 62 22 96 Room Air 21 05/07/17 22:19 132/65 05/07/17 22:18 97.9 Intake and Output 05/07/17 05/08/17 19:00 07:00 Intake Total 240 ml Balance 240 ml Intake Oral 240 ml # Voids 3 3 Laboratory Tests 05/08/17 04:55: White Blood Count 11.3H, Red Blood Count 4.84, Hemoglobin 14.4, Hematocrit 43.4 , Mean Corpuscular Volume 90, Mean Corpuscular Hemoglobin 29.8, Mean Corpuscular Hemoglobin Concent 33.3, Red Cell Distribution Width 12.1, Platelet Count 215, Mean Platelet Volume 7.4, Neutrophils (%) (Auto) 61.5, Lymphocytes (% ) (Auto) 31.2, Monocytes (%) (Auto) 6.6, Eosinophils (%) (Auto) 0.1, Basophils ( %) (Auto) 0.7, Sodium Level 142, Potassium Level 3.6, Chloride Level 110H, Carbon Dioxide Level 22, Anion Gap 10, Blood Urea Nitrogen 39H, Creatinine 1.2, Estimat Glomerular Filtration Rate , Glucose Level 101, Calcium Level 8.7 Height (Feet): 5 Height (Inches): 6.00 Weight (Pounds): 112 Objective HEAD AND NECK: No JVP. No LAD. No thyromegaly. Extraocular movement intact. Pupils are reactive to light and accommodation. LUNGS: Bilateral wheezing. CARDIAC: Regular rate and rhythm. S1 and S2. No murmur. No rub. ABDOMEN: Soft, nontender, and nondistended. EXTREMITIES: No edema. No clubbing. No cyanosis. JOSE SEQUEIRA May 08, 2017 22:04
--- NOTE | 2017-05-08 22:13 | Pulmonology Progress Note ---
Assessment/Plan Problems: (1) COPD exacerbation (2) Hypertensive emergency (3) Cervical spinal stenosis (4) HTN (hypertension), malignant (5) SOB (shortness of breath) Assessment/Plan improving less short of breath BP better controlled monitor BP decrease steroids, dc planning soon, solumedrol 30 QD check sputum dvt prophylaxis. Subjective ROS Limited/Unobtainable: No Allergies: Coded Allergies: No Known Allergies (Unverified , 11/05/15) Objective Last 24 Hour Vital Signs Date Time Temp Pulse Resp B/P (MAP) Pulse Ox O2 Delivery O2 Flow Rate FiO2 05/08/17 21:12 97.7 05/08/17 20:56 72 20 Room Air 21 05/08/17 20:42 97.7 05/08/17 20:42 137/68 05/08/17 19:44 97.7 65 20 137/68 96 Room Air 97.7 05/08/17 15:57 Room Air 05/08/17 15:57 97.7 84 18 110/47 94 97.7 05/08/17 14:42 71 18 97 Room Air 21 05/08/17 14:36 128/60 05/08/17 14:32 21 05/08/17 14:32 71 20 96 Room Air 21 05/08/17 14:30 76 128/60 05/08/17 12:00 Room Air 05/08/17 12:00 97.9 60 18 118/58 94 97.9 05/08/17 10:01 65 109/60 05/08/17 09:00 80 18 Room Air 21 05/08/17 08:00 97.5 61 17 125/96 95 97.5 05/08/17 08:00 Room Air 05/08/17 05:10 64 135/62 05/08/17 04:15 97.3 55 18 144/76 98 Room Air 97.3 05/08/17 01:26 Room Air 05/08/17 00:00 97.8 80 18 105/72 92 97.8 05/07/17 23:17 97.9 05/07/17 22:29 63 18 97 Room Air 21 05/07/17 22:19 62 22 96 Room Air 21 05/07/17 22:19 132/65 05/07/17 22:18 97.9 Intake and Output 05/07/17 05/08/17 19:00 07:00 Intake Total 240 ml Balance 240 ml Intake Oral 240 ml # Voids 3 3 Objective General Appearance: cachetic Lines, tubes and drains: peripheral HEENT: normocephalic, atraumatic Neck: non-tender, normal alignment Respiratory/Chest: rhonchi - left, rhonchi - right Abdomen: normal bowel sounds, non tender, soft Genitourinary/Rectal: normal genital exam Extremities: normal range of motion, non-tender Skin Exam: normal pigmentation 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 Laboratory Tests 05/08/17 04:55: White Blood Count 11.3H, Red Blood Count 4.84, Hemoglobin 14.4, Hematocrit 43.4 , Mean Corpuscular Volume 90, Mean Corpuscular Hemoglobin 29.8, Mean Corpuscular Hemoglobin Concent 33.3, Red Cell Distribution Width 12.1, Platelet Count 215, Mean Platelet Volume 7.4, Neutrophils (%) (Auto) 61.5, Lymphocytes (% ) (Auto) 31.2, Monocytes (%) (Auto) 6.6, Eosinophils (%) (Auto) 0.1, Basophils ( %) (Auto) 0.7, Sodium Level 142, Potassium Level 3.6, Chloride Level 110H, Carbon Dioxide Level 22, Anion Gap 10, Blood Urea Nitrogen 39H, Creatinine 1.2, Estimat Glomerular Filtration Rate , Glucose Level 101, Calcium Level 8.7 Current Medications Medications (Trade) Dose Ordered Sig/Arthur Route PRN Reason Start Time Stop Time Status Last Admin Dose Admin Acetaminophen (Tylenol) 650 mg Q4H PRN ORAL T>100.5 05/05/17 18:38 06/03/17 18:37 Albuterol/ Ipratropium (Albuterol/ Ipratropium) 3 ml Q4H PRN HHN dyspnea 05/05/17 18:39 05/09/17 18:38 05/08/17 14:35 Aspirin (ASA) 162 mg DAILY ORAL 05/06/17 09:00 06/04/17 08:59 05/08/17 10:13 Benazepril HCl (Lotensin) 40 mg Q12HR ORAL 05/05/17 21:00 06/03/17 20:59 05/08/17 20:42 Clonidine HCl (Catapres Tab) 0.1 mg Q4H PRN ORAL sbp more than 160mmHg 05/05/17 18:39 06/03/17 18:38 Clonidine HCl (Catapres tab) 0.2 mg EVERY 8 HOURS ORAL 05/05/17 22:00 06/04/17 21:59 05/08/17 14:36 Dextrose (Dextrose 50%) STAT PRN IV Hypoglycemia 05/05/17 18:39 06/04/17 18:38 Gabapentin (Neurontin) 600 mg Q12HR ORAL 05/05/17 21:00 06/03/17 20:59 05/08/17 20:42 Heparin Sodium (Porcine) (Heparin 5000 units/ml) 5,000 units EVERY 12 HOURS SUBQ 05/05/17 21:00 06/03/17 20:59 05/08/17 20:46 Hydrochlorothiazide (Hydrodiuril) 25 mg DAILY ORAL 05/06/17 09:00 06/03/17 19:59 05/07/17 08:14 Levofloxacin 50 ml @ 50 mls/hr Q24H IVPB 05/06/17 14:00 05/12/17 13:59 05/08/17 14:11 Lorazepam (Ativan 2mg/ml 1ml) 0.5 mg Q4H PRN IV For Anxiety 05/05/17 18:39 05/11/17 18:38 Methylprednisolone Sodium Succinate (Solu-MEDROL) 60 mg DAILY IV 05/06/17 09:00 06/03/17 17:59 05/08/17 10:14 Morphine Sulfate (Morphine Sulfate) 2 mg Q4H PRN IVP Severe Pain (Pain Scale 7-10) 05/05/17 18:40 05/11/17 18:39 05/08/17 20:42 Nitroglycerin (Ntg) 0.4 mg Q5M X 3 DOSES PRN SL Prn Chest Pain 05/05/17 18:30 06/03/17 12:29 Ondansetron HCl (Zofran) 4 mg Q6H PRN IVP Nausea & Vomiting 05/05/17 18:40 06/04/17 18:39 Promethazine HCl/ Codeine (Phenergan with Codeine) 5 ml Q6H PRN ORAL cough 05/05/17 18:40 06/04/17 18:39 Temazepam (Restoril) 15 mg HSPRN PRN ORAL Insomnia 05/05/17 21:00 05/11/17 20:59 05/08/17 01:11 Tizanidine HCl (Zanaflex) 4 mg TIDPRN PRN ORAL MUSCLE SPASMS 05/05/17 18:40 06/04/17 18:39 05/07/17 22:18 Giancarlo Valdez MD May 08, 2017 22:13
[2017-05-09] VITALS (8 sets, daily range): BP systolic 80–150; BP diastolic 48–73
[2017-05-09] MEDS: cloNIDine 0.2mg Tab ORAL SCH ×3 (05:03→22:47)
[2017-05-09] MEDS: Albuterol/Ipratropium 3ml neb HHN PRN ×2 (07:35→16:07)
[2017-05-09 07:43] LABS: BASOPHILS % (AUTO) 0.5 % (0.0-2.0); EOSINOPHILS % (AUTO) 0.1 % (0.0-3.0); HEMATOCRIT 43.5 % (37.0-47.0); HEMOGLOBIN 14.5 G/DL (12.0-16.0); LYMPHOCYTES % (AUTO) 32.5 % (20.0-45.0); MEAN CORPUSCULAR VOLUME 90 FL (80-99); MONOCYTES % (AUTO) 5.7 % (1.0-10.0); NEUTROPHILS % (AUTO) 61.2 % (45.0-75.0); PLATELET COUNT 220 K/UL (150-450); RED BLOOD COUNT 4.83 M/UL (4.20-5.40); RED CELL DISTRIBUTION WIDTH 12.3 % (11.6-14.8); WHITE BLOOD COUNT 10.3 K/UL (4.8-10.8)
[2017-05-09 08:07] LABS: ANION GAP 10 mmol/L (5-15); BLOOD UREA NITROGEN 36 mg/dL (7-18); CALCIUM 8.6 MG/DL (8.5-10.1); CARBON DIOXIDE 21 MMOL/L (21-32); CHLORIDE 110 MMOL/L (98-107); CREATININE 0.9 MG/DL (0.55-1.30); POTASSIUM 4.1 MMOL/L (3.5-5.1); SODIUM 141 MMOL/L (136-145)
[2017-05-09] MEDS ORDERED: Solu-MEDROL 125mg Inj IV SCH (09:00)
[2017-05-09] MEDS: Aspirin Baby 81mg ORAL SCH (09:23)
[2017-05-09] MEDS: Heparin 5000 units/ml inj SUBQ SCH ×2 (09:25→20:10)
[2017-05-09] MEDS ORDERED: Sodium Chloride 500ML 500 ML IV ONE (13:00)
--- NOTE | 2017-05-09 14:23 | General Progress Note ---
Assessment/Plan Problem List: (1) Sepsis ICD Codes: A41.9 - Sepsis, unspecified organism SNOMED: 95186096 (2) Fever ICD Codes: R50.9 - Fever, unspecified SNOMED: 175264077 (3) Lethargy ICD Codes: R53.83 - Other fatigue SNOMED: 632946583 (4) Weak ICD Codes: R53.1 - Weakness SNOMED: 30751392 (5) Hypoalbuminemia ICD Codes: E88.09 - Other disorders of plasma-protein metabolism, not elsewhere classified SNOMED: 717473023 (6) Atrial fibrillation with controlled ventricular rate ICD Codes: I48.91 - Unspecified atrial fibrillation SNOMED: 47318022 (7) COPD (chronic obstructive pulmonary disease) ICD Codes: J44.9 - Chronic obstructive pulmonary disease, unspecified SNOMED: 62034700 (8) Asthma ICD Codes: J45.909 - Unspecified asthma, uncomplicated SNOMED: 777323663 (9) HTN (hypertension), malignant ICD Codes: I10 - Essential (primary) hypertension SNOMED: 33393646 (10) SOB (shortness of breath) ICD Codes: R06.02 - Shortness of breath SNOMED: 033308886 (11) Leukocytosis ICD Codes: D72.829 - Elevated white blood cell count, unspecified SNOMED: 709483997, 883919776 (12) Shock ICD Codes: R57.9 - Shock, unspecified SNOMED: 24532674 Status: unchanged Assessment/Plan o2 pulm tx abx ot pt diet ns bolus bp control cbc bmp am dc w [facility] if clear Subjective Constitutional: Reports: weakness Respiratory: Reports: shortness of breath Allergies: Coded Allergies: No Known Allergies (Unverified , 11/05/15) All Systems: reviewed and negative except above Subjective sleepy calm in bed Objective Last 24 Hour Vital Signs Date Time Temp Pulse Resp B/P (MAP) Pulse Ox O2 Delivery O2 Flow Rate FiO2 05/09/17 14:00 91/48 05/09/17 12:00 100.0 78 16 91/48 97 100.0 05/09/17 09:12 97.7 66 18 107/53 97 Room Air 97.7 05/09/17 09:00 107/53 05/09/17 07:45 62 18 97 Room Air 21 05/09/17 07:37 60 20 96 Room Air 21 05/09/17 07:37 60 20 Room Air 21 05/09/17 07:35 21 05/09/17 05:03 150/72 05/09/17 04:00 98.2 61 20 150/72 96 Room Air 98.2 05/09/17 00:00 97.9 70 20 137/70 96 Room Air 97.9 05/08/17 23:34 97.7 05/08/17 22:35 97.7 05/08/17 22:35 137/74 05/08/17 21:12 97.7 05/08/17 20:56 72 20 Room Air 21 05/08/17 20:42 97.7 05/08/17 20:42 137/68 05/08/17 19:44 97.7 65 20 137/68 96 Room Air 97.7 05/08/17 15:57 Room Air 05/08/17 15:57 97.7 84 18 110/47 94 97.7 05/08/17 14:42 71 18 97 Room Air 21 05/08/17 14:36 128/60 05/08/17 14:32 21 05/08/17 14:32 71 20 96 Room Air 21 05/08/17 14:30 76 128/60 Intake and Output 05/08/17 05/09/17 18:59 06:59 Intake Total 720 ml 260 ml Balance 720 ml 260 ml Intake Oral 720 ml 260 ml # Voids 1 1 Laboratory Tests 05/09/17 05:40: White Blood Count 10.3, Red Blood Count 4.83, Hemoglobin 14.5, Hematocrit 43.5, Mean Corpuscular Volume 90, Mean Corpuscular Hemoglobin 29.9, Mean Corpuscular Hemoglobin Concent 33.2, Red Cell Distribution Width 12.3, Platelet Count 220, Mean Platelet Volume 8.2, Neutrophils (%) (Auto) 61.2, Lymphocytes (%) (Auto) 32.5, Monocytes (%) (Auto) 5.7, Eosinophils (%) (Auto) 0.1, Basophils (%) (Auto ) 0.5, Sodium Level 141, Potassium Level 4.1, Chloride Level 110H, Carbon Dioxide Level 21, Anion Gap 10, Blood Urea Nitrogen 36H, Creatinine 0.9, Estimat Glomerular Filtration Rate , Glucose Level 102, Calcium Level 8.6 Height (Feet): 5 Height (Inches): 6.00 Weight (Pounds): 114 General Appearance: lethargic EENT: normal ENT inspection Neck: normal alignment Cardiovascular: normal peripheral pulses, normal rate, regular rhythm Respiratory/Chest: chest wall non-tender, lungs clear, normal breath sounds Abdomen: normal bowel sounds, non tender, soft Extremities: normal inspection Edema: no edema noted Arm (L), no edema noted Arm (R), no edema noted Leg (L), no edema noted Leg (R), no edema noted Pedal (L), no edema noted Pedal (R), no edema noted Generalized Neurologic: responsive, motor weakness Skin: normal pigmentation, warm/dry MARTHA ULLOA May 09, 2017 14:23
--- NOTE | 2017-05-09 15:31 | Nephrology Progress Note ---
Assessment/Plan Assessment 1. Acute renal failure.stable 2. COPD 3. Elevation of creatinine. 4. History of cervical spine stenosis. 5. History of chronic obstructive pulmonary disease. Plan plan hold HCTZ monitoring renal function avoid NSAID Check vit d replace electrolyte as need it Subjective Constitutional: Reports: no symptoms HEENT: Reports: no symptoms Genitourinary: Reports: no symptoms Neurologic/Psychiatric: Reports: no symptoms Subjective alert and awake c/o cough and sob no acute events over night Objective Objective Last 24 Hour Vital Signs Date Time Temp Pulse Resp B/P (MAP) Pulse Ox O2 Delivery O2 Flow Rate FiO2 05/09/17 14:00 91/48 05/09/17 12:00 100.0 78 16 91/48 97 100.0 05/09/17 09:12 97.7 66 18 107/53 97 Room Air 97.7 05/09/17 09:00 107/53 05/09/17 07:45 62 18 97 Room Air 21 05/09/17 07:37 60 20 96 Room Air 21 05/09/17 07:37 60 20 Room Air 21 05/09/17 07:35 21 05/09/17 05:03 150/72 05/09/17 04:00 98.2 61 20 150/72 96 Room Air 98.2 05/09/17 00:00 97.9 70 20 137/70 96 Room Air 97.9 05/08/17 23:34 97.7 05/08/17 22:35 97.7 05/08/17 22:35 137/74 05/08/17 21:12 97.7 05/08/17 20:56 72 20 Room Air 21 05/08/17 20:42 97.7 05/08/17 20:42 137/68 05/08/17 19:44 97.7 65 20 137/68 96 Room Air 97.7 05/08/17 15:57 Room Air 05/08/17 15:57 97.7 84 18 110/47 94 97.7 Intake and Output 05/08/17 05/09/17 19:00 07:00 Intake Total 720 ml 260 ml Balance 720 ml 260 ml Intake Oral 720 ml 260 ml # Voids 1 1 Laboratory Tests 05/09/17 05:40: White Blood Count 10.3, Red Blood Count 4.83, Hemoglobin 14.5, Hematocrit 43.5, Mean Corpuscular Volume 90, Mean Corpuscular Hemoglobin 29.9, Mean Corpuscular Hemoglobin Concent 33.2, Red Cell Distribution Width 12.3, Platelet Count 220, Mean Platelet Volume 8.2, Neutrophils (%) (Auto) 61.2, Lymphocytes (%) (Auto) 32.5, Monocytes (%) (Auto) 5.7, Eosinophils (%) (Auto) 0.1, Basophils (%) (Auto ) 0.5, Sodium Level 141, Potassium Level 4.1, Chloride Level 110H, Carbon Dioxide Level 21, Anion Gap 10, Blood Urea Nitrogen 36H, Creatinine 0.9, Estimat Glomerular Filtration Rate , Glucose Level 102, Calcium Level 8.6 Height (Feet): 5 Height (Inches): 6.00 Weight (Pounds): 114 Objective HEAD AND NECK: No JVP. No LAD. No thyromegaly. Extraocular movement intact. Pupils are reactive to light and accommodation. LUNGS: Bilateral wheezing. CARDIAC: Regular rate and rhythm. S1 and S2. No murmur. No rub. ABDOMEN: Soft, nontender, and nondistended. EXTREMITIES: No edema. No clubbing. No cyanosis. JOSE SEQUEIRA May 09, 2017 15:31
--- NOTE | 2017-05-09 18:55 | Cardiology Report ---
APPROVED REPORT EKG Measurement Heart [id number] motion artifact wioll affect interpretation possible Normal sinus rhythm Septal infarct, age undetermined Abnormal ECG
--- NOTE | 2017-05-09 19:31 | Pulmonology Progress Note ---
Assessment/Plan Problems: (1) COPD exacerbation (2) Hypertensive emergency (3) Cervical spinal stenosis (4) HTN (hypertension), malignant (5) SOB (shortness of breath) Assessment/Plan improving less short of breath BP better controlled monitor BP decrease steroids, dc planning soon, solumedrol 30 QD check sputum dvt prophylaxis. Subjective Allergies: Coded Allergies: No Known Allergies (Unverified , 11/05/15) Objective Last 24 Hour Vital Signs Date Time Temp Pulse Resp B/P (MAP) Pulse Ox O2 Delivery O2 Flow Rate FiO2 05/09/17 16:14 70 18 97 Room Air 21 05/09/17 16:09 21 05/09/17 16:09 64 20 96 Room Air 21 05/09/17 16:05 97.9 61 18 122/57 97 Room Air 97.9 05/09/17 14:00 91/48 05/09/17 12:30 77 80/49 05/09/17 12:00 100.0 78 16 91/48 97 100.0 05/09/17 09:12 97.7 66 18 107/53 97 Room Air 97.7 05/09/17 09:00 107/53 05/09/17 07:45 62 18 97 Room Air 21 05/09/17 07:37 60 20 96 Room Air 21 05/09/17 07:37 60 20 Room Air 21 05/09/17 07:35 21 05/09/17 05:03 150/72 05/09/17 04:00 98.2 61 20 150/72 96 Room Air 98.2 05/09/17 00:00 97.9 70 20 137/70 96 Room Air 97.9 05/08/17 23:34 97.7 05/08/17 22:35 97.7 05/08/17 22:35 137/74 05/08/17 21:12 97.7 05/08/17 20:56 72 20 Room Air 21 05/08/17 20:42 97.7 05/08/17 20:42 137/68 05/08/17 19:44 97.7 65 20 137/68 96 Room Air 97.7 Intake and Output 05/08/17 05/09/17 19:00 07:00 Intake Total 720 ml 260 ml Balance 720 ml 260 ml Intake Oral 720 ml 260 ml # Voids 1 1 Objective General Appearance: cachetic Lines, tubes and drains: peripheral HEENT: normocephalic, atraumatic Neck: non-tender, normal alignment Respiratory/Chest: rhonchi - left, rhonchi - right Abdomen: normal bowel sounds, non tender, soft Genitourinary/Rectal: normal genital exam Extremities: normal range of motion, non-tender Skin Exam: normal pigmentation 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 Laboratory Tests 05/09/17 05:40: White Blood Count 10.3, Red Blood Count 4.83, Hemoglobin 14.5, Hematocrit 43.5, Mean Corpuscular Volume 90, Mean Corpuscular Hemoglobin 29.9, Mean Corpuscular Hemoglobin Concent 33.2, Red Cell Distribution Width 12.3, Platelet Count 220, Mean Platelet Volume 8.2, Neutrophils (%) (Auto) 61.2, Lymphocytes (%) (Auto) 32.5, Monocytes (%) (Auto) 5.7, Eosinophils (%) (Auto) 0.1, Basophils (%) (Auto ) 0.5, Sodium Level 141, Potassium Level 4.1, Chloride Level 110H, Carbon Dioxide Level 21, Anion Gap 10, Blood Urea Nitrogen 36H, Creatinine 0.9, Estimat Glomerular Filtration Rate , Glucose Level 102, Calcium Level 8.6 Current Medications Medications (Trade) Dose Ordered Sig/Arthur Route PRN Reason Start Time Stop Time Status Last Admin Dose Admin Acetaminophen (Tylenol) 650 mg Q4H PRN ORAL T>100.5 05/05/17 18:38 06/03/17 18:37 Aspirin (ASA) 162 mg DAILY ORAL 05/06/17 09:00 06/04/17 08:59 05/09/17 09:23 Benazepril HCl (Lotensin) 40 mg Q12HR ORAL 05/05/17 21:00 06/03/17 20:59 05/08/17 20:42 Clonidine HCl (Catapres Tab) 0.1 mg Q4H PRN ORAL sbp more than 160mmHg 05/05/17 18:39 06/03/17 18:38 Clonidine HCl (Catapres tab) 0.2 mg EVERY 8 HOURS ORAL 05/05/17 22:00 06/04/17 21:59 05/09/17 05:03 Dextrose (Dextrose 50%) STAT PRN IV Hypoglycemia 05/05/17 18:39 4/15/18 18:38 Gabapentin (Neurontin) 600 mg Q12HR ORAL 05/05/17 21:00 06/03/17 20:59 05/09/17 09:23 Heparin Sodium (Porcine) (Heparin 5000 units/ml) 5,000 units EVERY 12 HOURS SUBQ 05/05/17 21:00 06/03/17 20:59 05/09/17 09:25 Hydrochlorothiazide (Hydrodiuril) 25 mg DAILY ORAL 05/06/17 09:00 06/03/17 19:59 05/07/17 08:14 Lorazepam (Ativan 2mg/ml 1ml) 0.5 mg Q4H PRN IV For Anxiety 05/05/17 18:39 05/11/17 18:38 Morphine Sulfate (Morphine Sulfate) 2 mg Q4H PRN IVP Severe Pain (Pain Scale 7-10) 05/05/17 18:40 05/11/17 18:39 05/08/17 20:42 Nitroglycerin (Ntg) 0.4 mg Q5M X 3 DOSES PRN SL Prn Chest Pain 05/05/17 18:30 06/03/17 12:29 Ondansetron HCl (Zofran) 4 mg Q6H PRN IVP Nausea & Vomiting 05/05/17 18:40 06/04/17 18:39 Prednisone (predniSONE) 20 mg DAILY ORAL 05/09/17 09:00 06/08/17 08:59 05/09/17 09:24 Promethazine HCl/ Codeine (Phenergan with Codeine) 5 ml Q6H PRN ORAL cough 05/05/17 18:40 06/04/17 18:39 Temazepam (Restoril) 15 mg HSPRN PRN ORAL Insomnia 05/05/17 21:00 05/11/17 20:59 05/08/17 22:35 Tizanidine HCl (Zanaflex) 4 mg TIDPRN PRN ORAL MUSCLE SPASMS 05/05/17 18:40 06/04/17 18:39 05/08/17 22:35 Giancarlo Valdez MD May 09, 2017 19:31
[2017-05-10] VITALS: BP 155/66
[2017-05-10 04:00] VITALS: BP 145/70
[2017-05-10] MEDS: cloNIDine 0.2mg Tab ORAL SCH ×2 (05:57→14:00)
[2017-05-10 08:00] VITALS: BP 121/56
[2017-05-10] MEDS: Aspirin Baby 81mg ORAL SCH (08:59)
[2017-05-10] MEDS: Heparin 5000 units/ml inj SUBQ SCH (09:03)
[2017-05-10] MEDS ORDERED: Albuterol ud Inhalation HHN SCH ×3 (11:00)
[2017-05-10 12:00] VITALS: BP 145/66
[2017-05-10] MEDS ORDERED: Albuterol ud Inhalation HHN PRN (12:15)
--- NOTE | 2017-05-10 14:39 | Nephrology Progress Note ---
Assessment/Plan Assessment 1. Acute renal failure.stable 2. COPD 3. Elevation of creatinine. 4. History of cervical spine stenosis. 5. History of chronic obstructive pulmonary disease. Plan plan hold HCTZ monitoring renal function avoid NSAID Check vit d replace electrolyte as need it Subjective Subjective alert and awake c/o cough and sob no acute events over night Objective Objective Last 24 Hour Vital Signs Date Time Temp Pulse Resp B/P (MAP) Pulse Ox O2 Delivery O2 Flow Rate FiO2 05/10/17 14:00 145/66 05/10/17 12:12 73 20 95 Room Air 21 05/10/17 12:00 97.8 75 18 145/66 100 97.8 05/10/17 08:59 121/56 05/10/17 08:00 97.9 68 21 121/56 100 97.9 05/10/17 06:31 Room Air 05/10/17 04:00 97.6 50 18 145/70 96 97.6 05/10/17 00:39 Room Air 05/10/17 00:00 97.6 68 19 155/66 96 97.6 05/09/17 22:47 155/66 05/09/17 21:05 144/73 05/09/17 21:04 66 144/73 05/09/17 19:55 Room Air 05/09/17 19:54 97.7 89 18 135/66 98 97.7 05/09/17 16:14 70 18 97 Room Air 21 05/09/17 16:09 21 05/09/17 16:09 64 20 96 Room Air 21 05/09/17 16:05 97.9 61 18 122/57 97 Room Air 97.9 Intake and Output 05/09/17 05/10/17 19:00 07:00 Intake Total 600 ml 260 ml Balance 600 ml 260 ml Intake Oral 600 ml 260 ml # Voids 5 4 Height (Feet): 5 Height (Inches): 6.00 Weight (Pounds): 114 Objective HEAD AND NECK: No JVP. No LAD. No thyromegaly. Extraocular movement intact. Pupils are reactive to light and accommodation. LUNGS: Bilateral wheezing. CARDIAC: Regular rate and rhythm. S1 and S2. No murmur. No rub. ABDOMEN: Soft, nontender, and nondistended. EXTREMITIES: No edema. No clubbing. No cyanosis. JOSE SEQUEIRA May 10, 2017 14:39
--- NOTE | 2017-05-10 14:56 | General Progress Note ---
Assessment/Plan Problem List: (1) Sepsis ICD Codes: A41.9 - Sepsis, unspecified organism SNOMED: 34047021 (2) Fever ICD Codes: R50.9 - Fever, unspecified SNOMED: 409212766 (3) Lethargy ICD Codes: R53.83 - Other fatigue SNOMED: 153789568 (4) Weak ICD Codes: R53.1 - Weakness SNOMED: 18943395 (5) Hypoalbuminemia ICD Codes: E88.09 - Other disorders of plasma-protein metabolism, not elsewhere classified SNOMED: 645449070 (6) Atrial fibrillation with controlled ventricular rate ICD Codes: I48.91 - Unspecified atrial fibrillation SNOMED: 48639493 (7) COPD (chronic obstructive pulmonary disease) ICD Codes: J44.9 - Chronic obstructive pulmonary disease, unspecified SNOMED: 32835363 (8) Asthma ICD Codes: J45.909 - Unspecified asthma, uncomplicated SNOMED: 962840243 (9) HTN (hypertension), malignant ICD Codes: I10 - Essential (primary) hypertension SNOMED: 85314914 (10) SOB (shortness of breath) ICD Codes: R06.02 - Shortness of breath SNOMED: 150142488 (11) Leukocytosis ICD Codes: D72.829 - Elevated white blood cell count, unspecified SNOMED: 636209953, 727250518 (12) Shock ICD Codes: R57.9 - Shock, unspecified SNOMED: 65831211 Status: stable, progressing, tolerating diet Assessment/Plan o2 pulm tx abx ot pt diet dc w [facility] if clear Subjective Constitutional: Reports: weakness Allergies: Coded Allergies: No Known Allergies (Unverified , 11/05/15) All Systems: reviewed and negative except above Subjective sleepy calm in bed wants to go home Objective Last 24 Hour Vital Signs Date Time Temp Pulse Resp B/P (MAP) Pulse Ox O2 Delivery O2 Flow Rate FiO2 05/10/17 14:00 145/66 05/10/17 12:12 73 20 95 Room Air 21 05/10/17 12:00 97.8 75 18 145/66 100 97.8 05/10/17 08:59 121/56 05/10/17 08:00 97.9 68 21 121/56 100 97.9 05/10/17 06:31 Room Air 05/10/17 04:00 97.6 50 18 145/70 96 97.6 05/10/17 00:39 Room Air 05/10/17 00:00 97.6 68 19 155/66 96 97.6 05/09/17 22:47 155/66 05/09/17 21:05 144/73 05/09/17 21:04 66 144/73 05/09/17 19:55 Room Air 05/09/17 19:54 97.7 89 18 135/66 98 97.7 05/09/17 16:14 70 18 97 Room Air 21 05/09/17 16:09 21 05/09/17 16:09 64 20 96 Room Air 21 05/09/17 16:05 97.9 61 18 122/57 97 Room Air 97.9 Intake and Output 05/09/17 05/10/17 19:00 07:00 Intake Total 600 ml 260 ml Balance 600 ml 260 ml Intake Oral 600 ml 260 ml # Voids 5 4 Height (Feet): 5 Height (Inches): 6.00 Weight (Pounds): 114 General Appearance: alert EENT: normal ENT inspection Neck: normal alignment Cardiovascular: normal peripheral pulses, normal rate, regular rhythm Respiratory/Chest: chest wall non-tender, lungs clear, normal breath sounds Abdomen: normal bowel sounds, non tender, soft Extremities: normal inspection Edema: no edema noted Arm (L), no edema noted Arm (R), no edema noted Leg (L), no edema noted Leg (R), no edema noted Pedal (L), no edema noted Pedal (R), no edema noted Generalized Neurologic: responsive, motor weakness Skin: normal pigmentation, warm/dry MARTHA ULLOA May 10, 2017 14:56
[2017-05-10 16:00] VITALS: BP 152/82
--- NOTE | 2017-05-11 13:27 | Discharge Summary ---
Discharge Summary Hospital Course Date of Admission May 04, 2017 at 11:44 Date of Discharge May 10, 2017 at 15:53 Admitting Diagnosis COPD exac HPI Ayanna Baptiste is a 71 year old female who was admitted on May 04, 2017 at 11:44 for Chronic Obstructive Pulmonary Disease Exacerbation Hospital Course [id number] Discharge Discharge Disposition Patient was discharged to Home with Home Health(06) Michelle Simmons NP May 11, 2017 13:27
--- NOTE | 2017-05-12 05:16 | Discharge Summary 2 SIG ---
DATE OF ADMISSION: 05/04/2017 DATE OF DISCHARGE: 05/10/2017 CONSULTANTS: 1. Nina Shrestha M.D. 2. Giancarlo Valdez M.D. 3. Bonnie Christine M.D. 4. Timi Gavin M.D. 5. Nadeem Sunshine M.D. BRIEF HOSPITAL COURSE: The patient is a 71-year-old female, who lives at home, initially called Dr. Dee's office complaining of one-week increased shortness of breath, congestion with phlegm production, and was feeling fatigued. She has medical history significant for emphysema, COPD, hypertension, constipation, DJD, cervical stenosis, and atrial fibrillation. She was advised to present to ED and on evaluation, the patient was wheezing with use of accessory muscles of respiration. Blood work showed no leukocytosis. Chest x-ray with no acute process. EKG in atrial fibrillation. She was then admitted for evaluation of shortness of breath due to acute exacerbation of COPD and atrial fibrillation. She had elevated blood pressure, systolic 200. She was continued on benazepril 40 mg twice a day. Metoprolol was discontinued. She was given clonidine, which was eventually increased to 0.2 mg q.8 hours. She had been taking hydralazine 25 mg three times a day. Her hydrochlorothiazide was discontinued due to her renal function. She underwent echocardiogram that showed LVEF of approximately 70% to 75%. There was report of dynamic LVOT obstruction, given the hyperdynamic LV function. There was no gradient mentioned. Renal function improved. She had negative troponins. She was initially started on IV Solu-Medrol and steroids were tapered to p.o. She completed five days of Levaquin and was cleared for discharge off antibiotic treatment. FINAL DIAGNOSES: 1. Acute COPD exacerbation. 2. Hypertensive emergency. 3. Cervical spinal stenosis. 4. Acute renal failure, resolved. 5. Shortness of breath. DISPOSITION: The patient was discharged home with home health. DISCHARGE MEDICATIONS: Refer to medication list. Jeison Dee D.O. I have been assigned to dictate discharge summary on this account and I was not involved in the patient's management. Michelle Simmons N.P. DR: SY JOB#: [id number] CC: ULYSSES
== END 2017-05-10 15:53 | disposition home or self-care (01) | DRG 191 ==
LOC: EMR 11:15 → 2E 11:44 → EDBEDREQ 12:01 → 4W 05-05 18:00
DX: J44.1 Chronic obstructive pulmonary disease with (acute) exacerbation (principal); I16.1 Hypertensive emergency; N17.9 Acute kidney failure, unspecified; I48.91 Unspecified atrial fibrillation; E88.09 Other disorders of plasma-protein metabolism, not elsewhere classified; M48.02 Spinal stenosis, cervical region; I12.9 Hypertensive chronic kidney disease with stage 1 through stage 4 chronic kidney disease, or unspecified chronic kidney disease; N18.9 Chronic kidney disease, unspecified; M48.00 Spinal stenosis, site unspecified; K59.00 Constipation, unspecified; I25.10 Atherosclerotic heart disease of native coronary artery without angina pectoris
CPT/HCPCS: 36415; 71045; 80048; 80053; 81001; 82043; 82044; 82550; 82553; 82570; 83735; 83880; 84300; 84484; 85025; 89050; 93005; 93306; 94640; 94664; 97803; 99285; J7620

== ENCOUNTER 2017-12-25 08:42 | Outpatient (CLI) | payer MEDICARE, MEDICAID ==
--- NOTE | 2017-12-25 10:19 | Diagnostic Imaging Report ---
Indication: Chest pain. Evaluation of right lower lobe nodule. Technique: Continuous helical transaxial imaging of the chest was obtained from the thoracic inlet to the upper abdomen. No intravenous contrast was administered. Coronal 2-D reformats were also obtained. Total Dose length Product (DLP): 382.[address] Dose Index Volume (CTDIvol): 10.67 mGy Comparison: none Findings: The lungs are clear. No nodules, consolidative opacities or interstitial opacities identified. No pleural or pericardial effusions are seen. Small nodular focus of a pleural thickening noted in the area of the lingula (for example image 43 series 3). Coronary calcifications and calcification of the aorta demonstrated. No adenopathy seen. Axilla appear clear. Degenerative changes of the thoracic spine demonstrated. Old compression fracture deformity of the L1 vertebra noted. IMPRESSION: No acute findings within the chest. No lung nodules identified. Atherosclerotic vascular disease Old fracture of the L1 vertebra Note: The history states and calls for "evaluation for right lower lobe nodule". We are not aware of the nature of this history. Presumably this history is based on an outside study. The CT scanner at [facility] is accredited by the [employer] and the scans are performed using dose optimization techniques as appropriate to a performed exam including Automatic Exposure control.
== END 2017-12-25 10:42 | disposition home or self-care (01) ==
LOC: CAT 08:42
DX: R07.9 Chest pain, unspecified (principal); I25.10 Atherosclerotic heart disease of native coronary artery without angina pectoris; I70.0 Atherosclerosis of aorta; S32.019S Unspecified fracture of first lumbar vertebra, sequela
CPT/HCPCS: 71250

== ENCOUNTER 2018-02-23 02:05 | Emergency (ER) | payer MEDICARE, MEDICAID ==
[~2018-02-23] VITALS: Ht 170.2 cm; Wt 52.2 kg
[2018-02-23 02:17] VITALS: BP 227/127
--- NOTE | 2018-02-23 02:25 | Emergency Room Report ---
History of Present Illness General Chief Complaint: Abdominal Pain Source: Patient Present Illness HPI This is a 72-year-old female with history of COPD and hypertension. She presents with chief complaint abdominal pain and constipation. Pain is severe 10 out of 10. Said she hasn't had a bowel movement for 2 days. Tried Dulcolax suppository without any relief. Has nausea but no vomiting. No fever chills. Pain is diffuse in nature. Nothing made it better. Nothing made it worse. Allergies: Coded Allergies: No Known Allergies (Unverified , 11/05/15) Patient History Past Medical History: see triage record, old chart reviewed Past Surgical History: hysterectomy Pertinent Family History: none Social History: Denies: smoking Last Menstrual Period: 2 decades ago Now: No Immunizations: other Reviewed Nursing Documentation: PMH: Agreed; PSxH: Agreed Nursing Documentation-PMH Hx Cardiac Problems: Yes Hx Hypertension: Yes Hx Asthma: Yes Hx Diabetes: No Hx Cancer: No Hx Gastrointestinal Problems: Yes Hx Dialysis: No Hx Neurological Problems: Yes Hx Cerebrovascular Accident: No Hx Seizures: No Hx Spinal Cord Injury: Yes Review of Systems Eye: Denies: eye pain, blurred vision ENT: Denies: ear pain, nose congestion, throat swelling Respiratory: Denies: cough, shortness of breath Cardiovascular: Denies: chest pain, palpitations Gastrointestinal: Reports: abdominal pain, constipation, nausea; Denies: vomiting Musculoskeletal: Denies: back pain, joint pain Skin: Denies: rash Neurological: Denies: headache, numbness Endocrine: Denies: increased thirst, increased urine Hematologic/Lymphatic: Denies: easy bruising All Other Systems: negative except mentioned in HPI Physical Exam Vital Signs Date Time Temp Pulse Resp B/P (MAP) Pulse Ox O2 Delivery O2 Flow Rate FiO2 02/23/18 02:06 98.4 93 18 210/112 100 Room Air vitals with hypertension Sp02 EP Interpretation: reviewed, normal General Appearance: no apparent distress, alert, thin, Chronically Ill Head: normocephalic, atraumatic Eyes: bilateral eye PERRL, bilateral eye EOMI ENT: hearing grossly normal, normal pharynx Neck: full range of motion, supple, no meningismus Respiratory: chest non-tender, lungs clear, normal breath sounds Cardiovascular #1: regular rate, rhythm, no murmur Gastrointestinal: no mass, no organomegaly, no bruit, non-distended, tenderness - diffuse, soft, decreased bowel sounds Musculoskeletal: back normal, gait/station normal, normal range of motion Psychiatric: mood/affect normal Skin: warm/dry Medical Decision Making Diagnostic Impression: Primary Impression: Abdominal pain Qualified Codes: R10.84 - Generalized abdominal pain Additional Impression: Constipation Qualified Codes: K59.01 - Slow transit constipation ER Course Is in with abdominal pain. No evidence of acute abdomen. Pain secondary to gas buildup from constipation. Patient felt much better after enema. Large bowel movement. We'll discharge home. CT/MRI/US Diagnostic Results CT/MRI/US Diagnostic Results : Imaging Test Ordered: CT abdomen and pelvis Impression read by radiologist. Constipation. Last Vital Signs Date Time Temp Pulse Resp B/P (MAP) Pulse Ox O2 Delivery O2 Flow Rate FiO2 02/23/18 02:17 98.4 99 18 227/127 100 Room Air Status: improved Disposition: HOME, SELF-CARE Condition: Stable Scripts Lactulose (LACTULOSE*) 20 Gm/30 Ml Solution 30 ML ORAL DAILY, #240 ML 0 Refills Prov: Gerry Kenyon MD 02/23/18 Additional Instructions: Follow-up with your DrAlexia in 2-3 days if not better. Return if worse. Gerry Kenyon MD Feb 23, 2018 02:24
[2018-02-23] MEDS: Morphine Sulfate 4mg/ml Inj (IV/IM USE ONLY) IVP ONE (02:38)
[2018-02-23 02:58] LABS: BASOPHILS % (AUTO) 1.7 % (0.0-2.0); EOSINOPHILS % (AUTO) 2.4 % (0.0-3.0); HEMATOCRIT 43.6 % (37.0-47.0); HEMOGLOBIN 14.8 G/DL (12.0-16.0); LYMPHOCYTES % (AUTO) 46.6 % (20.0-45.0); MEAN CORPUSCULAR VOLUME 90 FL (80-99); MONOCYTES % (AUTO) 6.1 % (1.0-10.0); NEUTROPHILS % (AUTO) 43.2 % (45.0-75.0); PLATELET COUNT 179 K/UL (150-450); RED BLOOD COUNT 4.85 M/UL (4.20-5.40); RED CELL DISTRIBUTION WIDTH 11.6 % (11.6-14.8); WHITE BLOOD COUNT 8.8 K/UL (4.8-10.8)
[2018-02-23 03:09] LABS: ANION GAP 6 mmol/L (5-15); BLOOD UREA NITROGEN 14 mg/dL (7-18); CALCIUM 9.1 MG/DL (8.5-10.1); CARBON DIOXIDE 30 MMOL/L (21-32); CHLORIDE 104 MMOL/L (98-107); CREATININE 0.9 MG/DL (0.55-1.30); POTASSIUM 4.1 MMOL/L (3.5-5.1); SODIUM 140 MMOL/L (136-145)
[2018-02-23 03:13] LABS: ALANINE AMINOTRANSFERASE 50 U/L (12-78); ALBUMIN 3.2 G/DL (3.4-5.0); ALBUMIN/GLOBULIN RATIO 0.7 (1.0-2.7); ALKALINE PHOSPHATASE 82 U/L (46-116); ASPARTATE AMINO TRANSFERASE 53 U/L (15-37); BILIRUBIN,TOTAL 0.5 MG/DL (0.2-1.0)
[2018-02-23 03:21] LABS: APPEARANCE,URINE CLEAR; BILIRUBIN, URINE NEGATIVE (NEGATIVE); COLOR,URINE PALE YELLOW; GLUCOSE, URINE (UA) NEGATIVE (NEGATIVE); KETONES,URINE NEGATIVE (NEGATIVE); LEUKOCYTE ESTERASE ,URINE NEGATIVE (NEGATIVE); NITRITE,URINE NEGATIVE (NEGATIVE); PH,URINE 8 (4.5-8.0); PROTEIN,URINE 4+ (NEGATIVE); UROBILINOGEN,URINE NORMAL MG/DL (0.0-1.0)
[2018-02-23] MEDS: Fleet's Enema 133ml RECTAL ONE (03:34)
[2018-02-23 04:00] VITALS: BP 239/90
[2018-02-23] MEDS ORDERED: LACTULOSE20 GM/301 ORAL (04:21)
[2018-02-23 04:56] VITALS: BP 106/69
[2018-02-23] MEDS: Albuterol ud Inhalation HHN ONE (05:02)
[2018-02-23] MEDS: LORazepam Inj 2mg/ml 1ml IV ONE (05:26)
[2018-02-23 05:32] VITALS: BP 106/69
--- NOTE | 2018-02-24 15:48 | Diagnostic Imaging Report ---
Indication: Abdominal pain Technique: Continuous helical transaxial imaging of the abdomen and pelvis was obtained from the lung bases to the pubic symphysis. No intravenous contrast was administered. Coronal 2-D reformats were also obtained. Automatic Exposure Control was utilized. Total Dose length Product (DLP): 641.[address] Dose Index Volume (CTDIvol): 13.88 mGy Comparison: 01/06/2017 Findings: The appendix is normal. There are diverticula in the colon. No definite diverticulitis identified. Fecal material within small bowel noted with mild distention likely indicative of stasis which may be a reflection of ileus or enteritis. Correlate clinically. Similar findings noted previously but appears more advanced on the current exam. Solid organ evaluation limited on the this examination and without contrast. There is no nephrolithiasis or hydronephrosis. Gallbladder noted and grossly unremarkable. Moderate degenerative changes of the spine demonstrated. Aortoiliac calcifications are present. Mild basilar scarring versus atelectasis noted. IMPRESSION: Mild small bowel dilatation with fecalized contents. Findings likely reflect bowel stasis. Correlate for underlying enteritis or ileus. Multiple other incidental findings as above. [facility] has communicated the preliminary results to the Emergency Department. Their findings are largely concordant with this report. The CT scanner at [facility] is accredited by the [employer] and the scans are performed using dose optimization techniques as appropriate to a performed exam including Automatic Exposure control.
== END 2018-02-23 05:30 | disposition home or self-care (01) ==
LOC: EDBD 02:05 → EMR 02:48
DX: K59.01 Slow transit constipation (principal); R10.84 Generalized abdominal pain; J44.9 Chronic obstructive pulmonary disease, unspecified; I10 Essential (primary) hypertension; J45.909 Unspecified asthma, uncomplicated
CPT/HCPCS: 36415; 74176; 80053; 81003; 83690; 85025; 94640; 94664; 96361; 96374; 96375; 99284; J0360; J2270; J2405

== ENCOUNTER 2018-09-01 20:51 | Emergency (ER) | payer MEDICARE, MEDICAID ==
[~2018-09-01] VITALS: Ht 167.6 cm; Wt 52.2 kg
[~2018-09-01 20:51] MED LIST changes: +LACTULOSE20 GM/301 ORAL
--- NOTE | 2018-09-01 20:51 | NUR ---
ED Nurse Note: PT BIBA FROM HOME C/C BLE PAIN AND NUMBNESS, PT DENIES ANY RECENT INJURIES, CMS INTACT, CAP REFILL<3SEC, PT AMBULATORY W/ WALKER, WILL CONT MONITOR.
[2018-09-01] MEDS ORDERED: Morphine Sulfate 4mg/ml Inj (IV USE ONLY) IVP ONE (21:00)
--- NOTE | 2018-09-01 21:04 | Emergency Room Report ---
History of Present Illness General Chief Complaint: Pain Source: Patient, Medical Record, EMS Present Illness HPI This is a 73-year-old female with history of hypertension, multiple sclerosis and chronic pain. She presents with chief complaint of bilateral leg pain and numbness. Also generalized body pain. Is been ongoing for a couple weeks now. She says she is out of her [place]. She only get 30 at month but she uses at least 60. She is been out for almost 3 weeks now. No nausea no vomiting. No fever chills. Worse with walking. Better with rest. Similar symptom in the past. Pain is 9 out of 10. No incontinence of bowel or urine. No focal deficit. Allergies: Uncoded Allergies: PENICILLIN (Allergy, Unknown, 09/01/18) Patient History Past Medical History: see triage record, old chart reviewed, HTN, asthma Past Surgical History: other Pertinent Family History: none Social History: Denies: smoking Now: No Immunizations: other Reviewed Nursing Documentation: PMH: Agreed; PSxH: Agreed Nursing Documentation-PMH Past Medical History: No History, Except For Hx Cardiac Problems: Yes Hx Hypertension: Yes Hx Asthma: Yes Hx Diabetes: No Hx Cancer: No Hx Gastrointestinal Problems: Yes Hx Dialysis: No Hx Neurological Problems: Yes Hx Cerebrovascular Accident: No Hx Seizures: No Hx Spinal Cord Injury: Yes Review of Systems Eye: Denies: eye pain, blurred vision ENT: Denies: ear pain, nose congestion, throat swelling Respiratory: Denies: cough, shortness of breath Cardiovascular: Denies: chest pain, palpitations Gastrointestinal: Denies: abdominal pain, diarrhea, nausea, vomiting Musculoskeletal: Reports: joint pain, muscle pain; Denies: back pain Skin: Denies: rash Neurological: Denies: headache, numbness Endocrine: Denies: increased thirst, increased urine Hematologic/Lymphatic: Denies: easy bruising All Other Systems: negative except mentioned in HPI Physical Exam Vital Signs Date Time Temp Pulse Resp B/P (MAP) Pulse Ox O2 Delivery O2 Flow Rate FiO2 09/01/18 20:48 97.3 63 16 144/68 (93) 95 Room Air Vitals normal Sp02 EP Interpretation: reviewed, normal General Appearance: well appearing, no apparent distress, alert, thin Head: normocephalic, atraumatic Eyes: bilateral eye PERRL, bilateral eye EOMI ENT: hearing grossly normal, normal pharynx Neck: full range of motion, supple, no meningismus Respiratory: chest non-tender, lungs clear, normal breath sounds Cardiovascular #1: regular rate, rhythm, no murmur Gastrointestinal: normal bowel sounds, non tender, no mass, no organomegaly, no bruit, non-distended Musculoskeletal: back normal, gait/station normal, normal range of motion Psychiatric: mood/affect normal Medical Decision Making Diagnostic Impression: Primary Impression: Pain Additional Impression: EDIE (acute kidney injury) ER Course Patient presents with exacerbation of her chronic pain. She is out of her pain medication. Labs unremarkable except for mild prerenal azotemia. Patient hydrated appear. She felt better now. Will discharge home. She does not want to give a urine sample. Last Vital Signs Date Time Temp Pulse Resp B/P (MAP) Pulse Ox O2 Delivery O2 Flow Rate FiO2 09/01/18 20:48 97.3 63 16 144/68 (93) 95 Room Air Status: improved Disposition: HOME, SELF-CARE Condition: Stable Scripts Hydrocodone/Acetaminophen 5-325* (HYDROCODONE/ACETAMINOPHEN 5-325*) 1 Each Tablet 1 TAB ORAL Q6H PRN for For Pain, #20 TAB 0 Refills Prov: Gerry Kenyon MD 09/01/18 Additional Instructions: Follow-up with your doctor as scheduled for your refill on your pain medication. Return if symptoms worsen. Gerry Kenyon MD Sep 01, 2018 21:04
[2018-09-01 21:33] LABS: HEMATOCRIT 39.4 % (37.0-47.0); HEMOGLOBIN 13.1 G/DL (12.0-16.0); MEAN CORPUSCULAR VOLUME 90 FL (80-99); PLATELET COUNT 146 K/UL (150-450); RED BLOOD COUNT 4.41 M/UL (4.20-5.40); RED CELL DISTRIBUTION WIDTH 11.6 % (11.6-14.8); WHITE BLOOD COUNT 8.2 K/UL (4.8-10.8)
[2018-09-01 21:38] LABS: ANION GAP 8 mmol/L (5-15); BLOOD UREA NITROGEN 31 mg/dL (7-18); CALCIUM 8.9 MG/DL (8.5-10.1); CARBON DIOXIDE 26 MMOL/L (21-32); CHLORIDE 108 MMOL/L (98-107); POTASSIUM 3.8 MMOL/L (3.5-5.1); SODIUM 142 MMOL/L (136-145)
[2018-09-01 21:55] VITALS: BP 144/68
[2018-09-01] MEDS ORDERED: HYDROCODON-ACE1 EA15 ORAL (22:22)
--- NOTE | 2018-09-01 22:24 | NUR ---
ED Nurse Note: MITRAD SPOKE WITH DAUGHTER, PT CLEARED TO BE DC, WAITING FOR DAUGHTER TO PICK PT UP.
--- NOTE | 2018-09-01 22:50 | NUR ---
ED Nurse Note: pt cleared to be d/c per ERMD, pt discharge and aftercare instruction provided w/ prescription, pt education done via discussion and handout, pt advised to follow up with pcp or return to ed if changes in condition, vss, ambulatory w/ steady gait, left w/ all belongings, iv d/c and id band removed, accompanied by daughter.
[2018-09-01 22:51] VITALS: BP 140/76
== END 2018-09-01 22:51 | disposition home or self-care (01) ==
LOC: EDBD 20:51 → EMR 21:29
DX: N17.9 Acute kidney failure, unspecified (principal); R52 Pain, unspecified; G35 Multiple sclerosis; Z88.0 Allergy status to penicillin; I10 Essential (primary) hypertension; J45.909 Unspecified asthma, uncomplicated
CPT/HCPCS: 36415; 80048; 85007; 85025; 96374; 96375; 99284; J2270; J2405

== ENCOUNTER → 2018-11-29 | Emergency (ER) | payer MEDICARE, MEDICAID ==
[~2018-11-29] VITALS: Ht 162.6 cm; Wt 59.0 kg
[~2018-11-29] MED LIST changes: +HYDROCODON-ACE1 EA15 ORAL; +HydrALAZINE 25mg tab ORAL ONE
[2018-11-29 17:00] VITALS: BP 230/79
--- NOTE | 2018-11-29 17:00 | NUR ---
ED Nurse Note: Brought in by ambulance from clinic due to high blood pressure, slight headache and feeling weak. Patient was out of meds and went to clinic to get blood pressure med refill. at time of arrival patient's blood pressure is elevated at 226/110. patients heart rate is 60. patient is alert and oriented x4. placed patient in a lunchroom monitor, complains of dizziness and blurred vision. Dr. Lawler notified and aware
--- NOTE | 2018-11-29 17:08 | Emergency Room Report ---
History of Present Illness General Chief Complaint: Hypertension Source: Patient, Medical Record Present Illness HPI 73-year-old female presents with hypertensive event prior to arrival, patient was systolic blood pressure in the 200s, her blood pressure was measured after she became distraught after finding out she lost weight instead of gained weight , she denies any headache chest pain shortness of breath, she is not sure if she took her hypertensive medication today, her blood pressure is worsened when she does not take her meds alleviated when she takes her meds severity was moderate, constant, she denies any headache chest pain shortness of breath no nausea no vomiting, she is very tearful at the moment Allergies: Coded Allergies: PENICILLINS (Verified Allergy, Unknown, 11/29/18) Uncoded Allergies: PENICILLIN (Allergy, Unknown, 09/01/18) Patient History Past Medical History: see triage record Reviewed Nursing Documentation: PMH: Agreed; PSxH: Agreed Nursing Documentation-PMH Past Medical History: No History, Except For Hx Cardiac Problems: Yes Hx Hypertension: Yes Hx Asthma: Yes Hx Diabetes: No Hx Cancer: No Hx Gastrointestinal Problems: Yes Hx Dialysis: No Hx Neurological Problems: Yes Hx Cerebrovascular Accident: No Hx Seizures: No Hx Spinal Cord Injury: Yes Review of Systems All Other Systems: negative except mentioned in HPI Physical Exam Vital Signs Date Time Temp Pulse Resp B/P (MAP) Pulse Ox O2 Delivery O2 Flow Rate FiO2 11/29/18 16:51 96.8 68 16 99 Room Air Sp02 EP Interpretation: reviewed, normal General Appearance: well appearing, no apparent distress, alert Head: normocephalic, atraumatic Eyes: bilateral eye PERRL, bilateral eye EOMI ENT: uvula midline, moist mucus membranes Neck: supple, thyroid normal, supple/symm/no masses Respiratory: lungs clear, no respiratory distress, no retraction, no accessory muscle use Cardiovascular #1: normal peripheral pulses, regular rate, rhythm, no edema, no gallop, no murmur Gastrointestinal: non tender, soft, no guarding, no rebound Musculoskeletal: normal inspection Neurologic: alert, oriented x3 Psychiatric: anxious Skin: no rash, warm/dry Medical Decision Making Diagnostic Impression: Primary Impression: Hypertension Qualified Codes: I10 - Essential (primary) hypertension ER Course 73-year-old female presents with a symptom medic hypertension, patient forgot to take her oral meds today, oral medications were given with resolution of her elevated blood pressure patient is asymptomatic Labs show no acute processes chest x-ray negative CT read negative Counseled patient Disposition home with return precautions Laboratory Tests Test 11/29/18 17:00 11/29/18 18:00 Urine Color Pale yellow Urine Appearance Clear Urine pH 7 (4.5-8.0) Urine Specific [place] 1.005 (1.005-1.035) Urine Protein 3+ (NEGATIVE) H Urine Glucose (UA) Negative (NEGATIVE) Urine Ketones Negative (NEGATIVE) Urine Blood Negative (NEGATIVE) Urine Nitrite Negative (NEGATIVE) Urine Bilirubin Negative (NEGATIVE) Urine Urobilinogen Normal MG/DL (0.0-1.0) Urine Leukocyte Esterase 1+ (NEGATIVE) H Urine RBC 0-2 /HPF (0 - 2) Urine WBC 2-4 /HPF (0 - 2) Urine Squamous Epithelial Cells Few /LPF (NONE/OCC) Urine Bacteria Few /HPF (NONE) White Blood Count 8.7 K/UL (4.8-10.8) Red Blood Count 4.98 M/UL (4.20-5.40) Hemoglobin 14.9 G/DL (12.0-16.0) Hematocrit 45.4 % (37.0-47.0) Mean Corpuscular Volume 91 FL (80-99) Mean Corpuscular Hemoglobin 29.9 PG (27.0-31.0) Mean Corpuscular Hemoglobin Concent 32.8 G/DL (32.0-36.0) Red Cell Distribution Width 10.6 % (11.6-14.8) L Platelet Count 165 K/UL (150-450) Mean Platelet Volume 7.7 FL (6.5-10.1) Neutrophils (%) (Auto) 42.4 % (45.0-75.0) L Lymphocytes (%) (Auto) 45.7 % (20.0-45.0) H Monocytes (%) (Auto) 6.8 % (1.0-10.0) Eosinophils (%) (Auto) 3.5 % (0.0-3.0) H Basophils (%) (Auto) 1.6 % (0.0-2.0) Sodium Level 139 MMOL/L (136-145) Potassium Level 4.0 MMOL/L (3.5-5.1) Chloride Level 107 MMOL/L (98-107) Carbon Dioxide Level 26 MMOL/L (21-32) Anion Gap 6 mmol/L (5-15) Blood Urea Nitrogen 21 mg/dL (7-18) H Creatinine 0.9 MG/DL (0.55-1.30) Estimate Glomerular Filtration Rate mL/min (>60) Glucose Level 81 MG/DL (74-106) Calcium Level 9.3 MG/DL (8.5-10.1) Phosphorus Level 4.4 MG/DL (2.5-4.9) Magnesium Level 2.1 MG/DL (1.8-2.4) Total Bilirubin 0.3 MG/DL (0.2-1.0) Aspartate Amino Transferase (AST) 51 U/L (15-37) H Alanine Aminotransferase (ALT) 60 U/L (12-78) Alkaline Phosphatase 96 U/L (46-116) Troponin I 0.000 ng/mL (0.000-0.056) Pro-B-Type Natriuretic Peptide 1730 pg/mL (0-125) H Total Protein 7.6 G/DL (6.4-8.2) Albumin 3.3 G/DL (3.4-5.0) L Globulin 4.3 g/dL Albumin/Globulin Ratio 0.8 (1.0-2.7) L Lipase 211 U/L (73-393) Thyroid Stimulating Hormone (TSH) 3.050 uiU/mL (0.358-3.740) Free Thyroxine 1.17 NG/DL (0.76-1.46) Free Triiodothyronine 2.7 pg/mL (2.3-4.2) EKG Diagnostic Results EKG Time: 16:59 EP Interpretation: Sinus bradycardia, rate 53, QTc 412, no acute ST elevations , normal axis Rhythm Strip Diag. Results Rhythm Strip Time: 17:16 Chest X-Ray Diagnostic Results Chest X-Ray Diagnostic Results : Chest X-Ray Ordered: Yes # of Views/Limited/Complete: 1 View Indication: Other - HTN EP Interpretation: Yes Interpretation: no consolidation, no effusion, no pneumothorax, no acute cardiopulmonary disease Impression: No acute disease Electronically Signed by: Jason Lawler MD CT/MRI/US Diagnostic Results CT/MRI/US Diagnostic Results : Impression Patient : ALY ARTEAGA Referring Physician: Jason Lawler MD ID Number: [id number] Service Date: 11/29/18 : 1945 Report Date: 11/29/18 Gender: F Accession No.: [id number] Location: EMR Procedure: CT Head no Contrast CT HEAD Without Contrast: Comparison 11 21 2016 No acute intracranial hemorrhage or cortical ischemia. No skull fracture. Chronic ischemic changes. Dictated By: Win Thomas MD Electronically Signed By: Signed Date/Time CC: Last Vital Signs Date Time Temp Pulse Resp B/P (MAP) Pulse Ox O2 Delivery O2 Flow Rate FiO2 11/29/18 16:51 96.8 68 16 99 Room Air Disposition: HOME, SELF-CARE Condition: Stable Referrals: [facility]. [facility] Patient Instructions: Hypertension, [id number] Additional Instructions: The patient was provided with discharge instructions, notified to follow-up with a primary care doctor and or specialist in the next 24-48 hours, and to return to the ED if they have worsening of their symptoms. Please note that this report is being documented using [employer] technology. This can lead to erroneous entry secondary to incorrect interpretation by the dictating instrument. Jason Lawler MD Nov 29, 2018 17:08
--- NOTE | 2018-11-29 17:45 | NUR ---
ED Nurse Note: Dr. Lawler notified of patients heart rate of 50. states that it is okay to give medications. will continue to monitor
--- NOTE | 2018-11-29 17:46 | Diagnostic Imaging Report ---
Indication: Headache Technique: Contiguous 5 mm thick transaxial imaging of the head obtained in a Siemens Sensation [address] scanner. Soft tissue and bone windows generated. Automatic Exposure Control was utilized. Total Dose length Product (DLP): [address] Dose Index Volume (CTDIvol): 60 mGy Comparison: 11/21/2016 Findings: There is mild prominence of the ventricles, basal cisterns, and cerebral sulci consistent with atrophy. Mild, nonspecific, white matter hypoattenuation is noted throughout the brain consistent with chronic small vessel disease. There is no midline shift, edema, acute hemorrhage, mass effect, or abnormal extra-axial fluid collections. Bones are unremarkable. Impression: No acute intracranial bleed, mass effect or edema. Mild atrophy of the brain. Nonspecific white matter hypoattenuation probably due to chronic small vessel disease. [facility] has communicated the preliminary results to the Emergency Department. Their findings are largely concordant with this report. The CT scanner at [facility] is accredited by the [employer] and the scans are performed using dose optimization techniques as appropriate to a performed exam including Automatic Exposure control.
[2018-11-29 17:52] LABS: BILIRUBIN, URINE NEGATIVE (NEGATIVE); COLOR,URINE PALE YELLOW; GLUCOSE, URINE (UA) NEGATIVE (NEGATIVE); KETONES,URINE NEGATIVE (NEGATIVE); LEUKOCYTE ESTERASE ,URINE 1+ (NEGATIVE); NITRITE,URINE NEGATIVE (NEGATIVE); PH,URINE 7 (4.5-8.0); PROTEIN,URINE 3+ (NEGATIVE); UROBILINOGEN,URINE NORMAL MG/DL (0.0-1.0)
[2018-11-29 17:53] LABS: APPEARANCE,URINE CLEAR
[2018-11-29 18:04] VITALS: BP 230/79
[2018-11-29 18:48] LABS: BASOPHILS % (AUTO) 1.6 % (0.0-2.0); EOSINOPHILS % (AUTO) 3.5 % (0.0-3.0); HEMATOCRIT 45.4 % (37.0-47.0); HEMOGLOBIN 14.9 G/DL (12.0-16.0); LYMPHOCYTES % (AUTO) 45.7 % (20.0-45.0); MEAN CORPUSCULAR VOLUME 91 FL (80-99); MONOCYTES % (AUTO) 6.8 % (1.0-10.0); NEUTROPHILS % (AUTO) 42.4 % (45.0-75.0); PLATELET COUNT 165 K/UL (150-450); RED BLOOD COUNT 4.98 M/UL (4.20-5.40); RED CELL DISTRIBUTION WIDTH 10.6 % (11.6-14.8); WHITE BLOOD COUNT 8.7 K/UL (4.8-10.8)
[2018-11-29 18:52] LABS: ANION GAP 6 mmol/L (5-15); BLOOD UREA NITROGEN 21 mg/dL (7-18); CALCIUM 9.3 MG/DL (8.5-10.1); CARBON DIOXIDE 26 MMOL/L (21-32); CHLORIDE 107 MMOL/L (98-107); CREATININE 0.9 MG/DL (0.55-1.30); SODIUM 139 MMOL/L (136-145)
[2018-11-29 19:05] LABS: ALANINE AMINOTRANSFERASE 60 U/L (12-78); ALBUMIN 3.3 G/DL (3.4-5.0); ALBUMIN/GLOBULIN RATIO 0.8 (1.0-2.7); ALKALINE PHOSPHATASE 96 U/L (46-116); ASPARTATE AMINO TRANSFERASE 51 U/L (15-37); BILIRUBIN,TOTAL 0.3 MG/DL (0.2-1.0); PHOSPHORUS 4.4 MG/DL (2.5-4.9)
--- NOTE | 2018-11-29 19:10 | NUR ---
HAND-OFF: Report given to YANDEL Lau.
--- NOTE | 2018-11-29 20:25 | NUR ---
ER DISCHARGE NOTE: Patient is cleared to be discharged per ERMD, pt is aox4, on room air, with stable vital signs. pt was given dc and prescription instructions, pt was able to verbalize understanding, pt id band and iv site removed without complications. pt is able to ambulate. pt took all belongings. Patient collected by daughter.
--- NOTE | 2018-11-30 12:44 | Diagnostic Imaging Report ---
Indication: Dyspnea Comparison: 05/04/2017 A single view chest radiograph was obtained. Findings: Cardiomediastinal appearance is within normal limits for age. Aorta is calcified. The lungs are clear. Pulmonary vascularity is appropriate. The diaphragmatic contour is smooth and costophrenic angles are sharp. No pleural effusions are identified. The bones are osteopenic. Impression: No acute findings
--- NOTE | 2018-12-01 17:35 | Cardiology Report ---
APPROVED REPORT EKG Measurement Heart [id number] Sinus bradycardia with sinus arrhythmia Possible Left atrial enlargement Left ventricular hypertrophy Cannot rule out Septal infarct, age undetermined Abnormal ECG
== END | disposition home or self-care (01) ==
LOC: EDUNIT# 16:48 → EDBD 16:54 → EMR 17:30
DX: I10 Essential (primary) hypertension (principal); R51 Headache; J45.909 Unspecified asthma, uncomplicated; Z88.0 Allergy status to penicillin
CPT/HCPCS: 36415; 70450; 71045; 80053; 81003; 83690; 83735; 83880; 84100; 84439; 84443; 84481; 84484; 85025; 93005; 96360; 99284; J7030

== ENCOUNTER 2018-12-23 13:20 | Inpatient (IN) | payer MEDICARE, MEDICAID ==
[~2018-12-23] VITALS: Ht 167.6 cm; Wt 53.5 kg
[~2018-12-23 13:20] MED LIST changes: -HydrALAZINE 25mg tab ORAL ONE
[2018-12-23 13:45] VITALS: BP 251/71
[2018-12-23] MEDS ORDERED: Morphine Sulfate 2mg/ml Inj(IV/IM USE ONLY) IVP ONE (13:45)
[2018-12-23] MEDS ORDERED: Pantoprazole Inj IV ONE (13:45)
--- NOTE | 2018-12-23 13:50 | NUR ---
ED Nurse Note: Patient wheeled into ED c/o left quadrant pain that states that this has been an on going issue however today felt an exacerbation. patient does have a history of peptic ulcer disease, patient denies any episode of vomiting, just states that shes been having increasing feeling of nausea. 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 will continue to monitor
[2018-12-23 13:53] LABS: BASOPHILS % (AUTO) 1.4 % (0.0-2.0); EOSINOPHILS % (AUTO) 4.9 % (0.0-3.0); HEMATOCRIT 47.9 % (37.0-47.0); HEMOGLOBIN 15.9 G/DL (12.0-16.0); LYMPHOCYTES % (AUTO) 43.3 % (20.0-45.0); MEAN CORPUSCULAR VOLUME 90 FL (80-99); MONOCYTES % (AUTO) 6.3 % (1.0-10.0); NEUTROPHILS % (AUTO) 44.2 % (45.0-75.0); PLATELET COUNT 153 K/UL (150-450); RED BLOOD COUNT 5.31 M/UL (4.20-5.40); RED CELL DISTRIBUTION WIDTH 11.5 % (11.6-14.8); WHITE BLOOD COUNT 5.7 K/UL (4.8-10.8)
--- NOTE | 2018-12-23 14:00 | Emergency Room Report ---
History of Present Illness General Chief Complaint: Abdominal Pain Source: Patient (Harshal Brown MD) Present Illness HPI Patient is a 73-year-old female presents after increased left upper abdominal pain. Patient reports having sharp pain to the left upper abdomen. This did not radiate. She had prior history of peptic ulcer disease. She has had prior visit to the hospital for similar symptoms in the past. She had previous gastritis. She denies taking any acid blockers. She reports having some small amount of emesis. Denies any bloody stools. Pain did not radiate. She reports having some prior cardiac history.Did not take her hypertensive medication this morning. (Harshal Brown MD) Allergies: Coded Allergies: PENICILLINS (Verified Allergy, Unknown, 11/29/18) Uncoded Allergies: PENICILLIN (Allergy, Unknown, 09/01/18) Patient History Past Medical History: see triage record Now: No Reviewed Nursing Documentation: PMH: Agreed; PSxH: Agreed (Harshal Brown MD) Nursing Documentation-PMH Past Medical History: No History, Except For Hx Cardiac Problems: Yes Hx Hypertension: Yes Hx Asthma: Yes Hx Diabetes: No Hx Cancer: No Hx Gastrointestinal Problems: Yes Hx Dialysis: No Hx Neurological Problems: Yes Hx Cerebrovascular Accident: No Hx Seizures: No Hx Spinal Cord Injury: Yes (Harshal Brown MD) Review of Systems All Other Systems: negative except mentioned in HPI (Harshal Brown MD) Physical Exam Vital Signs Date Time Temp Pulse Resp B/P (MAP) Pulse Ox O2 Delivery O2 Flow Rate FiO2 12/23/18 13:37 98.1 85 20 251/71 (130) 100 Room Air Sp02 EP Interpretation: reviewed, normal General Appearance: normal inspection, GCS 15 Head: atraumatic ENT: normal ENT inspection, hearing grossly normal, normal voice Neck: normal inspection, full range of motion, supple, no bony tend Respiratory: normal inspection, lungs clear, normal breath sounds, no respiratory distress, no retraction, no wheezing Cardiovascular #1: regular rate, rhythm, no edema Gastrointestinal: non tender, soft, no guarding, no hernia, tenderness - left upper quadrant Genitourinary: no CVA tenderness Musculoskeletal: normal inspection, back normal, normal range of motion Neurologic: normal inspection, alert, oriented x3, responsive, 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 Differential diagnoses included ischemic bowel, appendicitis, perforated viscus, abdominal aortic aneurysm, inferior myocardial infarction, viral gastroenteritis among others.Because patient's complexity laboratory testing ordered. Electrolytes normal. Lipase was normal. White blood count was normal. . Patient's abdominal exam does appear to be somewhat concerning however she has had multiple episodes of imaging in the past. Patient had recent CT abdomen pelvis which showed diverticulitis and possible ileus. Patient was given IV Protonix. She did report having some left upper quadrant pain and had prior history of peptic ulcer disease. Patient hypertension and was given IV antihypertensives. Dr. Jeison Dee was contacted for inpatient management due to panel physician. Laboratory Tests Test 12/25/18 12:05 White Blood Count 6.1 K/UL (4.8-10.8) Red Blood Count 4.32 M/UL (4.20-5.40) Hemoglobin 12.9 G/DL (12.0-16.0) Hematocrit 39.3 % (37.0-47.0) Mean Corpuscular Volume 91 FL (80-99) Mean Corpuscular Hemoglobin 29.9 PG (27.0-31.0) Mean Corpuscular Hemoglobin Concent 32.8 G/DL (32.0-36.0) Red Cell Distribution Width 12.0 % (11.6-14.8) Platelet Count 180 K/UL (150-450) Mean Platelet Volume 7.4 FL (6.5-10.1) Neutrophils (%) (Auto) 42.6 % (45.0-75.0) L Lymphocytes (%) (Auto) 40.9 % (20.0-45.0) Monocytes (%) (Auto) 10.4 % (1.0-10.0) H Eosinophils (%) (Auto) 5.5 % (0.0-3.0) H Basophils (%) (Auto) 0.6 % (0.0-2.0) Sodium Level 141 MMOL/L (136-145) Potassium Level 4.2 MMOL/L (3.5-5.1) Chloride Level 111 MMOL/L (98-107) H Carbon Dioxide Level 23 MMOL/L (21-32) Anion Gap 8 mmol/L (5-15) Blood Urea Nitrogen 11 mg/dL (7-18) Creatinine 0.9 MG/DL (0.55-1.30) Estimate Glomerular Filtration Rate mL/min (>60) Glucose Level 123 MG/DL (74-106) H Calcium Level 8.5 MG/DL (8.5-10.1) Total Bilirubin 0.3 MG/DL (0.2-1.0) Aspartate Amino Transferase (AST) 51 U/L (15-37) H Alanine Aminotransferase (ALT) 60 U/L (12-78) Alkaline Phosphatase 71 U/L (46-116) Total Protein 5.9 G/DL (6.4-8.2) L Albumin 2.5 G/DL (3.4-5.0) L Globulin 3.4 g/dL Albumin/Globulin Ratio 0.7 (1.0-2.7) L (Harshal Brown MD) ER Course Please see above note. BP high after Labetalol and HR 60. Hydralazine ordered. Patient requested breathing treatment. Duoneb ordered. BP still high. Repeat hydralazine. Robitussin codeine ordered. Patient admitted to telemetry Dr. Dee. Laboratory Tests Test 12/23/18 13:42 12/24/18 06:40 White Blood Count 5.7 K/UL (4.8-10.8) 8.1 K/UL (4.8-10.8) Red Blood Count 5.31 M/UL (4.20-5.40) 4.43 M/UL (4.20-5.40) Hemoglobin 15.9 G/DL (12.0-16.0) 13.4 G/DL (12.0-16.0) Hematocrit 47.9 % (37.0-47.0) H 39.5 % (37.0-47.0) Mean Corpuscular Volume 90 FL (80-99) 89 FL (80-99) Mean Corpuscular Hemoglobin 29.9 PG (27.0-31.0) 30.3 PG (27.0-31.0) Mean Corpuscular Hemoglobin Concent 33.1 G/DL (32.0-36.0) 34.0 G/DL (32.0-36.0) Red Cell Distribution Width 11.5 % (11.6-14.8) L 11.8 % (11.6-14.8) Platelet Count 153 K/UL (150-450) 175 K/UL (150-450) Mean Platelet Volume 7.9 FL (6.5-10.1) 6.9 FL (6.5-10.1) Neutrophils (%) (Auto) 44.2 % (45.0-75.0) L % (45.0-75.0) Lymphocytes (%) (Auto) 43.3 % (20.0-45.0) % (20.0-45.0) Monocytes (%) (Auto) 6.3 % (1.0-10.0) % (1.0-10.0) Eosinophils (%) (Auto) 4.9 % (0.0-3.0) H % (0.0-3.0) Basophils (%) (Auto) 1.4 % (0.0-2.0) % (0.0-2.0) Prothrombin Time 10.7 SEC (9.30-11.50) 11.2 SEC (9.30-11.50) Prothrombin Time INR 1.0 (0.9-1.1) 1.1 (0.9-1.1) PTT 24 SEC (23-33) 35 SEC (23-33) H Urine Color Pale yellow Urine Appearance Clear Urine pH 7 (4.5-8.0) Urine Specific [facility] 1.005 (1.005-1.035) Urine Protein 2+ (NEGATIVE) H Urine Glucose (UA) Negative (NEGATIVE) Urine Ketones Negative (NEGATIVE) Urine Blood Negative (NEGATIVE) Urine Nitrite Negative (NEGATIVE) Urine Bilirubin Negative (NEGATIVE) Urine Urobilinogen Normal MG/DL (0.0-1.0) Urine Leukocyte Esterase Negative (NEGATIVE) Urine RBC 0 /HPF (0 - 2) Urine WBC 0 /HPF (0 - 2) Urine Squamous Epithelial Cells Occasional /LPF Urine Bacteria Occasional /HPF (NONE) Sodium Level 140 MMOL/L (136-145) 143 MMOL/L (136-145) Potassium Level 4.6 MMOL/L (3.5-5.1) 3.1 MMOL/L (3.5-5.1) L Chloride Level 107 MMOL/L (98-107) 115 MMOL/L (98-107) H Carbon Dioxide Level 27 MMOL/L (21-32) 22 MMOL/L (21-32) Anion Gap 6 mmol/L (5-15) 6 mmol/L (5-15) Blood Urea Nitrogen 19 mg/dL (7-18) H 12 mg/dL (7-18) Creatinine 1.0 MG/DL (0.55-1.30) 0.8 MG/DL (0.55-1.30) Estimate Glomerular Filtration Rate mL/min (>60) mL/min (>60) Glucose Level 109 MG/DL (74-106) H 82 MG/DL (74-106) Calcium Level 9.2 MG/DL (8.5-10.1) 7.1 MG/DL (8.5-10.1) #L Total Bilirubin 0.3 MG/DL (0.2-1.0) 0.3 MG/DL (0.2-1.0) Aspartate Amino Transferase (AST) 60 U/L (15-37) H 50 U/L (15-37) H Alanine Aminotransferase (ALT) 72 U/L (12-78) 54 U/L (12-78) Alkaline Phosphatase 92 U/L (46-116) 60 U/L (46-116) Troponin I 0.000 ng/mL (0.000-0.056) Total Protein 7.8 G/DL (6.4-8.2) 5.2 G/DL (6.4-8.2) #L Albumin 3.3 G/DL (3.4-5.0) L 2.2 G/DL (3.4-5.0) L Globulin 4.5 g/dL 3.0 g/dL Albumin/Globulin Ratio 0.7 (1.0-2.7) L 0.7 (1.0-2.7) L Lipase 257 U/L (73-393) Differential Total Cells Counted 100 Neutrophils % (Manual) 28 % (45-75) L Lymphocytes % (Manual) 59 % (20-45) H Monocytes % (Manual) 9 % (1-10) Eosinophils % (Manual) 4 % (0-3) H Basophils % (Manual) 0 % (0-2) Band Neutrophils 0 % (0-8) Platelet Estimate Adequate Platelet Morphology Normal Erythrocyte Sedimentation Rate 2 MM/HR (0-30) Hemoglobin A1c 5.6 % (4.3-6.0) C-Reactive Protein, Quantitative < 0.4 mg/dL (0.00-0.90) Pro-B-Type Natriuretic Peptide 1385 pg/mL (0-125) H Triglycerides Level 70 MG/DL (30-150) Cholesterol Level 146 MG/DL (< 200) LDL Cholesterol 57 mg/dL (<100) HDL Cholesterol 82 MG/DL (40-60) H Cholesterol/HDL Ratio 1.8 (3.3-4.4) L (Tc Dodge MD) EKG Diagnostic Results Rate: normal Rhythm: NSR ST Segments: no acute changes (Harshal Brown MD) Rhythm Strip Diag. Results EP Interpretation: yes Rhythm: no PVC's, no ectopy, other - trish (Tc Dodge MD) Last Vital Signs Date Time Temp Pulse Resp B/P (MAP) Pulse Ox O2 Delivery O2 Flow Rate FiO2 12/23/18 13:37 98.1 85 20 251/71 (130) 100 Room Air Status: improved (Harshal Brown MD) Status: improved (Tc Dodge MD) Disposition: ADMITTED INPATIENT Condition: Serious Referrals: NON PHYSICIAN (PCP) Harshal Brown MD Dec 23, 2018 14:00 Tc Dodge MD Dec 23, 2018 16:24
[2018-12-23 14:08] LABS: ANION GAP 6 mmol/L (5-15); BLOOD UREA NITROGEN 19 mg/dL (7-18); CALCIUM 9.2 MG/DL (8.5-10.1); CARBON DIOXIDE 27 MMOL/L (21-32); CHLORIDE 107 MMOL/L (98-107); POTASSIUM 4.6 MMOL/L (3.5-5.1); SODIUM 140 MMOL/L (136-145)
[2018-12-23] MEDS ORDERED: OMEPRAZOLE20 M2 ORAL (14:10)
[2018-12-23 14:12] LABS: ALANINE AMINOTRANSFERASE 72 U/L (12-78); ALBUMIN 3.3 G/DL (3.4-5.0); ALBUMIN/GLOBULIN RATIO 0.7 (1.0-2.7); ALKALINE PHOSPHATASE 92 U/L (46-116); ASPARTATE AMINO TRANSFERASE 60 U/L (15-37); BILIRUBIN,TOTAL 0.3 MG/DL (0.2-1.0)
[2018-12-23 14:21] LABS: APPEARANCE,URINE CLEAR; BILIRUBIN, URINE NEGATIVE (NEGATIVE); COLOR,URINE PALE YELLOW; GLUCOSE, URINE (UA) NEGATIVE (NEGATIVE); KETONES,URINE NEGATIVE (NEGATIVE); LEUKOCYTE ESTERASE ,URINE NEGATIVE (NEGATIVE); NITRITE,URINE NEGATIVE (NEGATIVE); PH,URINE 7 (4.5-8.0); PROTEIN,URINE 2+ (NEGATIVE); UROBILINOGEN,URINE NORMAL MG/DL (0.0-1.0)
[2018-12-23] MEDS ORDERED: Labetalol 5mg/ml 20ml vial IV ONE (14:30)
[2018-12-23] MEDS ORDERED: LORazepam 1mg tab ORAL PRN (15:15)
[2018-12-23] MEDS ORDERED: Milk of Magnesia 30ml Ud ORAL PRN (15:15)
[2018-12-23] MEDS ORDERED: Mylanta II UD 30ml ORAL PRN (15:15)
[2018-12-23 15:30] VITALS: BP 190/72
[2018-12-23] MEDS ORDERED: Nitroglycerin Subl 0.4mg tab SL PRN (15:30)
[2018-12-23] MEDS ORDERED: Albuterol/Ipratropium 3ml neb HHN ONE (15:30)
--- NOTE | 2018-12-23 15:30 | NUR ---
ED Nurse Note: PAtients blood pressure is still elevated in the 190s. Dr. Dodge aware and notified
[2018-12-23] MEDS ORDERED: guaiFENesin w/Codeine 5ml Liq ud ORAL STA (16:22)
--- NOTE | 2018-12-23 16:30 | NUR ---
TRANSFER TO FLOOR: Patient transferred to [facility] as ordered, per Report given to YANDEL Fishman
[2018-12-23 16:50] VITALS: BP 142/60
--- NOTE | 2018-12-23 17:30 | NUR ---
NURSE NOTES: Received patient From Thiago Sue. @ [phone]. Patient is being admitted from ER. Transported via [place], transferred to bed without difficulty. VSS. Patient oriented to room and safety precautions. call mendez within patients reached aware of its use. bed locked to lowest position. side rails X2 up for safety. Dr. Dobson seen and examined patient. order received from MD. Medications brought to pharmacy for safe keeping. will attend to patient needs and monitor patient.
[2018-12-23] MEDS ORDERED: AMOXICILLI250 MG/5 M ORAL (18:23)
--- NOTE | 2018-12-23 19:02 | NUR ---
CASE MANAGEMENT: INITIAL REVIEW 73 YO F PRESENTED TO OUR ED FROM HOME CC: ABD PAIN PMHx: HTN. COPD. PNA. UTI. SI:ABD PAIN. PUD. T 98.1 HR 85 RR 20 B/P 251/71 SATS 100% ON RA LABS: BUN 19 GLU 109 AST 60 IS: PROTONIX IV X1 ZOFRAN IV X1 MORPHINE IV X1 LABETALOL IV X1 PATIENT ADMITTED TO TELE 12/23/2018 @ 1445 DCP: PATIENT TO BE DISCHARGED TO HOME ONCE MEDICALLY CLEARED. Addendum: 12/23/18 at 2107 by Stephanie Painter CM [employer]
[2018-12-23] MEDS: Morphine Sulfate 2mg/ml Inj(IV/IM USE ONLY) IVP PRN (19:05)
--- NOTE | 2018-12-23 19:20 | Consultation ---
History of Present Illness General Date patient seen: Dec 23, 2018 Reason for Hospitalization: Abdominal Pain Present Illness HPI 73F presented from home with complaints of upper abdominal pain and overall weakness and fatigue. States she lives at home with her daughter and son. Has history of PUD on treatment. Hx of hysterectomy. States pain started earlier left upper abd. no n/v/f/c. came to ED for evaluation. labs noted. surgery called to evaluate given abdominal pain, hx of PUD, and tender on exam. patient seen, chart reviewed, patient examined. normal BM as of this AM. hungry. overall weak and fatigued. pain cramping without radiation. states its same as prior pain Allergies: Coded Allergies: PENICILLINS (Verified Allergy, Unknown, 11/29/18) Uncoded Allergies: PENICILLIN (Allergy, Unknown, 09/01/18) Medication History Scheduled Amlodipine Besylate (Norvasc), 10 MG ORAL DAILY, (Reported) Amoxicillin* (Amoxicillin*), 500 MG ORAL DAILY, (Reported) Aspirin* (Aspirin*), 162 MG ORAL DAILY, (Reported) Benazepril Hcl* (Benazepril Hcl*), 40 MG ORAL TWICE A DAY, (Reported) Gabapentin* (Gabapentin*), 600 MG ORAL BID, (Reported) Hydralazine HCl (Hydralazine HCl), 25 MG PO BID, (Reported) Hydrochlorothiazide* (Hydrochlorothiazide*), 25 MG ORAL DAILY, (Reported) Metoprolol Tartrate (Metoprolol Tartrate), 25 MG ORAL EVERY 12 HOURS, (Reported) Omeprazole (Omeprazole), 20 MG ORAL DAILY, (Reported) Tizanidine Hcl* (Zanaflex*), 4 MG ORAL THREE TIMES A DAY, (Reported) Scheduled PRN Albuterol Sulfate* (Albuterol Sulfate Hhn*), 3 ML INH Q4H PRN for Shortness of Breath, (Reported) Hydrocodone/Acetaminophen 5-325* (Hydrocodone/Acetaminophen 5-325*), 1 TAB ORAL Q6H PRN for For Pain Zolpidem Tartrate* (Ambien*), 5 MG ORAL BEDTIME PRN for Insomnia, (Reported) Patient History History Provided By: Patient, Medical Record, PMD Healthcare decision maker Resuscitation status Full Code Advanced Directive on File Past Medical/Surgical History Past Medical/Surgical History: (1) Pyelonephritis (2) Altered level of consciousness (3) 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 (4) Suicidal ideation (5) Headache (6) Depression (7) Emphysema lung (8) Severe malnutrition (9) Head ache (10) Anemia (11) Malnutrition (12) UTI (urinary tract infection) (13) COPD (chronic obstructive pulmonary disease) (14) Asthma (15) HTN (hypertension), malignant (16) Hypertensive emergency (17) Fever (18) Lethargy (19) Weak (20) Hypoalbuminemia (21) Sepsis (22) Leukocytosis (23) Shock (24) Constipation (25) COPD with exacerbation (26) Abdominal pain (27) Leukocytosis (28) Fall (29) Cervical spinal stenosis (30) Disc degeneration, lumbosacral (31) EDIE (acute kidney injury) Review of Systems Review of Symptoms General ROS: no weight loss or fever Psychological ROS: no depression or mood changes, no memory loss Ophthalmic ROS: no visual changes or eye irritation ENT ROS: no nasal congestion, hearing loss, dizziness Allergy and Immunology ROS: no allergic symptoms or urticaria Hematological and Lymphatic ROS: no swollen glands, unusual bleeding or bruising Endocrine ROS: no polyuria, polydipsia, weight changes, temperature intolerance Respiratory ROS: no cough, shortness of breath, or wheezing Cardiovascular ROS: no chest pain or dyspnea on exertion Gastrointestinal ROS: abdominal pain, bright red blood in stool. Musculoskeletal ROS: no myalgias or arthralgias Neurological ROS: no TIA or stroke symptoms Dermatological ROS: no new or changing skin lesions, rashes or pruritis Physical Exam Physical Exam General appearance: alert, cooperative, no distress, appears stated age Head: Normocephalic, without obvious abnormality, atraumatic Eyes: conjunctivae/corneas clear. PERRL, EOM's intact. Fundi benign Throat: Lips, mucosa, and tongue normal. Teeth and gums normal Neck: supple, symmetrical, trachea midline, no adenopathy, thyroid: not enlarged, symmetric, no tenderness/mass/nodules, no carotid bruit and no JVD Lungs: clear to auscultation bilaterally Heart: regular rate and rhythm, S1, S2 normal, no murmur, click, rub or gallop Abdomen: soft, non-tender, mild discomfort with exam . prior midline incision well healed . Bowel sounds normal. No masses, no organomegaly Extremities: extremities normal, atraumatic, no cyanosis or edema Pulses: 2+ and symmetric Skin: Skin color, texture, turgor normal. No rashes or lesions Neurologic: Grossly normal Last 24 Hour Vital Signs Date Time Temp Pulse Resp B/P (MAP) Pulse Ox O2 Delivery O2 Flow Rate FiO2 12/23/18 18:14 Room Air 12/23/18 17:00 82 12/23/18 16:50 97.9 85 20 142/60 (87) 98 12/23/18 16:30 98.2 76 20 153/75 97 Room Air 12/23/18 16:27 193/70 12/23/18 16:00 195/68 12/23/18 15:30 98.1 87 19 190/72 100 Room Air 21 12/23/18 15:29 68 19 100 Room Air 21 70 14 100 12/23/18 15:28 70 14 100 Room Air 21 12/23/18 15:05 58 209/75 12/23/18 15:00 98.1 12/23/18 13:45 98.1 86 20 251/71 100 Room Air 12/23/18 13:45 85 20 Room Air 12/23/18 13:37 98.1 85 20 251/71 (130) 100 Room Air Laboratory Tests Test 12/23/18 13:42 White Blood Count 5.7 K/UL (4.8-10.8) Red Blood Count 5.31 M/UL (4.20-5.40) Hemoglobin 15.9 G/DL (12.0-16.0) Hematocrit 47.9 % (37.0-47.0) H Mean Corpuscular Volume 90 FL (80-99) Mean Corpuscular Hemoglobin 29.9 PG (27.0-31.0) Mean Corpuscular Hemoglobin Concent 33.1 G/DL (32.0-36.0) Red Cell Distribution Width 11.5 % (11.6-14.8) L Platelet Count 153 K/UL (150-450) Mean Platelet Volume 7.9 FL (6.5-10.1) Neutrophils (%) (Auto) 44.2 % (45.0-75.0) L Lymphocytes (%) (Auto) 43.3 % (20.0-45.0) Monocytes (%) (Auto) 6.3 % (1.0-10.0) Eosinophils (%) (Auto) 4.9 % (0.0-3.0) H Basophils (%) (Auto) 1.4 % (0.0-2.0) Prothrombin Time 10.7 SEC (9.30-11.50) Prothromb Time International Ratio 1.0 (0.9-1.1) Activated Partial Thromboplast Time 24 SEC (23-33) Urine Color Pale yellow Urine Appearance Clear Urine pH 7 (4.5-8.0) Urine Specific [place] 1.005 (1.005-1.035) Urine Protein 2+ (NEGATIVE) H Urine Glucose (UA) Negative (NEGATIVE) Urine Ketones Negative (NEGATIVE) Urine Blood Negative (NEGATIVE) Urine Nitrite Negative (NEGATIVE) Urine Bilirubin Negative (NEGATIVE) Urine Urobilinogen Normal MG/DL (0.0-1.0) Urine Leukocyte Esterase Negative (NEGATIVE) Urine RBC 0 /HPF (0 - 2) Urine WBC 0 /HPF (0 - 2) Urine Squamous Epithelial Cells Occasional /LPF Urine Bacteria Occasional /HPF (NONE) Sodium Level 140 MMOL/L (136-145) Potassium Level 4.6 MMOL/L (3.5-5.1) Chloride Level 107 MMOL/L (98-107) Carbon Dioxide Level 27 MMOL/L (21-32) Anion Gap 6 mmol/L (5-15) Blood Urea Nitrogen 19 mg/dL (7-18) H Creatinine 1.0 MG/DL (0.55-1.30) Estimat Glomerular Filtration Rate mL/min (>60) Glucose Level 109 MG/DL (74-106) H Calcium Level 9.2 MG/DL (8.5-10.1) Total Bilirubin 0.3 MG/DL (0.2-1.0) Aspartate Amino Transf (AST/SGOT) 60 U/L (15-37) H Alanine Aminotransferase (ALT/SGPT) 72 U/L (12-78) Alkaline Phosphatase 92 U/L (46-116) Troponin I 0.000 ng/mL (0.000-0.056) Total Protein 7.8 G/DL (6.4-8.2) Albumin 3.3 G/DL (3.4-5.0) L Globulin 4.5 g/dL Albumin/Globulin Ratio 0.7 (1.0-2.7) L Lipase 257 U/L (73-393) Height (Feet): 5 Height (Inches): 6.00 Weight (Pounds): 93 Medications Current Medications Medications (Trade) Dose Ordered Sig/Arthur Route PRN Reason Start Time Stop Time Status Last Admin Dose Admin Acetaminophen (Tylenol) 650 mg Q4H PRN ORAL T>100.5 12/23/18 15:15 01/22/19 15:14 Al Hydroxide/Mg Hydroxide (Mylanta II) 30 ml Q6H PRN ORAL dyspepsia 12/23/18 15:15 01/22/19 15:14 Bisacodyl (Dulcolax) 10 mg DAILYPRN PRN RECTAL Constipation 12/23/18 15:15 01/22/19 15:14 Dextrose (Dextrose 50%) 25 ml Q30M PRN IV Hypoglycemia 12/23/18 15:15 01/22/19 15:14 Dextrose (Dextrose 50%) 50 ml Q30M PRN IV Hypoglycemia 12/23/18 15:15 01/22/19 15:14 Diphenhydramine HCl (Benadryl) 25 mg Q6H PRN ORAL Itching/Pruritis 12/23/18 15:15 01/22/19 15:14 Docusate Sodium (Colace) 100 mg EVERY 12 HOURS ORAL 12/23/18 21:00 01/22/19 20:59 Heparin Sodium (Porcine) (Heparin 5000 units/ml) 5,000 units EVERY 12 HOURS SUBQ 12/23/18 21:00 01/22/19 20:59 Hydralazine HCl (Apresoline) 10 mg Q4H PRN IV SBP > 160 mmHg 12/23/18 15:30 01/22/19 15:29 Lorazepam (Ativan) 1 mg Q4H PRN ORAL For Anxiety 12/23/18 15:15 12/30/18 15:14 Magnesium Hydroxide (Mom) 30 ml HSPRN PRN ORAL Constipation 12/23/18 15:15 01/22/19 15:14 Morphine Sulfate (Morphine Sulfate) 1 mg Q3H PRN IVP Moderate Pain (Pain Scale 4-6) 12/23/18 15:15 12/30/18 15:14 12/23/18 19:05 Morphine Sulfate (Morphine Sulfate) 2 mg Q3H PRN IVP Severe Pain (Pain Scale 7-10) 12/23/18 15:15 12/30/18 15:14 Nitroglycerin (Ntg) 0.4 mg Q5MIN X 3 DOSES PRN SL Prn Chest Pain 12/23/18 15:30 01/22/19 15:29 Ondansetron HCl (Zofran) 4 mg Q6H PRN IVP Nausea & Vomiting 12/23/18 15:15 01/22/19 15:14 Pantoprazole (Protonix) 40 mg EVERY 12 HOURS IV 12/23/18 21:00 01/22/19 20:59 Sodium Chloride 1,000 ml @ 75 mls/hr [id number] IVLG 12/23/18 17:00 01/22/19 16:59 12/23/18 17:00 Temazepam (Restoril) 15 mg HSPRN PRN ORAL Insomnia 12/23/18 21:00 12/30/18 20:59 Assessment/Plan Problem List: (1) Abdominal pain Assessment & Plan: 73F with acute onset of abdominal pain. no n/v/f/c. labs nml. trop nml exam with mild Left sided discomfort. no peritonitis, no rebound, no guarding. seems to have a lot of social issues as well and c/o pain all over no acute surgical intervention planned okay for diet Rx written AM labs ordered US ordered KUB ordered GI consult for EGD to eval PUD PPI will follow with exam and recs thank you ICD Codes: R10.9 - Unspecified abdominal pain SNOMED: [id number] Geremias Dobson Dec 23, 2018 19:20
--- NOTE | 2018-12-23 19:29 | NUR ---
HAND-OFF: Report given to Rita Masters Rn. Plan of care endorsed.
--- NOTE | 2018-12-23 19:35 | NUR ---
NURSE NOTES: Received report from Sravanthi Parekh RN. Pt in bed, awake, alert, and oriented x 4. NSR. BP 159/99, P 86, RR 19, T 98.2, o2 @ 99% on room air. No signs or symptoms of distress noted at this time. Pt denies pain, states previous dose of pain meds effective. Bed in lowest position, bed alarm armed, side rails up x 2. Right forearm 20g running NS @ 75ml/hr; patent, intact, and asymptomatic. Pt appears to be resting comfortably, will continue to monitor closely.
[2018-12-23 20:00] VITALS: BP 156/71
[2018-12-23] MEDS: Docusate 100mg cap ORAL SCH (22:14)
[2018-12-23] MEDS: Pantoprazole Inj IV SCH (22:14)
[2018-12-23] MEDS: Heparin 5000 units/ml inj SUBQ SCH (22:16)
[2018-12-24] VITALS: BP 159/72
--- NOTE | 2018-12-24 00:30 | NUR ---
NURSE NOTES: Pt is asleep, temazepam appears to have been effective. No signs or symptoms of pain or distress at this time. T 98.4, P 79, RR 21, BP 159/72, o2 @ 96% on room air. Will continue to monitor closely.
[2018-12-24] MEDS: Morphine Sulfate 2mg/ml Inj(IV/IM USE ONLY) IVP PRN ×4 (06:12→21:58)
--- NOTE | 2018-12-24 07:29 | NUR ---
NURSE NOTES: Received report from YANDEL Love. Patient is resting in bed. No s/sx of SOB, breathing is even and unlabored, room air. Denies any presence of pain or discomfort at this time. Patient is noted NPO for abdominal US and abdominal x-ray, patient verbalized understanding. Bed is in lowest position, brakes engaged. Call light is kept within easy reach. Will continue to monitor patient.
[2018-12-24] MEDS ORDERED: Ipratropium 0.02% Inh Soln 2.5ml UD HHN PRN (07:30)
[2018-12-24 07:35] LABS: HEMATOCRIT 39.5 % (37.0-47.0); HEMOGLOBIN 13.4 G/DL (12.0-16.0); MEAN CORPUSCULAR VOLUME 89 FL (80-99); PLATELET COUNT 175 K/UL (150-450); RED BLOOD COUNT 4.43 M/UL (4.20-5.40); RED CELL DISTRIBUTION WIDTH 11.8 % (11.6-14.8); WHITE BLOOD COUNT 8.1 K/UL (4.8-10.8)
--- NOTE | 2018-12-24 07:40 | NUR ---
HAND-OFF: Report given to Brandyn Quinteros RN. Pt is stable, in bed. NSR.
[2018-12-24 08:00] VITALS: BP 157/80
[2018-12-24 08:08] LABS: ALANINE AMINOTRANSFERASE 54 U/L (12-78); ALBUMIN 2.2 G/DL (3.4-5.0); ALBUMIN/GLOBULIN RATIO 0.7 (1.0-2.7); ALKALINE PHOSPHATASE 60 U/L (46-116); ANION GAP 6 mmol/L (5-15); ASPARTATE AMINO TRANSFERASE 50 U/L (15-37); BILIRUBIN,TOTAL 0.3 MG/DL (0.2-1.0); BLOOD UREA NITROGEN 12 mg/dL (7-18); CALCIUM 7.1 MG/DL (8.5-10.1); CARBON DIOXIDE 22 MMOL/L (21-32); CHLORIDE 115 MMOL/L (98-107); CHOLESTEROL 146 MG/DL (< 200); CREATININE 0.8 MG/DL (0.55-1.30); HDL CHOLESTEROL 82 MG/DL (40-60); POTASSIUM 3.1 MMOL/L (3.5-5.1); SODIUM 143 MMOL/L (136-145); TRIGLYCERIDES 70 MG/DL (30-150)
[2018-12-24 08:31] LABS: INR 1.1 (0.9-1.1)
[2018-12-24] MEDS: Heparin 5000 units/ml inj SUBQ SCH ×2 (09:00→20:28)
--- NOTE | 2018-12-24 09:07 | NUR ---
RADIOLOGY: PCXR & KUB COMPLETED 0830HRS. NF
[2018-12-24] MEDS: Albuterol/Ipratropium 3ml neb HHN PRN ×2 (09:41→17:17)
[2018-12-24] MEDS: Docusate 100mg cap ORAL SCH ×2 (10:04→20:26)
[2018-12-24] MEDS: Pantoprazole Inj IV SCH ×2 (10:04→20:27)
--- NOTE | 2018-12-24 10:05 | NUR ---
PT NOTE Received MD order for PT evaluation, medical record reviewed. Patient declining to participate with PT evaluation due to pain, requesting that therapist return tomorrow. Patient's request respected, will follow up tomorrow. Brandyn HUMPHRIES present in room, aware of patient's request.
--- NOTE | 2018-12-24 10:37 | Surgery Progress Note ---
Surgery Progress Note Subjective Additional Comments no acute events comfortable pain improved no n/v//fc labs okay esr/crp noted getting breathing treatment US done pending results Objective Last 24 Hour Vital Signs Date Time Temp Pulse Resp B/P (MAP) Pulse Ox O2 Delivery O2 Flow Rate FiO2 12/24/18 09:45 75 18 100 Room Air 21 78 16 98 12/24/18 08:00 98.5 75 21 157/80 (105) 96 12/24/18 05:19 171/78 12/24/18 03:43 71 12/24/18 00:00 98.4 79 21 159/72 (101) 96 12/23/18 21:00 Room Air 12/23/18 20:00 74 12/23/18 20:00 98.3 86 20 156/71 (99) 99 12/23/18 18:14 Room Air 12/23/18 17:00 82 12/23/18 16:50 97.9 85 20 142/60 (87) 98 12/23/18 16:30 98.2 76 20 153/75 97 Room Air 12/23/18 16:27 193/70 12/23/18 16:00 195/68 12/23/18 15:30 98.1 87 19 190/72 100 Room Air 21 12/23/18 15:29 68 19 100 Room Air 21 70 14 100 12/23/18 15:28 70 14 100 Room Air 21 12/23/18 15:05 58 209/75 12/23/18 15:00 98.1 12/23/18 13:45 98.1 86 20 251/71 100 Room Air 12/23/18 13:45 85 20 Room Air 12/23/18 13:37 98.1 85 20 251/71 (130) 100 Room Air I&O Intake and Output 12/23/18 12/24/18 19:00 07:00 Intake Total 195 ml 915 ml Output Total 200 ml Balance -5 ml 915 ml Intake Oral 120 ml 240 ml IV Total 75 ml 675 ml Output Urine Total 200 ml # Voids 3 4 # Bowel Movements 1 Cardiovascular: RSR Respiratory: clear Abdomen: soft, non-tender, present bowel sounds, non-distended Extremities: no edema, no tenderness, no cyanosis Laboratory Tests Test 12/23/18 13:42 12/24/18 06:40 White Blood Count 5.7 K/UL (4.8-10.8) 8.1 K/UL (4.8-10.8) Red Blood Count 5.31 M/UL (4.20-5.40) 4.43 M/UL (4.20-5.40) Hemoglobin 15.9 G/DL (12.0-16.0) 13.4 G/DL (12.0-16.0) Hematocrit 47.9 % (37.0-47.0) H 39.5 % (37.0-47.0) Mean Corpuscular Volume 90 FL (80-99) 89 FL (80-99) Mean Corpuscular Hemoglobin 29.9 PG (27.0-31.0) 30.3 PG (27.0-31.0) Mean Corpuscular Hemoglobin Concent 33.1 G/DL (32.0-36.0) 34.0 G/DL (32.0-36.0) Red Cell Distribution Width 11.5 % (11.6-14.8) L 11.8 % (11.6-14.8) Platelet Count 153 K/UL (150-450) 175 K/UL (150-450) Mean Platelet Volume 7.9 FL (6.5-10.1) 6.9 FL (6.5-10.1) Neutrophils (%) (Auto) 44.2 % (45.0-75.0) L % (45.0-75.0) Lymphocytes (%) (Auto) 43.3 % (20.0-45.0) % (20.0-45.0) Monocytes (%) (Auto) 6.3 % (1.0-10.0) % (1.0-10.0) Eosinophils (%) (Auto) 4.9 % (0.0-3.0) H % (0.0-3.0) Basophils (%) (Auto) 1.4 % (0.0-2.0) % (0.0-2.0) Prothrombin Time 10.7 SEC (9.30-11.50) 11.2 SEC (9.30-11.50) Prothromb Time International Ratio 1.0 (0.9-1.1) 1.1 (0.9-1.1) Activated Partial Thromboplast Time 24 SEC (23-33) 35 SEC (23-33) H Urine Color Pale yellow Urine Appearance Clear Urine pH 7 (4.5-8.0) Urine Specific [place] 1.005 (1.005-1.035) Urine Protein 2+ (NEGATIVE) H Urine Glucose (UA) Negative (NEGATIVE) Urine Ketones Negative (NEGATIVE) Urine Blood Negative (NEGATIVE) Urine Nitrite Negative (NEGATIVE) Urine Bilirubin Negative (NEGATIVE) Urine Urobilinogen Normal MG/DL (0.0-1.0) Urine Leukocyte Esterase Negative (NEGATIVE) Urine RBC 0 /HPF (0 - 2) Urine WBC 0 /HPF (0 - 2) Urine Squamous Epithelial Cells Occasional /LPF Urine Bacteria Occasional /HPF (NONE) Sodium Level 140 MMOL/L (136-145) 143 MMOL/L (136-145) Potassium Level 4.6 MMOL/L (3.5-5.1) 3.1 MMOL/L (3.5-5.1) L Chloride Level 107 MMOL/L (98-107) 115 MMOL/L (98-107) H Carbon Dioxide Level 27 MMOL/L (21-32) 22 MMOL/L (21-32) Anion Gap 6 mmol/L (5-15) 6 mmol/L (5-15) Blood Urea Nitrogen 19 mg/dL (7-18) H 12 mg/dL (7-18) Creatinine 1.0 MG/DL (0.55-1.30) 0.8 MG/DL (0.55-1.30) Estimat Glomerular Filtration Rate mL/min (>60) mL/min (>60) Glucose Level 109 MG/DL (74-106) H 82 MG/DL (74-106) Calcium Level 9.2 MG/DL (8.5-10.1) 7.1 MG/DL (8.5-10.1) #L Total Bilirubin 0.3 MG/DL (0.2-1.0) 0.3 MG/DL (0.2-1.0) Aspartate Amino Transf (AST/SGOT) 60 U/L (15-37) H 50 U/L (15-37) H Alanine Aminotransferase (ALT/SGPT) 72 U/L (12-78) 54 U/L (12-78) Alkaline Phosphatase 92 U/L (46-116) 60 U/L (46-116) Troponin I 0.000 ng/mL (0.000-0.056) Total Protein 7.8 G/DL (6.4-8.2) 5.2 G/DL (6.4-8.2) #L Albumin 3.3 G/DL (3.4-5.0) L 2.2 G/DL (3.4-5.0) L Globulin 4.5 g/dL 3.0 g/dL Albumin/Globulin Ratio 0.7 (1.0-2.7) L 0.7 (1.0-2.7) L Lipase 257 U/L (73-393) Differential Total Cells Counted 100 Neutrophils % (Manual) 28 % (45-75) L Lymphocytes % (Manual) 59 % (20-45) H Monocytes % (Manual) 9 % (1-10) Eosinophils % (Manual) 4 % (0-3) H Basophils % (Manual) 0 % (0-2) Band Neutrophils 0 % (0-8) Platelet Estimate Adequate Platelet Morphology Normal Erythrocyte Sedimentation Rate 2 MM/HR (0-30) Hemoglobin A1c 5.6 % (4.3-6.0) C-Reactive Protein, Quantitative < 0.4 mg/dL (0.00-0.90) Pro-B-Type Natriuretic Peptide 1385 pg/mL (0-125) H Triglycerides Level 70 MG/DL (30-150) Cholesterol Level 146 MG/DL (< 200) LDL Cholesterol 57 mg/dL (<100) HDL Cholesterol 82 MG/DL (40-60) H Cholesterol/HDL Ratio 1.8 (3.3-4.4) L Plan Problems: (1) Abdominal pain Assessment & Plan: 73F with acute onset of abdominal pain. no n/v/f/c. labs nml. trop nml exam with mild Left sided discomfort. no peritonitis, no rebound, no guarding. seems to have a lot of social issues as well and c/o pain all over no acute surgical intervention planned okay for diet Rx written AM labs US pending KUB ordered GI consult for EGD to eval PUD PPI breathing treatments will follow with exam and recs thank you Geremias Dobson Dec 24, 2018 10:37
--- NOTE | 2018-12-24 12:16 | Diagnostic Imaging Report ---
Indication: Abdominal pain Technique: Grayscale and duplex Doppler imaging of the abdomen performed. Comparison: None Findings: The liver is unremarkable. Doppler interrogation of the main portal vein shows patency with hepatopedal, monophasic flow. There is no biliary ductal dilatation identified. Gallbladder is unremarkable. There is a 1.2 cm cyst demonstrated within the right kidney. There demonstrated part of the pancreas, aorta and IVC show no definite abnormalities. Both kidneys appear unremarkable. There is no hydronephrosis. IMPRESSION: No acute findings Right renal cyst
--- NOTE | 2018-12-24 12:39 | NUR ---
NURSE NOTES: Contacted Dr. Dobson and informed MD that patient's potassium level today is 3.1. Dr. Dobson acknowledged and ordered potassium chloride 10 mEq IV x 4. Orders entered, noted, and carried out. Will continue to monitor patient.
--- NOTE | 2018-12-24 13:19 | Diagnostic Imaging Report ---
Indication: Abdominal pain Comparison: None Single view of the abdomen obtained Findings: Bowel gas pattern is nonspecific. No mass, ectopic calcifications, or abnormal gas collections are identified. The bones are unremarkable. Degenerative changes of the lumbar spine demonstrated multiple levels. Cholecystectomy clips present. Surgical sutures projected over the pelvis. Impression: No acute findings
--- NOTE | 2018-12-24 13:19 | Diagnostic Imaging Report ---
Indication: Dyspnea Comparison: 11/29/2018 A single view chest radiograph was obtained. Findings: Cardiomediastinal appearance is within normal limits for age. The lungs are clear. Pulmonary vascularity is appropriate. The diaphragmatic contour is smooth and costophrenic angles are sharp. No pleural effusions are identified. The bones are unremarkable. Impression: No acute findings
--- NOTE | 2018-12-24 14:43 | NUR ---
RD ASSESSMENT & RECOMMENDATIONS SEE CARE ACTIVITY FOR COMPLETE ASSESSMENT DAILY ESTIMATED NEEDS: Needs based on Underweight, pulmonary, cardiac/ 49kg 30-35 kcals/kg 1035-1226 total kcals 1-1.5 g protein/kg 49-73 g total protein 25-30 mL/kg 7321-4795 total fluid mLs NUTRITION DIAGNOSIS: Increased kcal/prot needs R/T underweight status as evidenced by pt @ 80% IBW, low BMI per guidelines, pt noted w/ mild-moderate generalized wasting. 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
[2018-12-24] MEDS ORDERED: NORCO 5-325 TA1 EACH ORAL (15:28)
[2018-12-24] MEDS ORDERED: ZANTAC150 MG ORAL (15:30)
[2018-12-24] MEDS ORDERED: ASPIR 8181 MG ORAL (15:30)
[2018-12-24] MEDS ORDERED: VENTOLIN HFA18 GM INH (15:31)
[2018-12-24] MEDS ORDERED: IBUPROFEN600 MG ORAL (15:39)
[2018-12-24 16:00] VITALS: BP 144/79
--- NOTE | 2018-12-24 18:00 | History and Physical Report ---
DATE OF ADMISSION: 12/23/2018 TIME SEEN: 9 a.m. CONSULTANTS: 1. Timi Gavin M.D. 2. Bradley Thomas M.D. 3. Geremias Dobson M.D. 4. Ade Pelayo M.D. CHIEF COMPLAINT: Left abdominal pain, PUD, hypertensive urgency. BRIEF HISTORY: The patient is a 73-year-old female, who lives at home, who comes to my office regularly, complaining of left abdominal pain yesterday increasing, slightly weakness, came to [facility], diagnosed with the above, and hypertensive urgency, possible ileus ,and admitted to telemetry for further care. Currently, calm in bed, slight abdominal pain, 08/29 no complaint. REVIEW OF SYSTEMS: No chest pain. No shortness of breath. No nausea, vomiting, or diarrhea. Positive abdominal pain. PAST MEDICAL HISTORY: Hypertension, chronic pain. PAST SURGICAL HISTORY: Hysterectomy. MEDICATIONS: Albuterol ipratropium, heparin, pantoprazole, temazepam, hydralazine, guaifenesin, morphine, bisacodyl, Zofran, lorazepam, labetalol. ALLERGIES: Denies. SOCIAL HISTORY: No smoking. No alcohol. No intravenous drug abuse. FAMILY HISTORY: Noncontributory. OBJECTIVE: GENERAL: Slightly anxious in bed, oriented x3, in no acute distress. VITAL SIGNS: Temperature is 98 degrees, pulse 89, respiratory rate 21, blood pressure 159/72. CARDIOVASCULAR: No murmur. LUNGS: Poor air exchange. ABDOMEN: Bowel sounds distant. Slightly tender. No guarding. No rigidity. No rebound. Soft. EXTREMITIES: No cyanosis or edema. NEUROLOGIC: The patient moves all extremities, slightly weak. LABORATORY AND DIAGNOSTIC DATA: Labs at this time show CBC is normal. BMP show potassium 3.1, chloride 115, calcium 7.1, BNP is 1385. Albumin 2.2. INR is 1.1. PTT is 35. Urinalysis is 2+ protein. ASSESSMENT: 1. Left abdominal pain. 2. PUD. 3. Hypertensive urgency. 4. COPD. 5. Possible ileus. 6. 7. Asthma . 8. Malnutrition. PLAN: 1. NPO. 2. Intravenous fluids. 3. Pain control. 4. Blood pressure control. 5. Resume home medications. 6. PT and dietary evaluation. 7. CBC and BMP in the morning. Jeison Dee D.O. DR: Joslyn JOB#: [id number] CC:
--- NOTE | 2018-12-24 19:30 | NUR ---
HAND-OFF: Report given to YANDEL Ledezma.
--- NOTE | 2018-12-24 19:39 | NUR ---
NURSE NOTES: Received patient from YANDEL Ahumada. Patient resting comfortably in bed, talkative, and alert. No signs of shortness of breath, distress, or pain noted. Patient able to make needs known. IV site checked, intact and patent, no signs of infiltration, bleeding, or redness, NS running at 75 mL/hr. Bed in lowest position, brakes on, side rails up x3, and call light within reach. Will continue with plan of care.
[2018-12-24 20:00] VITALS: BP 156/70
[2018-12-25] VITALS: BP 152/76
[2018-12-25] MEDS: Morphine Sulfate 2mg/ml Inj(IV/IM USE ONLY) IVP PRN ×2 (01:38→04:19)
[2018-12-25] MEDS: Albuterol/Ipratropium 3ml neb HHN PRN ×3 (02:59→22:23)
[2018-12-25 04:00] VITALS: BP 151/73
--- NOTE | 2018-12-25 07:18 | CDS Physician Query ---
Clarification is required for compliance, coding accuracy, and to reflect severity of illness for this patient Dear Dr. Jeison Dee D.O. Date: 12/25/2018 Kiln Worker/CDS Name: Slim Asif The patient is a 73-year-old female, who lives at home, who comes to my office regularly, complaining of left abdominal pain yesterday increasing, slightly weakness, came to [place] [facility], diagnosed with the above, and hypertensive urgency, possible ileus ,and admitted to telemetry for further care. Currently, calm in bed, slight abdominal pain, 08/29 no complaint. BMI: 15kg/m Albumin: 3,3---->2,2 Please select the most appropriate option: [] Protein/Calorie Malnutrition [] Mild [] Moderate [] Severe [] Hypoalbuminemia [] Cachexia [] Underweight [] Intestinal malabsorption [] Other [] Unable to determine [] Not Applicable Present on Admission: [] Yes [] No [] Clinically Undetermined Physician signature Date Please also document in your Progress Notes and/or Discharge Summary and indicate if the condition was present on admission. MTDD
--- NOTE | 2018-12-25 07:27 | Cardiology Report ---
APPROVED REPORT EKG Measurement Heart [id number] Sinus bradycardia Rightward axis Minimal voltage criteria for LVH, may be normal variant Borderline ECG
--- NOTE | 2018-12-25 07:30 | NUR ---
HAND-OFF: Report given to YANDEL Christine. Plan of care endorsed.
[2018-12-25 08:00] VITALS: BP 173/64
[2018-12-25] MEDS: Pantoprazole Inj IV SCH ×2 (08:33→22:04)
[2018-12-25] MEDS: Heparin 5000 units/ml inj SUBQ SCH ×2 (08:38→22:05)
[2018-12-25] MEDS: Docusate 100mg cap ORAL SCH ×2 (08:41→22:04)
--- NOTE | 2018-12-25 08:50 | NUR ---
PT EVALUATION NOTE Patient seen for initial evaluation, see complete evaluation for details. Patient presents with generalized weakness and impaired balance which affects patient's ability to perform mobility tasks safely. Patient required CGA for bed mobility and transfers. Patient declined ambulation due to abdominal pain and headache. Patient impulsive at times which makes patient a fall risk. Patient will benefit from skilled inpatient PT intervention to address strength, balance and safety to improve level of functional mobility including stair training as patient as 3 stairs to access house. Recommend discharge to SNF for short term rehab stay vs home with home PT and family assistance once medically cleared by MD depending on patient's progress. Patient appears to have necessary DME at home. Addendum: 12/25/18 at 1017 by HUSAM FULTON PT Amended: Links added.
--- NOTE | 2018-12-25 09:13 | Consultation ---
History of Present Illness General Date patient seen: Dec 25, 2018 Present Illness Allergies: Coded Allergies: PENICILLINS (Verified Allergy, Unknown, 11/29/18) Uncoded Allergies: PENICILLIN (Allergy, Unknown, 09/01/18) Medication History Scheduled Aspirin* (Aspir 81*), 81 MG ORAL DAILY, (Reported) Gabapentin* (Gabapentin*), 600 MG ORAL TID, (Reported) Metoprolol Tartrate (Metoprolol Tartrate), 25 MG ORAL EVERY 12 HOURS, (Reported) Ranitidine Hcl* (Zantac*), 150 MG ORAL DAILY, (Reported) Tizanidine Hcl* (Zanaflex*), 4 MG ORAL TWICE DAILY , (Reported) Scheduled PRN Albuterol Sulfate (Ventolin Hfa), 2 PUFFS INH EVERY 4 HOURS PRN for Shortness of Breath, (Reported) Hydrocodone Bit/Acetaminophen 5-325* ([place] 5-325*), 1 TAB ORAL DAILY PRN for For Pain, (Reported) Zolpidem Tartrate* (Ambien*), 5 MG ORAL BEDTIME PRN for Insomnia, (Reported) Miscellaneous Medications Ibuprofen* (Motrin*), 600 MG ORAL, (Reported) Discontinued Medications Albuterol Sulfate* (Albuterol Sulfate Hhn*), 3 ML INH Q4H PRN for Shortness of Breath, (Reported) Discontinued Reason: Pt stopped taking med Amlodipine Besylate (Norvasc), 10 MG ORAL DAILY, (Reported) Discontinued Reason: Pt stopped taking med Amoxicillin* (Amoxicillin*), 500 MG ORAL DAILY, (Reported) Discontinued Reason: Pt stopped taking med Aspirin* (Aspirin*), 162 MG ORAL DAILY, (Reported) Discontinued Reason: Pt stopped taking med Benazepril Hcl* (Benazepril Hcl*), 40 MG ORAL TWICE A DAY, (Reported) Discontinued Reason: Pt stopped taking med Hydralazine HCl (Hydralazine HCl), 25 MG PO BID, (Reported) Discontinued Reason: Pt stopped taking med Hydrochlorothiazide* (Hydrochlorothiazide*), 25 MG ORAL DAILY, (Reported) Discontinued Reason: Pt stopped taking med Hydrocodone/Acetaminophen 5-325* (Hydrocodone/Acetaminophen 5-325*), 1 TAB ORAL Q6H PRN for For Pain Discontinued Reason: Pt stopped taking med Omeprazole (Omeprazole), 20 MG ORAL DAILY, (Reported) Discontinued Reason: Pt stopped taking med Patient History Healthcare decision maker Resuscitation status Full Code Advanced Directive on File Physical Exam Last 24 Hour Vital Signs Date Time Temp Pulse Resp B/P (MAP) Pulse Ox O2 Delivery O2 Flow Rate FiO2 12/25/18 08:37 173/64 12/25/18 08:00 98.2 105 20 173/64 (100) 95 12/25/18 04:11 169/69 12/25/18 04:00 80 12/25/18 04:00 98.2 84 18 151/73 (99) 95 12/25/18 02:59 86 19 99 Room Air 21 89 18 96 12/25/18 00:00 73 12/25/18 00:00 98.2 76 18 152/76 (101) 97 12/24/18 23:56 170/70 12/24/18 21:00 Room Air 12/24/18 20:00 71 12/24/18 20:00 98.8 83 18 156/70 (98) 97 12/24/18 17:17 73 16 100 Room Air 21 72 18 97 12/24/18 16:00 81 12/24/18 16:00 97.1 91 18 144/79 (100) 97 12/24/18 12:00 90 12/24/18 09:45 75 18 100 Room Air 21 78 16 98 Intake and Output 12/24/18 12/25/18 19:00 07:00 Intake Total 2009 ml 1106 ml Output Total 500 ml Balance 2010 ml 606 ml Intake Oral 960 ml 320 ml IV Total 1050 ml 786 ml Output Urine Total 500 ml # Voids 6 1 Height (Feet): 5 Height (Inches): 6.00 Weight (Pounds): 93 Medications Current Medications Medications (Trade) Dose Ordered Sig/Arthur Route PRN Reason Start Time Stop Time Status Last Admin Dose Admin Acetaminophen (Tylenol) 650 mg Q4H PRN ORAL T>100.5 12/23/18 15:15 01/22/19 15:14 Al Hydroxide/Mg Hydroxide (Mylanta II) 30 ml Q6H PRN ORAL dyspepsia 12/23/18 15:15 01/22/19 15:14 Albuterol/ Ipratropium (Albuterol/ Ipratropium) 3 ml Q6H PRN HHN Shortness of Breath 12/24/18 07:30 12/29/18 07:29 12/25/18 02:59 Bisacodyl (Dulcolax) 10 mg DAILYPRN PRN RECTAL Constipation 12/23/18 15:15 01/22/19 15:14 Dextrose (Dextrose 50%) 25 ml Q30M PRN IV Hypoglycemia 12/23/18 15:15 01/22/19 15:14 Dextrose (Dextrose 50%) 50 ml Q30M PRN IV Hypoglycemia 12/23/18 15:15 01/22/19 15:14 Diphenhydramine HCl (Benadryl) 25 mg Q6H PRN ORAL Itching/Pruritis 12/23/18 15:15 01/22/19 15:14 12/25/18 02:31 Docusate Sodium (Colace) 100 mg EVERY 12 HOURS ORAL 12/23/18 21:00 01/22/19 20:59 12/25/18 08:41 Heparin Sodium (Porcine) (Heparin 5000 units/ml) 5,000 units EVERY 12 HOURS SUBQ 12/23/18 21:00 01/22/19 20:59 12/25/18 08:38 Hydralazine HCl (Apresoline) 10 mg Q4H PRN IV SBP > 160 mmHg 12/23/18 15:30 01/22/19 15:29 12/25/18 08:37 Ipratropium [place] (Atrovent) 500 mcg Q6H PRN HHN Shortness of Breath 12/24/18 07:30 12/29/18 07:29 Lorazepam (Ativan) 1 mg Q4H PRN ORAL For Anxiety 12/23/18 15:15 12/30/18 15:14 Magnesium Hydroxide (Mom) 30 ml HSPRN PRN ORAL Constipation 12/23/18 15:15 01/22/19 15:14 Morphine Sulfate (Morphine Sulfate) 1 mg Q3H PRN IVP Moderate Pain (Pain Scale 4-6) 12/23/18 15:15 12/30/18 15:14 12/23/18 19:05 Morphine Sulfate (Morphine Sulfate) 2 mg Q3H PRN IVP Severe Pain (Pain Scale 7-10) 12/23/18 15:15 12/30/18 15:14 12/25/18 04:19 Nitroglycerin (Ntg) 0.4 mg Q5MIN X 3 DOSES PRN SL Prn Chest Pain 12/23/18 15:30 01/22/19 15:29 Ondansetron HCl (Zofran) 4 mg Q6H PRN IVP Nausea & Vomiting 12/23/18 15:15 01/22/19 15:14 Pantoprazole (Protonix) 40 mg EVERY 12 HOURS IV 12/23/18 21:00 01/22/19 20:59 12/25/18 08:33 Sodium Chloride 1,000 ml @ 75 mls/hr [id number] IVLG 12/23/18 17:00 01/22/19 16:59 12/25/18 08:43 Temazepam (Restoril) 15 mg HSPRN PRN ORAL Insomnia 12/23/18 21:00 12/30/18 20:59 12/24/18 20:39 Assessment/Plan Assessment/Plan: (1) Multiple Joint Osteoarthritis (2) Multiple Joint Pain seen dictated Shawn Andujar Dec 25, 2018 09:13
[2018-12-25 11:59] VITALS: BP 137/79
[2018-12-25 12:27] LABS: BASOPHILS % (AUTO) 0.6 % (0.0-2.0); EOSINOPHILS % (AUTO) 5.5 % (0.0-3.0); HEMATOCRIT 39.3 % (37.0-47.0); HEMOGLOBIN 12.9 G/DL (12.0-16.0); LYMPHOCYTES % (AUTO) 40.9 % (20.0-45.0); MEAN CORPUSCULAR VOLUME 91 FL (80-99); MONOCYTES % (AUTO) 10.4 % (1.0-10.0); NEUTROPHILS % (AUTO) 42.6 % (45.0-75.0); PLATELET COUNT 180 K/UL (150-450); RED BLOOD COUNT 4.32 M/UL (4.20-5.40); WHITE BLOOD COUNT 6.1 K/UL (4.8-10.8)
[2018-12-25 12:35] LABS: ALANINE AMINOTRANSFERASE 60 U/L (12-78); ALBUMIN 2.5 G/DL (3.4-5.0); ALBUMIN/GLOBULIN RATIO 0.7 (1.0-2.7); ALKALINE PHOSPHATASE 71 U/L (46-116); ANION GAP 8 mmol/L (5-15); ASPARTATE AMINO TRANSFERASE 51 U/L (15-37); BILIRUBIN,TOTAL 0.3 MG/DL (0.2-1.0); BLOOD UREA NITROGEN 11 mg/dL (7-18); CALCIUM 8.5 MG/DL (8.5-10.1); CARBON DIOXIDE 23 MMOL/L (21-32); CHLORIDE 111 MMOL/L (98-107); CREATININE 0.9 MG/DL (0.55-1.30); POTASSIUM 4.2 MMOL/L (3.5-5.1); SODIUM 141 MMOL/L (136-145)
--- NOTE | 2018-12-25 12:49 | Surgery Progress Note ---
Surgery Progress Note Subjective Symptoms: improved, tolerating diet, voiding well, passing flatus, BM, pain decreased Objective Last 24 Hour Vital Signs Date Time Temp Pulse Resp B/P (MAP) Pulse Ox O2 Delivery O2 Flow Rate FiO2 12/25/18 12:47 98.6 12/25/18 11:59 98.6 99 18 137/79 (98) 96 12/25/18 11:56 117 19 100 Room Air 21 115 18 96 12/25/18 09:00 Room Air 12/25/18 08:37 173/64 12/25/18 08:00 97 12/25/18 08:00 98.2 105 20 173/64 (100) 95 12/25/18 07:00 87 16 99 Room Air 21 12/25/18 04:11 169/69 12/25/18 04:00 80 12/25/18 04:00 98.2 84 18 151/73 (99) 95 12/25/18 02:59 86 19 99 Room Air 21 89 18 96 12/25/18 00:00 73 12/25/18 00:00 98.2 76 18 152/76 (101) 97 12/24/18 23:56 170/70 12/24/18 21:00 Room Air 12/24/18 20:00 71 12/24/18 20:00 98.8 83 18 156/70 (98) 97 12/24/18 17:17 73 16 100 Room Air 21 72 18 97 12/24/18 16:00 81 12/24/18 16:00 97.1 91 18 144/79 (100) 97 I&O Intake and Output 12/24/18 12/25/18 19:00 07:00 Intake Total 2009 ml 1106 ml Output Total 500 ml Balance 2010 ml 606 ml Intake Oral 960 ml 320 ml IV Total 1050 ml 786 ml Output Urine Total 500 ml # Voids 6 1 Cardiovascular: RSR Respiratory: clear Abdomen: soft, flat, non-tender, present bowel sounds Extremities: no edema, no tenderness, no cyanosis Laboratory Tests Test 12/25/18 12:05 White Blood Count 6.1 K/UL (4.8-10.8) Red Blood Count 4.32 M/UL (4.20-5.40) Hemoglobin 12.9 G/DL (12.0-16.0) Hematocrit 39.3 % (37.0-47.0) Mean Corpuscular Volume 91 FL (80-99) Mean Corpuscular Hemoglobin 29.9 PG (27.0-31.0) Mean Corpuscular Hemoglobin Concent 32.8 G/DL (32.0-36.0) Red Cell Distribution Width 12.0 % (11.6-14.8) Platelet Count 180 K/UL (150-450) Mean Platelet Volume 7.4 FL (6.5-10.1) Neutrophils (%) (Auto) 42.6 % (45.0-75.0) L Lymphocytes (%) (Auto) 40.9 % (20.0-45.0) Monocytes (%) (Auto) 10.4 % (1.0-10.0) H Eosinophils (%) (Auto) 5.5 % (0.0-3.0) H Basophils (%) (Auto) 0.6 % (0.0-2.0) Sodium Level 141 MMOL/L (136-145) Potassium Level 4.2 MMOL/L (3.5-5.1) Chloride Level 111 MMOL/L (98-107) H Carbon Dioxide Level 23 MMOL/L (21-32) Anion Gap 8 mmol/L (5-15) Blood Urea Nitrogen 11 mg/dL (7-18) Creatinine 0.9 MG/DL (0.55-1.30) Estimat Glomerular Filtration Rate mL/min (>60) Glucose Level 123 MG/DL (74-106) H Calcium Level 8.5 MG/DL (8.5-10.1) Total Bilirubin 0.3 MG/DL (0.2-1.0) Aspartate Amino Transf (AST/SGOT) 51 U/L (15-37) H Alanine Aminotransferase (ALT/SGPT) 60 U/L (12-78) Alkaline Phosphatase 71 U/L (46-116) Total Protein 5.9 G/DL (6.4-8.2) L Albumin 2.5 G/DL (3.4-5.0) L Globulin 3.4 g/dL Albumin/Globulin Ratio 0.7 (1.0-2.7) L Plan Problems: (1) Abdominal pain Assessment & Plan: 73F with acute onset of abdominal pain. no n/v/f/c. labs nml. trop nml exam with mild Left sided discomfort. no peritonitis, no rebound, no guarding. seems to have a lot of social issues as well and c/o pain all over The liver is unremarkable. Doppler interrogation of the main portal vein shows patency with hepatopedal, monophasic flow. There is no biliary ductal dilatation identified. Gallbladder is unremarkable. There is a 1.2 cm cyst demonstrated within the right kidney. There demonstrated part of the pancreas, aorta and IVC show no definite abnormalities. Both kidneys appear unremarkable. There is no hydronephrosis. IMPRESSION: No acute findings Right renal cyst no acute surgical intervention planned okay for diet Rx written AM labs GI consult for EGD to eval PUD PPI breathing treatments d/c planning; should go to snf until improved will follow with exam and recs thank you Geremias Dobson Dec 25, 2018 12:49
--- NOTE | 2018-12-25 12:51 | NUR ---
NURSE NOTES: recvd pt. Pt is alert and AOX4, pt is on room air with no sign of sob or resp distress. IV site is c/d/i and locked. Pt BP> 160. Hydralazine IVP given. Bed in lowest locked position, will continue with plan of care
--- NOTE | 2018-12-25 13:56 | NUR ---
NURSE NOTES: Left message fpr DR Gavin regarding HR 120-130, BP elevated 151/61, awaiting new orders. Dr Dee requested I call Dr Gavin for orders
--- NOTE | 2018-12-25 14:21 | General Progress Note ---
Assessment/Plan Problem List: (1) COPD (chronic obstructive pulmonary disease) ICD Codes: J44.9 - Chronic obstructive pulmonary disease, unspecified SNOMED: 35034922 (2) Lethargy ICD Codes: R53.83 - Other fatigue SNOMED: 052455203 (3) Malnutrition ICD Codes: E46 - Unspecified protein-calorie malnutrition SNOMED: 1238400 (4) Weak ICD Codes: R53.1 - Weakness SNOMED: 79570135 (5) Asthma ICD Codes: J45.909 - Unspecified asthma, uncomplicated SNOMED: 953529856 (6) HTN (hypertension), malignant ICD Codes: I10 - Essential (primary) hypertension SNOMED: 17517047 (7) Abdominal pain ICD Codes: R10.9 - Unspecified abdominal pain SNOMED: 72549482 Qualifiers: Qualified Codes: R10.9 - Unspecified abdominal pain Status: stable, progressing Assessment/Plan: pt diet bp pain control cbc bmp am aru eval Subjective Allergies: Coded Allergies: PENICILLINS (Verified Allergy, Unknown, 11/29/18) Uncoded Allergies: PENICILLIN (Allergy, Unknown, 09/01/18) All Systems: reviewed and negative except above Subjective eating calm w mod general pain Objective Last 24 Hour Vital Signs Date Time Temp Pulse Resp B/P (MAP) Pulse Ox O2 Delivery O2 Flow Rate FiO2 12/25/18 12:47 98.6 12/25/18 12:00 133 12/25/18 11:59 98.6 99 18 137/79 (98) 96 12/25/18 11:56 117 19 100 Room Air 21 115 18 96 12/25/18 09:00 Room Air 12/25/18 08:37 173/64 12/25/18 08:00 97 12/25/18 08:00 98.2 105 20 173/64 (100) 95 12/25/18 07:00 87 16 99 Room Air 21 12/25/18 04:11 169/69 12/25/18 04:00 80 12/25/18 04:00 98.2 84 18 151/73 (99) 95 12/25/18 02:59 86 19 99 Room Air 21 89 18 96 12/25/18 00:00 73 12/25/18 00:00 98.2 76 18 152/76 (101) 97 12/24/18 23:56 170/70 12/24/18 21:00 Room Air 12/24/18 20:00 71 12/24/18 20:00 98.8 83 18 156/70 (98) 97 12/24/18 17:17 73 16 100 Room Air 21 72 18 97 12/24/18 16:00 81 12/24/18 16:00 97.1 91 18 144/79 (100) 97 Intake and Output 12/24/18 12/25/18 19:00 07:00 Intake Total 2009 ml 1106 ml Output Total 500 ml Balance 2009 ml 606 ml Intake Oral 960 ml 320 ml IV Total 1050 ml 786 ml Output Urine Total 500 ml # Voids 6 1 Laboratory Tests 12/25/18 12:05: White Blood Count 6.1, Red Blood Count 4.32, Hemoglobin 12.9, Hematocrit 39.3, Mean Corpuscular Volume 91, Mean Corpuscular Hemoglobin 29.9, Mean Corpuscular Hemoglobin Concent 32.8, Red Cell Distribution Width 12.0, Platelet Count 180, Mean Platelet Volume 7.4, Neutrophils (%) (Auto) 42.6L, Lymphocytes (%) (Auto) 40.9, Monocytes (%) (Auto) 10.4H, Eosinophils (%) (Auto) 5.5H, Basophils (%) ( Auto) 0.6, Sodium Level 141, Potassium Level 4.2, Chloride Level 111H, Carbon Dioxide Level 23, Anion Gap 8, Blood Urea Nitrogen 11, Creatinine 0.9, Estimat Glomerular Filtration Rate , Glucose Level 123H, Calcium Level 8.5, Total Bilirubin 0.3, Aspartate Amino Transf (AST/SGOT) 51H, Alanine Aminotransferase ( ALT/SGPT) 60, Alkaline Phosphatase 71, Total Protein 5.9L, Albumin 2.5L, Globulin 3.4, Albumin/Globulin Ratio 0.7L Height (Feet): 5 Height (Inches): 6.00 Weight (Pounds): 93 General Appearance: lethargic EENT: normal ENT inspection Neck: normal alignment Cardiovascular: normal peripheral pulses, normal rate, regular rhythm Respiratory/Chest: chest wall non-tender, lungs clear, normal breath sounds Abdomen: normal bowel sounds, non tender, soft Extremities: normal inspection Edema: no edema noted Arm (L), no edema noted Arm (R), no edema noted Leg (L), no edema noted Leg (R), no edema noted Pedal (L), no edema noted Pedal (R), no edema noted Generalized Neurologic: responsive, motor weakness Skin: normal pigmentation, warm/dry Jeison Dee DO Dec 25, 2018 14:21
--- NOTE | 2018-12-25 15:08 | NUR ---
NURSE NOTES: Dr Gavin ordered 12 lead EKG and 2decho. called him back to notify EKG shows NSR with HR 88, 2d echo still in progress
[2018-12-25 15:50] VITALS: BP 149/62
--- NOTE | 2018-12-25 19:10 | NUR ---
NURSE NOTES: Received pt from YANDEL Christine. Pt is awake and resting in bed. Tolerating room air, no c/o pain. Bed locked in lowest position, bed alarm on, call light within reach. Will continue with plan of care.
[2018-12-25 20:00] VITALS: BP 159/69
--- NOTE | 2018-12-25 22:15 | Consultation ---
DATE OF CONSULTATION: 12/25/2018 PAIN MANAGEMENT CONSULTATION CONSULTING PHYSICIAN: Ade Pelayo M.D. REFERRING PHYSICIAN: Jeison Dee D.O. PHYSICIAN PRINTED CIRCUIT BOARDS PLASMA ETCHER: Yady Monroe CHIEF COMPLAINT: Generalized body pain. HISTORY OF PRESENT ILLNESS: This is a 73-year-old female who is being seen on the telemetry floor of [facility] for initial pain management consultation. The patient was admitted under the care of Dr. Dee due to abdominal pain, possibly due to peptic ulcer disease, being seen by Dr. 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 She has been complaining of generalized body pain in all the joints and was started on morphine 1 mg to 2 mg IV every 3 hours as needed for moderate to severe pain. The patient reports that the pain is more controlled on the current medication regimen. As an outpatient receives [place] 5/325 mg one tablet every day as needed. We were consulted so that the patient would have adequate pain control while here in the hospital. PAST MEDICAL HISTORY: COPD, hypertension, GERD, hiatal hernia, and congestive heart failure. ALLERGIES: Penicillin. MEDICATIONS: [place], Ambien, Neurontin, metoprolol, Zantac, Zanaflex, and albuterol. SOCIAL HISTORY: Denies smoking tobacco, drinking alcohol, or drug abuse. REVIEW OF SYSTEMS: Denies rash, fever, chills, sweating, dizziness, drowsiness, blurred vision, sore throat, or change in hearing or weight. No nausea or vomiting. No bowel or bladder incontinence. No dysuria. She is complaining of generalized body pain. PHYSICAL EXAMINATION: GENERAL: Alert and oriented. VITAL SIGNS: Blood pressure 173/64, heart rate 75, oxygen saturation 95%, respirations 20, and temperature 98.2 degrees Fahrenheit. HEENT: PERRLA NECK: Range of motion is decreased due to the patient's condition. No tenderness to paracervical muscles. No adenopathy. LUNGS: Decreased breath sounds bilaterally. HEART: S1 and S2 regular. ABDOMEN: Soft, nontender. BACK: Range of motion is decreased in flexion and extension with tenderness to paraspinous muscles, trapezius, and rhomboid muscles. EXTREMITIES: Upper and lower extremity range of motion is decreased due to the patient's condition. No cyanosis. No clubbing. Sensory is reduced. Reflexes are not obtainable. No adenopathy. ASSESSMENT AND PLAN: This is a 73-year-old female with multiple joint osteoarthritis, multiple joint pain. The patient will be continued on morphine as needed. The patient was discussed with Dr. Pelayo and Dr. Pelayo concurred. We will follow the patient. Thank you very much for the courtesy of this consultation. Ade Pelayo M.D. BRIE Monroe DR: DOROTHEA JOB#: [id number] CC:
[2018-12-26] VITALS: BP 138/88
[2018-12-26 04:00] VITALS: BP 147/77
[2018-12-26 06:31] LABS: BASOPHILS % (AUTO) 0.7 % (0.0-2.0); EOSINOPHILS % (AUTO) 4.8 % (0.0-3.0); HEMOGLOBIN 11.8 G/DL (12.0-16.0); LYMPHOCYTES % (AUTO) 50.5 % (20.0-45.0); MEAN CORPUSCULAR VOLUME 91 FL (80-99); MONOCYTES % (AUTO) 8.7 % (1.0-10.0); NEUTROPHILS % (AUTO) 35.4 % (45.0-75.0); PLATELET COUNT 160 K/UL (150-450); RED BLOOD COUNT 3.86 M/UL (4.20-5.40); RED CELL DISTRIBUTION WIDTH 11.6 % (11.6-14.8); WHITE BLOOD COUNT 7.6 K/UL (4.8-10.8)
[2018-12-26 06:33] LABS: ANION GAP 2 mmol/L (5-15); BLOOD UREA NITROGEN 16 mg/dL (7-18); CALCIUM 8.5 MG/DL (8.5-10.1); CARBON DIOXIDE 27 MMOL/L (21-32); CHLORIDE 111 MMOL/L (98-107); CREATININE 0.9 MG/DL (0.55-1.30); SODIUM 140 MMOL/L (136-145)
--- NOTE | 2018-12-26 07:15 | NUR ---
HAND-OFF: Report given to YANDEL Orr. Endorsed plan of care. pt stable resting in bed.
--- NOTE | 2018-12-26 07:36 | NUR ---
NURSE NOTES: Report received from YANDEL Blackman. Pt shows no signs of distress, A+Ox4, denies pain/SOB. Respirations are even and unlabored on room air. IV site is patent and running fluids @ prescribed rate. Bed is at lowest position, brakes engaged, siderails x2, bed alarm on, and call light within reach. Pt is in stable condition at this time; will continue to monitor.
--- NOTE | 2018-12-26 07:58 | Cardiology Progress Note ---
Assessment/Plan Assessment/Plan The patient is seen and examined, full consult note is dictated. Objective Last 24 Hour Vital Signs Date Time Temp Pulse Resp B/P (MAP) Pulse Ox O2 Delivery O2 Flow Rate FiO2 12/26/18 04:00 96 12/26/18 04:00 98.8 96 18 147/77 (100) 98 12/26/18 00:00 98.8 106 20 138/88 (105) 97 12/26/18 00:00 106 12/25/18 22:58 179/72 12/25/18 22:23 87 18 99 Room Air 21 85 18 98 12/25/18 21:00 Room Air 12/25/18 20:00 98.8 83 20 159/69 (99) 98 12/25/18 20:00 83 12/25/18 19:56 85 18 97 Room Air 21 12/25/18 16:00 89 12/25/18 15:50 98.6 90 20 149/62 (91) 97 12/25/18 12:47 98.6 12/25/18 12:00 133 12/25/18 11:59 98.6 99 18 137/79 (98) 96 12/25/18 11:56 117 19 100 Room Air 21 115 18 96 12/25/18 09:00 Room Air 12/25/18 08:37 173/64 12/25/18 08:00 97 12/25/18 08:00 98.2 105 20 173/64 (100) 95 Intake and Output 12/25/18 12/26/18 19:00 07:00 Intake Total 360 ml Output Total 550 ml 1200 ml Balance -190 ml -1200 ml Intake Oral 360 ml Output Urine Total 550 ml 1200 ml # Voids 1 Laboratory Tests Test 12/25/18 12:05 12/26/18 05:41 White Blood Count 6.1 K/UL (4.8-10.8) 7.6 K/UL (4.8-10.8) Red Blood Count 4.32 M/UL (4.20-5.40) 3.86 M/UL (4.20-5.40) L Hemoglobin 12.9 G/DL (12.0-16.0) 11.8 G/DL (12.0-16.0) L Hematocrit 39.3 % (37.0-47.0) 35.0 % (37.0-47.0) L Mean Corpuscular Volume 91 FL (80-99) 91 FL (80-99) Mean Corpuscular Hemoglobin 29.9 PG (27.0-31.0) 30.5 PG (27.0-31.0) Mean Corpuscular Hemoglobin Concent 32.8 G/DL (32.0-36.0) 33.7 G/DL (32.0-36.0) Red Cell Distribution Width 12.0 % (11.6-14.8) 11.6 % (11.6-14.8) Platelet Count 180 K/UL (150-450) 160 K/UL (150-450) Mean Platelet Volume 7.4 FL (6.5-10.1) 7.2 FL (6.5-10.1) Neutrophils (%) (Auto) 42.6 % (45.0-75.0) L 35.4 % (45.0-75.0) L Lymphocytes (%) (Auto) 40.9 % (20.0-45.0) 50.5 % (20.0-45.0) H Monocytes (%) (Auto) 10.4 % (1.0-10.0) H 8.7 % (1.0-10.0) Eosinophils (%) (Auto) 5.5 % (0.0-3.0) H 4.8 % (0.0-3.0) H Basophils (%) (Auto) 0.6 % (0.0-2.0) 0.7 % (0.0-2.0) Sodium Level 141 MMOL/L (136-145) 140 MMOL/L (136-145) Potassium Level 4.2 MMOL/L (3.5-5.1) 4.0 MMOL/L (3.5-5.1) Chloride Level 111 MMOL/L (98-107) H 111 MMOL/L (98-107) H Carbon Dioxide Level 23 MMOL/L (21-32) 27 MMOL/L (21-32) Anion Gap 8 mmol/L (5-15) 2 mmol/L (5-15) L Blood Urea Nitrogen 11 mg/dL (7-18) 16 mg/dL (7-18) Creatinine 0.9 MG/DL (0.55-1.30) 0.9 MG/DL (0.55-1.30) Estimat Glomerular Filtration Rate mL/min (>60) mL/min (>60) Glucose Level 123 MG/DL (74-106) H 109 MG/DL (74-106) H Calcium Level 8.5 MG/DL (8.5-10.1) 8.5 MG/DL (8.5-10.1) Total Bilirubin 0.3 MG/DL (0.2-1.0) Aspartate Amino Transf (AST/SGOT) 51 U/L (15-37) H Alanine Aminotransferase (ALT/SGPT) 60 U/L (12-78) Alkaline Phosphatase 71 U/L (46-116) Total Protein 5.9 G/DL (6.4-8.2) L Albumin 2.5 G/DL (3.4-5.0) L Globulin 3.4 g/dL Albumin/Globulin Ratio 0.7 (1.0-2.7) L Timi Gavin MD Dec 26, 2018 07:58
[2018-12-26] MEDS: Albuterol/Ipratropium 3ml neb HHN PRN ×3 (07:59→21:43)
[2018-12-26 08:00] VITALS: BP 159/77
[2018-12-26] MEDS: Pantoprazole Inj IV SCH ×2 (08:45→20:39)
[2018-12-26] MEDS: Docusate 100mg cap ORAL SCH ×3 (08:46→21:06)
[2018-12-26] MEDS: dilTIAZem HCl CD 180mg cap ORAL SCH (08:46)
[2018-12-26] MEDS: Heparin 5000 units/ml inj SUBQ SCH ×2 (08:47→20:39)
--- NOTE | 2018-12-26 09:04 | General Progress Note ---
Assessment/Plan Assessment/Plan: (1) Multiple Joint Osteoarthritis (2) Multiple Joint Pain Patient will be continued on Morphine D/w Dr. Pelayo and he concurred. Subjective Date patient seen: Dec 26, 2018 Time patient seen: 08:30 - am Constitutional: Reports: weakness HEENT: Reports: no symptoms Cardiovascular: Reports: no symptoms Respiratory: Reports: no symptoms Gastrointestinal/Abdominal: Reports: poor appetite Genitourinary: Reports: no symptoms Neurologic/Psychiatric: Reports: weakness Endocrine: Reports: no symptoms Hematologic/Lymphatic: Reports: no symptoms Allergies: Coded Allergies: PENICILLINS (Verified Allergy, Unknown, 11/29/18) Uncoded Allergies: PENICILLIN (Allergy, Unknown, 09/01/18) Subjective Patient is in bed and showing no signs of pain or distress. Pain has been at a moderate level and tolerated on the Morphine using 2 doses in the last 24hrs. She has no new complaints at this time. Objective Last 24 Hour Vital Signs Date Time Temp Pulse Resp B/P (MAP) Pulse Ox O2 Delivery O2 Flow Rate FiO2 12/26/18 08:46 108 159/77 12/26/18 07:59 75 18 100 Room Air 21 81 18 97 12/26/18 07:59 81 18 97 Room Air 21 12/26/18 04:00 96 12/26/18 04:00 98.8 96 18 147/77 (100) 98 12/26/18 00:00 98.8 106 20 138/88 (105) 97 12/26/18 00:00 106 12/25/18 22:58 179/72 12/25/18 22:23 87 18 99 Room Air 21 85 18 98 12/25/18 21:00 Room Air 12/25/18 20:00 98.8 83 20 159/69 (99) 98 12/25/18 20:00 83 12/25/18 19:56 85 18 97 Room Air 21 12/25/18 16:00 89 12/25/18 15:50 98.6 90 20 149/62 (91) 97 12/25/18 12:47 98.6 12/25/18 12:00 133 12/25/18 11:59 98.6 99 18 137/79 (98) 96 12/25/18 11:56 117 19 100 Room Air 21 115 18 96 Intake and Output 12/25/18 12/26/18 19:00 07:00 Intake Total 360 ml Output Total 550 ml 1200 ml Balance -190 ml -1200 ml Intake Oral 360 ml Output Urine Total 550 ml 1200 ml # Voids 1 Laboratory Tests 12/25/18 12:05: White Blood Count 6.1, Red Blood Count 4.32, Hemoglobin 12.9, Hematocrit 39.3, Mean Corpuscular Volume 91, Mean Corpuscular Hemoglobin 29.9, Mean Corpuscular Hemoglobin Concent 32.8, Red Cell Distribution Width 12.0, Platelet Count 180, Mean Platelet Volume 7.4, Neutrophils (%) (Auto) 42.6L, Lymphocytes (%) (Auto) 40.9, Monocytes (%) (Auto) 10.4H, Eosinophils (%) (Auto) 5.5H, Basophils (%) ( Auto) 0.6, Sodium Level 141, Potassium Level 4.2, Chloride Level 111H, Carbon Dioxide Level 23, Anion Gap 8, Blood Urea Nitrogen 11, Creatinine 0.9, Estimat Glomerular Filtration Rate , Glucose Level 123H, Calcium Level 8.5, Total Bilirubin 0.3, Aspartate Amino Transf (AST/SGOT) 51H, Alanine Aminotransferase ( ALT/SGPT) 60, Alkaline Phosphatase 71, Total Protein 5.9L, Albumin 2.5L, Globulin 3.4, Albumin/Globulin Ratio 0.7L 12/26/18 05:41: White Blood Count 7.6, Red Blood Count 3.86L, Hemoglobin 11.8L, Hematocrit 35.0L , Mean Corpuscular Volume 91, Mean Corpuscular Hemoglobin 30.5, Mean Corpuscular Hemoglobin Concent 33.7, Red Cell Distribution Width 11.6, Platelet Count 160, Mean Platelet Volume 7.2, Neutrophils (%) (Auto) 35.4L, Lymphocytes ( %) (Auto) 50.5H, Monocytes (%) (Auto) 8.7, Eosinophils (%) (Auto) 4.8H, Basophils (%) (Auto) 0.7, Sodium Level 140, Potassium Level 4.0, Chloride Level 111H, Carbon Dioxide Level 27, Anion Gap 2L, Blood Urea Nitrogen 16, Creatinine 0.9, Estimat Glomerular Filtration Rate , Glucose Level 109H, Calcium Level 8.5 Height (Feet): 5 Height (Inches): 6.00 Weight (Pounds): 118 General Appearance: no apparent distress, alert EENT: PERRL/EOMI, normal ENT inspection Neck: non-tender, normal alignment Cardiovascular: normal rate, regular rhythm Respiratory/Chest: decreased breath sounds Abdomen: non tender, soft, tender Extremities: non-tender, normal inspection Edema: no edema noted Generalized Neurologic: alert, oriented x 3 Skin: warm/dry Shawn Andujar Dec 26, 2018 09:04
--- NOTE | 2018-12-26 09:58 | General Progress Note ---
Assessment/Plan Problem List: (1) COPD (chronic obstructive pulmonary disease) ICD Codes: J44.9 - Chronic obstructive pulmonary disease, unspecified SNOMED: 51602958 (2) Lethargy ICD Codes: R53.83 - Other fatigue SNOMED: 539585961 (3) Malnutrition ICD Codes: E46 - Unspecified protein-calorie malnutrition SNOMED: 0689540 (4) Weak ICD Codes: R53.1 - Weakness SNOMED: 59003598 (5) Asthma ICD Codes: J45.909 - Unspecified asthma, uncomplicated SNOMED: 554874382 (6) HTN (hypertension), malignant ICD Codes: I10 - Essential (primary) hypertension SNOMED: 70346487 (7) Abdominal pain ICD Codes: R10.9 - Unspecified abdominal pain SNOMED: 66342139 Qualifiers: Qualified Codes: R10.9 - Unspecified abdominal pain Status: stable, progressing Assessment/Plan: pt diet bp pain control cbc bmp am aru eval Subjective Constitutional: Reports: weakness Allergies: Coded Allergies: PENICILLINS (Verified Allergy, Unknown, 11/29/18) Uncoded Allergies: PENICILLIN (Allergy, Unknown, 09/01/18) All Systems: reviewed and negative except above Subjective eating calm w mod general pain Objective Last 24 Hour Vital Signs Date Time Temp Pulse Resp B/P (MAP) Pulse Ox O2 Delivery O2 Flow Rate FiO2 12/26/18 08:46 108 159/77 12/26/18 08:00 106 12/26/18 08:00 98.6 120 21 159/77 (104) 94 12/26/18 07:59 75 18 100 Room Air 21 81 18 97 12/26/18 07:59 81 18 97 Room Air 21 12/26/18 04:00 96 12/26/18 04:00 98.8 96 18 147/77 (100) 98 12/26/18 00:00 98.8 106 20 138/88 (105) 97 12/26/18 00:00 106 12/25/18 22:58 179/72 12/25/18 22:23 87 18 99 Room Air 21 85 18 98 12/25/18 21:00 Room Air 12/25/18 20:00 98.8 83 20 159/69 (99) 98 12/25/18 20:00 83 12/25/18 19:56 85 18 97 Room Air 21 12/25/18 16:00 89 12/25/18 15:50 98.6 90 20 149/62 (91) 97 12/25/18 12:47 98.6 12/25/18 12:00 133 12/25/18 11:59 98.6 99 18 137/79 (98) 96 12/25/18 11:56 117 19 100 Room Air 21 115 18 96 Intake and Output 12/25/18 12/26/18 19:00 07:00 Intake Total 360 ml Output Total 550 ml 1200 ml Balance -190 ml -1200 ml Intake Oral 360 ml Output Urine Total 550 ml 1200 ml # Voids 1 Laboratory Tests 12/25/18 12:05: White Blood Count 6.1, Red Blood Count 4.32, Hemoglobin 12.9, Hematocrit 39.3, Mean Corpuscular Volume 91, Mean Corpuscular Hemoglobin 29.9, Mean Corpuscular Hemoglobin Concent 32.8, Red Cell Distribution Width 12.0, Platelet Count 180, Mean Platelet Volume 7.4, Neutrophils (%) (Auto) 42.6L, Lymphocytes (%) (Auto) 40.9, Monocytes (%) (Auto) 10.4H, Eosinophils (%) (Auto) 5.5H, Basophils (%) ( Auto) 0.6, Sodium Level 141, Potassium Level 4.2, Chloride Level 111H, Carbon Dioxide Level 23, Anion Gap 8, Blood Urea Nitrogen 11, Creatinine 0.9, Estimat Glomerular Filtration Rate , Glucose Level 123H, Calcium Level 8.5, Total Bilirubin 0.3, Aspartate Amino Transf (AST/SGOT) 51H, Alanine Aminotransferase ( ALT/SGPT) 60, Alkaline Phosphatase 71, Total Protein 5.9L, Albumin 2.5L, Globulin 3.4, Albumin/Globulin Ratio 0.7L 12/26/18 05:41: White Blood Count 7.6, Red Blood Count 3.86L, Hemoglobin 11.8L, Hematocrit 35.0L , Mean Corpuscular Volume 91, Mean Corpuscular Hemoglobin 30.5, Mean Corpuscular Hemoglobin Concent 33.7, Red Cell Distribution Width 11.6, Platelet Count 160, Mean Platelet Volume 7.2, Neutrophils (%) (Auto) 35.4L, Lymphocytes ( %) (Auto) 50.5H, Monocytes (%) (Auto) 8.7, Eosinophils (%) (Auto) 4.8H, Basophils (%) (Auto) 0.7, Sodium Level 140, Potassium Level 4.0, Chloride Level 111H, Carbon Dioxide Level 27, Anion Gap 2L, Blood Urea Nitrogen 16, Creatinine 0.9, Estimat Glomerular Filtration Rate , Glucose Level 109H, Calcium Level 8.5 Height (Feet): 5 Height (Inches): 6.00 Weight (Pounds): 118 General Appearance: lethargic EENT: normal ENT inspection Neck: normal alignment Cardiovascular: normal peripheral pulses, normal rate, regular rhythm Respiratory/Chest: chest wall non-tender, lungs clear, normal breath sounds Abdomen: normal bowel sounds, non tender, soft Extremities: normal inspection Edema: no edema noted Arm (L), no edema noted Arm (R), no edema noted Leg (L), no edema noted Leg (R), no edema noted Pedal (L), no edema noted Pedal (R), no edema noted Generalized Neurologic: responsive, motor weakness Skin: normal pigmentation, warm/dry Jeison Dee DO Dec 26, 2018 09:58
[2018-12-26 12:00] VITALS: BP 167/77
--- NOTE | 2018-12-26 14:29 | NUR ---
NURSE NOTES: Patient became very nauseous and vomited brown emesis. Zofran given.
[2018-12-26 15:48] VITALS: BP 156/69
--- NOTE | 2018-12-26 15:57 | Cardiology Report ---
APPROVED REPORT EKG Measurement Heart [id number] Normal sinus rhythm Minimal voltage criteria for LVH, may be normal variant Possible Anterior infarct, age undetermined Abnormal ECG
--- NOTE | 2018-12-26 16:00 | Consultation ---
DATE OF CONSULTATION: 12/26/2018 CARDIOLOGY CONSULTATION CONSULTING PHYSICIAN: Timi Gavin M.D. REFERRING PHYSICIAN: Jeison Dee D.O. REASON FOR CONSULTATION: Management of tachycardia. HISTORY OF PRESENT ILLNESS: The patient is a very unfortunate 73-year-old lady history of asthma throughout her life who presents to the hospital with left upper quadrant abdominal pain. The patient's cardiovascular history is significant for hypertension. At the time of arrival to this facility, the blood pressure was 251/71 mmHg, heart rate was 85. A 12-lead electrocardiogram in the hospital emergency department shows sinus with right axis deviation and LVH but no acute ischemic changes. In the emergency department, initial troponin I level was 0. ProBNP was 1385. The patient was admitted to telemetry for further evaluation and management. Once arrived to the floor, she was noted to be tachycardia therefore Cardiology consultation was made for evaluation and management of sinus tachycardia as well as management of hypertensive crisis. PAST MEDICAL HISTORY: 1. Significant for hypertension. 2. Asthma. 3. GERD. 4. Neurological disorder including spinal cord injury. LIST OF MEDICATIONS: Ibuprofen 600 mg one tablet 6 to 8 hours, albuterol 2 puff inhalation every four hours as needed for shortness of breath, ranitidine 150 mg p.o. daily, aspirin 81 mg p.o. daily, hydrocodone - acetaminophen 5/325 one tablet p.o. daily as needed for pain, metoprolol 25 mg q.12 hours, Tizanidine 4 mg twice daily, gabapentin 600 mg three times a day, zolpidem 5 mg p.o. at bedtime as needed for insomnia, amoxicillin 500 mg p.o. daily, omeprazole 20 mg p.o. daily, hydralazine 25 mg twice daily, amlodipine 10 mg p.o. daily, benazepril 40 mg p.o. twice daily, hydrochlorothiazide 25 mg p.o. daily. ALLERGIES: Penicillin. FAMILY HISTORY: No premature coronary artery disease in first-degree relatives. SOCIAL HISTORY: Denies any history of tobacco, alcohol, illicit drug use. REVIEW OF SYSTEMS: HEENT: Denies any headache, diplopia, blurred vision. CONSTITUTIONAL: Denies any fever, chills, night sweats, or weight loss. CARDIOVASCULAR: Denies any chest pain, shortness of breath, PND, orthopnea, leg swelling, syncope, or palpitation. PULMONARY: Denies any cough, hemoptysis, wheezing. GASTROINTESTINAL: Complaining of left upper abdominal pain but no nausea vomiting, diarrhea, constipation, or GI bleed. NEUROLOGIC: Denies any motor dysfunction, sensory deficit, or altered speech. PHYSICAL EXAMINATION: VITAL SIGNS: Blood pressure 251/71, respirations of 20, pulse of 85, temperature 98.1 degrees Fahrenheit, O2 sats 100% on room air. GENERAL: The patient is a very frail 73-year-old lady appears to be alert and oriented x4. HEENT: Atraumatic and normocephalic. Anicteric. Pupils are equal, round, reactive to light and accommodation. Extraocular muscles intact. NECK: JVP less than 5 cm. No carotid bruit. Carotid upstroke is 2+ bilaterally. CVS: Normal S1 and S2. Regular rate and rhythm. Tachycardic. No murmurs, gallops, or rubs. PMI is at fourth intercostal space at the midclavicular line. LUNGS: Diminished breath sounds in both lungs with scattered rhonchi bilaterally. ABDOMEN: Soft, nontender, and nondistended. No hepatosplenomegaly. Positive bowel sounds. EXTREMITIES: No evidence of edema, clubbing, or cyanosis. LABORATORY FINDINGS: WBC is 5.7, hemoglobin of 15.9, hematocrit of 47.9, platelet count 153. INR was 1.0. Sodium 140, potassium 4.6, chloride 107, bicarbonate 27, BUN 19, creatinine 1.0, calcium is 9.2, glucose is 109. Troponin I is 0. ProBNP was 1385. Triglycerides 70, cholesterol 146, LDL 57, HDL 82. ASSESSMENT/PLAN: The patient is a very unfortunate 73-year-old female, seen in Cardiology consultation. 1. Sinus tachycardia. This is most likely secondary to hypoxemia as clinical examination was significant for severely decreased breath sounds. Also the patient is receiving breathing treatment which can be associated with tachycardia as one of the adverse effect of breathing treatment. I would like to obtain 2D echocardiography for mostly assessment right atrial and ventricular cavity size, assessment of pulmonary artery pressure, function of right ventricle, also evaluation of left ventricular systolic function. Further therapeutic and diagnostic decision will be based on the results of this test. 2. Hypertension crisis. The patient probably requires a cocktail of blood pressure medication. I would presume in view of underlying asthma, long acting nondihydropyridine calcium channel blockers such as Cardizem in addition to angiotensin receptor blockers, continuation of diuretics that she was on before would suffice. We will continue to monitor the blood pressure response to this regimen. I would like to thank, Dr. Dee, for the courtesy of this consultation. Timi Gavin M.D. DR: Bradley JOB#: [id number] CC:
[2018-12-26] MEDS: Losartan 50mg tab ORAL SCH (16:17)
--- NOTE | 2018-12-26 16:56 | Surgery Progress Note ---
Surgery Progress Note Subjective Symptoms: improved, tolerating diet, voiding well, passing flatus Objective Last 24 Hour Vital Signs Date Time Temp Pulse Resp B/P (MAP) Pulse Ox O2 Delivery O2 Flow Rate FiO2 12/26/18 16:17 156/69 12/26/18 15:48 98.5 89 19 156/69 (98) 96 12/26/18 12:00 98.4 93 19 167/77 (107) 97 12/26/18 12:00 90 12/26/18 09:00 Room Air 12/26/18 08:46 108 159/77 12/26/18 08:00 106 12/26/18 08:00 98.6 120 21 159/77 (104) 94 12/26/18 07:59 75 18 100 Room Air 21 81 18 97 12/26/18 07:59 81 18 97 Room Air 21 12/26/18 04:00 96 12/26/18 04:00 98.8 96 18 147/77 (100) 98 12/26/18 00:00 98.8 106 20 138/88 (105) 97 12/26/18 00:00 106 12/25/18 22:58 179/72 12/25/18 22:23 87 18 99 Room Air 21 85 18 98 12/25/18 21:00 Room Air 12/25/18 20:00 98.8 83 20 159/69 (99) 98 12/25/18 20:00 83 12/25/18 19:56 85 18 97 Room Air 21 I&O Intake and Output 12/25/18 12/26/18 19:00 07:00 Intake Total 360 ml Output Total 550 ml 1200 ml Balance -190 ml -1200 ml Intake Oral 360 ml Output Urine Total 550 ml 1200 ml # Voids 1 Cardiovascular: RSR Respiratory: clear Abdomen: soft, non-tender, present bowel sounds Extremities: no tenderness, no cyanosis Laboratory Tests Test 12/26/18 05:41 White Blood Count 7.6 K/UL (4.8-10.8) Red Blood Count 3.86 M/UL (4.20-5.40) L Hemoglobin 11.8 G/DL (12.0-16.0) L Hematocrit 35.0 % (37.0-47.0) L Mean Corpuscular Volume 91 FL (80-99) Mean Corpuscular Hemoglobin 30.5 PG (27.0-31.0) Mean Corpuscular Hemoglobin Concent 33.7 G/DL (32.0-36.0) Red Cell Distribution Width 11.6 % (11.6-14.8) Platelet Count 160 K/UL (150-450) Mean Platelet Volume 7.2 FL (6.5-10.1) Neutrophils (%) (Auto) 35.4 % (45.0-75.0) L Lymphocytes (%) (Auto) 50.5 % (20.0-45.0) H Monocytes (%) (Auto) 8.7 % (1.0-10.0) Eosinophils (%) (Auto) 4.8 % (0.0-3.0) H Basophils (%) (Auto) 0.7 % (0.0-2.0) Sodium Level 140 MMOL/L (136-145) Potassium Level 4.0 MMOL/L (3.5-5.1) Chloride Level 111 MMOL/L (98-107) H Carbon Dioxide Level 27 MMOL/L (21-32) Anion Gap 2 mmol/L (5-15) L Blood Urea Nitrogen 16 mg/dL (7-18) Creatinine 0.9 MG/DL (0.55-1.30) Estimat Glomerular Filtration Rate mL/min (>60) Glucose Level 109 MG/DL (74-106) H Calcium Level 8.5 MG/DL (8.5-10.1) Plan Problems: (1) Abdominal pain Assessment & Plan: 73F with acute onset of abdominal pain. no n/v/f/c. labs nml. trop nml exam with mild Left sided discomfort. no peritonitis, no rebound, no guarding. seems to have a lot of social issues as well and c/o pain all over The liver is unremarkable. Doppler interrogation of the main portal vein shows patency with hepatopedal, monophasic flow. There is no biliary ductal dilatation identified. Gallbladder is unremarkable. There is a 1.2 cm cyst demonstrated within the right kidney. There demonstrated part of the pancreas, aorta and IVC show no definite abnormalities. Both kidneys appear unremarkable. There is no hydronephrosis. IMPRESSION: No acute findings Right renal cyst no acute surgical intervention planned okay for diet Rx written AM labs GI consult for EGD to eval PUD PPI breathing treatments d/c planning; should go to snf until improved will follow with exam and recs thank you Geremias Dobson Dec 26, 2018 16:56
[2018-12-26] MEDS: Morphine Sulfate 2mg/ml Inj(IV/IM USE ONLY) IVP PRN (18:21)
--- NOTE | 2018-12-26 19:21 | NUR ---
HAND-OFF: Report given to Thiago Beltran. Pt is in stable condition; plan of care endorsed.
--- NOTE | 2018-12-26 19:30 | NUR ---
NURSE NOTES: Received report from YANDEL Orr. Patient is in bed, awake and responsive. Breathing regular with no distress noted at this time. Patient's bed is in lowest position, breaks engaged, call light within reach at all times. Patient's IV is running fluids at prescribed rate. Will continue to monitor.
[2018-12-26 20:00] VITALS: BP 147/79
[2018-12-27] VITALS: BP 160/66
[2018-12-27 04:00] VITALS: BP 136/61
[2018-12-27] MEDS: Morphine Sulfate 2mg/ml Inj(IV/IM USE ONLY) IVP PRN (06:43)
--- NOTE | 2018-12-27 07:27 | NUR ---
NURSE NOTES: Received report from Mell RN's. Patient is in bed, awake and responsive. No distress noted at this time. Bed is in lowest position, breaks engaged for safety, call light within reach at all times. IV is intact, and patent, fluids is running at prescribed rate and patient tolerating well. Will continue with the plan of care.
--- NOTE | 2018-12-27 07:28 | NUR ---
HAND-OFF: Report given to YANDEL Breen. Patient in stable condition. Plan of care endorsed.
[2018-12-27 08:00] VITALS: BP 163/63
[2018-12-27 08:39] LABS: BASOPHILS % (AUTO) 1.8 % (0.0-2.0); EOSINOPHILS % (AUTO) 5.9 % (0.0-3.0); HEMATOCRIT 39.5 % (37.0-47.0); LYMPHOCYTES % (AUTO) 43.6 % (20.0-45.0); MEAN CORPUSCULAR VOLUME 91 FL (80-99); NEUTROPHILS % (AUTO) 41.8 % (45.0-75.0); PLATELET COUNT 146 K/UL (150-450); RED BLOOD COUNT 4.32 M/UL (4.20-5.40); WHITE BLOOD COUNT 6.9 K/UL (4.8-10.8)
[2018-12-27 08:57] LABS: ANION GAP 4 mmol/L (5-15); BLOOD UREA NITROGEN 22 mg/dL (7-18); CALCIUM 8.5 MG/DL (8.5-10.1); CARBON DIOXIDE 28 MMOL/L (21-32); CHLORIDE 110 MMOL/L (98-107); POTASSIUM 4.3 MMOL/L (3.5-5.1); SODIUM 142 MMOL/L (136-145)
[2018-12-27] MEDS: dilTIAZem HCl CD 180mg cap ORAL SCH (09:02)
[2018-12-27] MEDS: Docusate 100mg cap ORAL SCH ×2 (09:02→20:50)
[2018-12-27] MEDS: Pantoprazole Inj IV SCH ×2 (09:03→20:50)
[2018-12-27] MEDS: Losartan 50mg tab ORAL SCH (09:03)
[2018-12-27] MEDS: Heparin 5000 units/ml inj SUBQ SCH ×2 (09:04→20:54)
--- NOTE | 2018-12-27 09:24 | General Progress Note ---
Assessment/Plan Assessment/Plan: (1) Multiple Joint Osteoarthritis (2) Multiple Joint Pain Patient will be continued on Morphine D/w Dr. Pelayo and he concurred. Subjective Date patient seen: Dec 27, 2018 Time patient seen: 08:30 - am Constitutional: Reports: weakness HEENT: Reports: no symptoms Cardiovascular: Reports: no symptoms Respiratory: Reports: no symptoms Gastrointestinal/Abdominal: Reports: no symptoms Genitourinary: Reports: no symptoms Neurologic/Psychiatric: Reports: no symptoms Endocrine: Reports: no symptoms Hematologic/Lymphatic: Reports: no symptoms Allergies: Coded Allergies: PENICILLINS (Verified Allergy, Unknown, 11/29/18) Uncoded Allergies: PENICILLIN (Allergy, Unknown, 09/01/18) Subjective Patient has requested Morphine using 3 doses in the last 24hrs. She has no new complaints at this time. Her pain has been at a mild level. However states her is doing better. Objective Last 24 Hour Vital Signs Date Time Temp Pulse Resp B/P (MAP) Pulse Ox O2 Delivery O2 Flow Rate FiO2 12/27/18 09:03 163/63 12/27/18 09:02 84 163/63 12/27/18 08:00 84 18 98 Room Air 21 12/27/18 04:00 82 12/27/18 04:00 97.9 81 19 136/61 (86) 95 12/27/18 01:00 88 12/27/18 00:00 98.1 97 20 160/66 (97) 96 12/26/18 21:35 86 16 100 Room Air 21 85 16 98 12/26/18 21:34 85 16 98 Room Air 21 12/26/18 21:00 Room Air 12/26/18 20:00 98.1 91 16 147/79 (101) 95 12/26/18 20:00 93 12/26/18 16:17 156/69 12/26/18 16:00 88 12/26/18 15:48 98.5 89 19 156/69 (98) 96 12/26/18 12:00 98.4 93 19 167/77 (107) 97 12/26/18 12:00 90 Intake and Output 12/26/18 12/27/18 18:59 06:59 Intake Total 1145 ml 1004 ml Output Total 1200 ml Balance -55 ml 1004 ml Intake Oral 620 ml 120 ml IV Total 525 ml 884 ml Output Urine Total 1200 ml # Voids 4 Laboratory Tests 12/27/18 07:30: White Blood Count 6.9, Red Blood Count 4.32, Hemoglobin 13.0, Hematocrit 39.5, Mean Corpuscular Volume 91, Mean Corpuscular Hemoglobin 30.1, Mean Corpuscular Hemoglobin Concent 33.0, Red Cell Distribution Width 12.0, Platelet Count 146L, Mean Platelet Volume 6.0L, Neutrophils (%) (Auto) 41.8L, Lymphocytes (%) (Auto) 43.6, Monocytes (%) (Auto) 7.0, Eosinophils (%) (Auto) 5.9H, Basophils (%) (Auto ) 1.8, Sodium Level 142, Potassium Level 4.3, Chloride Level 110H, Carbon Dioxide Level 28, Anion Gap 4L, Blood Urea Nitrogen 22H, Creatinine 1.0, Estimat Glomerular Filtration Rate , Glucose Level 94, Calcium Level 8.5 Height (Feet): 5 Height (Inches): 6.00 Weight (Pounds): 118 General Appearance: no apparent distress, alert EENT: PERRL/EOMI, normal ENT inspection Neck: non-tender, normal alignment Cardiovascular: normal rate, regular rhythm Respiratory/Chest: decreased breath sounds Abdomen: non tender, soft Extremities: non-tender Edema: no edema noted Generalized Neurologic: alert, oriented x 3 Skin: warm/dry Shawn Andujar Dec 27, 2018 09:23
[2018-12-27 11:41] VITALS: BP 128/69
[2018-12-27] MEDS: Albuterol/Ipratropium 3ml neb HHN PRN (12:27)
--- NOTE | 2018-12-27 13:16 | General Progress Note ---
Assessment/Plan Problem List: (1) COPD (chronic obstructive pulmonary disease) ICD Codes: J44.9 - Chronic obstructive pulmonary disease, unspecified SNOMED: 43984504 (2) Lethargy ICD Codes: R53.83 - Other fatigue SNOMED: 635097928 (3) Malnutrition ICD Codes: E46 - Unspecified protein-calorie malnutrition SNOMED: 6966072 (4) Weak ICD Codes: R53.1 - Weakness SNOMED: 26864912 (5) Asthma ICD Codes: J45.909 - Unspecified asthma, uncomplicated SNOMED: 414531663 (6) HTN (hypertension), malignant ICD Codes: I10 - Essential (primary) hypertension SNOMED: 80001080 (7) Abdominal pain ICD Codes: R10.9 - Unspecified abdominal pain SNOMED: 97351553 Qualifiers: Qualified Codes: R10.9 - Unspecified abdominal pain Status: stable, progressing Assessment/Plan: pt diet bp pain control cbc bmp am aru eval Subjective Constitutional: Reports: weakness Allergies: Coded Allergies: PENICILLINS (Verified Allergy, Unknown, 11/29/18) Uncoded Allergies: PENICILLIN (Allergy, Unknown, 09/01/18) All Systems: reviewed and negative except above Subjective eating calm w mod general pain Objective Last 24 Hour Vital Signs Date Time Temp Pulse Resp B/P (MAP) Pulse Ox O2 Delivery O2 Flow Rate FiO2 12/27/18 12:28 85 16 99 Room Air 21 89 20 97 12/27/18 12:27 89 18 97 Room Air 21 12/27/18 12:00 80 12/27/18 11:41 98.4 89 18 128/69 (88) 98 12/27/18 09:03 163/63 12/27/18 09:02 84 163/63 12/27/18 09:00 Room Air 12/27/18 08:00 97.3 81 18 163/63 (96) 95 12/27/18 08:00 84 18 98 Room Air 21 12/27/18 08:00 82 12/27/18 04:00 82 12/27/18 04:00 97.9 81 19 136/61 (86) 95 12/27/18 01:00 88 12/27/18 00:00 98.1 97 20 160/66 (97) 96 12/26/18 21:35 86 16 100 Room Air 21 85 16 98 12/26/18 21:34 85 16 98 Room Air 21 12/26/18 21:00 Room Air 12/26/18 20:00 98.1 91 16 147/79 (101) 95 12/26/18 20:00 93 12/26/18 16:17 156/69 12/26/18 16:00 88 12/26/18 15:48 98.5 89 19 156/69 (98) 96 Intake and Output 12/26/18 12/27/18 19:00 07:00 Intake Total 1220 ml 1004 ml Output Total 1200 ml Balance 20 ml 1004 ml Intake Oral 620 ml 120 ml IV Total 600 ml 884 ml Output Urine Total 1200 ml # Voids 4 Laboratory Tests 12/27/18 07:30: White Blood Count 6.9, Red Blood Count 4.32, Hemoglobin 13.0, Hematocrit 39.5, Mean Corpuscular Volume 91, Mean Corpuscular Hemoglobin 30.1, Mean Corpuscular Hemoglobin Concent 33.0, Red Cell Distribution Width 12.0, Platelet Count 146L, Mean Platelet Volume 6.0L, Neutrophils (%) (Auto) 41.8L, Lymphocytes (%) (Auto) 43.6, Monocytes (%) (Auto) 7.0, Eosinophils (%) (Auto) 5.9H, Basophils (%) (Auto ) 1.8, Sodium Level 142, Potassium Level 4.3, Chloride Level 110H, Carbon Dioxide Level 28, Anion Gap 4L, Blood Urea Nitrogen 22H, Creatinine 1.0, Estimat Glomerular Filtration Rate , Glucose Level 94, Calcium Level 8.5 Height (Feet): 5 Height (Inches): 6.00 Weight (Pounds): 118 General Appearance: lethargic EENT: normal ENT inspection Neck: normal alignment Cardiovascular: normal peripheral pulses, normal rate, regular rhythm Respiratory/Chest: chest wall non-tender, lungs clear, normal breath sounds Abdomen: normal bowel sounds, non tender, soft Extremities: normal inspection Edema: no edema noted Arm (L), no edema noted Arm (R), no edema noted Leg (L), no edema noted Leg (R), no edema noted Pedal (L), no edema noted Pedal (R), no edema noted Generalized Neurologic: responsive, motor weakness Skin: normal pigmentation, warm/dry Jeison Dee 7, 2019 13:16
--- NOTE | 2018-12-27 13:40 | GI Initial Consult Note ---
History of Present Illness General Date patient seen: Dec 27, 2018 Time patient seen: 13:35 Reason for Hospitalization: Abdominal Pain Referring physician: MARTHA ULLOA Reason for Consultation: CONSTIPATION Present Illness HPI Patient is a 73-year-old female presents after increased left upper abdominal pain. Patient reports having sharp pain to the left upper abdomen. This did not radiate. She had prior history of peptic ulcer disease. She has had prior visit to the hospital for similar symptoms in the past. She had previous gastritis. She denies taking any acid blockers. She reports having some small amount of emesis. Denies any bloody stools. Pain did not radiate. She reports having some prior cardiac history.Did not take her hypertensive medication this morning. GI consulted for reported constipation. Patient seen, awake alert oriented x4 no apparent distress. 4 to 5 days ago. Patient has complaint of abdominal discomfort. Reported the patient denied any nausea vomiting patient reported that she taking with no effects no history of endoscopic colonoscopy at this time. Home Meds Reported Medications Ibuprofen* (MOTRIN*) 600 Mg Tablet, 600 MG ORAL, TAB 0 Refills EVERY 6-8 HOURS 12/24/18 Albuterol Sulfate (VENTOLIN HFA) 18 Gm Hfa.aer.ad, 2 PUFFS INH EVERY 4 HOURS PRN for Shortness of Breath, GM 0 Refills 12/24/18 Ranitidine Hcl* (ZANTAC*) 150 Mg Tablet, 150 MG ORAL DAILY for GERD, #30 TAB 0 Refills 12/24/18 Aspirin* (ASPIR 81*) 81 Mg Tablet.dr, 81 MG ORAL DAILY for CARDIOVASC EVENT PPX , TAB 12/24/18 Hydrocodone Bit/Acetaminophen 5-325* (NORCO 5-325*) 1 Each Tablet, 1 TAB ORAL DAILY PRN for For Pain, TAB 0 Refills 12/24/18 Metoprolol Tartrate (Metoprolol Tartrate) 25 Mg Tablet, 25 MG ORAL EVERY 12 HOURS, TAB 11/23/16 Tizanidine Hcl* (ZANAFLEX*) 4 Mg Tablet, 4 MG ORAL TWICE DAILY , #90 TAB 0 Refills 11/20/16 Gabapentin* (GABAPENTIN*) 600 Mg Tablet, 600 MG ORAL TID, TAB 04/05/16 Zolpidem Tartrate* (AMBIEN*) 5 Mg Tablet, 5 MG ORAL BEDTIME PRN for Insomnia, TAB 04/05/16 Discontinued Reported Medications Amoxicillin* (AMOXICILLIN*) 250 Mg/5 Ml Susp.recon, 500 MG ORAL DAILY, #150 ML 12/23/18 Omeprazole (OMEPRAZOLE) 20 Mg Capsule.dr, 20 MG ORAL DAILY, CAP 12/23/18 Hydralazine HCl (Hydralazine HCl) 25 Mg Tablet, 25 MG PO BID, TAB 01/10/17 Aspirin* (ASPIRIN*) 325 Mg Tablet, 162 MG ORAL DAILY, TAB 01/10/17 Amlodipine Besylate (Norvasc) 10 Mg Tablet, 10 MG ORAL DAILY, TAB 11/23/16 Benazepril Hcl* (BENAZEPRIL HCL*) 40 Mg Tablet, 40 MG ORAL TWICE A DAY, TAB 04/05/16 Albuterol Sulfate* (ALBUTEROL SULFATE HHN*) 2.5 Mg/3 Ml Vial.neb, 3 ML INH Q4H PRN for Shortness of Breath, EA 11/18/15 Hydrochlorothiazide* (HYDROCHLOROTHIAZIDE*) 25 Mg Tablet, 25 MG ORAL DAILY, TAB 11/17/15 Discontinued Scripts Hydrocodone/Acetaminophen 5-325* (HYDROCODONE/ACETAMINOPHEN 5-325*) 1 Each Tablet, 1 TAB ORAL Q6H PRN for For Pain, #20 TAB 0 Refills Prov:Gerry Kenyon MD 09/01/18 Med list reviewed/reconciled: Yes Allergies: Coded Allergies: PENICILLINS (Verified Allergy, Unknown, 11/29/18) Uncoded Allergies: PENICILLIN (Allergy, Unknown, 09/01/18) Patient History PMH Narrative Past Medical History: see triage record Now: No Reviewed Nursing Documentation: PMH: Agreed; PSxH: Agreed Nursing Documentation-PMH Past Medical History: No History, Except For Hx Cardiac Problems: Yes Hx Hypertension: Yes Hx Asthma: Yes Hx Diabetes: No Hx Cancer: No Hx Gastrointestinal Problems: Yes Hx Dialysis: No Hx Neurological Problems: Yes Hx Cerebrovascular Accident: No Hx Seizures: No Hx Spinal Cord Injury: Yes Social History: Denies: smoking, alcohol use, drug use, other Review of Systems All Other Systems: negative except mentioned in HPI Physical Exam Vital Signs Date Time Temp Pulse Resp B/P (MAP) Pulse Ox O2 Delivery O2 Flow Rate FiO2 12/23/18 13:37 98.1 85 20 251/71 (130) 100 Room Air 12/23/18 15:28 21 Sp02 EP Interpretation: reviewed, normal Labs Laboratory Tests Test 12/27/18 07:30 White Blood Count 6.9 K/UL (4.8-10.8) Red Blood Count 4.32 M/UL (4.20-5.40) Hemoglobin 13.0 G/DL (12.0-16.0) Hematocrit 39.5 % (37.0-47.0) Mean Corpuscular Volume 91 FL (80-99) Mean Corpuscular Hemoglobin 30.1 PG (27.0-31.0) Mean Corpuscular Hemoglobin Concent 33.0 G/DL (32.0-36.0) Red Cell Distribution Width 12.0 % (11.6-14.8) Platelet Count 146 K/UL (150-450) L Mean Platelet Volume 6.0 FL (6.5-10.1) L Neutrophils (%) (Auto) 41.8 % (45.0-75.0) L Lymphocytes (%) (Auto) 43.6 % (20.0-45.0) Monocytes (%) (Auto) 7.0 % (1.0-10.0) Eosinophils (%) (Auto) 5.9 % (0.0-3.0) H Basophils (%) (Auto) 1.8 % (0.0-2.0) Sodium Level 142 MMOL/L (136-145) Potassium Level 4.3 MMOL/L (3.5-5.1) Chloride Level 110 MMOL/L (98-107) H Carbon Dioxide Level 28 MMOL/L (21-32) Anion Gap 4 mmol/L (5-15) L Blood Urea Nitrogen 22 mg/dL (7-18) H Creatinine 1.0 MG/DL (0.55-1.30) Estimat Glomerular Filtration Rate mL/min (>60) Glucose Level 94 MG/DL (74-106) Calcium Level 8.5 MG/DL (8.5-10.1) General Appearance: well appearing, no apparent distress, alert Head: normocephalic EENT: PERRL/EOMI, normal ENT inspection Neck: supple Respiratory: normal breath sounds, no respiratory distress Cardiovascular: normal rate Gastrointestinal: normal inspection, non tender, soft, normal bowel sounds, non -distended Rectal: deferred Genitourinary: no CVA tenderness Musculoskeletal: normal inspection, back normal, other - Decreased range of motion Neurologic: normal inspection, alert, oriented x3, responsive Psychiatric: normal inspection, judgement/insight normal, memory normal Skin: normal inspection, normal color, no rash, warm/dry, palpation normal, well hydrated Lymphatic: normal inspection, no adenopathy Current Medications Current Medications Medications (Trade) Dose Ordered Sig/Arthur Route PRN Reason Start Time Stop Time Status Last Admin Dose Admin Acetaminophen (Tylenol) 650 mg Q4H PRN ORAL T>100.5 12/23/18 15:15 01/22/19 15:14 12/25/18 12:15 Al Hydroxide/Mg Hydroxide (Mylanta II) 30 ml Q6H PRN ORAL dyspepsia 12/23/18 15:15 01/22/19 15:14 Albuterol/ Ipratropium (Albuterol/ Ipratropium) 3 ml Q6H PRN HHN Shortness of Breath 12/24/18 07:30 12/29/18 07:29 12/27/18 12:27 Bisacodyl (Dulcolax) 10 mg DAILYPRN PRN RECTAL Constipation 12/23/18 15:15 01/22/19 15:14 Dextrose (Dextrose 50%) 25 ml Q30M PRN IV Hypoglycemia 12/23/18 15:15 01/22/19 15:14 Dextrose (Dextrose 50%) 50 ml Q30M PRN IV Hypoglycemia 12/23/18 15:15 01/22/19 15:14 Diltiazem HCl (Cardizem CD) 180 mg DAILY ORAL 12/26/18 09:00 01/25/19 08:59 12/27/18 09:02 Diphenhydramine HCl (Benadryl) 25 mg Q6H PRN ORAL Itching/Pruritis 12/23/18 15:15 01/22/19 15:14 12/25/18 02:31 Docusate Sodium (Colace) 100 mg EVERY 12 HOURS ORAL 12/23/18 21:00 01/22/19 20:59 12/27/18 09:02 Heparin Sodium (Porcine) (Heparin 5000 units/ml) 5,000 units EVERY 12 HOURS SUBQ 12/23/18 21:00 01/22/19 20:59 12/27/18 09:04 Hydralazine HCl (Apresoline) 10 mg Q4H PRN IV SBP > 160 mmHg 12/23/18 15:30 01/22/19 15:29 12/25/18 22:[address] [facility] (Atrovent) 500 mcg Q6H PRN HHN Shortness of Breath 12/24/18 07:30 12/29/18 07:29 Lorazepam (Ativan) 1 mg Q4H PRN ORAL For Anxiety 12/23/18 15:15 12/30/18 15:14 Losartan Potassium (Cozaar) 50 mg DAILY ORAL 12/26/18 16:00 01/25/19 15:59 12/27/18 09:03 Magnesium Hydroxide (Mom) 30 ml HSPRN PRN ORAL Constipation 12/23/18 15:15 01/22/19 15:14 Morphine Sulfate (Morphine Sulfate) 1 mg Q3H PRN IVP Moderate Pain (Pain Scale 4-6) 12/23/18 15:15 12/30/18 15:14 12/27/18 06:43 Morphine Sulfate (Morphine Sulfate) 2 mg Q3H PRN IVP Severe Pain (Pain Scale 7-10) 12/23/18 15:15 12/30/18 15:14 12/26/18 18:21 Nitroglycerin (Ntg) 0.4 mg Q5MIN X 3 DOSES PRN SL Prn Chest Pain 12/23/18 15:30 01/22/19 15:29 Ondansetron HCl (Zofran) 4 mg Q6H PRN IVP Nausea & Vomiting 12/23/18 15:15 01/22/19 15:14 12/26/18 14:17 Pantoprazole (Protonix) 40 mg EVERY 12 HOURS IV 12/23/18 21:00 01/22/19 20:59 12/27/18 09:03 Sodium Chloride 1,000 ml @ 75 mls/hr [id number] IVLG 12/23/18 17:00 01/22/19 16:59 12/27/18 00:13 Temazepam (Restoril) 15 mg HSPRN PRN ORAL Insomnia 12/23/18 21:00 12/30/18 20:59 12/26/18 22:08 GI: Plan Problems: (1) Constipation (2) Abdominal pain (3) Malnutrition Plan Will order Dulcolax suppository x1 continue colace, will add miralax qhs continue current diet ppi given history of PUD zofran prn prn transfusions will follow along with additional recommendations Discussed with Dr. Thomas. Thank you for this patient referral, we will follow. The patient was seen and examined at bedside and all new and available data was reviewed in the patients chart. I agree with the above findings, impression and plan. (Patient seen earlier today. Signature stamp does not reflect patient encounter time.). - [facility] Dec 27, 2018 13:40
[2018-12-27] MEDS ORDERED: Sennosides 8.6mg tab ORAL PRN (13:45)
--- NOTE | 2018-12-27 15:18 | NUR ---
RD ASSESSMENT & RECOMMENDATIONS SEE CARE ACTIVITY FOR COMPLETE ASSESSMENT DAILY ESTIMATED NEEDS: Needs based on Underweight, pulmonary, cardiac/ 49kg 30-35 kcals/kg 1541-8860 total kcals 1-1.5 g protein/kg 49-73 g total protein 25-30 mL/kg 5670-2996 total fluid mLs NUTRITION DIAGNOSIS: Increased kcal/prot needs R/T underweight status as evidenced by pt @ 80% IBW, low BMI per guidelines, pt noted w/ mild-moderate generalized wasting. CURRENT DIET:REGULAR PO DIET RECOMMENDATIONS: LOW NA, BLAND/ texture as tolerated ADDITIONAL RECOMMENDATIONS: 1) Calibrated bedscale or standing wt for est needs 2) Continue Ensure Enlive 1 bottle BID (350kcal/20g prot) 3) MVI x 1 as supplement 4) Monitor PO tolerance and acceptance -> h/o peptic ulcer disease, pt reports abd pain w/ eating [employer]
--- NOTE | 2018-12-27 15:57 | Surgery Progress Note ---
Surgery Progress Note Subjective Additional Comments no acute events wants to have BM. o nly passing flatus suppository today Objective Last 24 Hour Vital Signs Date Time Temp Pulse Resp B/P (MAP) Pulse Ox O2 Delivery O2 Flow Rate FiO2 12/27/18 12:28 85 16 99 Room Air 21 89 20 97 12/27/18 12:27 89 18 97 Room Air 21 12/27/18 12:00 80 12/27/18 11:41 98.4 89 18 128/69 (88) 98 12/27/18 09:03 163/63 12/27/18 09:02 84 163/63 12/27/18 09:00 Room Air 12/27/18 08:00 97.3 81 18 163/63 (96) 95 12/27/18 08:00 84 18 98 Room Air 21 12/27/18 08:00 82 12/27/18 04:00 82 12/27/18 04:00 97.9 81 19 136/61 (86) 95 12/27/18 01:00 88 12/27/18 00:00 98.1 97 20 160/66 (97) 96 12/26/18 21:35 86 16 100 Room Air 21 85 16 98 12/26/18 21:34 85 16 98 Room Air 21 12/26/18 21:00 Room Air 12/26/18 20:00 98.1 91 16 147/79 (101) 95 12/26/18 20:00 93 12/26/18 16:17 156/69 12/26/18 16:00 88 I&O Intake and Output 12/26/18 12/27/18 19:00 07:00 Intake Total 1220 ml 1004 ml Output Total 1200 ml Balance 20 ml 1004 ml Intake Oral 620 ml 120 ml IV Total 600 ml 884 ml Output Urine Total 1200 ml # Voids 4 Dressing: other Wound: other Drains: other Cardiovascular: RSR Respiratory: decreased breath sounds Abdomen: soft, present bowel sounds, non-distended Extremities: no tenderness, no cyanosis Laboratory Tests Test 12/27/18 07:30 White Blood Count 6.9 K/UL (4.8-10.8) Red Blood Count 4.32 M/UL (4.20-5.40) Hemoglobin 13.0 G/DL (12.0-16.0) Hematocrit 39.5 % (37.0-47.0) Mean Corpuscular Volume 91 FL (80-99) Mean Corpuscular Hemoglobin 30.1 PG (27.0-31.0) Mean Corpuscular Hemoglobin Concent 33.0 G/DL (32.0-36.0) Red Cell Distribution Width 12.0 % (11.6-14.8) Platelet Count 146 K/UL (150-450) L Mean Platelet Volume 6.0 FL (6.5-10.1) L Neutrophils (%) (Auto) 41.8 % (45.0-75.0) L Lymphocytes (%) (Auto) 43.6 % (20.0-45.0) Monocytes (%) (Auto) 7.0 % (1.0-10.0) Eosinophils (%) (Auto) 5.9 % (0.0-3.0) H Basophils (%) (Auto) 1.8 % (0.0-2.0) Sodium Level 142 MMOL/L (136-145) Potassium Level 4.3 MMOL/L (3.5-5.1) Chloride Level 110 MMOL/L (98-107) H Carbon Dioxide Level 28 MMOL/L (21-32) Anion Gap 4 mmol/L (5-15) L Blood Urea Nitrogen 22 mg/dL (7-18) H Creatinine 1.0 MG/DL (0.55-1.30) Estimat Glomerular Filtration Rate mL/min (>60) Glucose Level 94 MG/DL (74-106) Calcium Level 8.5 MG/DL (8.5-10.1) Plan Problems: (1) Abdominal pain Assessment & Plan: 73F with acute onset of abdominal pain. no n/v/f/c. labs nml. trop nml exam with mild Left sided discomfort. no peritonitis, no rebound, no guarding. seems to have a lot of social issues as well and c/o pain all over The liver is unremarkable. Doppler interrogation of the main portal vein shows patency with hepatopedal, monophasic flow. There is no biliary ductal dilatation identified. Gallbladder is unremarkable. There is a 1.2 cm cyst demonstrated within the right kidney. There demonstrated part of the pancreas, aorta and IVC show no definite abnormalities. Both kidneys appear unremarkable. There is no hydronephrosis. IMPRESSION: No acute findings Right renal cyst no acute surgical intervention planned okay for diet Rx written AM labs GI consult for EGD to eval PUD PPI breathing treatments d/c planning; should go to snf until improved will follow with exam and recs thank you Geremias Dobson Dec 27, 2018 15:57
[2018-12-27 16:00] VITALS: BP 136/74
--- NOTE | 2018-12-27 19:23 | NUR ---
HAND-OFF: Report given to Mell RN's.Patient is in stable condition.
--- NOTE | 2018-12-27 19:30 | NUR ---
NURSE NOTES: Received report from YANDEL Breen. Patient is awake and responsive. Breathing regular and unlabored with no distress noted at this time. Patient denies any discomfort at this time. IV is intact, running fluids at prescribed rate. Bed is in lowest position, breaks engaged, alarm on, and call light within reach at all times. Will continue to monitor.
[2018-12-27 20:00] VITALS: BP 183/79
[2018-12-27] MEDS ORDERED: Miralax 17gm pkt ORAL SCH (21:00)
--- NOTE | 2018-12-27 21:04 | NUR ---
NURSE NOTES: Patient refuses 2100 Miralax dose, stating, "I already had a big bowel movement and I don't want to have to keep going to the bathroom." Risks and benefits explained; still refusing.
--- NOTE | 2018-12-27 23:55 | Cardiology Progress Note ---
Assessment/Plan Assessment/Plan 1. Sinus tachycardia, improving, 2D echocardiography with normal LV systolic function and RVSP of 17 mmHg. 2. Hypertension crisis, optimize diltiazem and losartan. Subjective Subjective Sinus rhythm at rate of 98. Objective Last 24 Hour Vital Signs Date Time Temp Pulse Resp B/P (MAP) Pulse Ox O2 Delivery O2 Flow Rate FiO2 12/27/18 21:00 Room Air 12/27/18 20:50 183/79 12/27/18 20:00 98.7 98 17 183/79 (113) 96 12/27/18 20:00 86 12/27/18 19:49 90 18 97 Room Air 21 12/27/18 16:00 98.1 93 18 136/74 (94) 97 12/27/18 16:00 93 12/27/18 12:28 85 16 99 Room Air 21 89 20 97 12/27/18 12:27 89 18 97 Room Air 21 12/27/18 12:00 80 12/27/18 11:41 98.4 89 18 128/69 (88) 98 12/27/18 09:03 163/63 12/27/18 09:02 84 163/63 12/27/18 09:00 Room Air 12/27/18 08:00 97.3 81 18 163/63 (96) 95 12/27/18 08:00 84 18 98 Room Air 21 12/27/18 08:00 82 12/27/18 04:00 82 12/27/18 04:00 97.9 81 19 136/61 (86) 95 12/27/18 01:00 88 12/27/18 00:00 98.1 97 20 160/66 (97) 96 Intake and Output 12/26/18 12/27/18 19:00 07:00 Intake Total 1220 ml 1004 ml Output Total 1200 ml Balance 20 ml 1004 ml Intake Oral 620 ml 120 ml IV Total 600 ml 884 ml Output Urine Total 1200 ml # Voids 4 2D Echo: LVEF 70%, Mild LVH, Grade I LVDD, RVSP 17 mmHg, LVOT dynamic obstruction. Laboratory Tests Test 12/27/18 07:30 White Blood Count 6.9 K/UL (4.8-10.8) Red Blood Count 4.32 M/UL (4.20-5.40) Hemoglobin 13.0 G/DL (12.0-16.0) Hematocrit 39.5 % (37.0-47.0) Mean Corpuscular Volume 91 FL (80-99) Mean Corpuscular Hemoglobin 30.1 PG (27.0-31.0) Mean Corpuscular Hemoglobin Concent 33.0 G/DL (32.0-36.0) Red Cell Distribution Width 12.0 % (11.6-14.8) Platelet Count 146 K/UL (150-450) L Mean Platelet Volume 6.0 FL (6.5-10.1) L Neutrophils (%) (Auto) 41.8 % (45.0-75.0) L Lymphocytes (%) (Auto) 43.6 % (20.0-45.0) Monocytes (%) (Auto) 7.0 % (1.0-10.0) Eosinophils (%) (Auto) 5.9 % (0.0-3.0) H Basophils (%) (Auto) 1.8 % (0.0-2.0) Sodium Level 142 MMOL/L (136-145) Potassium Level 4.3 MMOL/L (3.5-5.1) Chloride Level 110 MMOL/L (98-107) H Carbon Dioxide Level 28 MMOL/L (21-32) Anion Gap 4 mmol/L (5-15) L Blood Urea Nitrogen 22 mg/dL (7-18) H Creatinine 1.0 MG/DL (0.55-1.30) Estimat Glomerular Filtration Rate mL/min (>60) Glucose Level 94 MG/DL (74-106) Calcium Level 8.5 MG/DL (8.5-10.1) Objective HEENT: Atraumatic and normocephalic. Anicteric. Pupils are equal, round, reactive to light and accommodation. Extraocular muscles intact. NECK: JVP less than 5 cm. No carotid bruit. Carotid upstroke is 2+ bilaterally. CVS: Normal S1 and S2. Regular rate and rhythm. Tachycardic. No murmurs, gallops, or rubs. PMI is at fourth intercostal space at the midclavicular line. LUNGS: Diminished breath sounds in both lungs with scattered rhonchi bilaterally. ABDOMEN: Soft, nontender, and nondistended. No hepatosplenomegaly. Positive bowel sounds. EXTREMITIES: No evidence of edema, clubbing, or cyanosis. Timi Gavin MD Dec 27, 2018 23:55
[2018-12-28] VITALS: BP 151/70
[2018-12-28] MEDS ORDERED: dilTIAZem HCl CD 120mg cap ORAL ONE (00:15)
[2018-12-28] MEDS ORDERED: Losartan 25mg tab ORAL ONE (00:30)
[2018-12-28 04:00] VITALS: BP 148/66
[2018-12-28 06:41] LABS: BASOPHILS % (AUTO) 0.7 % (0.0-2.0); EOSINOPHILS % (AUTO) 4.7 % (0.0-3.0); HEMATOCRIT 38.7 % (37.0-47.0); HEMOGLOBIN 13.1 G/DL (12.0-16.0); LYMPHOCYTES % (AUTO) 38.5 % (20.0-45.0); MEAN CORPUSCULAR VOLUME 91 FL (80-99); MONOCYTES % (AUTO) 9.9 % (1.0-10.0); NEUTROPHILS % (AUTO) 46.3 % (45.0-75.0); PLATELET COUNT 164 K/UL (150-450); RED BLOOD COUNT 4.28 M/UL (4.20-5.40); RED CELL DISTRIBUTION WIDTH 11.9 % (11.6-14.8); WHITE BLOOD COUNT 10.1 K/UL (4.8-10.8)
[2018-12-28 06:47] LABS: ANION GAP 4 mmol/L (5-15); BLOOD UREA NITROGEN 20 mg/dL (7-18); CALCIUM 8.5 MG/DL (8.5-10.1); CARBON DIOXIDE 28 MMOL/L (21-32); CHLORIDE 109 MMOL/L (98-107); CREATININE 0.8 MG/DL (0.55-1.30); SODIUM 141 MMOL/L (136-145)
--- NOTE | 2018-12-28 07:05 | NUR ---
HAND-OFF: Report given to YANDEL Caba. Patient in stable condition. Plan of care endorsed.
[2018-12-28] MEDS: Albuterol/Ipratropium 3ml neb HHN PRN (07:38)
--- NOTE | 2018-12-28 07:57 | NUR ---
NURSE NOTES: Pt in bed, HoB in semi-fowlers position, pt asking for breathing tx, RT notified as pt reported having SOB, Pt needs bathroom assistance, pt Ox4 calm and cooperative and makes needs known, pt has purewick on, IV running fluids at 75/hr, pt denies pain, no s/s of distress or sob noted.
[2018-12-28 08:00] VITALS: BP 143/61
[2018-12-28] MEDS ORDERED: dilTIAZem HCl CD 180mg cap ORAL SCH (09:00)
[2018-12-28] MEDS ORDERED: Losartan 50mg tab ORAL SCH (09:00)
[2018-12-28] MEDS: Heparin 5000 units/ml inj SUBQ SCH (09:00)
[2018-12-28] MEDS: Docusate 100mg cap ORAL SCH (09:12)
[2018-12-28 09:13] VITALS: BP 143/61
[2018-12-28] MEDS: Pantoprazole Inj IV SCH (09:13)
--- NOTE | 2018-12-28 09:34 | General Progress Note ---
Assessment/Plan Problem List: (1) COPD (chronic obstructive pulmonary disease) ICD Codes: J44.9 - Chronic obstructive pulmonary disease, unspecified SNOMED: 45242961 (2) Lethargy ICD Codes: R53.83 - Other fatigue SNOMED: 372898029 (3) Malnutrition ICD Codes: E46 - Unspecified protein-calorie malnutrition SNOMED: 4924332 (4) Weak ICD Codes: R53.1 - Weakness SNOMED: 95819823 (5) Asthma ICD Codes: J45.909 - Unspecified asthma, uncomplicated SNOMED: 352254155 (6) HTN (hypertension), malignant ICD Codes: I10 - Essential (primary) hypertension SNOMED: 74529265 (7) Abdominal pain ICD Codes: R10.9 - Unspecified abdominal pain SNOMED: 16248855 Qualifiers: Qualified Codes: R10.9 - Unspecified abdominal pain Status: stable, progressing Assessment/Plan: pt diet bp pain control dc w hh if clear Subjective Constitutional: Reports: weakness Allergies: Coded Allergies: PENICILLINS (Verified Allergy, Unknown, 11/29/18) Uncoded Allergies: PENICILLIN (Allergy, Unknown, 09/01/18) All Systems: reviewed and negative except above Subjective eating calm w mod general pain Objective Last 24 Hour Vital Signs Date Time Temp Pulse Resp B/P (MAP) Pulse Ox O2 Delivery O2 Flow Rate FiO2 12/28/18 09:13 143/61 12/28/18 09:12 80 143/61 12/28/18 08:00 98.1 80 20 143/61 (88) 97 12/28/18 07:48 76 18 100 Room Air 21 75 18 96 12/28/18 07:37 74 18 96 Room Air 21 12/28/18 04:00 89 12/28/18 04:00 98.1 94 17 148/66 (93) 96 12/28/18 00:51 151/70 12/28/18 00:50 98 151/70 12/28/18 00:00 98 12/28/18 00:00 98.4 93 16 151/70 (97) 97 12/27/18 21:00 Room Air 12/27/18 20:50 183/79 12/27/18 20:00 98.7 98 17 183/79 (113) 96 12/27/18 20:00 86 12/27/18 19:49 90 18 97 Room Air 21 12/27/18 16:00 98.1 93 18 136/74 (94) 97 12/27/18 16:00 93 12/27/18 12:28 85 16 99 Room Air 21 89 20 97 12/27/18 12:27 89 18 97 Room Air 21 12/27/18 12:00 80 12/27/18 11:41 98.4 89 18 128/69 (88) 98 Intake and Output 12/27/18 12/28/18 18:59 06:59 Intake Total 955 ml 904 ml Output Total 1 ml Balance 955 ml 903 ml Intake Oral 880 ml 100 ml IV Total 75 ml 804 ml Output Urine Total 1 ml # Voids 8 2 # Bowel Movements 3 Laboratory Tests 12/28/18 06:10: White Blood Count 10.1, Red Blood Count 4.28, Hemoglobin 13.1, Hematocrit 38.7, Mean Corpuscular Volume 91, Mean Corpuscular Hemoglobin 30.5, Mean Corpuscular Hemoglobin Concent 33.7, Red Cell Distribution Width 11.9, Platelet Count 164, Mean Platelet Volume 6.9, Neutrophils (%) (Auto) 46.3, Lymphocytes (%) (Auto) 38.5, Monocytes (%) (Auto) 9.9, Eosinophils (%) (Auto) 4.7H, Basophils (%) (Auto ) 0.7, Sodium Level 141, Potassium Level 4.0, Chloride Level 109H, Carbon Dioxide Level 28, Anion Gap 4L, Blood Urea Nitrogen 20H, Creatinine 0.8, Estimat Glomerular Filtration Rate , Glucose Level 98, Calcium Level 8.5 Height (Feet): 5 Height (Inches): 6.00 Weight (Pounds): 118 General Appearance: lethargic EENT: normal ENT inspection Neck: normal alignment Cardiovascular: normal peripheral pulses, normal rate, regular rhythm Respiratory/Chest: chest wall non-tender, lungs clear, normal breath sounds Abdomen: normal bowel sounds, non tender, soft Extremities: normal inspection Edema: no edema noted Arm (L), no edema noted Arm (R), no edema noted Leg (L), no edema noted Leg (R), no edema noted Pedal (L), no edema noted Pedal (R), no edema noted Generalized Neurologic: motor weakness Skin: normal pigmentation, warm/dry Dee,Jeison Chi-Yazmin Dec 28, 2018 09:34
[2018-12-28] MEDS ORDERED: COZAAR100 MG ORAL (11:14)
[2018-12-28] MEDS ORDERED: CARDIZEM CD360 MG PO (11:14)
--- NOTE | 2018-12-28 11:30 | NUR ---
NURSE NOTES: discharge order in place and Md Gavin and Bronson were consulted to see if the patient was cleared for discharge.. they both cleared the pt, pt was given prescription for discharge norco 5 with narcan spray, they were taught on usage and side effects. Pt was given med recon and aftercare plan, pt Ox4 and was taken down to [facility] via wheel chair, daughter was present during discharge instructions both were taught information about follow up care.
--- NOTE | 2018-12-28 14:41 | NUR ---
*-* DISCHARGE PLANNING *-* PATIENT HAS BEEN REFERRED TO: [email or web address] [phone] Work [phone] Work Work Fax
--- NOTE | 2018-12-28 15:23 | General Progress Note ---
Assessment/Plan Status: stable, progressing Assessment/Plan: (1) Constipation (2) Abdominal pain (3) Malnutrition Plan continue colace, will add miralax qhs continue current diet ppi given history of PUD zofran prn prn transfusions will follow along with additional recommendation Subjective ROS Limited/Unobtainable: Yes Allergies: Coded Allergies: PENICILLINS (Verified Allergy, Unknown, 11/29/18) Uncoded Allergies: PENICILLIN (Allergy, Unknown, 09/01/18) Objective Last 24 Hour Vital Signs Date Time Temp Pulse Resp B/P (MAP) Pulse Ox O2 Delivery O2 Flow Rate FiO2 12/28/18 09:55 Room Air 12/28/18 09:13 143/61 12/28/18 09:12 80 143/61 12/28/18 08:00 98.1 80 20 143/61 (88) 97 12/28/18 07:57 90 12/28/18 07:48 76 18 100 Room Air 21 75 18 96 12/28/18 07:37 74 18 96 Room Air 21 12/28/18 04:00 89 12/28/18 04:00 98.1 94 17 148/66 (93) 96 12/28/18 00:51 151/70 12/28/18 00:50 98 151/70 12/28/18 00:00 98 12/28/18 00:00 98.4 93 16 151/70 (97) 97 12/27/18 21:00 Room Air 12/27/18 20:50 183/79 12/27/18 20:00 98.7 98 17 183/79 (113) 96 12/27/18 20:00 86 12/27/18 19:49 90 18 97 Room Air 21 12/27/18 16:00 98.1 93 18 136/74 (94) 97 12/27/18 16:00 93 Intake and Output 12/27/18 12/28/18 19:00 07:00 Intake Total 955 ml 904 ml Output Total 1 ml Balance 955 ml 903 ml Intake Oral 880 ml 100 ml IV Total 75 ml 804 ml Output Urine Total 1 ml # Voids 8 2 # Bowel Movements 3 Laboratory Tests 12/28/18 06:10: White Blood Count 10.1, Red Blood Count 4.28, Hemoglobin 13.1, Hematocrit 38.7, Mean Corpuscular Volume 91, Mean Corpuscular Hemoglobin 30.5, Mean Corpuscular Hemoglobin Concent 33.7, Red Cell Distribution Width 11.9, Platelet Count 164, Mean Platelet Volume 6.9, Neutrophils (%) (Auto) 46.3, Lymphocytes (%) (Auto) 38.5, Monocytes (%) (Auto) 9.9, Eosinophils (%) (Auto) 4.7H, Basophils (%) (Auto ) 0.7, Sodium Level 141, Potassium Level 4.0, Chloride Level 109H, Carbon Dioxide Level 28, Anion Gap 4L, Blood Urea Nitrogen 20H, Creatinine 0.8, Estimat Glomerular Filtration Rate , Glucose Level 98, Calcium Level 8.5 Height (Feet): 5 Height (Inches): 6.00 Weight (Pounds): 118 General Appearance: alert EENT: normal ENT inspection Neck: supple Cardiovascular: normal rate Respiratory/Chest: decreased breath sounds Abdomen: normal bowel sounds, non tender, soft Extremities: non-tender Bradley Thomas MD Dec 28, 2018 15:23
--- NOTE | 2018-12-29 05:00 | Progress Note 2 Sig ---
DATE: 12/28/2018 PAIN MANAGEMENT FOLLOWUP CHIEF COMPLAINT: Generalized body pain. HISTORY OF PRESENT ILLNESS: This is a 73-year-old female, who is being seen on the telemetry floor of [facility] for pain management followup. She is in bed. No signs of pain or distress at this time, is comfortable and reports that her pain has been tolerated well on the current medication regimen of morphine using it as needed having requested one dose of the morphine in the last 24 hours. She is comfortable and is looking forward to be discharged home later today as per Dr. Dee. REVIEW OF SYSTEMS: Denies rash, fever, chills, sweating, dizziness, drowsiness, blurred vision, sore throat, or change in hearing or weight. No nausea or vomiting. No bowel or bladder incontinence. No dysuria. She is complaining of generalized body pain. This is a 73-year-old female with multiple joint osteoarthritis and multiple joint pain. The patient will be continued on morphine here in the hospital. A prescription of [place] 5/325 mg one tablet every 4-6 hours as needed for pain 15 tablets was written for the patient in anticipation for discharge, was advised tofollow up with primary care physician on discharge. The patient was discussed with Dr. Pelayo and Dr. Pelayo concurred. Ade Pelayo M.D. BRIE [address] DR: DOROTHEA JOB#: [id number] CC: [email or web address]
--- NOTE | 2018-12-30 15:39 | Discharge Summary ---
Discharge Summary Discharge Summary _ DATE OF ADMISSION: 12/23/2018 DATE OF DISCHARGE: 12/28/2018 DISCHARGED BY: Dr. Jeison Dee CONSULTANTS: Dr. Neha Dobson [facility] HOSPITAL COURSE: Patient is a 73-year-old female, who lives at home, presented to ED for evaluation of left upper abdominal pain. Pain was described to be sharp and nonradiating. She had prior history of peptic ulcer disease. She denied taking any acid blockers. She reported small amount of emesis. Denied bloody stools. She has past medical history of hypertension. Upon evaluation at ED pressure was 251/71. Blood work did not show any leukocytosis. Hemoglobin and hematocrit were stable. Electrolytes were normal. LFTs normal. Lipase normal. She had a recent CT of the abdomen and pelvis that showed diverticulitis and possible ileus. She was given IV labetalol. Abdominal ultrasound did not show any acute findings. KUB with no acute findings. She was given IV Protonix. She was admitted for evaluation of abdominal pain. Surgeon was consulted. Abdominal exam showed mild left sided discomfort, no peritonitis, no rebound, no guarding. No acute surgical intervention needed. She was started on diet. She was given proton pump inhibitor and bowel regimen by GI. Patient was passing flatulence and bowel movement. She was tolerating diet. Pain management consulted. She was given morphine as needed. Patient had tachycardia, entry level java developer was consulted. Most likely secondary to hypoxemia. Clinical examination showed severely decreased breath sounds. She was given long-acting myv-dexri-qsxuyvmk calcium channel marcy and ELEUTERIO inhibitor. Echocardiogram showed normal LV systolic function with RSVP of 70 mmHg. Diltiazem was increased to 360 mg daily and losartan 100 mg daily. She was eventually cleared for discharge home with home health. FINAL DIAGNOSES: Severe protein calorie malnutrition Hypertensive crisis Sinus tachycardia Constipation Abdominal pain COPD Asthma DISPOSITION: DC home with home health. DISCHARGE MEDICATIONS: Refer to Discharge Medication List. DISCHARGE INSTRUCTIONS: Follow-up in a week. I have been assigned to complete a discharge summary on this account, I was not involved with the patient's management.--SUE Lane Jacqueline Robles NP Dec 30, 2018 15:39
== END 2018-12-28 11:50 | disposition home health service (06) | DRG 383 ==
LOC: EMR 13:56 → EDBEDREQ 14:40 → 2E 14:47 → EDBEDREQSVC 15:02 → EDBEDREQ 15:24
DX: K27.9 Peptic ulcer, site unspecified, unspecified as acute or chronic, without hemorrhage or perforation (principal); E43 Unspecified severe protein-calorie malnutrition; K56.7 Ileus, unspecified; Z88.0 Allergy status to penicillin; I16.0 Hypertensive urgency; R00.0 Tachycardia, unspecified; J44.9 Chronic obstructive pulmonary disease, unspecified; I11.0 Hypertensive heart disease with heart failure; K21.9 Gastro-esophageal reflux disease without esophagitis; M15.9 Polyosteoarthritis, unspecified; T14.8XXD Other injury of unspecified body region, subsequent encounter; K59.00 Constipation, unspecified; R09.02 Hypoxemia; N28.1 Cyst of kidney, acquired; R53.83 Other fatigue; K44.9 Diaphragmatic hernia without obstruction or gangrene
CPT/HCPCS: 36415; 71045; 74018; 76700; 80048; 80053; 80061; 81003; 83036; 83690; 83880; 84484; 85007; 85025; 85610; 85651; 85730; 86140; 93005; 93306; 94640; 94664; 96374; 96375; 99285; J2405; J7030; J7620